=== PATIENT | female | born 1965 | race African-American/Black ===

== ENCOUNTER 2016-12-25 16:50 | Emergency (ER) | payer MEDICARE, MEDICAID ==
[~2016-12-25] VITALS: Ht 165.1 cm; Wt 117.9 kg
[~2016-12-25 16:50] MED LIST: CLON0.5T PO; INSU100V13 SQ; LIPITOR80 MG PO; LISI-334 PO; RISP50DI IM
[2016-12-25] MEDS ORDERED: cloNIDine HCL 0.1 MG TABLET PO ONE (17:15)
--- NOTE | 2016-12-25 17:17 | PHYS DOC ---
Past Medical History Past Medical History: Anxiety, Bipolar, CHF, Diabetes-Type II, Hypertension Additional Past Medical Histor: major depres. disorder w psychosis,flu,vit d deffic.,constipation,dm neuop. Past Surgical History: No Surgical History Alcohol Use: None Drug Use: None Adult General Chief Complaint Chief Complaint: SHORTNESS OF BREATH HPI HPI Patient is a 51 year old female who presents with increased shortness of breath. Patient lives in long term and gets dialysis Saturday however she stated that she did not fill I, dialysis on Saturday so she skipped. Patient also refuses to take blood pressure medication the long term because she doesn't trust the nurses. Patient states she had increasing soreness of breath today at the long term sent her to the emergency room for elevated blood pressures and possible fluid overload. Pertinent exam findings: Regular rate and rhythm without murmurs Lungs clear to auscultation bilaterally without crackles wheeze or rales No peripheral edema ED course: Patient seen and evaluated emergency room CBC, BMP, EKG, chest x-ray was ordered 1658: EKG normal sinus rhythm rate of 85 no STEMI 1824: Discussed CC/HP/PMH with Dr. Lofton and recommends discharge and can dialyze tomorrow and does not need to be emergently dialyzed at this time. He would like to treat the potassium and give the patient strict return precautions and recommend she has to go dialysis tomorrow. 1830: Explained plan with the patient and strongly encourage patient to attend dialysis tomorrow. On reexamination patient's blood pressure is 180/90 and the patient is asymptomatic. Pertinent findings: Potassium of 5.7 MDM: After reviewing the chart, CC/HPI/PMH, physical exam, [lab results], [ radiological results], I do not believe the patient is acutely volume overload requiring emergent dialysis at this time. Discussed case with nephrology who recommended treating the potassium and recommended patient attend dialysis tomorrow for her normal scheduled routine dialysis appointment. Patient is comfortable being discharged. Patient's blood pressure has come down and she is asymptomatic. Patient is stable for discharge. Additional verbal discharge instructions were provided to the patient and that if symptoms get worse or any new symptoms arise that are worrisome to the patient [he/she] is to return to the emergency room immediately Review of Systems Review of Systems GEN: Denies fevers, chills, sweats HEENT: Denies blurred vision, sore throat CV: Denies chest pain RESP: Shortness of air GI: Denies n/v/d NEURO: Denies confusion, dizziness MSK: Denies weakness, joint pain/swelling Current Medications Current Medications Current Medications Medications (Trade) Dose Ordered Sig/Sanchez Start Time Stop Time Status Last Admin Dose Admin Calcium Gluconate (Calcium Gluconate) 1,000 mg 1X ONCE 12/25/16 18:30 12/25/16 18:31 DC 12/25/16 20:00 1,000 MG Clonidine HCl (Catapres) 0.1 mg 1X ONCE 12/25/16 17:15 12/25/16 17:16 DC 12/25/16 17:23 0.1 MG Dextrose (Dextrose 50%-Water Syringe) 25 gm 1X ONCE 12/25/16 18:30 12/25/16 18:31 DC 12/25/16 19:58 25 GM Insulin Human Regular (NovoLIN R VIAL) 10 unit 1X ONCE 12/25/16 18:30 12/25/16 18:31 DC 12/25/16 20:00 10 UNIT Sodium Polystyrene Sulfonate (Kayexalate) 15 gm 1X ONCE 12/25/16 18:30 12/25/16 18:31 DC 12/25/16 19:57 15 GM Sodium Bicarbonate 50 meq 1X ONCE 12/25/16 18:30 12/25/16 18:31 DC 12/25/16 19:53 50 MEQ Allergies Allergies Allergies Coded Allergies Type Severity Reaction Last Updated Verified Milk Containing Products Allergy Intermediate 11/02/15 Yes Penicillins Allergy Intermediate 11/02/15 Yes Physical Exam Physical Exam GEN.: No apparent distress. Alert and oriented. HEENT: Head is normocephalic, atraumatic NECK: Supple. LUNGS: CTAB. HEART: RRR, S1, S2 present. Peripheral pulses intact ABDOMEN: Soft, nontender. Positive bowel sounds. EXTREMITIES: Without any cyanosis. NEUROLOGIC: Normal speech, normal tone PSYCHIATRIC: Normal affect, normal mood. SKIN: No ulcerations Current Patient Data Vital Signs Vital Signs Date Time Temp Pulse Resp B/P (MAP) Pulse Ox O2 Delivery O2 Flow Rate FiO2 12/25/16 20:00 83 20 181/96 (124) 99 Room Air 12/25/16 16:50 97.7 97.7 Lab Values Laboratory Tests Test 12/25/16 17:10 White Blood Count 8.9 x10^3/uL (4.0-11.0) Red Blood Count 4.21 x10^6/uL (3.50-5.40) Hemoglobin 9.8 g/dL (12.0-15.5) L Hematocrit 32.0 % (36.0-47.0) L Mean Corpuscular Volume 76 fL (79-100) L Mean Corpuscular Hemoglobin 23 pg (25-35) L Mean Corpuscular Hemoglobin Concent 31 g/dL (31-37) Red Cell Distribution Width 17.8 % (11.5-14.5) H Platelet Count 275 x10^3/uL (140-400) Neutrophils (%) (Auto) 63 % (31-73) Lymphocytes (%) (Auto) 25 % (24-48) Monocytes (%) (Auto) 8 % (0-9) Eosinophils (%) (Auto) 2 % (0-3) Basophils (%) (Auto) 1 % (0-3) Neutrophils # (Auto) 5.6 x10^3uL (1.8-7.7) Lymphocytes # (Auto) 2.3 x10^3/uL (1.0-4.8) Monocytes # (Auto) 0.7 x10^3/uL (0.0-1.1) Eosinophils # (Auto) 0.2 x10^3/uL (0.0-0.7) Basophils # (Auto) 0.1 x10^3/uL (0.0-0.2) Sodium Level 142 mmol/L (136-145) Potassium Level 5.7 mmol/L (3.5-5.1) H Chloride Level 102 mmol/L (98-107) Carbon Dioxide Level 25 mmol/L (21-32) Anion Gap 15 (6-14) H Blood Urea Nitrogen 80 mg/dL (7-20) H Creatinine 16.5 mg/dL (0.6-1.0) H Estimated GFR (Cockcroft-Gault) 2.8 Glucose Level 85 mg/dL (70-99) Calcium Level 9.1 mg/dL (8.5-10.1) Laboratory Tests 12/25/16 17:10 Laboratory Tests 12/25/16 17:10 EKG EKG [] Radiology/Procedures Radiology/Procedures [] Course & Med Decision Making Course & Med Decision Making Pertinent Labs and Imaging studies reviewed. (See chart for details) [] Dragon Disclaimer Dragon Disclaimer This electronic medical record was generated, in whole or in part, using a voice recognition dictation system. Departure Departure Impression: Primary Impression: ESRD on dialysis Additional Impressions: Hyperkalemia Hypertension Disposition: HOME, SELF-CARE Condition: IMPROVED Referrals: DIANA DURHAM (PCP) Patient Instructions: Dialysis Additional Instructions: Leads follow-up with her family doctor in one to 2 days. Please attend her dialysis appointment tomorrow. Please take your blood pressure medications as prescribed. Problem Qualifiers Additional Impressions: Hypertension Hypertension type: essential hypertension Qualified Codes: I10 - Essential ( primary) hypertension ROSEANNE YAP DO December 25, 2016 17:17
[2016-12-25 17:31] LABS: BASO # 0.1 x10^3/uL (0.0-0.2); BASO % 1 % (0-3); EOS % 2 % (0-3); HEMOGLOBIN 9.8 g/dL (12.0-15.5); LYMPH # 2.3 x10^3/uL (1.0-4.8); LYMPH % 25 % (24-48); MEAN CORPUSCULAR HEMOGLOBIN 23 pg (25-35); MEAN CORPUSCULAR HGB CONC 31 g/dL (31-37); MEAN CORPUSCULAR VOLUME 76 fL (79-100); MONO % 8 % (0-9); NEUT % 63 % (31-73); PLATELET COUNT 275 x10^3/uL (140-400); RED BLOOD COUNT 4.21 x10^6/uL (3.50-5.40); RED CELL DISTRIBUTION WIDTH 17.8 % (11.5-14.5); WHITE BLOOD COUNT 8.9 x10^3/uL (4.0-11.0)
[2016-12-25 17:35] LABS: CALCIUM 9.1 mg/dL (8.5-10.1); CREATININE 16.5 mg/dL (0.6-1.0); GFR 2.8; POTASSIUM 5.7 mmol/L (3.5-5.1)
[2016-12-25] MEDS ORDERED: INSULIN REGULAR 100 UNIT/ML 10ML VIAL. IV ONE (18:30)
[2016-12-25] MEDS ORDERED: SODIUM BICARB ADULT 8.4% 50 MEQ/50 ML DISP.SYRIN. IV ONE (18:30)
[2016-12-25] MEDS ORDERED: DEXTROSE 50% 25 GM / 50ML DISP.SYRIN. IV ONE (18:30)
[2016-12-25] MEDS ORDERED: CALCIUM GLUCONATE 1,000 MG/10 ML VIAL. IVP ONE (18:30)
[2016-12-25] MEDS ORDERED: SODIUM POLYSTYRENE SULFONATE 15 GM/60 ML ORAL.SUSP. PO ONE (18:30)
[2016-12-25 20:00] VITALS: BP 181/96
--- NOTE | 2016-12-26 06:28 | EKG ---
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
--- NOTE | 2016-12-26 09:22 | RAD ---
Indication shortness of air. History of hypertension. Diabetes. Congestive heart failure. PA and lateral views of the chest were obtained. No prior imaging is available. Heart size is normal. There may be some very mild pulmonary vascular congestion. There is volume loss at the lung bases likely reflecting atelectasis or scar. A consolidated pneumonia is not seen. There is no significant pleural fluid. There is no pneumothorax IMPRESSION: Suspect very mild pulmonary vascular congestion. No focal consolidated pneumonia seen. Mild atelectasis at the lung bases
== END 2016-12-25 20:08 | disposition home or self-care (01) ==
LOC: ER 16:50
DX: E11.22 Type 2 diabetes mellitus with diabetic chronic kidney disease (principal); I13.2 Hypertensive heart and chronic kidney disease with heart failure and with stage 5 chronic kidney disease, or end stage renal disease; I50.9 Heart failure, unspecified; N18.6 End stage renal disease; E87.5 Hyperkalemia; E11.40 Type 2 diabetes mellitus with diabetic neuropathy, unspecified; F41.9 Anxiety disorder, unspecified; F31.9 Bipolar disorder, unspecified; Z88.0 Allergy status to penicillin; Z91.011 Allergy to milk products; Z99.2 Dependence on renal dialysis
CPT/HCPCS: 36415; 71020; 80048; 85027; 93005; 96374; 96375; 99285; J0610; J1815; J7042

== ENCOUNTER 2019-04-28 21:44 | Inpatient (IN) | payer MEDICARE, OTHER ==
[~2019-04-28] VITALS: Ht 165.1 cm; Wt 84.1 kg
[2019-04-28] MEDS ORDERED: DEXTROSE 50% 25 GM / 50ML DISP.SYRIN. IV ONE ×2 (22:31→23:00)
--- NOTE | 2019-04-28 22:32 | PHYS DOC ---
Past Medical History Past Medical History: Anxiety, Bipolar, CHF, Diabetes-Type II, Hypertension Additional Past Medical Histor: major depres. disorder w psychosis,flu,vit d deffic.,constipation,dm neuop. Past Surgical History: No Surgical History Alcohol Use: None Drug Use: None Adult General Chief Complaint Chief Complaint: ALTERED MENTAL STATUS HPI HPI 53-year-old female presents to the emergency department with altered mental status, hypoglycemia. Information obtained from EMS as patient is unaware of why she is here. Patient has underlying history of hypertension, diabetes, chronic kidney disease stage III, bipolar, major depressive disorder. She is unable provided information regarding reviews of systems. Patient's blood sugar is currently 58. Review of Systems Review of Systems Unable to obtain patient's reviews of systems given her mental status secondary to hypoglycemia. All other systems were reviewed and found to be within normal limits, except as documented in this note. Current Medications Current Medications Current Medications Medications (Trade) Dose Ordered Sig/Sanchez Start Time Stop Time Status Last Admin Dose Admin Dextrose (Dextrose 50%-Water Syringe) 25 gm 1X ONCE 04/28/19 23:00 04/28/19 23:01 DC Allergies Allergies Allergies Coded Allergies Type Severity Reaction Last Updated Verified Milk Containing Products Allergy Intermediate 11/02/15 Yes Penicillins Allergy Intermediate 11/02/15 Yes haloperidol Allergy Intermediate 04/28/19 Yes Physical Exam Physical Exam Constitutional: Well developed, well nourished, no acute distress, non-toxic appearance. [] HENT: Normocephalic, atraumatic, bilateral external ears normal, oropharynx moist, no oral exudates, nose normal. [] Eyes: PERRLA, EOMI, conjunctiva normal, no discharge. [] Neck: Normal range of motion, no tenderness, supple, no stridor. [] Cardiovascular:Heart rate regular rhythm, no murmur [] Lungs & Thorax: Bilateral breath sounds clear to auscultation [] Abdomen: Bowel sounds normal, soft, no tenderness, no masses, no pulsatile masses. [] Skin: Warm, dry, no erythema, no rash. [] Back: No tenderness, no CVA tenderness. [] Extremities: No tenderness, no cyanosis, no clubbing, ROM intact, no edema. [] Neurologic: Alert and oriented X 3, normal motor function, normal sensory function, no focal deficits noted. [] Psychologic: Affect normal, judgement normal, mood normal. [] Current Patient Data Vital Signs Vital Signs Date Time Temp Pulse Resp B/P (MAP) Pulse Ox O2 Delivery O2 Flow Rate FiO2 04/28/19 23:12 56 20 04/28/19 21:50 133/70 (91) 80 Room Air Lab Values Laboratory Tests Test 04/28/19 21:57 04/28/19 22:00 04/28/19 22:29 04/28/19 22:55 Glucose (Fingerstick) 63 mg/dL (70-99) L 59 mg/dL (70-99) L 193 mg/dL (70-99) H White Blood Count 7.0 x10^3/uL (4.0-11.0) Red Blood Count 3.29 x10^6/uL (3.50-5.40) L Hemoglobin 8.6 g/dL (12.0-15.5) L Hematocrit 27.1 % (36.0-47.0) L Mean Corpuscular Volume 82 fL (79-100) Mean Corpuscular Hemoglobin 26 pg (25-35) Mean Corpuscular Hemoglobin Concent 32 g/dL (31-37) Red Cell Distribution Width 20.9 % (11.5-14.5) H Platelet Count 251 x10^3/uL (140-400) Neutrophils (%) (Auto) 78 % (31-73) H Lymphocytes (%) (Auto) 10 % (24-48) L Monocytes (%) (Auto) 12 % (0-9) H Eosinophils (%) (Auto) 0 % (0-3) Basophils (%) (Auto) 1 % (0-3) Neutrophils # (Auto) 5.5 x10^3/uL (1.8-7.7) Lymphocytes # (Auto) 0.7 x10^3/uL (1.0-4.8) L Monocytes # (Auto) 0.8 x10^3/uL (0.0-1.1) Eosinophils # (Auto) 0.0 x10^3/uL (0.0-0.7) Basophils # (Auto) 0.0 x10^3/uL (0.0-0.2) Platelet Estimate Adequate (ADEQUATE) Polychromasia Occasional Anisocytosis Mod Target Cells Occ Schistocytes Occ Laboratory Tests 04/28/19 22:00 EKG EKG EKG reviewed heart rate 77, no evidence of acute ST elevation pressure, nonurgent EKG[] Interpretation Time: Interpretation time 2234 Radiology/Procedures Radiology/Procedures [] Course & Med Decision Making Course & Med Decision Making Pertinent Labs and Imaging studies reviewed. (See chart for details) []53-year-old female presents to the emergency department with altered mental status, hypoglycemia. Information obtained from EMS as patient is unaware of why she is here. Patient has underlying history of hypertension, diabetes, chronic kidney disease stage III, bipolar, major depressive disorder. She is unable provided information regarding reviews of systems. Patient's blood sugar is currently 58. Patient's blood sugar upon arrival in the 60s, she was given orange juice, repeat reveals a glucose 58, 1 amp of D50 provided. Dragon Disclaimer Dragon Disclaimer This electronic medical record was generated, in whole or in part, using a voice recognition dictation system. Departure Departure Referrals: DIANA DURHAM (PCP) JUVENCIO MORAN MD Apr 28, 2019 22:32
[2019-04-28 22:41] LABS: BASO % 1 % (0-3); EOS % 0 % (0-3); HEMATOCRIT 27.1 % (36.0-47.0); HEMOGLOBIN 8.6 g/dL (12.0-15.5); LYMPH # 0.7 x10^3/uL (1.0-4.8); LYMPH % 10 % (24-48); MEAN CORPUSCULAR HEMOGLOBIN 26 pg (25-35); MEAN CORPUSCULAR HGB CONC 32 g/dL (31-37); MEAN CORPUSCULAR VOLUME 82 fL (79-100); MONO # 0.8 x10^3/uL (0.0-1.1); MONO % 12 % (0-9); NEUT # 5.5 x10^3/uL (1.8-7.7); NEUT % 78 % (31-73); PLATELET COUNT 251 x10^3/uL (140-400); RED BLOOD COUNT 3.29 x10^6/uL (3.50-5.40); RED CELL DISTRIBUTION WIDTH 20.9 % (11.5-14.5)
--- NOTE | 2019-04-28 23:17 | RAD ---
EXAM: CT HEAD WITHOUT CONTRAST. HISTORY: Altered mental status. TECHNIQUE: Computed tomography of the head was performed without intravenous contrast. COMPARISON: None. FINDINGS: There is no intracranial hemorrhage. Hypoattenuation within the periventricular white matter indicates mild chronic microangiopathic change. Prominence of the lateral ventricles and hemispheric sulci indicates mild atrophy. The visualized paranasal sinuses appear clear. The orbits are unremarkable. The temporal bones are unremarkable. The calvarium reveals no suspicious lesions. There are atherosclerotic calcifications of the internal carotid arteries. IMPRESSION: 1. No acute intracranial findings. 2. Mild atrophy and chronic microangiopathic white matter change. *One or more of the following individualized dose reduction techniques were utilized for this examination: 1. Automated exposure control. 2. Adjustment of the mA and/or kV according to patient size. 3. Use of iterative reconstruction technique. Electronically signed by: Merlyn Orlando MD (04/28/2019 11:14 PM) [facility]
[2019-04-28 23:19] LABS: ANISOCYTOSIS MOD; PLT ESTIMATE ADEQUATE (ADEQUATE); POLYCHROMASIA OCCASIONAL; SCHISTOCYTES OCC; TARGET CELLS OCC
--- NOTE | 2019-04-28 23:47 | PHYS DOC ---
Past Medical History Past Medical History: Diabetes-Type II, Renal Failure Additional Past Medical Histor: major depres. disorder w psychosis,flu,vit d deffic.,constipation,dm neuop. Past Surgical History: No Surgical History Alcohol Use: None Drug Use: None Adult General Chief Complaint Chief Complaint: ALTERED MENTAL STATUS HPI HPI 53-year-old female presents to the emergency department with altered mental status, hypoglycemia. Information obtained from EMS as patient is unaware of why she is here. Patient has underlying history of hypertension, diabetes, chronic kidney disease stage III, bipolar, major depressive disorder. She is unable provided information regarding reviews of systems. Patient's blood sugar is currently 58. Review of Systems Review of Systems Unable to obtain patient's reviews of systems given her mental status secondary to hypoglycemia. All other systems were reviewed and found to be within normal limits, except as documented in this note. Current Medications Current Medications Current Medications Medications (Trade) Dose Ordered Sig/Sanchez Start Time Stop Time Status Last Admin Dose Admin Dextrose (Dextrose 50%-Water Syringe) 25 gm 1X ONCE 04/28/19 23:00 04/28/19 23:01 DC 04/28/19 23:25 25 GM Allergies Allergies Allergies Coded Allergies Type Severity Reaction Last Updated Verified Milk Containing Products Allergy Intermediate 11/02/15 Yes Penicillins Allergy Intermediate 11/02/15 Yes haloperidol Allergy Intermediate 04/28/19 Yes Physical Exam Physical Exam Constitutional: Well developed, well nourished, no acute distress, non-toxic appearance. [] HENT: Normocephalic, atraumatic, bilateral external ears normal, oropharynx moist, no oral exudates, nose normal. [] Eyes: PERRLA, EOMI, conjunctiva normal, no discharge. [] Neck: Normal range of motion, no tenderness, supple, no stridor. [] Cardiovascular:Heart rate regular rhythm, no murmur [] Lungs & Thorax: Bilateral breath sounds clear to auscultation [] Abdomen: Bowel sounds normal, soft, no tenderness, no masses, no pulsatile masses. [] Skin: Warm, dry, no erythema, no rash. [] Back: No tenderness, no CVA tenderness. [] Extremities: No tenderness, no cyanosis, no clubbing, ROM intact, no edema. [] Neurologic: Alert and oriented X 3, normal motor function, normal sensory function, no focal deficits noted. [] Psychologic: Affect normal, judgement normal, mood normal. [] Current Patient Data Vital Signs Vital Signs Date Time Temp Pulse Resp B/P (MAP) Pulse Ox O2 Delivery O2 Flow Rate FiO2 04/28/19 23:12 56 20 04/28/19 21:50 133/70 (91) 80 Room Air Lab Values Laboratory Tests Test 04/28/19 21:57 04/28/19 22:00 04/28/19 22:29 04/28/19 22:55 Glucose (Fingerstick) 63 mg/dL (70-99) L 59 mg/dL (70-99) L 193 mg/dL (70-99) H White Blood Count 7.0 x10^3/uL (4.0-11.0) Red Blood Count 3.29 x10^6/uL (3.50-5.40) L Hemoglobin 8.6 g/dL (12.0-15.5) L Hematocrit 27.1 % (36.0-47.0) L Mean Corpuscular Volume 82 fL (79-100) Mean Corpuscular Hemoglobin 26 pg (25-35) Mean Corpuscular Hemoglobin Concent 32 g/dL (31-37) Red Cell Distribution Width 20.9 % (11.5-14.5) H Platelet Count 251 x10^3/uL (140-400) Neutrophils (%) (Auto) 78 % (31-73) H Lymphocytes (%) (Auto) 10 % (24-48) L Monocytes (%) (Auto) 12 % (0-9) H Eosinophils (%) (Auto) 0 % (0-3) Basophils (%) (Auto) 1 % (0-3) Neutrophils # (Auto) 5.5 x10^3/uL (1.8-7.7) Lymphocytes # (Auto) 0.7 x10^3/uL (1.0-4.8) L Monocytes # (Auto) 0.8 x10^3/uL (0.0-1.1) Eosinophils # (Auto) 0.0 x10^3/uL (0.0-0.7) Basophils # (Auto) 0.0 x10^3/uL (0.0-0.2) Platelet Estimate Adequate (ADEQUATE) Polychromasia Occasional Anisocytosis Mod Target Cells Occ Schistocytes Occ Laboratory Tests 04/28/19 22:00 EKG EKG EKG reviewed, sinus tachycardia no evidence of acute ST or T wave change, wide complex, compared to old EKG - changed from 2017 - this may be associated with hyperkalemia] Interpretation Time: 2315 Radiology/Procedures Radiology/Procedures [facility] [address] [place] [address] IMAGING REPORT Signed PATIENT: JAMES BALDERAS ACCOUNT: [id number] : 1965 LOCATION: ER AGE: 53 SEX: F EXAM STATUS: REG ER ORD. PHYSICIAN: JUVENCIO MORAN MD REASON: AMS PROCEDURE: CT HEAD WO CONTRAST EXAM: CT HEAD WITHOUT CONTRAST. HISTORY: Altered mental status. TECHNIQUE: Computed tomography of the head was performed without intravenous contrast. COMPARISON: None. FINDINGS: There is no intracranial hemorrhage. Hypoattenuation within the periventricular white matter indicates mild chronic microangiopathic change. Prominence of the lateral ventricles and hemispheric sulci indicates mild atrophy. The visualized paranasal sinuses appear clear. The orbits are unremarkable. The temporal bones are unremarkable. The calvarium reveals no suspicious lesions. There are atherosclerotic calcifications of the internal carotid arteries. IMPRESSION: 1. No acute intracranial findings. 2. Mild atrophy and chronic microangiopathic white matter change. *One or more of the following individualized dose reduction techniques were utilized for this examination: 1. Automated exposure control. 2. Adjustment of the mA and/or kV according to patient size. 3. Use of iterative reconstruction technique. Electronically signed by: Merlyn Orlando MD (04/28/2019 11:14 PM) [facility] DICTATED and SIGNED BY: TOBY ORLANDO MD DATE: 04/28/194 [] [address] [address] IMAGING REPORT Signed PATIENT: JAMES BALDERAS ACCOUNT: [id number] : 1965 LOCATION: ER AGE: 53 SEX: F EXAM STATUS: REG ER ORD. PHYSICIAN: JUVENCIO MORAN MD REASON: AMS PROCEDURE: CHEST AP ONLY EXAM: CHEST ONE VIEW. HISTORY: Altered mental status. COMPARISON: 12/25/2016. FINDINGS: A frontal view of the chest is obtained. A right-sided pacemaker has its leads in the right atrium and right ventricle. The inspiration is small. Opacities in the lung bases and perihilar regions are consistent with atelectasis or mild pulmonary edema. There is no pneumothorax or pleural effusion. The heart is not enlarged. IMPRESSION: 1. Basilar atelectasis. Correlate for mild pulmonary edema. Electronically signed by: Merlyn Orlando MD (04/28/2019 11:50 PM) [facility] DICTATED and SIGNED BY: TOBY ORLANDO MD DATE: 04/28/19 495 Course & Med Decision Making Course & Med Decision Making Pertinent Labs and Imaging studies reviewed. (See chart for details) []53-year-old female presents to the emergency department with altered mental status, hypoglycemia. Information obtained from EMS as patient is unaware of why she is here. Patient has underlying history of hypertension, diabetes, chronic kidney disease stage III, bipolar, major depressive disorder. She is unable provided information regarding reviews of systems. Patient's blood sugar is currently 58. Patient's blood sugar upon arrival in the 60s, she was given orange juice, repeat reveals a glucose 58, 1 amp of D50 provided. Labs reviewed, potassium 6.9 - changes appreciated and EKG we'll plan medical management with high-dose albuterol, Kayexalate, dextrose/insulin. Consultation with nephrology given hemodialysis - unknown her last was was, patient unsure. Discussed with DR. POWER - will repeat EKG and lab 0200 - if remains elevated, will need HD tonight. EKG has improved - wide complex narrowed and bradycardia resolved. Dragon Disclaimer Dragon Disclaimer This electronic medical record was generated, in whole or in part, using a voice recognition dictation system. Departure Departure Impression: Primary Impression: Altered mental status Additional Impressions: Hypoglycemia Hyperkalemia Disposition: ADMITTED INPATIENT Admitting Physician: OSMIN Condition: IMPROVED Referrals: DIANA DURHAM (PCP) Problem Qualifiers Primary Impression: Altered mental status Altered mental status type: unspecified Qualified Codes: R41.82 - Altered mental status, unspecified JUVENCIO MORAN MD Apr 28, 2019 23:47
--- NOTE | 2019-04-28 23:53 | RAD ---
EXAM: CHEST ONE VIEW. HISTORY: Altered mental status. COMPARISON: 12/25/2016. FINDINGS: A frontal view of the chest is obtained. A right-sided pacemaker has its leads in the right atrium and right ventricle. The inspiration is small. Opacities in the lung bases and perihilar regions are consistent with atelectasis or mild pulmonary edema. There is no pneumothorax or pleural effusion. The heart is not enlarged. IMPRESSION: 1. Basilar atelectasis. Correlate for mild pulmonary edema. Electronically signed by: Merlyn Orlando MD (04/28/2019 11:50 PM) [facility]
[2019-04-29] VITALS (14 sets, daily range): BP systolic 98–140; BP diastolic 34–77
[2019-04-29 00:12] LABS: ALBUMIN 2.9 g/dL (3.4-5.0); ALBUMIN/GLOBULIN RATIO 0.5 (1.0-1.7); CREATININE 14.6 mg/dL (0.6-1.0); GFR 3.2; TOTAL BILIRUBIN 1.2 mg/dL (0.2-1.0); TOTAL PROTEIN 8.3 g/dL (6.4-8.2)
[2019-04-29 00:14] LABS: POTASSIUM 6.9 mmol/L (3.5-5.1)
[2019-04-29] MEDS ORDERED: IV NORMAL SALINE 1000ML BAG 1,000 ML IV SCH (01:00)
[2019-04-29] MEDS ORDERED: INSULIN REGULAR 100 UNIT/ML 3ML VIAL. IV ONE (01:00)
[2019-04-29] MEDS ORDERED: SODIUM POLYSTYRENE SULFON/SORB 15 GM/60 ML ORAL.SUSP PO ONE (01:00)
[2019-04-29] MEDS ORDERED: SODIUM BICARB ADULT 8.4% 50 MEQ/50 ML DISP.SYRIN. IV ONE (01:00)
[2019-04-29] MEDS ORDERED: ONDANSETRON PF 4 MG/2 ML VIAL. IV PRN (01:00)
[2019-04-29] MEDS ORDERED: ALBUTEROL SULFATE 2.5 MG/3 ML NEBU. CONT NEB ONE (01:00)
[2019-04-29] MEDS ORDERED: DEXTROSE 50% 25 GM / 50ML DISP.SYRIN. IV ONE (01:00)
--- NOTE | 2019-04-29 02:30 | NUR ---
Patient admitted to room 112 from ED via cart, accompanied by ED RN. Patient A/O x4, cooperative, denies pain. Patient oriented to ICU routine, room, nursing call light, TV/Bed control, Numeric pain scale, Activity (BR), diet (Renal), Repeat K+ of 6.1, and POC. Patient has left upper arm dialysis fistula with strong bruit and thrill. Patient states she missed her Saturday dialysis run because she "just didn't feel well at all"; last dialysis was on Apr 24. Notified patient she would be receiving dialysis today but time was not known at this time' patient verbalized understanding. Patient's medications reviewed from [facility] paper work. See Admission information and Admission Assessments.
[2019-04-29] MEDS ORDERED: DEXT1DRO7 OP (05:07)
[2019-04-29] MEDS ORDERED: CLOB15CR TP (05:07)
[2019-04-29] MEDS ORDERED: FAMO-63 PO (05:07)
[2019-04-29] MEDS ORDERED: APIX5TAB PO (05:07)
[2019-04-29] MEDS ORDERED: BISA-42 PO (05:07)
[2019-04-29] MEDS ORDERED: AMIO200T4 PO ×2 (05:07)
[2019-04-29] MEDS ORDERED: AMMO225L5 TP (05:07)
[2019-04-29] MEDS ORDERED: FERR325T14 PO (05:07)
[2019-04-29] MEDS ORDERED: HYDR-2761 PO (05:07)
[2019-04-29] MEDS ORDERED: BISA10SU4 RC (05:07)
[2019-04-29] MEDS ORDERED: FOLI1TAB16 PO (05:07)
[2019-04-29] MEDS ORDERED: AMLO5TAB10 PO (05:07)
[2019-04-29] MEDS ORDERED: ASPI81TA50 PO (05:07)
[2019-04-29] MEDS ORDERED: ACET325T9 PO (05:26)
[2019-04-29] MEDS ORDERED: RANO500T2 PO (05:26)
[2019-04-29] MEDS ORDERED: CALC667S PO (05:26)
[2019-04-29] MEDS ORDERED: NITR0.4T22 SL (05:26)
[2019-04-29] MEDS ORDERED: METO25TA4 PO (05:26)
[2019-04-29] MEDS ORDERED: CLON0.5T PO (05:26)
[2019-04-29] MEDS ORDERED: CHOL100013 PO (05:26)
[2019-04-29] MEDS ORDERED: LIDO700A21 TP (05:26)
[2019-04-29] MEDS ORDERED: CALC200T3 PO (05:26)
[2019-04-29] MEDS ORDERED: LOPE-101 PO (05:26)
[2019-04-29] MEDS ORDERED: POLY17PO29 PO (05:26)
[2019-04-29] MEDS ORDERED: ESCITALOPRAM OXA5 MG PO (05:26)
[2019-04-29] MEDS ORDERED: INSU100V13 SQ (05:26)
--- NOTE | 2019-04-29 07:04 | EKG ---
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
[2019-04-29] MEDS ORDERED: IV NORMAL SALINE 1000ML BAG 1,000 ML IV PRN ×2 (07:38)
[2019-04-29] MEDS ORDERED: diphenhydrAMINE 50 MG/ML VIAL IV PRN ×2 (07:45)
[2019-04-29] MEDS ORDERED: ACETAMINOPHEN 500 MG TABLET PO PRN (07:45)
[2019-04-29] MEDS ORDERED: ALBUMIN HUMAN 25% 200 ML IV PRN (07:45)
[2019-04-29] MEDS ORDERED: DIALYSIS PATIENT. MC PRN ×2 (07:45)
[2019-04-29] MEDS ORDERED: LABETALOL 20 MG/4 ML DISP.SYRIN. IVP PRN (07:45)
--- NOTE | 2019-04-29 10:26 | PDOC2 ---
CONSULT Date of Consult Date of Consult DATE: 04/29/19 TIME: 10:08 Reason for Consult Reason for Consult: ESRD, Hyperkalemia , Missed HD Source Source: Chart review, Patient History of Present Illness Reason for Visit: 53-year-old AA female presents to the emergency department with altered mental status, hypoglycemia. Information in ER obtained from EMS as patient was unaware of why she is here. Patient has underlying history of hypertension, diabetes, chronic kidney disease stage III, bipolar, major depressive disorder. Her blood sugar in ED was 58. Labs in ED potassium 6.9 - Paged by ER provider, informed no EKG changes, medical management with high-dose albuterol, Kayexalate, dextrose/insulin in ER and plan to repeat EKG and K Repeat K had improved to 6.1 . No complaints at present . Tolerating Dialysis Past Medical History Cardiovascular: CHF, HTN Heme/Onc: Anemia NOS Renal/: Chronic renal failure Endocrine: Diabetes Past Surgical History Past Surgical History: No pertinent history Family History Family History Poor Historian Family History: Other Social History Social History Poor Historian Current Problem List Problem List Problems Medical Problems: (1) Altered mental status Status: Acute (2) Hypoglycemia Status: Acute Current Medications Current Medications Current Medications Dextrose (Dextrose 50%-Water Syringe) 25 gm STK-MED ONCE IV ; Start 04/28/19 at 22:31; Stop 04/28/19 at 22:31; Status DC Dextrose (Dextrose 50%-Water Syringe) 25 gm 1X ONCE IV Last administered on 04/28/19at 23:25; Start 04/28/19 at 23:00; Stop 04/28/19 at 23:01; Status DC Sodium Bicarbonate (Sodium Bicarb Adult 8.4% Syr) 50 meq 1X ONCE IV Last administered on 04/29/19at 00:33; Start 04/29/19 at 01:00; Stop 04/29/19 at 01:01; Status DC Dextrose (Dextrose 50%-Water Syringe) 25 gm 1X ONCE IV Last administered on 04/29/19at 00:33; Start 04/29/19 at 01:00; Stop 04/29/19 at 01:01; Status DC Insulin Human Regular (HumuLIN R VIAL) 5 unit 1X ONCE IV Last administered on 04/29/19at 00:35; Start 04/29/19 at 01:00; Stop 04/29/19 at 01:01; Status DC Sodium Polystyrene Sulfonate (Kayexalate) 30 gm 1X ONCE PO Last administered on 04/29/19at 00:32; Start 04/29/19 at 01:00; Stop 04/29/19 at 01:01; Status DC Sodium Chloride 1,000 ml @ 1,000 mls/hr Q1H IV Last administered on 04/29/19at 00:30; Start 04/29/19 at 01:00; Stop 04/29/19 at 01:59; Status DC Albuterol Sulfate (Ventolin Neb Soln) 10 mg 1X ONCE CONT NEB Last administered on 04/29/19at 00:35; Start 04/29/19 at 01:00; Stop 04/29/19 at 01:01; Status DC Ondansetron HCl (Zofran) 4 mg PRN Q8HRS PRN IV NAUSEA/VOMITING 1ST CHOICE; Start 04/29/19 at 01:00; Stop 04/30/19 at 00:59 Sodium Chloride 1,000 ml @ 1,000 mls/hr Q1H PRN IV hypotension; Start 04/29/19 at 07:38; Stop 04/29/19 at 13:37 Albumin Human 200 ml @ 200 mls/hr 1X PRN PRN IV Hypotension; Start 04/29/19 at 07:45; Stop 04/29/19 at 13:44 Acetaminophen (Tylenol) 500 mg 1X PRN PRN PO MILD PAIN / TEMP; Start 04/29/19 at 07:45; Stop 04/30/19 at 07:44 Diphenhydramine HCl (Benadryl) 25 mg 1X PRN PRN IV ITCHING; Start 04/29/19 at 07:45; Stop 04/30/19 at 07:44 Diphenhydramine HCl (Benadryl) 25 mg 1X PRN PRN IV ITCHING; Start 04/29/19 at 07:45; Stop 04/30/19 at 07:44 Labetalol HCl (Normodyne Iv Push) 10 mg PRN Q1HR PRN IVP SBP > 180; Start 04/29/19 at 07:45; Stop 04/30/19 at 07:44 Sodium Chloride 1,000 ml @ 400 mls/hr Q2H30M PRN IV PATENCY; Start 04/29/19 at 07:38; Stop 04/29/19 at 19:37 Info (PHARMACY MONITORING -- do not chart) 1 each PRN DAILY PRN MC SEE COMMENTS; Start 04/29/19 at 07:45; Stop 04/29/19 at 07:46; Status DC Info (PHARMACY MONITORING -- do not chart) 1 each PRN DAILY PRN MC SEE COMMENTS; Start 04/29/19 at 07:45 Active Scripts Active Reported Vitamin D (Cholecalciferol (Vitamin D3)) 1,000 Unit Capsule 1 Cap PO DAILY Tylenol (Acetaminophen) 325 Mg Tablet 2 Tab PO PRN Q4HRS Tums (Calcium Carbonate) 200 Mg Tab.chew 4 Tab PO DAILY Ranexa (Ranolazine) 500 Mg Tab.er.12h 1 Tab PO Q12HR Phoslyra (Calcium Acetate) 667 Mg/5 Ml Solution 15 Ml PO TIDAC NITROGLYCERIN SubLingual (Nitroglycerin) 0.4 Mg Tab.subl 0.4 Mg SL PRN Q5MIN PRN Miralax (Polyethylene Glycol 3350) 17 Gm Powd.pack 1 Packet PO BID Metoprolol Tartrate 25 Mg Tablet 1 Tab PO BID Lidocaine PATCH (Lidocaine) 1 Each Adh..patch 1 Each TP DAILY REMOVE AFTER 12 HOURS Lexapro (Escitalopram Oxalate) 5 Mg Tablet 15 Mg PO DAILY Levemir (Insulin Detemir) 100 Unit/1 Ml Vial 15 Unit SQ QHS Klonopin (Clonazepam) 0.5 Mg Tablet 1 Tab PO TID Imodium A-D (Loperamide HCl) 2 Mg Capsule 2 Mg PO PRN Q4HRS PRN Hydrocodone-Apap 5-325 (Hydrocodone Bit/Acetaminophen) 1 Tab Tablet 1 Tab PO PRN Q4HRS PRN Folic Acid 1 Mg Tablet 1 Tab PO DAILY Ferrous Sulfate 325 Mg Tablet 1 Tab PO BID Pepcid (Famotidine) 20 Mg Tablet 20 Mg PO HS Clobetasol Propionate 15 Gm Cream..g. 1 Jomar TP DAILY08 Dulcolax (Bisacodyl) 5 Mg Tablet. 4 Tab PO PRN BID PRN Bisacodyl 10 Mg Supp.rect 10 Mg RC PRN DAILY PRN Aspir-Low (Aspirin) 81 Mg Tablet. 1 Tab PO DAILY Artificial Tears (Dextran 70/Hypromellose) 1 Each Droperette 1 Each OP PRN Q8HRS PRN Eliquis (Apixaban) 5 Mg Tablet 5 Mg PO BID Ammonium Lactate 226 Gm Lotion 1 Gm TP DAILY16 Amlodipine Besylate 5 Mg Tablet 5 Mg PO DAILY Amiodarone Hcl 200 Mg Tablet 2 Tab PO BID Amiodarone Hcl 200 Mg Tablet 1 Tab PO NOON Lipitor (Atorvastatin Calcium) 80 Mg Tablet 1 Tab PO DAILY Allergies Allergies: Coded Allergies: Milk Containing Products (Verified Allergy, Intermediate, 11/02/15) Penicillins (Verified Allergy, Intermediate, 11/02/15) haloperidol (Verified Allergy, Intermediate, 04/28/19) ROS Review of System Per HPI Physical Exam Physical Exam GEN: NAD HEEN: OM moist NECK: Supple CVS: S1S2, RESP: No Acc. Muscle Use GI: BS + ve, Non Tender, : No CVA tenderness, No Suprapubic Tenderness NEURO- Ax O SKIN - No rash Vital Signs Vital Signs Date Time Temp Pulse Resp B/P (MAP) Pulse Ox O2 Delivery O2 Flow Rate FiO2 04/29/19 10:00 60 21 120/63 (82) 96 Room Air 04/29/19 09:00 98.3 98.3 Assessment & Plan ESRD - On HD MWF, at ([facility] ) Seen on HD , tolerating well , continue as ordered , Howie Esquivel HyperKalemia- At presentation 6.9, down to 6.1 with medical management HD today as ordered DM- per primary Anemia- stable Labs Labs Laboratory Tests Test 04/28/19 21:57 04/28/19 22:00 04/28/19 22:29 04/28/19 22:55 Glucose (Fingerstick) 63 mg/dL (70-99) 59 mg/dL (70-99) 193 mg/dL (70-99) White Blood Count 7.0 x10^3/uL (4.0-11.0) Red Blood Count 3.29 x10^6/uL (3.50-5.40) Hemoglobin 8.6 g/dL (12.0-15.5) Hematocrit 27.1 % (36.0-47.0) Mean Corpuscular Volume 82 fL (79-100) Mean Corpuscular Hemoglobin 26 pg (25-35) Mean Corpuscular Hemoglobin Concent 32 g/dL (31-37) Red Cell Distribution Width 20.9 % (11.5-14.5) Platelet Count 251 x10^3/uL (140-400) Neutrophils (%) (Auto) 78 % (31-73) Lymphocytes (%) (Auto) 10 % (24-48) Monocytes (%) (Auto) 12 % (0-9) Eosinophils (%) (Auto) 0 % (0-3) Basophils (%) (Auto) 1 % (0-3) Neutrophils # (Auto) 5.5 x10^3/uL (1.8-7.7) Lymphocytes # (Auto) 0.7 x10^3/uL (1.0-4.8) Monocytes # (Auto) 0.8 x10^3/uL (0.0-1.1) Eosinophils # (Auto) 0.0 x10^3/uL (0.0-0.7) Basophils # (Auto) 0.0 x10^3/uL (0.0-0.2) Platelet Estimate Adequate (ADEQUATE) Polychromasia Occasional Anisocytosis Mod Target Cells Occ Schistocytes Occ Test 04/28/19 23:45 04/29/19 00:02 04/29/19 01:45 04/29/19 04:18 Sodium Level 134 mmol/L (136-145) Potassium Level 6.9 mmol/L (3.5-5.1) 6.1 mmol/L (3.5-5.1) Chloride Level 91 mmol/L (98-107) Carbon Dioxide Level 25 mmol/L (21-32) Anion Gap 18 (6-14) Blood Urea Nitrogen 85 mg/dL (7-20) Creatinine 14.6 mg/dL (0.6-1.0) Estimated GFR (Cockcroft-Gault) 3.2 BUN/Creatinine Ratio 6 (6-20) Glucose Level 192 mg/dL (70-99) Calcium Level 13.0 mg/dL (8.5-10.1) Total Bilirubin 1.2 mg/dL (0.2-1.0) Aspartate Amino Transf (AST/SGOT) 164 U/L (15-37) Alanine Aminotransferase (ALT/SGPT) 164 U/L (14-59) Alkaline Phosphatase 105 U/L (46-116) Total Protein 8.3 g/dL (6.4-8.2) Albumin 2.9 g/dL (3.4-5.0) Albumin/Globulin Ratio 0.5 (1.0-1.7) Glucose (Fingerstick) 185 mg/dL (70-99) 109 mg/dL (70-99) Laboratory Tests Test 04/28/19 21:57 04/28/19 22:00 04/28/19 22:29 04/28/19 22:55 Glucose (Fingerstick) 63 mg/dL (70-99) 59 mg/dL (70-99) 193 mg/dL (70-99) White Blood Count 7.0 x10^3/uL (4.0-11.0) Red Blood Count 3.29 x10^6/uL (3.50-5.40) Hemoglobin 8.6 g/dL (12.0-15.5) Hematocrit 27.1 % (36.0-47.0) Mean Corpuscular Volume 82 fL (79-100) Mean Corpuscular Hemoglobin 26 pg (25-35) Mean Corpuscular Hemoglobin Concent 32 g/dL (31-37) Red Cell Distribution Width 20.9 % (11.5-14.5) Platelet Count 251 x10^3/uL (140-400) Neutrophils (%) (Auto) 78 % (31-73) Lymphocytes (%) (Auto) 10 % (24-48) Monocytes (%) (Auto) 12 % (0-9) Eosinophils (%) (Auto) 0 % (0-3) Basophils (%) (Auto) 1 % (0-3) Neutrophils # (Auto) 5.5 x10^3/uL (1.8-7.7) Lymphocytes # (Auto) 0.7 x10^3/uL (1.0-4.8) Monocytes # (Auto) 0.8 x10^3/uL (0.0-1.1) Eosinophils # (Auto) 0.0 x10^3/uL (0.0-0.7) Basophils # (Auto) 0.0 x10^3/uL (0.0-0.2) Platelet Estimate Adequate (ADEQUATE) Polychromasia Occasional Anisocytosis Mod Target Cells Occ Schistocytes Occ Test 04/28/19 23:45 04/29/19 00:02 04/29/19 01:45 04/29/19 04:18 Sodium Level 134 mmol/L (136-145) Potassium Level 6.9 mmol/L (3.5-5.1) 6.1 mmol/L (3.5-5.1) Chloride Level 91 mmol/L (98-107) Carbon Dioxide Level 25 mmol/L (21-32) Anion Gap 18 (6-14) Blood Urea Nitrogen 85 mg/dL (7-20) Creatinine 14.6 mg/dL (0.6-1.0) Estimated GFR (Cockcroft-Gault) 3.2 BUN/Creatinine Ratio 6 (6-20) Glucose Level 192 mg/dL (70-99) Calcium Level 13.0 mg/dL (8.5-10.1) Total Bilirubin 1.2 mg/dL (0.2-1.0) Aspartate Amino Transf (AST/SGOT) 164 U/L (15-37) Alanine Aminotransferase (ALT/SGPT) 164 U/L (14-59) Alkaline Phosphatase 105 U/L (46-116) Total Protein 8.3 g/dL (6.4-8.2) Albumin 2.9 g/dL (3.4-5.0) Albumin/Globulin Ratio 0.5 (1.0-1.7) Glucose (Fingerstick) 185 mg/dL (70-99) 109 mg/dL (70-99) Review All relevant outside records, renal labs, imaging studies, telemetry/EKG's were reviewed. Images Images 1. Basilar atelectasis. Correlate for mild pulmonary edema. JASON POWER MD Apr 29, 2019 10:26
--- NOTE | 2019-04-29 12:12 | HP ---
ADMIT DATE: 04/29/2019 CHIEF COMPLAINT: "I missed my dialysis," weakness, shortness of breath. HISTORY OF PRESENT ILLNESS: The patient is a pleasant middle-aged female who missed dialysis. She has been on dialysis for 8 years. When we evaluated her in the Emergency Room, she had hyperkalemia, anemia with a hemoglobin of 8.6, potassium was 6.9. She is also very azotemic with a BUN of 85. She also had hypothermia and hypoglycemia. I discussed the case with ER physician. We have admitted her to the ICU where we are dialyzing her. PAST MEDICAL HISTORY: Noncompliance, end-stage renal disease, diabetes, hypertension, major depression, psychosis, constipation. ALLERGIES: MILK, PENICILLIN AND HALDOL. FAMILY HISTORY: Coronary artery disease. SOCIAL HISTORY: She does not drink, smoke or take drugs. MEDICATIONS: Reviewed, please refer to the MRAD. REVIEW OF SYSTEMS: GENERAL: No history of weight change, weakness or fevers. SKIN: No bruising, hair changes or rashes. EYES: No blurred, double or loss of vision. NOSE AND THROAT: No history of nosebleeds, hoarseness or sore throat. HEART: No history of palpitations, chest pain or shortness of breath on exertion. LUNGS: Denies cough, hemoptysis, wheezing or shortness of breath. GASTROINTESTINAL: Denies changes in appetite, nausea, vomiting, diarrhea or constipation. GENITOURINARY: No history of frequency, urgency, hesitancy or nocturia. NEUROLOGIC: Denies history of numbness, tingling, tremor or weakness. PSYCHIATRIC: No history of panic, anxiety or depression. ENDOCRINE: No history of heat or cold intolerance, polyuria or polydipsia. EXTREMITIES: Denies muscle weakness, joint pain, pain on walking or stiffness. PHYSICAL EXAMINATION: VITALS: Within normal limits and are stable. GENERAL: No apparent distress. Alert and oriented. HEENT: Head is normocephalic, atraumatic, pupils were equally round and reactive to light and accommodation. NECK: Supple, no JVD, no thyromegaly was noted. LUNGS: Clear to auscultation in all lung sen without rhonchi or wheezing. HEART: RRR, S1, S2 present. Peripheral pulses intact, no obvious murmurs were noted. ABDOMEN: Soft, nontender. Positive bowel sounds no organomegaly, normal bowel sounds. EXTREMITIES: Without any cyanosis, clubbing, or edema. Pedal pulses intact, Homans sign is negative. NEUROLOGIC: Normal speech, normal tone. A & O x3, moves all extremities, no obvious focal deficits. PSYCHIATRIC: Normal affect, normal mood. Stable. SKIN: No ulcerations or rashes, good skin turgor, no jaundice. VASCULAR: Good capillary refill, neurovascular bundle appears to be intact. LABORATORY DATA: Potassium 6.9. ASSESSMENT AND PLAN: Severe hyperkalemia, hypothermic, hyperglycemia, and anemia. The patient will be admitted. We will consult Nephrology and we have her on dialysis currently. Frequent labs. Electrolyte protocol. DVT prophylaxis. Home meds. PROGNOSIS: Guarded. SERGEI PALACIOS DO DR: NARCISO/melissa JOB#: [id number] / [id number]
--- NOTE | 2019-04-29 13:33 | NUR ---
[id number] Dialysis nurse in, 3h run w/o complications. Post dialysis loss 2.5 liters. Fidgety on dialysis and after. IV Benadryl x1 per dialysis for c/o "itching" w procedure. Ticks/mannerisms persist and are "common' to her( itching nose,swatting at air, itching ear,moving right leg w c/o intermittent sharp pain there. SCD off at this time for comfort reasons. Questioned spasms/cramps but patient denies. Warm blanket helpful
--- NOTE | 2019-04-29 14:40 | NUR ---
[address] Poon ie home meds. Orders noted. Phonre report to [facility] 5th floor. Informed patient of transfer to [id number]
--- NOTE | 2019-04-29 15:28 | NUR ---
1440 Call to transport w/o return call. Transported patient to [id number] per RN per bed
[2019-04-29] MEDS: CITALOPRAM 10 MG TABLET. PO SCH (16:06)
[2019-04-29] MEDS: clonazePAM 0.5 MG TABLET PO SCH ×2 (16:06→21:14)
[2019-04-29] MEDS: METOPROLOL TART IMMED RELEASE 25 MG TABLET. PO SCH ×2 (16:07→21:15)
[2019-04-29] MEDS: amLODIPine BESYLATE 5 MG TABLET PO SCH (16:07)
[2019-04-29] MEDS: RANOLAZINE 500 MG TAB.ER.12H PO SCH (21:14)
[2019-04-29] MEDS: AMIODARONE HCL 200 MG TABLET. PO SCH (21:15)
[2019-04-29] MEDS: ATORVASTATIN CALCIUM 40 MG TABLET. PO SCH (21:15)
[2019-04-29] MEDS: FAMOTIDINE 20 MG TABLET. PO SCH (21:15)
[2019-04-29] MEDS: APIXABAN 5 MG TABLET. PO SCH (21:15)
[2019-04-29] MEDS: INSULIN GLARGINE SYRINGE. SQ SCH (21:30)
[2019-04-30 03:00] VITALS: BP 101/34
[2019-04-30 07:00] VITALS: BP 109/51
[2019-04-30 07:26] LABS: BASO % 1 % (0-3); EOS # 0.1 x10^3/uL (0.0-0.7); EOS % 1 % (0-3); HEMATOCRIT 25.7 % (36.0-47.0); HEMOGLOBIN 8.2 g/dL (12.0-15.5); LYMPH # 0.7 x10^3/uL (1.0-4.8); LYMPH % 14 % (24-48); MEAN CORPUSCULAR HEMOGLOBIN 26 pg (25-35); MEAN CORPUSCULAR HGB CONC 32 g/dL (31-37); MEAN CORPUSCULAR VOLUME 81 fL (79-100); MONO # 0.6 x10^3/uL (0.0-1.1); MONO % 12 % (0-9); NEUT # 3.5 x10^3/uL (1.8-7.7); NEUT % 72 % (31-73); PLATELET COUNT 264 x10^3/uL (140-400); RED BLOOD COUNT 3.18 x10^6/uL (3.50-5.40); RED CELL DISTRIBUTION WIDTH 20.7 % (11.5-14.5); WHITE BLOOD COUNT 4.8 x10^3/uL (4.0-11.0)
[2019-04-30 08:16] LABS: ALBUMIN 2.4 g/dL (3.4-5.0); ALBUMIN/GLOBULIN RATIO 0.5 (1.0-1.7); CREATININE 8.7 mg/dL (0.6-1.0); GFR 5.8; TOTAL BILIRUBIN 1.2 mg/dL (0.2-1.0); TOTAL PROTEIN 7.4 g/dL (6.4-8.2)
[2019-04-30] MEDS: amLODIPine BESYLATE 5 MG TABLET PO SCH (09:00)
[2019-04-30] MEDS: METOPROLOL TART IMMED RELEASE 25 MG TABLET. PO SCH ×2 (09:00→21:41)
[2019-04-30] MEDS: AMIODARONE HCL 200 MG TABLET. PO SCH ×2 (09:00→21:44)
[2019-04-30] MEDS: RANOLAZINE 500 MG TAB.ER.12H PO SCH ×2 (09:00→21:41)
--- NOTE | 2019-04-30 09:59 | NUR ---
IP: Staff obtained a mrsa screen on adm which is negative. No need for contact precautions and Nozin/Chg can be discontinued.
[2019-04-30] MEDS: CITALOPRAM 10 MG TABLET. PO SCH (10:03)
[2019-04-30] MEDS: ASPIRIN ENTERIC COATED 81 MG TABLET.DR. PO SCH (10:04)
[2019-04-30] MEDS: APIXABAN 5 MG TABLET. PO SCH ×2 (10:04→21:41)
[2019-04-30] MEDS: clonazePAM 0.5 MG TABLET PO SCH ×3 (10:05→21:41)
--- NOTE | 2019-04-30 10:14 | PDOC ---
PROGRESS NOTES History of Present Illness History of Present Illness ASSESSMENT altered mental status on ct head 04/29 Mild atrophy and chronic microangiopathic white matter change. Severe hyperkalemia, hypothermia, hyperglycemia, anemia. Basilar atelectasis. Correlate for mild pulmonary edema. ESRD on dialysis admitted. consult Nephrology dialysis currently. Frequent labs. Electrolyte protocol. DVT prophylaxis. Home meds. consult neurology NEUROCHECKS Q 4 HRS 39 MIN PT EXAM, CHART REVIEW, > 50% OF TIME SPENT WITH EXAM, CHART REVIEW, PT CARE COORDINATION Vitals Vitals Vital Signs Date Time Temp Pulse Resp B/P (MAP) Pulse Ox O2 Delivery O2 Flow Rate FiO2 04/30/19 07:00 99.2 59 18 109/51 (70) 94 Room Air 99.2 Physical Exam Physical Exam VITALS: Within normal limits GENERAL: No apparent distress. Alert HEENT: Head is normocephalic, atraumatic, pupils were equally round and reactive to light and accommodation. NECK: Supple, no JVD, no thyromegaly was noted. LUNGS: Clear to auscultation in all lung sen without rhonchi or wheezing. HEART: RRR, S1, S2 present. Peripheral pulses intact, no obvious murmurs were noted. ABDOMEN: Soft, nontender. Positive bowel sounds no organomegaly, normal bowel sounds. EXTREMITIES: Without any cyanosis, clubbing, or edema. Pedal pulses intact, Homans sign is negative. NEUROLOGIC: Normal speech, normal tone. A & O x3, moves all extremities, no obvious focal deficits. PSYCHIATRIC: Normal affect, normal mood. Stable. SKIN: No ulcerations or rashes, good skin turgor, no jaundice. VASCULAR: Good capillary refill, neurovascular bundle appears to be intact. General: Cooperative Abdomen: No tenderness Extremities: No cyanosis Labs LABS EXAM: CT HEAD WITHOUT CONTRAST. HISTORY: Altered mental status. TECHNIQUE: Computed tomography of the head was performed without intravenous contrast. COMPARISON: None. FINDINGS: There is no intracranial hemorrhage. Hypoattenuation within the periventricular white matter indicates mild chronic microangiopathic change. Prominence of the lateral ventricles and hemispheric sulci indicates mild atrophy. The visualized paranasal sinuses appear clear. The orbits are unremarkable. The temporal bones are unremarkable. The calvarium reveals no suspicious lesions. There are atherosclerotic calcifications of the internal carotid arteries. IMPRESSION: 1. No acute intracranial findings. 2. Mild atrophy and chronic microangiopathic white matter change. EXAM: CHEST ONE VIEW. HISTORY: Altered mental status. COMPARISON: 12/25/2016. FINDINGS: A frontal view of the chest is obtained. A right-sided pacemaker has its leads in the right atrium and right ventricle. The inspiration is small. Opacities in the lung bases and perihilar regions are consistent with atelectasis or mild pulmonary edema. There is no pneumothorax or pleural effusion. The heart is not enlarged. IMPRESSION: 1. Basilar atelectasis. Correlate for mild pulmonary edema. Electronically signed by: Merlyn Orlando MD (04/28/2019 11:50 PM) [facility] [id number] DICTATED and SIGNED BY: TOBY ORLANDO MD DATE: 04/28/192349 Laboratory Tests Test 04/29/19 12:38 04/29/19 16:45 04/29/19 20:39 04/30/19 06:10 Glucose (Fingerstick) 64 mg/dL (70-99) 128 mg/dL (70-99) 155 mg/dL (70-99) White Blood Count 4.8 x10^3/uL (4.0-11.0) Red Blood Count 3.18 x10^6/uL (3.50-5.40) Hemoglobin 8.2 g/dL (12.0-15.5) Hematocrit 25.7 % (36.0-47.0) Mean Corpuscular Volume 81 fL (79-100) Mean Corpuscular Hemoglobin 26 pg (25-35) Mean Corpuscular Hemoglobin Concent 32 g/dL (31-37) Red Cell Distribution Width 20.7 % (11.5-14.5) Platelet Count 264 x10^3/uL (140-400) Neutrophils (%) (Auto) 72 % (31-73) Lymphocytes (%) (Auto) 14 % (24-48) Monocytes (%) (Auto) 12 % (0-9) Eosinophils (%) (Auto) 1 % (0-3) Basophils (%) (Auto) 1 % (0-3) Neutrophils # (Auto) 3.5 x10^3/uL (1.8-7.7) Lymphocytes # (Auto) 0.7 x10^3/uL (1.0-4.8) Monocytes # (Auto) 0.6 x10^3/uL (0.0-1.1) Eosinophils # (Auto) 0.1 x10^3/uL (0.0-0.7) Basophils # (Auto) 0.0 x10^3/uL (0.0-0.2) Sodium Level 139 mmol/L (136-145) Potassium Level 4.0 mmol/L (3.5-5.1) Chloride Level 96 mmol/L (98-107) Carbon Dioxide Level 31 mmol/L (21-32) Anion Gap 12 (6-14) Blood Urea Nitrogen 38 mg/dL (7-20) Creatinine 8.7 mg/dL (0.6-1.0) Estimated GFR (Cockcroft-Gault) 5.8 BUN/Creatinine Ratio 4 (6-20) Glucose Level 68 mg/dL (70-99) Calcium Level 11.0 mg/dL (8.5-10.1) Total Bilirubin 1.2 mg/dL (0.2-1.0) Aspartate Amino Transf (AST/SGOT) 392 U/L (15-37) Alanine Aminotransferase (ALT/SGPT) 296 U/L (14-59) Alkaline Phosphatase 100 U/L (46-116) Total Protein 7.4 g/dL (6.4-8.2) Albumin 2.4 g/dL (3.4-5.0) Albumin/Globulin Ratio 0.5 (1.0-1.7) Test 04/30/19 07:45 Glucose (Fingerstick) 70 mg/dL (70-99) Assessment and Plan Assessmemt and Plan Problems Medical Problems: (1) Altered mental status Status: Acute (2) Hypoglycemia Status: Acute Past Medical History Past Medical History Past Medical History: Diabetes-Type II, Renal Failure Additional Past Medical Histor: major depres. disorder w psychosis,flu,vit d deffic.,constipation,dm neuop. Past Surgical History: No Surgical History Alcohol Use: None Drug Use: None Past Medical History Past Medical History: Anxiety, Bipolar, CHF, Diabetes-Type II, Hypertension Additional Past Medical Histor: major depres. disorder w psychosis,flu,vit d deffic.,constipation,dm neuop. Past Surgical History: No Surgical History Alcohol Use: None Drug Use: None Comment Review of Relevant I have reviewed the following items sarahi (where applicable) has been applied. Labs Laboratory Tests Test 04/28/19 21:57 04/28/19 22:00 04/28/19 22:29 04/28/19 22:55 Glucose (Fingerstick) 63 mg/dL (70-99) 59 mg/dL (70-99) 193 mg/dL (70-99) White Blood Count 7.0 x10^3/uL (4.0-11.0) Red Blood Count 3.29 x10^6/uL (3.50-5.40) Hemoglobin 8.6 g/dL (12.0-15.5) Hematocrit 27.1 % (36.0-47.0) Mean Corpuscular Volume 82 fL (79-100) Mean Corpuscular Hemoglobin 26 pg (25-35) Mean Corpuscular Hemoglobin Concent 32 g/dL (31-37) Red Cell Distribution Width 20.9 % (11.5-14.5) Platelet Count 251 x10^3/uL (140-400) Neutrophils (%) (Auto) 78 % (31-73) Lymphocytes (%) (Auto) 10 % (24-48) Monocytes (%) (Auto) 12 % (0-9) Eosinophils (%) (Auto) 0 % (0-3) Basophils (%) (Auto) 1 % (0-3) Neutrophils # (Auto) 5.5 x10^3/uL (1.8-7.7) Lymphocytes # (Auto) 0.7 x10^3/uL (1.0-4.8) Monocytes # (Auto) 0.8 x10^3/uL (0.0-1.1) Eosinophils # (Auto) 0.0 x10^3/uL (0.0-0.7) Basophils # (Auto) 0.0 x10^3/uL (0.0-0.2) Platelet Estimate Adequate (ADEQUATE) Polychromasia Occasional Anisocytosis Mod Target Cells Occ Schistocytes Occ Test 04/28/19 23:45 04/29/19 00:02 04/29/19 01:45 04/29/19 02:20 Sodium Level 134 mmol/L (136-145) Potassium Level 6.9 mmol/L (3.5-5.1) 6.1 mmol/L (3.5-5.1) Chloride Level 91 mmol/L (98-107) Carbon Dioxide Level 25 mmol/L (21-32) Anion Gap 18 (6-14) Blood Urea Nitrogen 85 mg/dL (7-20) Creatinine 14.6 mg/dL (0.6-1.0) Estimated GFR (Cockcroft-Gault) 3.2 BUN/Creatinine Ratio 6 (6-20) Glucose Level 192 mg/dL (70-99) Calcium Level 13.0 mg/dL (8.5-10.1) Total Bilirubin 1.2 mg/dL (0.2-1.0) Aspartate Amino Transf (AST/SGOT) 164 U/L (15-37) Alanine Aminotransferase (ALT/SGPT) 164 U/L (14-59) Alkaline Phosphatase 105 U/L (46-116) Total Protein 8.3 g/dL (6.4-8.2) Albumin 2.9 g/dL (3.4-5.0) Albumin/Globulin Ratio 0.5 (1.0-1.7) Glucose (Fingerstick) 185 mg/dL (70-99) Hepatitis B Surface Antigen Nonreactive (Nonreactive) Hepatitis B Surface Antibody Reactive Nasal Screen MRSA (PCR) Negative (Negative) Test 04/29/19 04:18 04/29/19 12:38 04/29/19 16:45 04/29/19 20:39 Glucose (Fingerstick) 109 mg/dL (70-99) 64 mg/dL (70-99) 128 mg/dL (70-99) 155 mg/dL (70-99) Test 04/30/19 06:10 04/30/19 07:45 White Blood Count 4.8 x10^3/uL (4.0-11.0) Red Blood Count 3.18 x10^6/uL (3.50-5.40) Hemoglobin 8.2 g/dL (12.0-15.5) Hematocrit 25.7 % (36.0-47.0) Mean Corpuscular Volume 81 fL (79-100) Mean Corpuscular Hemoglobin 26 pg (25-35) Mean Corpuscular Hemoglobin Concent 32 g/dL (31-37) Red Cell Distribution Width 20.7 % (11.5-14.5) Platelet Count 264 x10^3/uL (140-400) Neutrophils (%) (Auto) 72 % (31-73) Lymphocytes (%) (Auto) 14 % (24-48) Monocytes (%) (Auto) 12 % (0-9) Eosinophils (%) (Auto) 1 % (0-3) Basophils (%) (Auto) 1 % (0-3) Neutrophils # (Auto) 3.5 x10^3/uL (1.8-7.7) Lymphocytes # (Auto) 0.7 x10^3/uL (1.0-4.8) Monocytes # (Auto) 0.6 x10^3/uL (0.0-1.1) Eosinophils # (Auto) 0.1 x10^3/uL (0.0-0.7) Basophils # (Auto) 0.0 x10^3/uL (0.0-0.2) Sodium Level 139 mmol/L (136-145) Potassium Level 4.0 mmol/L (3.5-5.1) Chloride Level 96 mmol/L (98-107) Carbon Dioxide Level 31 mmol/L (21-32) Anion Gap 12 (6-14) Blood Urea Nitrogen 38 mg/dL (7-20) Creatinine 8.7 mg/dL (0.6-1.0) Estimated GFR (Cockcroft-Gault) 5.8 BUN/Creatinine Ratio 4 (6-20) Glucose Level 68 mg/dL (70-99) Calcium Level 11.0 mg/dL (8.5-10.1) Total Bilirubin 1.2 mg/dL (0.2-1.0) Aspartate Amino Transf (AST/SGOT) 392 U/L (15-37) Alanine Aminotransferase (ALT/SGPT) 296 U/L (14-59) Alkaline Phosphatase 100 U/L (46-116) Total Protein 7.4 g/dL (6.4-8.2) Albumin 2.4 g/dL (3.4-5.0) Albumin/Globulin Ratio 0.5 (1.0-1.7) Glucose (Fingerstick) 70 mg/dL (70-99) Laboratory Tests Test 04/29/19 12:38 04/29/19 16:45 04/29/19 20:39 04/30/19 06:10 Glucose (Fingerstick) 64 mg/dL (70-99) 128 mg/dL (70-99) 155 mg/dL (70-99) White Blood Count 4.8 x10^3/uL (4.0-11.0) Red Blood Count 3.18 x10^6/uL (3.50-5.40) Hemoglobin 8.2 g/dL (12.0-15.5) Hematocrit 25.7 % (36.0-47.0) Mean Corpuscular Volume 81 fL (79-100) Mean Corpuscular Hemoglobin 26 pg (25-35) Mean Corpuscular Hemoglobin Concent 32 g/dL (31-37) Red Cell Distribution Width 20.7 % (11.5-14.5) Platelet Count 264 x10^3/uL (140-400) Neutrophils (%) (Auto) 72 % (31-73) Lymphocytes (%) (Auto) 14 % (24-48) Monocytes (%) (Auto) 12 % (0-9) Eosinophils (%) (Auto) 1 % (0-3) Basophils (%) (Auto) 1 % (0-3) Neutrophils # (Auto) 3.5 x10^3/uL (1.8-7.7) Lymphocytes # (Auto) 0.7 x10^3/uL (1.0-4.8) Monocytes # (Auto) 0.6 x10^3/uL (0.0-1.1) Eosinophils # (Auto) 0.1 x10^3/uL (0.0-0.7) Basophils # (Auto) 0.0 x10^3/uL (0.0-0.2) Sodium Level 139 mmol/L (136-145) Potassium Level 4.0 mmol/L (3.5-5.1) Chloride Level 96 mmol/L (98-107) Carbon Dioxide Level 31 mmol/L (21-32) Anion Gap 12 (6-14) Blood Urea Nitrogen 38 mg/dL (7-20) Creatinine 8.7 mg/dL (0.6-1.0) Estimated GFR (Cockcroft-Gault) 5.8 BUN/Creatinine Ratio 4 (6-20) Glucose Level 68 mg/dL (70-99) Calcium Level 11.0 mg/dL (8.5-10.1) Total Bilirubin 1.2 mg/dL (0.2-1.0) Aspartate Amino Transf (AST/SGOT) 392 U/L (15-37) Alanine Aminotransferase (ALT/SGPT) 296 U/L (14-59) Alkaline Phosphatase 100 U/L (46-116) Total Protein 7.4 g/dL (6.4-8.2) Albumin 2.4 g/dL (3.4-5.0) Albumin/Globulin Ratio 0.5 (1.0-1.7) Test 04/30/19 07:45 Glucose (Fingerstick) 70 mg/dL (70-99) Microbiology 04/28/19 Blood Culture - Preliminary, Resulted NO GROWTH AFTER 1 DAY Medications Current Medications Dextrose (Dextrose 50%-Water Syringe) 25 gm STK-MED ONCE IV ; Start 04/28/19 at 22:31; Stop 04/28/19 at 22:31; Status DC Dextrose (Dextrose 50%-Water Syringe) 25 gm 1X ONCE IV Last administered on 04/28/19at 23:25; Start 04/28/19 at 23:00; Stop 04/28/19 at 23:01; Status DC Sodium Bicarbonate (Sodium Bicarb Adult 8.4% Syr) 50 meq 1X ONCE IV Last adm inistered on 04/29/19at 00:33; Start 04/29/19 at 01:00; Stop 04/29/19 at 01:01; Status DC Dextrose (Dextrose 50%-Water Syringe) 25 gm 1X ONCE IV Last administered on 04/29/19at 00:33; Start 04/29/19 at 01:00; Stop 04/29/19 at 01:01; Status DC Insulin Human Regular (HumuLIN R VIAL) 5 unit 1X ONCE IV Last administered on 04/29/19at 00:35; Start 04/29/19 at 01:00; Stop 04/29/19 at 01:01; Status DC Sodium Polystyrene Sulfonate (Kayexalate) 30 gm 1X ONCE PO Last administered on 04/29/19at 00:32; Start 04/29/19 at 01:00; Stop 04/29/19 at 01:01; Status DC Sodium Chloride 1,000 ml @ 1,000 mls/hr Q1H IV Last administered on 04/29/19at 00:30; Start 04/29/19 at 01:00; Stop 04/29/19 at 01:59; Status DC Albuterol Sulfate (Ventolin Neb Soln) 10 mg 1X ONCE CONT NEB Last administered on 04/29/19at 00:35; Start 04/29/19 at 01:00; Stop 04/29/19 at 01:01; Status DC Ondansetron HCl (Zofran) 4 mg PRN Q8HRS PRN IV NAUSEA/VOMITING 1ST CHOICE; Start 04/29/19 at 01:00; Stop 04/30/19 at 00:59; Status DC Sodium Chloride 1,000 ml @ 1,000 mls/hr Q1H PRN IV hypotension; Start 04/29/19 at 07:38; Stop 04/29/19 at 13:37; Status DC Albumin Human 200 ml @ 200 mls/hr 1X PRN PRN IV Hypotension; Start 04/29/19 at 07:45; Stop 04/29/19 at 13:44; Status DC Acetaminophen (Tylenol) 500 mg 1X PRN PRN PO MILD PAIN / TEMP; Start 04/29/19 at 07:45; Stop 04/30/19 at 07:44; Status DC Diphenhydramine HCl (Benadryl) 25 mg 1X PRN PRN IV ITCHING; Start 04/29/19 at 07:45; Stop 04/30/19 at 07:44; Status DC Diphenhydramine HCl (Benadryl) 25 mg 1X PRN PRN IV ITCHING; Start 04/29/19 at 07:45; Stop 04/30/19 at 07:44; Status DC Labetalol HCl (Normodyne Iv Push) 10 mg PRN Q1HR PRN IVP SBP > 180; Start 04/29/19 at 07:45; Stop 04/30/19 at 07:44; Status DC Sodium Chloride 1,000 ml @ 400 mls/hr Q2H30M PRN IV PATENCY; Start 04/29/19 at 07:38; Stop 04/29/19 at 19:37; Status DC Info (PHARMACY MONITORING -- do not chart) 1 each PRN DAILY PRN MC SEE COMMENTS; Start 04/29/19 at 07:45; Stop 04/29/19 at 07:46; Status DC Info (PHARMACY MONITORING -- do not chart) 1 each PRN DAILY PRN MC SEE COMMENTS; Start 04/29/19 at 07:45 Amiodarone HCl (Cordarone) 400 mg BID PO Last administered on 04/29/19 21:15; Start 04/29/19 at 21:00 Amlodipine Besylate (Norvasc) 5 mg DAILY PO Last administered on 04/29/19 16:07; Start 04/29/19 at 15:00 Apixaban (Eliquis) 5 mg BID PO Last administered on 04/30/19 10:04; Start 04/29/19 at 21:00 Aspirin (Ecotrin) 81 mg DAILY PO Last administered on 04/30/19 10:04; Start 04/30/19 at 09:00 Clonazepam (KlonoPIN) 0.5 mg TID PO Last administered on 04/30/19 10:05; Start 04/29/19 at 15:00 Famotidine (Pepcid) 20 mg HS PO Last administered on 04/29/19 21:15; Start 04/29/19 at 21:00 Metoprolol Tartrate (Lopressor) 25 mg BID PO Last administered on 04/29/19 21:15; Start 04/29/19 at 15:00 Ranolazine (Ranexa) 500 mg Q12HR PO Last administered on 04/29/19 21:14; Start 04/29/19 at 21:00 Atorvastatin Calcium (Lipitor) 80 mg QHS PO Last administered on 04/29/19 21:15; Start 04/29/19 at 21:00 Citalopram Hydrobromide (CeleXA) 30 mg DAILY PO Last administered on 04/30/19 10:03; Start 04/29/19 at 15:00 Insulin Glargine (Lantus Syringe) 15 unit QHS SQ Last administered on 04/29/19 21:30; Start 04/29/19 at 21:00 Info (Anti-Coagulation Monitoring By Pharmacy) 1 each PRN DAILY PRN MC SEE CO MMENTS; Start 04/29/19 at 15:00 Active Scripts Active Reported Vitamin D (Cholecalciferol (Vitamin D3)) 1,000 Unit Capsule 1 Cap PO DAILY Tylenol (Acetaminophen) 325 Mg Tablet 2 Tab PO PRN Q4HRS Tums (Calcium Carbonate) 200 Mg Tab.chew 4 Tab PO DAILY Ranexa (Ranolazine) 500 Mg Tab.er.12h 1 Tab PO Q12HR Phoslyra (Calcium Acetate) 667 Mg/5 Ml Solution 15 Ml PO TIDAC NITROGLYCERIN SubLingual (Nitroglycerin) 0.4 Mg Tab.subl 0.4 Mg SL PRN Q5MIN PRN Miralax (Polyethylene Glycol 3350) 17 Gm Powd.pack 1 Packet PO BID Metoprolol Tartrate 25 Mg Tablet 1 Tab PO BID Lidocaine PATCH (Lidocaine) 1 Each Adh..patch 1 Each TP DAILY REMOVE AFTER 12 HOURS Lexapro (Escitalopram Oxalate) 5 Mg Tablet 15 Mg PO DAILY Levemir (Insulin Detemir) 100 Unit/1 Ml Vial 15 Unit SQ QHS Klonopin (Clonazepam) 0.5 Mg Tablet 1 Tab PO TID Imodium A-D (Loperamide HCl) 2 Mg Capsule 2 Mg PO PRN Q4HRS PRN Hydrocodone-Apap 5-325 (Hydrocodone Bit/Acetaminophen) 1 Tab Tablet 1 Tab PO PRN Q4HRS PRN Folic Acid 1 Mg Tablet 1 Tab PO DAILY Ferrous Sulfate 325 Mg Tablet 1 Tab PO BID Pepcid (Famotidine) 20 Mg Tablet 20 Mg PO HS Clobetasol Propionate 15 Gm Cream..g. 1 Jomar TP DAILY08 Dulcolax (Bisacodyl) 5 Mg Tablet.dr 4 Tab PO PRN BID PRN Bisacodyl 10 Mg Supp.rect 10 Mg RC PRN DAILY PRN Aspir-Low (Aspirin) 81 Mg Tablet.dr 1 Tab PO DAILY Artificial Tears (Dextran 70/Hypromellose) 1 Each Droperette 1 Each OP PRN Q8HRS PRN Eliquis (Apixaban) 5 Mg Tablet 5 Mg PO BID Ammonium Lactate 226 Gm Lotion 1 Gm TP DAILY16 Amlodipine Besylate 5 Mg Tablet 5 Mg PO DAILY Amiodarone Hcl 200 Mg Tablet 2 Tab PO BID Amiodarone Hcl 200 Mg Tablet 1 Tab PO NOON Lipitor (Atorvastatin Calcium) 80 Mg Tablet 1 Tab PO DAILY Vitals/I & O Vital Sign - Last 24 Hours 04/29/19 04/29/19 04/29/19 04/29/19 12:00 15:40 16:07 16:07 Temp 97.8 97.8 Pulse 63 63 63 Resp 18 B/P (MAP) 113/59 (77) 113/59 113/59 Pulse Ox 92 O2 Delivery Room Air Room Air 04/29/19 04/29/19 04/29/19 04/29/19 20:00 21:14 21:15 21:15 Pulse 63 63 63 B/P (MAP) 113/59 113/59 113/59 O2 Delivery Room Air 04/29/19 04/30/19 04/30/19 23:00 03:00 07:00 Temp 98.1 98.3 99.2 98.1 98.3 99.2 Pulse 60 60 59 Resp 18 20 18 B/P (MAP) 98/34 (55) 101/34 (56) 109/51 (70) Pulse Ox 96 95 94 O2 Delivery Room Air Room Air Room Air Intake and Output 04/29/19 04/29/19 04/30/19 15:00 23:00 07:00 Intake Total 240 ml Balance 240 ml REBECCA WEAVER MD Apr 30, 2019 10:14
[2019-04-30 11:00] VITALS: BP 121/62
[2019-04-30] MEDS: ANTI-COAG MONITOR BY PHARMACY. MC PRN ×2 (13:32→15:38)
--- NOTE | 2019-04-30 14:20 | PDOC2 ---
NEUROLOGY CONSULT Date of Admission Date of Admission DATE: 04/30/19 TIME: 14:08 Reason for Consult Reason for Consult: IMPRESSION: Metabolic encephalopathy. Hyperkalemia, K+ 6.9. Hyperglycemia. Hypoglycemia, mild episode likely. Hypercalcemia. DM. HTN. Renal failure. Elevated hepatic enzymes. Bipolar disorder. Obesity. RECOMMENDATIONS/PLAN: Treat medical diseases. Control electrolytes balances. Lab: see orders. EEG. Consulted Nephrology. HCT: Negative. History of Present Illness This is a 53-year-old AA female patient with history of hypertension, diabetes, chronic kidney disease stage III, bipolar, major depressive disorder who presented to the emergency department of [facility] on 04/28/19 with altered mental status, slightly hypoglycemia. Her blood sugar in ED was 58. Neurology was requested for consultation on 04/30/19 for MS changes. Past Medical History Cardiovascular: CHF, HTN Heme/Onc: Anemia NOS Renal/: Chronic renal failure Endocrine: Diabetes Past Surgical History No pertinent history Allergies Coded Allergies: Milk Containing Products (Verified Allergy, Intermediate, 11/02/15) Penicillins (Verified Allergy, Intermediate, 11/02/15) haloperidol (Verified Allergy, Intermediate, 04/28/19) MEDICATIONS: Refer to [facility] FAMILY HISTORY: Non contributory. SOCIAL HISTORY: Lives at home.lone. Denies current smoking, drinking, and illicit drug use. REVIEW OF SYSTEMS: Constitutional: No cachexia. Head: No traumatic brain or head injury. Skin: No edema, or rash. Ear: No infection. Eyes: No vision loss or color blindness. Nose: No bleeding or purulent discharges. Hearing: No hearing decrease. Neck: No injury. Breast: No history of cancer, masses,or discharges. Cardiac: HTN. Pulmonary: No COPD.. GI: No GI ulcer, GI bleeding. Urinary/genital: CKD. Endocrinologic: Diabetes Mellitus, obesity. Skeletomuscular: No muscular atrophy, deformity. Neurological: see HP. Psychiatric: Denies drug use/abuse. Otherwise, not [id number] review of systems. PHYSICAL EXAMINATION: General appearance is in subacute distress. HEENT: Normocephalic and nontraumatic. Eyes, nose, ears, and throat are unrem arkable. Neck is supple. No lymphadenopathy. No crepitus. Cardiovascular: S1, S2, regular rate and rhythm. Pulmonary: Clear to auscultation bilaterally. Abdomen: Bowel sounds are positive. Abdomen is soft, nontender, and nondistended. Extremities: No rash, lesions, or edema. No restriction of range of motion NEUROLOGICAL EXAMINATION: Alert Oriented to time, place and person. PERRL. EOMI. CN: no focal findings. Muscle tone: within normal. Muscle strength: 5- DTR: 2- Plantar reflex: Flexor response bilaterally Gait: not examined in bed. Sensory exam: no abnormal findings. No cerebellar signs elicited. F-T-N test fine. Current Medications Current Medications Current Medications Dextrose (Dextrose 50%-Water Syringe) 25 gm STK-MED ONCE IV ; Start 04/28/19 at 22:31; Stop 04/28/19 at 22:31; Status DC Dextrose (Dextrose 50%-Water Syringe) 25 gm 1X ONCE IV Last administered on 04/28/19at 23:25; Start 04/28/19 at 23:00; Stop 04/28/19 at 23:01; Status DC Sodium Bicarbonate (Sodium Bicarb Adult 8.4% Syr) 50 meq 1X ONCE IV Last administered on 04/29/19at 00:33; Start 04/29/19 at 01:00; Stop 04/29/19 at 01:01; Status DC Dextrose (Dextrose 50%-Water Syringe) 25 gm 1X ONCE IV Last administered on 04/29/19at 00:33; Start 04/29/19 at 01:00; Stop 04/29/19 at 01:01; Status DC Insulin Human Regular (HumuLIN R VIAL) 5 unit 1X ONCE IV Last administered on 04/29/19at 00:35; Start 04/29/19 at 01:00; Stop 04/29/19 at 01:01; Status DC Sodium Polystyrene Sulfonate (Kayexalate) 30 gm 1X ONCE PO Last administered on 04/29/19at 00:32; Start 04/29/19 at 01:00; Stop 04/29/19 at 01:01; Status DC Sodium Chloride 1,000 ml @ 1,000 mls/hr Q1H IV Last administered on 04/29/19at 00:30; Start 04/29/19 at 01:00; Stop 04/29/19 at 01:59; Status DC Albuterol Sulfate (Ventolin Neb Soln) 10 mg 1X ONCE CONT NEB Last administered on 04/29/19at 00:35; Start 04/29/19 at 01:00; Stop 04/29/19 at 01:01; Status DC Ondansetron HCl (Zofran) 4 mg PRN Q8HRS PRN IV NAUSEA/VOMITING 1ST CHOICE; Start 04/29/19 at 01:00; Stop 04/30/19 at 00:59; Status DC Sodium Chloride 1,000 ml @ 1,000 mls/hr Q1H PRN IV hypotension; Start 04/29/19 at 07:38; Stop 04/29/19 at 13:37; Status DC Albumin Human 200 ml @ 200 mls/hr 1X PRN PRN IV Hypotension; Start 04/29/19 at 07:45; Stop 04/29/19 at 13:44; Status DC Acetaminophen (Tylenol) 500 mg 1X PRN PRN PO MILD PAIN / TEMP; Start 04/29/19 at 07:45; Stop 04/30/19 at 07:44; Status DC Diphenhydramine HCl (Benadryl) 25 mg 1X PRN PRN IV ITCHING; Start 04/29/19 at 07:45; Stop 04/30/19 at 07:44; Status DC Diphenhydramine HCl (Benadryl) 25 mg 1X PRN PRN IV ITCHING; Start 04/29/19 at 07:45; Stop 04/30/19 at 07:44; Status DC Labetalol HCl (Normodyne Iv Push) 10 mg PRN Q1HR PRN IVP SBP > 180; Start 04/29/19 at 07:45; Stop 04/30/19 at 07:44; Status DC Sodium Chloride 1,000 ml @ 400 mls/hr Q2H30M PRN IV PATENCY; Start 04/29/19 at 07:38; Stop 04/29/19 at 19:37; Status DC Info (PHARMACY MONITORING -- do not chart) 1 each PRN DAILY PRN MC SEE COMMENTS; Start 04/29/19 at 07:45; Stop 04/29/19 at 07:46; Status DC Info (PHARMACY MONITORING -- do not chart) 1 each PRN DAILY PRN MC SEE COMMENTS; Start 04/29/19 at 07:45 Amiodarone HCl (Cordarone) 400 mg BID PO Last administered on 04/29/19at 21:15; Start 04/29/19 at 21:00 Amlodipine Besylate (Norvasc) 5 mg DAILY PO Last administered on 04/29/19 16:07; Start 04/29/19 at 15:00 Apixaban (Eliquis) 5 mg BID PO Last administered on 04/30/19 10:04; Start 04/29/19 at 21:00 Aspirin (Ecotrin) 81 mg DAILY PO Last administered on 04/30/19 10:04; Start 04/30/19 at 09:00 Clonazepam (KlonoPIN) 0.5 mg TID PO Last administered on 04/30/19 10:05; Start 04/29/19 at 15:00 Famotidine (Pepcid) 20 mg HS PO Last administered on 04/29/19 21:15; Start 04/29/19 at 21:00 Metoprolol Tartrate (Lopressor) 25 mg BID PO Last administered on 04/29/19 21:15; Start 04/29/19 at 15:00 Ranolazine (Ranexa) 500 mg Q12HR PO Last administered on 04/29/19 21:14; Start 04/29/19 at 21:00 Atorvastatin Calcium (Lipitor) 80 mg QHS PO Last administered on 04/29/19 21:15; Start 04/29/19 at 21:00 Citalopram Hydrobromide (CeleXA) 30 mg DAILY PO Last administered on 04/30/19 10:03; Start 04/29/19 at 15:00 Insulin Glargine (Lantus Syringe) 15 unit QHS SQ Last administered on 04/29/19 21:30; Start 04/29/19 at 21:00 Info (Anti-Coagulation Monitoring By Pharmacy) 1 each PRN DAILY PRN MC SEE COMMENTS Last administered on 04/30/19 13:32; Start 04/29/19 at 15:00 Active Scripts Active Reported Vitamin D (Cholecalciferol (Vitamin D3)) 1,000 Unit Capsule 1 Cap PO DAILY Tylenol (Acetaminophen) 325 Mg Tablet 2 Tab PO PRN Q4HRS Tums (Calcium Carbonate) 200 Mg Tab.chew 4 Tab PO DAILY Ranexa (Ranolazine) 500 Mg Tab.er.12h 1 Tab PO Q12HR Phoslyra (Calcium Acetate) 667 Mg/5 Ml Solution 15 Ml PO TIDAC NITROGLYCERIN SubLingual (Nitroglycerin) 0.4 Mg Tab.subl 0.4 Mg SL PRN Q5MIN PRN Miralax (Polyethylene Glycol 3350) 17 Gm Powd.pack 1 Packet PO BID Metoprolol Tartrate 25 Mg Tablet 1 Tab PO BID Lidocaine PATCH (Lidocaine) 1 Each Adh..patch 1 Each TP DAILY REMOVE AFTER 12 HOURS Lexapro (Escitalopram Oxalate) 5 Mg Tablet 15 Mg PO DAILY Levemir (Insulin Detemir) 100 Unit/1 Ml Vial 15 Unit SQ QHS Klonopin (Clonazepam) 0.5 Mg Tablet 1 Tab PO TID Imodium A-D (Loperamide HCl) 2 Mg Capsule 2 Mg PO PRN Q4HRS PRN Hydrocodone-Apap 5-325 (Hydrocodone Bit/Acetaminophen) 1 Tab Tablet 1 Tab PO PRN Q4HRS PRN Folic Acid 1 Mg Tablet 1 Tab PO DAILY Ferrous Sulfate 325 Mg Tablet 1 Tab PO BID Pepcid (Famotidine) 20 Mg Tablet 20 Mg PO HS Clobetasol Propionate 15 Gm Cream..g. 1 Jomar TP DAILY08 Dulcolax (Bisacodyl) 5 Mg Tablet.dr 4 Tab PO PRN BID PRN Bisacodyl 10 Mg Supp.rect 10 Mg RC PRN DAILY PRN Aspir-Low (Aspirin) 81 Mg Tablet.dr 1 Tab PO DAILY Artificial Tears (Dextran 70/Hypromellose) 1 Each Droperette 1 Each OP PRN Q8HRS PRN Eliquis (Apixaban) 5 Mg Tablet 5 Mg PO BID Ammonium Lactate 226 Gm Lotion 1 Gm TP DAILY16 Amlodipine Besylate 5 Mg Tablet 5 Mg PO DAILY Amiodarone Hcl 200 Mg Tablet 2 Tab PO BID Amiodarone Hcl 200 Mg Tablet 1 Tab PO NOON Lipitor (Atorvastatin Calcium) 80 Mg Tablet 1 Tab PO DAILY Allergies Allergies: Allergies Coded Allergies Type Severity Reaction Last Updated Verified Milk Containing Products Allergy Intermediate 11/02/15 Yes Penicillins Allergy Intermediate 11/02/15 Yes haloperidol Allergy Intermediate 04/28/19 Yes ROS Review of System The patient denies any associated fevers, chills, headache, ear pain, r hinorrhea, sore throat, stiff neck, productive cough, chest pain, shortness of breath, back or flank pain, abdominal pain, nausea, vomiting, diarrhea, constipation, dysuria, rash, numbness, weakness, tingling, incontinence, difficulty ambulating, or diaphoresis. Physical Exam Physical Exam General: Well developed, well nourished, no acute distress, well appearing HEENT: Pupils equally round and reactive to light, EOMI, no discharge, normal conjunctiva Neck: Supple, no nuchal rigidity, no JVD, trachea midline, no tenderness Cardiac: RRR, no murmurs, no gallops, no rubs Chest/Lungs: CTAB, no wheeze, no rhonchi, no crackles Abdomen: soft, non-distended, no guarding, no peritoneal signs, non-tender Back: No tenderness Extremities: no edema, pulses intact, non-tender,capillary refill <3 sec bilateral upper and lower extremities, Neuro: Alert and oriented x 4, no focal deficits, normal speech Vitals Vitals: Vital Signs Date Time Temp Pulse Resp B/P (MAP) Pulse Ox O2 Delivery O2 Flow Rate FiO2 04/30/19 11:00 98.1 59 18 121/62 (81) 95 Room Air 98.1 Labs Labs Laboratory Tests Test 04/28/19 21:57 04/28/19 22:00 04/28/19 22:29 04/28/19 22:55 Glucose (Fingerstick) 63 mg/dL (70-99) 59 mg/dL (70-99) 193 mg/dL (70-99) White Blood Count 7.0 x10^3/uL (4.0-11.0) Red Blood Count 3.29 x10^6/uL (3.50-5.40) Hemoglobin 8.6 g/dL (12.0-15.5) Hematocrit 27.1 % (36.0-47.0) Mean Corpuscular Volume 82 fL (79-100) Mean Corpuscular Hemoglobin 26 pg (25-35) Mean Corpuscular Hemoglobin Concent 32 g/dL (31-37) Red Cell Distribution Width 20.9 % (11.5-14.5) Platelet Count 251 x10^3/uL (140-400) Neutrophils (%) (Auto) 78 % (31-73) Lymphocytes (%) (Auto) 10 % (24-48) Monocytes (%) (Auto) 12 % (0-9) Eosinophils (%) (Auto) 0 % (0-3) Basophils (%) (Auto) 1 % (0-3) Neutrophils # (Auto) 5.5 x10^3/uL (1.8-7.7) Lymphocytes # (Auto) 0.7 x10^3/uL (1.0-4.8) Monocytes # (Auto) 0.8 x10^3/uL (0.0-1.1) Eosinophils # (Auto) 0.0 x10^3/uL (0.0-0.7) Basophils # (Auto) 0.0 x10^3/uL (0.0-0.2) Platelet Estimate Adequate (ADEQUATE) Polychromasia Occasional Anisocytosis Mod Target Cells Occ Schistocytes Occ Test 04/28/19 23:45 04/29/19 00:02 04/29/19 01:45 04/29/19 02:20 Sodium Level 134 mmol/L (136-145) Potassium Level 6.9 mmol/L (3.5-5.1) 6.1 mmol/L (3.5-5.1) Chloride Level 91 mmol/L (98-107) Carbon Dioxide Level 25 mmol/L (21-32) Anion Gap 18 (6-14) Blood Urea Nitrogen 85 mg/dL (7-20) Creatinine 14.6 mg/dL (0.6-1.0) Estimated GFR (Cockcroft-Gault) 3.2 BUN/Creatinine Ratio 6 (6-20) Glucose Level 192 mg/dL (70-99) Calcium Level 13.0 mg/dL (8.5-10.1) Total Bilirubin 1.2 mg/dL (0.2-1.0) Aspartate Amino Transf (AST/SGOT) 164 U/L (15-37) Alanine Aminotransferase (ALT/SGPT) 164 U/L (14-59) Alkaline Phosphatase 105 U/L (46-116) Total Protein 8.3 g/dL (6.4-8.2) Albumin 2.9 g/dL (3.4-5.0) Albumin/Globulin Ratio 0.5 (1.0-1.7) Glucose (Fingerstick) 185 mg/dL (70-99) Hepatitis B Surface Antigen Nonreactive (Nonreactive) Hepatitis B Surface Antibody Reactive Nasal Screen MRSA (PCR) Negative (Negative) Test 04/29/19 04:18 04/29/19 12:38 04/29/19 16:45 04/29/19 20:39 Glucose (Fingerstick) 109 mg/dL (70-99) 64 mg/dL (70-99) 128 mg/dL (70-99) 155 mg/dL (70-99) Test 04/30/19 06:10 04/30/19 07:45 04/30/19 11:20 04/30/19 11:55 White Blood Count 4.8 x10^3/uL (4.0-11.0) Red Blood Count 3.18 x10^6/uL (3.50-5.40) Hemoglobin 8.2 g/dL (12.0-15.5) Hematocrit 25.7 % (36.0-47.0) Mean Corpuscular Volume 81 fL (79-100) Mean Corpuscular Hemoglobin 26 pg (25-35) Mean Corpuscular Hemoglobin Concent 32 g/dL (31-37) Red Cell Distribution Width 20.7 % (11.5-14.5) Platelet Count 264 x10^3/uL (140-400) Neutrophils (%) (Auto) 72 % (31-73) Lymphocytes (%) (Auto) 14 % (24-48) Monocytes (%) (Auto) 12 % (0-9) Eosinophils (%) (Auto) 1 % (0-3) Basophils (%) (Auto) 1 % (0-3) Neutrophils # (Auto) 3.5 x10^3/uL (1.8-7.7) Lymphocytes # (Auto) 0.7 x10^3/uL (1.0-4.8) Monocytes # (Auto) 0.6 x10^3/uL (0.0-1.1) Eosinophils # (Auto) 0.1 x10^3/uL (0.0-0.7) Basophils # (Auto) 0.0 x10^3/uL (0.0-0.2) Sodium Level 139 mmol/L (136-145) Potassium Level 4.0 mmol/L (3.5-5.1) Chloride Level 96 mmol/L (98-107) Carbon Dioxide Level 31 mmol/L (21-32) Anion Gap 12 (6-14) Blood Urea Nitrogen 38 mg/dL (7-20) Creatinine 8.7 mg/dL (0.6-1.0) Estimated GFR (Cockcroft-Gault) 5.8 BUN/Creatinine Ratio 4 (6-20) Glucose Level 68 mg/dL (70-99) Calcium Level 11.0 mg/dL (8.5-10.1) Total Bilirubin 1.2 mg/dL (0.2-1.0) Aspartate Amino Transf (AST/SGOT) 392 U/L (15-37) Alanine Aminotransferase (ALT/SGPT) 296 U/L (14-59) Alkaline Phosphatase 100 U/L (46-116) Total Protein 7.4 g/dL (6.4-8.2) Albumin 2.4 g/dL (3.4-5.0) Albumin/Globulin Ratio 0.5 (1.0-1.7) Vitamin B12 Level 1432 pg/mL (247-911) Thyroid Stimulating Hormone (TSH) 2.454 uIU/mL (0.358-3.74) Hepatitis C IgG Antibody Nonreactive (Nonreactive) Glucose (Fingerstick) 70 mg/dL (70-99) 80 mg/dL (70-99) Ammonia 21 mcmol/L (11-34) Laboratory Tests Test 04/29/19 16:45 04/29/19 20:39 04/30/19 06:10 04/30/19 07:45 Glucose (Fingerstick) 128 mg/dL (70-99) 155 mg/dL (70-99) 70 mg/dL (70-99) White Blood Count 4.8 x10^3/uL (4.0-11.0) Red Blood Count 3.18 x10^6/uL (3.50-5.40) Hemoglobin 8.2 g/dL (12.0-15.5) Hematocrit 25.7 % (36.0-47.0) Mean Corpuscular Volume 81 fL (79-100) Mean Corpuscular Hemoglobin 26 pg (25-35) Mean Corpuscular Hemoglobin Concent 32 g/dL (31-37) Red Cell Distribution Width 20.7 % (11.5-14.5) Platelet Count 264 x10^3/uL (140-400) Neutrophils (%) (Auto) 72 % (31-73) Lymphocytes (%) (Auto) 14 % (24-48) Monocytes (%) (Auto) 12 % (0-9) Eosinophils (%) (Auto) 1 % (0-3) Basophils (%) (Auto) 1 % (0-3) Neutrophils # (Auto) 3.5 x10^3/uL (1.8-7.7) Lymphocytes # (Auto) 0.7 x10^3/uL (1.0-4.8) Monocytes # (Auto) 0.6 x10^3/uL (0.0-1.1) Eosinophils # (Auto) 0.1 x10^3/uL (0.0-0.7) Basophils # (Auto) 0.0 x10^3/uL (0.0-0.2) Sodium Level 139 mmol/L (136-145) Potassium Level 4.0 mmol/L (3.5-5.1) Chloride Level 96 mmol/L (98-107) Carbon Dioxide Level 31 mmol/L (21-32) Anion Gap 12 (6-14) Blood Urea Nitrogen 38 mg/dL (7-20) Creatinine 8.7 mg/dL (0.6-1.0) Estimated GFR (Cockcroft-Gault) 5.8 BUN/Creatinine Ratio 4 (6-20) Glucose Level 68 mg/dL (70-99) Calcium Level 11.0 mg/dL (8.5-10.1) Total Bilirubin 1.2 mg/dL (0.2-1.0) Aspartate Amino Transf (AST/SGOT) 392 U/L (15-37) Alanine Aminotransferase (ALT/SGPT) 296 U/L (14-59) Alkaline Phosphatase 100 U/L (46-116) Total Protein 7.4 g/dL (6.4-8.2) Albumin 2.4 g/dL (3.4-5.0) Albumin/Globulin Ratio 0.5 (1.0-1.7) Vitamin B12 Level 1432 pg/mL (247-911) Thyroid Stimulating Hormone (TSH) 2.454 uIU/mL (0.358-3.74) Hepatitis C IgG Antibody Nonreactive (Nonreactive) Test 04/30/19 11:20 04/30/19 11:55 Ammonia 21 mcmol/L (11-34) Glucose (Fingerstick) 80 mg/dL (70-99) REJI NICK MD Apr 30, 2019 14:20
--- NOTE | 2019-04-30 14:50 | PDOC ---
SUBJECTIVE ROS Stable OBJECTIVE Vital Signs Vital Signs Date Time Temp Pulse Resp B/P (MAP) Pulse Ox O2 Delivery O2 Flow Rate FiO2 04/30/19 11:00 98.1 59 18 121/62 (81) 95 Room Air 98.1 I & 0 Intake and Output 04/30/19 07:00 Intake Total 240 ml Balance 240 ml Intake Oral 240 ml # Voids 1 PHYSICAL EXAM Physical Exam GEN: NAD HEEN: OM moist NECK: Supple CVS: S1S2, RESP: No Acc. 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 - not sure if worked up Elevated LFT's COMMENT/RELEVANT DATA Meds Current Medications Medications (Trade) Dose Ordered Sig/Sanchez Start Time Stop Time Status Last Admin Dose Admin Acetaminophen (Tylenol) 500 mg 1X PRN PRN 04/29/19 07:45 04/30/19 07:44 DC Albumin Human 200 ml @ 200 mls/hr 1X PRN PRN 04/29/19 07:45 04/29/19 13:44 DC Albuterol Sulfate (Ventolin Neb Soln) 10 mg 1X ONCE 04/29/19 01:00 04/29/19 01:01 DC 04/29/19 00:35 10 MG Amiodarone HCl (Cordarone) 400 mg BID 04/29/19 21:00 04/29/19 21:15 400 MG Amlodipine Besylate (Norvasc) 5 mg DAILY 04/29/19 15:00 04/29/19 16:07 5 MG Apixaban (Eliquis) 5 mg BID 04/29/19 21:00 04/30/19 10:04 5 MG Aspirin (Ecotrin) 81 mg DAILY 04/30/19 09:00 04/30/19 10:04 81 MG Atorvastatin Calcium (Lipitor) 80 mg QHS 04/29/19 21:00 04/29/19 21:15 80 MG Citalopram Hydrobromide (CeleXA) 30 mg DAILY 04/29/19 15:00 04/30/19 10:03 30 MG Clonazepam (KlonoPIN) 0.5 mg TID 04/29/19 15:00 04/30/19 10:05 0.5 MG Dextrose (Dextrose 50%-Water Syringe) 25 gm 1X ONCE 04/29/19 01:00 04/29/19 01:01 DC 04/29/19 00:33 25 GM Diphenhydramine HCl (Benadryl) 25 mg 1X PRN PRN 04/29/19 07:45 04/30/19 07:44 DC Famotidine (Pepcid) 20 mg HS 04/29/19 21:00 04/29/19 21:15 20 MG Info (Anti-Coagulation Monitoring By Pharmacy) 1 each PRN DAILY PRN 04/29/19 15:00 04/30/19 13:32 1 EACH Info (PHARMACY MONITORING -- do not chart) 1 each PRN DAILY PRN 04/29/19 07:45 Insulin Glargine (Lantus Syringe) 15 unit QHS 04/29/19 21:00 04/29/19 21:30 15 UNIT Insulin Human Regular (HumuLIN R VIAL) 5 unit 1X ONCE 04/29/19 01:00 04/29/19 01:01 DC 04/29/19 00:35 5 UNIT Labetalol HCl (Normodyne Iv Push) 10 mg PRN Q1HR PRN 04/29/19 07:45 04/30/19 07:44 DC Metoprolol Tartrate (Lopressor) 25 mg BID 04/29/19 15:00 04/29/19 21:15 25 MG Ondansetron HCl (Zofran) 4 mg PRN Q8HRS PRN 04/29/19 01:00 04/30/19 00:59 DC Ranolazine (Ranexa) 500 mg Q12HR 04/29/19 21:00 04/29/19 21:14 500 MG Sodium Polystyrene Sulfonate (Kayexalate) 30 gm 1X ONCE 04/29/19 01:00 04/29/19 01:01 DC 04/29/19 00:32 30 GM Sodium Bicarbonate (Sodium Bicarb Adult 8.4% Syr) 50 meq 1X ONCE 04/29/19 01:00 04/29/19 01:01 DC 04/29/19 00:33 50 MEQ Sodium Chloride 1,000 ml @ 400 mls/hr Q2H30M PRN 04/29/19 07:38 04/29/19 19:37 DC Lab Laboratory Tests Test 04/29/19 16:45 04/29/19 20:39 04/30/19 06:10 04/30/19 07:45 Glucose (Fingerstick) 128 mg/dL (70-99) 155 mg/dL (70-99) 70 mg/dL (70-99) White Blood Count 4.8 x10^3/uL (4.0-11.0) Red Blood Count 3.18 x10^6/uL (3.50-5.40) Hemoglobin 8.2 g/dL (12.0-15.5) Hematocrit 25.7 % (36.0-47.0) Mean Corpuscular Volume 81 fL (79-100) Mean Corpuscular Hemoglobin 26 pg (25-35) Mean Corpuscular Hemoglobin Concent 32 g/dL (31-37) Red Cell Distribution Width 20.7 % (11.5-14.5) Platelet Count 264 x10^3/uL (140-400) Neutrophils (%) (Auto) 72 % (31-73) Lymphocytes (%) (Auto) 14 % (24-48) Monocytes (%) (Auto) 12 % (0-9) Eosinophils (%) (Auto) 1 % (0-3) Basophils (%) (Auto) 1 % (0-3) Neutrophils # (Auto) 3.5 x10^3/uL (1.8-7.7) Lymphocytes # (Auto) 0.7 x10^3/uL (1.0-4.8) Monocytes # (Auto) 0.6 x10^3/uL (0.0-1.1) Eosinophils # (Auto) 0.1 x10^3/uL (0.0-0.7) Basophils # (Auto) 0.0 x10^3/uL (0.0-0.2) Sodium Level 139 mmol/L (136-145) Potassium Level 4.0 mmol/L (3.5-5.1) Chloride Level 96 mmol/L (98-107) Carbon Dioxide Level 31 mmol/L (21-32) Anion Gap 12 (6-14) Blood Urea Nitrogen 38 mg/dL (7-20) Creatinine 8.7 mg/dL (0.6-1.0) Estimated GFR (Cockcroft-Gault) 5.8 BUN/Creatinine Ratio 4 (6-20) Glucose Level 68 mg/dL (70-99) Calcium Level 11.0 mg/dL (8.5-10.1) Total Bilirubin 1.2 mg/dL (0.2-1.0) Aspartate Amino Transf (AST/SGOT) 392 U/L (15-37) Alanine Aminotransferase (ALT/SGPT) 296 U/L (14-59) Alkaline Phosphatase 100 U/L (46-116) Total Protein 7.4 g/dL (6.4-8.2) Albumin 2.4 g/dL (3.4-5.0) Albumin/Globulin Ratio 0.5 (1.0-1.7) Vitamin B12 Level 1432 pg/mL (247-911) Thyroid Stimulating Hormone (TSH) 2.454 uIU/mL (0.358-3.74) Hepatitis C IgG Antibody Nonreactive (Nonreactive) Test 04/30/19 11:20 04/30/19 11:55 Ammonia 21 mcmol/L (11-34) Glucose (Fingerstick) 80 mg/dL (70-99) Results All relevant outside records, renal labs, imaging studies, telemetry/EKG's were reviewed. JASON POWER MD Apr 30, 2019 14:50
[2019-04-30 15:00] VITALS: BP_SYST 124; BP_SYST 131; BP_DIAS 63; BP_DIAS 67
[2019-04-30 19:00] VITALS: BP 119/67
--- NOTE | 2019-04-30 20:08 | EEG ---
DATE OF SERVICE: 04/30/2019 EEG NUMBER: [id number]. OBJECTIVE: This is a 53-year-old -Citizen Of [place] patient with history of mental status changes. EEG was requested to evaluate cerebral activity. METHODS: Twenty electrodes were applied according to the international 10-20 electrode placement system. EKG monitoring, hyperventilation, intermittent photic stimulation, monopolar and bipolar montages are routinely utilized. The record was obtained on a digital system with video monitoring. FINDINGS: 1. Background: The patient was recorded mainly in the drowsy and sleep states. K-complex noted frequently. No fully awake state was recorded. The overall ackground amplitude is variable. A posterior dominant rhythm of 8 Hz occasionally observed. 2. Abnormalities: No specific epileptiform discharge or electrographic seizure is seen. No pathological diffuse slowing. 3. Activation: Hyperventilation was performed with poor efforts. Intermittent photic stimulation was performed with photic driving. IMPRESSION: This EEG is a borderline study for mainly drowsy and sleep states. No fully awake state was recorded. No focal, lateralizing, specific epileptiform discharge or electrographic seizure is seen. REJI NICK MD DR: AXEL/melissa JOB#: [id number] / [id number] FABIANA
[2019-04-30] MEDS: FAMOTIDINE 20 MG TABLET. PO SCH (21:41)
[2019-04-30] MEDS: ATORVASTATIN CALCIUM 40 MG TABLET. PO SCH (21:42)
[2019-04-30] MEDS: INSULIN GLARGINE SYRINGE. SQ SCH (21:51)
[2019-04-30 23:00] VITALS: BP 114/53
[2019-05-01 03:00] VITALS: BP 112/57
[2019-05-01 04:54] LABS: ALBUMIN 2.4 g/dL (3.4-5.0); ALBUMIN/GLOBULIN RATIO 0.5 (1.0-1.7); CALCIUM 11.3 mg/dL (8.5-10.1); CREATININE 10.6 mg/dL (0.6-1.0); GFR 4.6; POTASSIUM 4.3 mmol/L (3.5-5.1); TOTAL BILIRUBIN 1.2 mg/dL (0.2-1.0); TOTAL PROTEIN 7.2 g/dL (6.4-8.2)
[2019-05-01 05:01] LABS: BASO % 1 % (0-3); EOS # 0.1 x10^3/uL (0.0-0.7); EOS % 2 % (0-3); HEMATOCRIT 25.9 % (36.0-47.0); HEMOGLOBIN 8.2 g/dL (12.0-15.5); LYMPH # 0.7 x10^3/uL (1.0-4.8); LYMPH % 13 % (24-48); MEAN CORPUSCULAR HEMOGLOBIN 26 pg (25-35); MEAN CORPUSCULAR HGB CONC 32 g/dL (31-37); MEAN CORPUSCULAR VOLUME 81 fL (79-100); MONO # 0.9 x10^3/uL (0.0-1.1); MONO % 17 % (0-9); NEUT # 3.6 x10^3/uL (1.8-7.7); NEUT % 68 % (31-73); PLATELET COUNT 265 x10^3/uL (140-400); RED BLOOD COUNT 3.22 x10^6/uL (3.50-5.40); RED CELL DISTRIBUTION WIDTH 20.8 % (11.5-14.5); WHITE BLOOD COUNT 5.3 x10^3/uL (4.0-11.0)
[2019-05-01 06:25] LABS: % LYMPHS 11 % (24-48); % MONOS 14 % (0-10); % SEGS 75 % (35-66); NUCLEATED RBC 3
[2019-05-01 06:26] LABS: ANISOCYTOSIS MOD; PLT ESTIMATE ADEQUATE (ADEQUATE)
[2019-05-01 07:00] VITALS: BP 122/62
[2019-05-01] MEDS ORDERED: VANCOMYCIN 1 GM in IV NORMAL SALINE 250ML 250 ML IV ONE (08:00)
[2019-05-01] MEDS ORDERED: VANCOMYCIN 1.5 GM in IV NORMAL SALINE 500ML BAG 500 ML IV ONE (08:15)
--- NOTE | 2019-05-01 08:32 | NUR ---
SW following pt for dc planning. Chart reviewed and discussed ICU SS. Pt is LTC resident at [facility], phone: [phone], fax: [phone]. Will continue to follow.
--- NOTE | 2019-05-01 08:34 | PDOC ---
PROGRESS NOTES History of Present Illness History of Present Illness ASSESSMENT altered mental status on ct head 04/29 Mild atrophy and chronic microangiopathic white matter change. Severe hyperkalemia, hypothermia, hyperglycemia, anemia. Basilar atelectasis. Correlate for mild pulmonary edema. ESRD on dialysis TRANSAMINITIS fever admitted. consult Nephrology dialysis currently. Frequent labs. Electrolyte protocol. DVT prophylaxis. Home meds. consult neurology NEUROCHECKS Q 4 HRS GI CONSULT ID CONSULT cute dx HEPATITIS PANEL HOLD HEPATOTOXIC DRUGS blood cult, iv vanc x 1 05-01 CT CHEST, ABD 39 MIN PT EXAM, CHART REVIEW, > 50% OF TIME SPENT WITH EXAM, CHART REVIEW, PT CARE COORDINATION Vitals Vitals Vital Signs Date Time Temp Pulse Resp B/P (MAP) Pulse Ox O2 Delivery O2 Flow Rate FiO2 05/01/19 07:00 98.1 63 16 122/62 (82) 95 Room Air 98.1 Physical Exam Physical Exam VITALS: Within normal limits GENERAL: No apparent distress. Alert HEENT: Head is normocephalic, atraumatic, pupils were equally round and reactive to light and accommodation. NECK: Supple, no JVD, no thyromegaly was noted. LUNGS: Clear to auscultation in all lung sen without rhonchi or wheezing. HEART: RRR, S1, S2 present. Peripheral pulses intact, no obvious murmurs were noted. ABDOMEN: Soft, nontender. Positive bowel sounds normal bowel sounds. EXTREMITIES: Without any cyanosis, clubbing, or edema. Pedal pulses intact, Homans sign is negative. NEUROLOGIC: Normal speech, normal tone. A & O x3, moves all extremities, no obvious focal deficits. PSYCHIATRIC: Normal affect, normal mood. Stable. SKIN: No ulcerations or rashes, good skin turgor, no jaundice. VASCULAR: Good capillary refill, neurovascular bundle appears to be intact. General: Cooperative Heart: Regular rate Lungs: Clear Abdomen: Normal bowel sounds, Soft, No tenderness Extremities: No cyanosis Labs LABS Laboratory Tests Test 04/30/19 11:20 04/30/19 11:55 04/30/19 16:35 04/30/19 21:42 Ammonia 21 mcmol/L (11-34) Glucose (Fingerstick) 80 mg/dL (70-99) 74 mg/dL (70-99) 102 mg/dL (70-99) Test 05/01/19 03:45 05/01/19 07:35 05/01/19 08:31 White Blood Count 5.3 x10^3/uL (4.0-11.0) Red Blood Count 3.22 x10^6/uL (3.50-5.40) Hemoglobin 8.2 g/dL (12.0-15.5) Hematocrit 25.9 % (36.0-47.0) Mean Corpuscular Volume 81 fL (79-100) Mean Corpuscular Hemoglobin 26 pg (25-35) Mean Corpuscular Hemoglobin Concent 32 g/dL (31-37) Red Cell Distribution Width 20.8 % (11.5-14.5) Platelet Count 265 x10^3/uL (140-400) Neutrophils (%) (Auto) 68 % (31-73) Lymphocytes (%) (Auto) 13 % (24-48) Monocytes (%) (Auto) 17 % (0-9) Eosinophils (%) (Auto) 2 % (0-3) Basophils (%) (Auto) 1 % (0-3) Neutrophils # (Auto) 3.6 x10^3/uL (1.8-7.7) Lymphocytes # (Auto) 0.7 x10^3/uL (1.0-4.8) Monocytes # (Auto) 0.9 x10^3/uL (0.0-1.1) Eosinophils # (Auto) 0.1 x10^3/uL (0.0-0.7) Basophils # (Auto) 0.0 x10^3/uL (0.0-0.2) Segmented Neutrophils % 75 % (35-66) Lymphocytes % 11 % (24-48) Monocytes % 14 % (0-10) Nucleated Red Blood Cells 3 Platelet Estimate Adequate (ADEQUATE) Anisocytosis Mod Sodium Level 139 mmol/L (136-145) Potassium Level 4.3 mmol/L (3.5-5.1) Chloride Level 98 mmol/L (98-107) Carbon Dioxide Level 31 mmol/L (21-32) Anion Gap 10 (6-14) Blood Urea Nitrogen 49 mg/dL (7-20) Creatinine 10.6 mg/dL (0.6-1.0) Estimated GFR (Cockcroft-Gault) 4.6 BUN/Creatinine Ratio 5 (6-20) Glucose Level 65 mg/dL (70-99) Calcium Level 11.3 mg/dL (8.5-10.1) Total Bilirubin 1.2 mg/dL (0.2-1.0) Aspartate Amino Transf (AST/SGOT) 577 U/L (15-37) Alanine Aminotransferase (ALT/SGPT) 416 U/L (14-59) Alkaline Phosphatase 117 U/L (46-116) Total Protein 7.2 g/dL (6.4-8.2) Albumin 2.4 g/dL (3.4-5.0) Albumin/Globulin Ratio 0.5 (1.0-1.7) Glucose (Fingerstick) 47 mg/dL (70-99) 74 mg/dL (70-99) Assessment and Plan Assessmemt and Plan Problems Medical Problems: (1) Altered mental status Status: Acute (2) Hypoglycemia Status: Acute Amiodarone can cause liver damage ranging from mild and reversible liver blood enzyme abnormalities, to acute liver failure and irreversible cirrhosis. ... Serious liver damage occurs in less than 1% of patients. Comment Review of Relevant I have reviewed the following items sarahi (where applicable) has been applied. Labs Laboratory Tests Test 04/29/19 12:38 04/29/19 16:45 04/29/19 20:39 04/30/19 06:10 Glucose (Fingerstick) 64 mg/dL (70-99) 128 mg/dL (70-99) 155 mg/dL (70-99) White Blood Count 4.8 x10^3/uL (4.0-11.0) Red Blood Count 3.18 x10^6/uL (3.50-5.40) Hemoglobin 8.2 g/dL (12.0-15.5) Hematocrit 25.7 % (36.0-47.0) Mean Corpuscular Volume 81 fL (79-100) Mean Corpuscular Hemoglobin 26 pg (25-35) Mean Corpuscular Hemoglobin Concent 32 g/dL (31-37) Red Cell Distribution Width 20.7 % (11.5-14.5) Platelet Count 264 x10^3/uL (140-400) Neutrophils (%) (Auto) 72 % (31-73) Lymphocytes (%) (Auto) 14 % (24-48) Monocytes (%) (Auto) 12 % (0-9) Eosinophils (%) (Auto) 1 % (0-3) Basophils (%) (Auto) 1 % (0-3) Neutrophils # (Auto) 3.5 x10^3/uL (1.8-7.7) Lymphocytes # (Auto) 0.7 x10^3/uL (1.0-4.8) Monocytes # (Auto) 0.6 x10^3/uL (0.0-1.1) Eosinophils # (Auto) 0.1 x10^3/uL (0.0-0.7) Basophils # (Auto) 0.0 x10^3/uL (0.0-0.2) Sodium Level 139 mmol/L (136-145) Potassium Level 4.0 mmol/L (3.5-5.1) Chloride Level 96 mmol/L (98-107) Carbon Dioxide Level 31 mmol/L (21-32) Anion Gap 12 (6-14) Blood Urea Nitrogen 38 mg/dL (7-20) Creatinine 8.7 mg/dL (0.6-1.0) Estimated GFR (Cockcroft-Gault) 5.8 BUN/Creatinine Ratio 4 (6-20) Glucose Level 68 mg/dL (70-99) Calcium Level 11.0 mg/dL (8.5-10.1) Total Bilirubin 1.2 mg/dL (0.2-1.0) Aspartate Amino Transf (AST/SGOT) 392 U/L (15-37) Alanine Aminotransferase (ALT/SGPT) 296 U/L (14-59) Alkaline Phosphatase 100 U/L (46-116) Total Protein 7.4 g/dL (6.4-8.2) Albumin 2.4 g/dL (3.4-5.0) Albumin/Globulin Ratio 0.5 (1.0-1.7) Vitamin B12 Level 1432 pg/mL (247-911) Thyroid Stimulating Hormone (TSH) 2.454 uIU/mL (0.358-3.74) Hepatitis C IgG Antibody Nonreactive (Nonreactive) Test 04/30/19 07:45 04/30/19 11:20 04/30/19 11:55 04/30/19 16:35 Glucose (Fingerstick) 70 mg/dL (70-99) 80 mg/dL (70-99) 74 mg/dL (70-99) Ammonia 21 mcmol/L (11-34) Test 04/30/19 21:42 05/01/19 03:45 05/01/19 07:35 05/01/19 08:31 Glucose (Fingerstick) 102 mg/dL (70-99) 47 mg/dL (70-99) 74 mg/dL (70-99) White Blood Count 5.3 x10^3/uL (4.0-11.0) Red Blood Count 3.22 x10^6/uL (3.50-5.40) Hemoglobin 8.2 g/dL (12.0-15.5) Hematocrit 25.9 % (36.0-47.0) Mean Corpuscular Volume 81 fL (79-100) Mean Corpuscular Hemoglobin 26 pg (25-35) Mean Corpuscular Hemoglobin Concent 32 g/dL (31-37) Red Cell Distribution Width 20.8 % (11.5-14.5) Platelet Count 265 x10^3/uL (140-400) Neutrophils (%) (Auto) 68 % (31-73) Lymphocytes (%) (Auto) 13 % (24-48) Monocytes (%) (Auto) 17 % (0-9) Eosinophils (%) (Auto) 2 % (0-3) Basophils (%) (Auto) 1 % (0-3) Neutrophils # (Auto) 3.6 x10^3/uL (1.8-7.7) Lymphocytes # (Auto) 0.7 x10^3/uL (1.0-4.8) Monocytes # (Auto) 0.9 x10^3/uL (0.0-1.1) Eosinophils # (Auto) 0.1 x10^3/uL (0.0-0.7) Basophils # (Auto) 0.0 x10^3/uL (0.0-0.2) Segmented Neutrophils % 75 % (35-66) Lymphocytes % 11 % (24-48) Monocytes % 14 % (0-10) Nucleated Red Blood Cells 3 Platelet Estimate Adequate (ADEQUATE) Anisocytosis Mod Sodium Level 139 mmol/L (136-145) Potassium Level 4.3 mmol/L (3.5-5.1) Chloride Level 98 mmol/L (98-107) Carbon Dioxide Level 31 mmol/L (21-32) Anion Gap 10 (6-14) Blood Urea Nitrogen 49 mg/dL (7-20) Creatinine 10.6 mg/dL (0.6-1.0) Estimated GFR (Cockcroft-Gault) 4.6 BUN/Creatinine Ratio 5 (6-20) Glucose Level 65 mg/dL (70-99) Calcium Level 11.3 mg/dL (8.5-10.1) Total Bilirubin 1.2 mg/dL (0.2-1.0) Aspartate Amino Transf (AST/SGOT) 577 U/L (15-37) Alanine Aminotransferase (ALT/SGPT) 416 U/L (14-59) Alkaline Phosphatase 117 U/L (46-116) Total Protein 7.2 g/dL (6.4-8.2) Albumin 2.4 g/dL (3.4-5.0) Albumin/Globulin Ratio 0.5 (1.0-1.7) Laboratory Tests Test 04/30/19 11:20 04/30/19 11:55 04/30/19 16:35 04/30/19 21:42 Ammonia 21 mcmol/L (11-34) Glucose (Fingerstick) 80 mg/dL (70-99) 74 mg/dL (70-99) 102 mg/dL (70-99) Test 05/01/19 03:45 05/01/19 07:35 05/01/19 08:31 White Blood Count 5.3 x10^3/uL (4.0-11.0) Red Blood Count 3.22 x10^6/uL (3.50-5.40) Hemoglobin 8.2 g/dL (12.0-15.5) Hematocrit 25.9 % (36.0-47.0) Mean Corpuscular Volume 81 fL (79-100) Mean Corpuscular Hemoglobin 26 pg (25-35) Mean Corpuscular Hemoglobin Concent 32 g/dL (31-37) Red Cell Distribution Width 20.8 % (11.5-14.5) Platelet Count 265 x10^3/uL (140-400) Neutrophils (%) (Auto) 68 % (31-73) Lymphocytes (%) (Auto) 13 % (24-48) Monocytes (%) (Auto) 17 % (0-9) Eosinophils (%) (Auto) 2 % (0-3) Basophils (%) (Auto) 1 % (0-3) Neutrophils # (Auto) 3.6 x10^3/uL (1.8-7.7) Lymphocytes # (Auto) 0.7 x10^3/uL (1.0-4.8) Monocytes # (Auto) 0.9 x10^3/uL (0.0-1.1) Eosinophils # (Auto) 0.1 x10^3/uL (0.0-0.7) Basophils # (Auto) 0.0 x10^3/uL (0.0-0.2) Segmented Neutrophils % 75 % (35-66) Lymphocytes % 11 % (24-48) Monocytes % 14 % (0-10) Nucleated Red Blood Cells 3 Platelet Estimate Adequate (ADEQUATE) Anisocytosis Mod Sodium Level 139 mmol/L (136-145) Potassium Level 4.3 mmol/L (3.5-5.1) Chloride Level 98 mmol/L (98-107) Carbon Dioxide Level 31 mmol/L (21-32) Anion Gap 10 (6-14) Blood Urea Nitrogen 49 mg/dL (7-20) Creatinine 10.6 mg/dL (0.6-1.0) Estimated GFR (Cockcroft-Gault) 4.6 BUN/Creatinine Ratio 5 (6-20) Glucose Level 65 mg/dL (70-99) Calcium Level 11.3 mg/dL (8.5-10.1) Total Bilirubin 1.2 mg/dL (0.2-1.0) Aspartate Amino Transf (AST/SGOT) 577 U/L (15-37) Alanine Aminotransferase (ALT/SGPT) 416 U/L (14-59) Alkaline Phosphatase 117 U/L (46-116) Total Protein 7.2 g/dL (6.4-8.2) Albumin 2.4 g/dL (3.4-5.0) Albumin/Globulin Ratio 0.5 (1.0-1.7) Glucose (Fingerstick) 47 mg/dL (70-99) 74 mg/dL (70-99) Microbiology 04/28/19 Blood Culture - Preliminary, Resulted NO GROWTH AFTER 2 DAYS Medications Current Medications Dextrose (Dextrose 50%-Water Syringe) 25 gm STK-MED ONCE IV ; Start 04/28/19 at 22:31; Stop 04/28/19 at 22:31; Status DC Dextrose (Dextrose 50%-Water Syringe) 25 gm 1X ONCE IV Last administered on 04/28/19at 23:25; Start 04/28/19 at 23:00; Stop 04/28/19 at 23:01; Status DC Sodium Bicarbonate (Sodium Bicarb Adult 8.4% Syr) 50 meq 1X ONCE IV Last administered on 04/29/19at 00:33; Start 04/29/19 at 01:00; Stop 04/29/19 at 01:01; Status DC Dextrose (Dextrose 50%-Water Syringe) 25 gm 1X ONCE IV Last administered on 04/29/19at 00:33; Start 04/29/19 at 01:00; Stop 04/29/19 at 01:01; Status DC Insulin Human Regular (HumuLIN R VIAL) 5 unit 1X ONCE IV Last administered on 04/29/19at 00:35; Start 04/29/19 at 01:00; Stop 04/29/19 at 01:01; Status DC Sodium Polystyrene Sulfonate (Kayexalate) 30 gm 1X ONCE PO Last administered on 04/29/19at 00:32; Start 04/29/19 at 01:00; Stop 04/29/19 at 01:01; Status DC Sodium Chloride 1,000 ml @ 1,000 mls/hr Q1H IV Last administered on 04/29/19at 00:30; Start 04/29/19 at 01:00; Stop 04/29/19 at 01:59; Status DC Albuterol Sulfate (Ventolin Neb Soln) 10 mg 1X ONCE CONT NEB Last administered on 04/29/19at 00:35; Start 04/29/19 at 01:00; Stop 04/29/19 at 01:01; Status DC Ondansetron HCl (Zofran) 4 mg PRN Q8HRS PRN IV NAUSEA/VOMITING 1ST CHOICE; Start 04/29/19 at 01:00; Stop 04/30/19 at 00:59; Status DC Sodium Chloride 1,000 ml @ 1,000 mls/hr Q1H PRN IV hypotension; Start 04/29/19 at 07:38; Stop 04/29/19 at 13:37; Status DC Albumin Human 200 ml @ 200 mls/hr 1X PRN PRN IV Hypotension; Start 04/29/19 at 07:45; Stop 04/29/19 at 13:44; Status DC Acetaminophen (Tylenol) 500 mg 1X PRN PRN PO MILD PAIN / TEMP; Start 04/29/19 at 07:45; Stop 04/30/19 at 07:44; Status DC Diphenhydramine HCl (Benadryl) 25 mg 1X PRN PRN IV ITCHING; Start 04/29/19 at 07:45; Stop 04/30/19 at 07:44; Status DC Diphenhydramine HCl (Benadryl) 25 mg 1X PRN PRN IV ITCHING; Start 04/29/19 at 07:45; Stop 04/30/19 at 07:44; Status DC Labetalol HCl (Normodyne Iv Push) 10 mg PRN Q1HR PRN IVP SBP > 180; Start 04/29/19 at 07:45; Stop 04/30/19 at 07:44; Status DC Sodium Chloride 1,000 ml @ 400 mls/hr Q2H30M PRN IV PATENCY; Start 04/29/19 at 07:38; Stop 04/29/19 at 19:37; Status DC Info (PHARMACY MONITORING -- do not chart) 1 each PRN DAILY PRN MC SEE COMMENTS; Start 04/29/19 at 07:45; Stop 04/29/19 at 07:46; Status DC Info (PHARMACY MONITORING -- do not chart) 1 each PRN DAILY PRN MC SEE COMMENTS; Start 04/29/19 at 07:45 Amiodarone HCl (Cordarone) 400 mg BID PO Last administered on 04/30/19at 21:44; Start 04/29/19 at 21:00 Amlodipine Besylate (Norvasc) 5 mg DAILY PO Last administered on 04/29/19at 16 :07; Start 04/29/19 at 15:00 Apixaban (Eliquis) 5 mg BID PO Last administered on 04/30/19at 21:41; Start 04/29/19 at 21:00 Aspirin (Ecotrin) 81 mg DAILY PO Last administered on 04/30/19at 10:04; Start 04/30/19 at 09:00 Clonazepam (KlonoPIN) 0.5 mg TID PO Last administered on 04/30/19 21:41; Start 04/29/19 at 15:00 Famotidine (Pepcid) 20 mg HS PO Last administered on 04/30/19 21:41; Start 04/29/19 at 21:00 Metoprolol Tartrate (Lopressor) 25 mg BID PO Last administered on 04/30/19 21:41; Start 04/29/19 at 15:00 Ranolazine (Ranexa) 500 mg Q12HR PO Last administered on 04/30/19 21:41; Start 04/29/19 at 21:00 Atorvastatin Calcium (Lipitor) 80 mg QHS PO Last administered on 04/30/19 21:42; Start 04/29/19 at 21:00 Citalopram Hydrobromide (CeleXA) 30 mg DAILY PO Last administered on 04/30/19 10:03; Start 04/29/19 at 15:00 Insulin Glargine (Lantus Syringe) 15 unit QHS SQ Last administered on 04/30/19 21:51; Start 04/29/19 at 21:00 Info (Anti-Coagulation Monitoring By Pharmacy) 1 each PRN DAILY PRN MC SEE COMMENTS Last administered on 04/30/19 15:38; Start 04/29/19 at 15:00 Vancomycin HCl 1 gm/Sodium Chloride 250 ml @ 250 mls/hr 1X ONCE IV ; Start 05/01/19 at 08:00; Stop 05/01/19 at 08:59; Status UNV Vancomycin HCl 1.5 gm/Sodium Chloride 500 ml @ 250 mls/hr 1X ONCE IV ; Start 05/01/19 at 08:15; Stop 05/01/19 at 10:14 Vancomycin HCl (Vanco Per Pharmacy) 1 each PRN DAILY PRN MC SEE COMMENTS; Start 05/01/19 at 08:15 Active Scripts Active Reported Vitamin D (Cholecalciferol (Vitamin D3)) 1,000 Unit Capsule 1 Cap PO DAILY Tylenol (Acetaminophen) 325 Mg Tablet 2 Tab PO PRN Q4HRS Tums (Calcium Carbonate) 200 Mg Tab.chew 4 Tab PO DAILY Ranexa (Ranolazine) 500 Mg Tab.er.12h 1 Tab PO Q12HR Phoslyra (Calcium Acetate) 667 Mg/5 Ml Solution 15 Ml PO TIDAC NITROGLYCERIN SubLingual (Nitroglycerin) 0.4 Mg Tab.subl 0.4 Mg SL PRN Q5MIN PRN Miralax (Polyethylene Glycol 3350) 17 Gm Powd.pack 1 Packet PO BID Metoprolol Tartrate 25 Mg Tablet 1 Tab PO BID Lidocaine PATCH (Lidocaine) 1 Each Adh..patch 1 Each TP DAILY REMOVE AFTER 12 HOURS Lexapro (Escitalopram Oxalate) 5 Mg Tablet 15 Mg PO DAILY Levemir (Insulin Detemir) 100 Unit/1 Ml Vial 15 Unit SQ QHS Klonopin (Clonazepam) 0.5 Mg Tablet 1 Tab PO TID Imodium A-D (Loperamide HCl) 2 Mg Capsule 2 Mg PO PRN Q4HRS PRN Hydrocodone-Apap 5-325 (Hydrocodone Bit/Acetaminophen) 1 Tab Tablet 1 Tab PO PRN Q4HRS PRN Folic Acid 1 Mg Tablet 1 Tab PO DAILY Ferrous Sulfate 325 Mg Tablet 1 Tab PO BID Pepcid (Famotidine) 20 Mg Tablet 20 Mg PO HS Clobetasol Propionate 15 Gm Cream..g. 1 Jomar TP DAILY08 Dulcolax (Bisacodyl) 5 Mg Tablet.dr 4 Tab PO PRN BID PRN Bisacodyl 10 Mg Supp.rect 10 Mg RC PRN DAILY PRN Aspir-Low (Aspirin) 81 Mg Tablet.dr 1 Tab PO DAILY Artificial Tears (Dextran 70/Hypromellose) 1 Each Droperette 1 Each OP PRN Q8HRS PRN Eliquis (Apixaban) 5 Mg Tablet 5 Mg PO BID Ammonium Lactate 226 Gm Lotion 1 Gm TP DAILY16 Amlodipine Besylate 5 Mg Tablet 5 Mg PO DAILY Amiodarone Hcl 200 Mg Tablet 2 Tab PO BID Amiodarone Hcl 200 Mg Tablet 1 Tab PO NOON Lipitor (Atorvastatin Calcium) 80 Mg Tablet 1 Tab PO DAILY Vitals/I & O Vital Sign - Last 24 Hours 04/30/19 04/30/19 04/30/19 04/30/19 09:00 09:00 09:00 09:00 Pulse 55 55 55 55 B/P (MAP) 111/37 111/37 111/37 111/37 04/30/19 04/30/19 04/30/19 04/30/19 11:00 15:00 19:00 20:00 Temp 98.1 98.2 98.9 98.1 98.2 98.9 Pulse 59 60 61 Resp 18 17 16 B/P (MAP) 121/62 (81) 124/63 (83) 119/67 (84) Pulse Ox 95 95 94 O2 Delivery Room Air Room Air Room Air 04/30/19 04/30/19 04/30/19 04/30/19 21:41 21:41 21:44 23:00 Temp 98.8 98.8 Pulse 61 61 61 60 Resp 16 B/P (MAP) 119/67 119/67 119/67 114/53 (73) Pulse Ox 93 05/01/19 05/01/19 03:00 07:00 Temp 99.2 98.1 99.2 98.1 Pulse 60 63 Resp 18 16 B/P (MAP) 112/57 (75) 122/62 (82) Pulse Ox 92 95 O2 Delivery Room Air Intake and Output 04/30/19 04/30/19 05/01/19 14:59 22:59 06:59 Intake Total 120 ml Output Total 0 ml Balance 120 ml REBECCA WEAVER MD May 01, 2019 08:34
[2019-05-01] MEDS: clonazePAM 0.5 MG TABLET PO SCH ×3 (09:34→21:05)
[2019-05-01] MEDS: METOPROLOL TART IMMED RELEASE 25 MG TABLET. PO SCH ×2 (09:35→21:05)
[2019-05-01] MEDS: ASPIRIN ENTERIC COATED 81 MG TABLET.DR. PO SCH (09:35)
[2019-05-01] MEDS: CITALOPRAM 10 MG TABLET. PO SCH (09:35)
[2019-05-01] MEDS: RANOLAZINE 500 MG TAB.ER.12H PO SCH ×2 (09:35→21:06)
[2019-05-01] MEDS: amLODIPine BESYLATE 5 MG TABLET PO SCH (09:35)
[2019-05-01] MEDS: APIXABAN 5 MG TABLET. PO SCH (09:36)
[2019-05-01] MEDS: AMIODARONE HCL 200 MG TABLET. PO SCH (09:36)
--- NOTE | 2019-05-01 10:48 | PDOC ---
Infectious Disease Note Vital Sign Vital Signs Vital Signs Date Time Temp Pulse Resp B/P (MAP) Pulse Ox O2 Delivery O2 Flow Rate FiO2 05/01/19 09:36 63 122/62 05/01/19 07:00 98.1 16 95 Room Air 98.1 Labs Lab Laboratory Tests Test 04/30/19 11:20 04/30/19 11:55 04/30/19 16:35 04/30/19 21:42 Ammonia 21 mcmol/L (11-34) Glucose (Fingerstick) 80 mg/dL (70-99) 74 mg/dL (70-99) 102 mg/dL (70-99) Test 05/01/19 03:45 05/01/19 07:35 05/01/19 08:31 White Blood Count 5.3 x10^3/uL (4.0-11.0) Red Blood Count 3.22 x10^6/uL (3.50-5.40) Hemoglobin 8.2 g/dL (12.0-15.5) Hematocrit 25.9 % (36.0-47.0) Mean Corpuscular Volume 81 fL (79-100) Mean Corpuscular Hemoglobin 26 pg (25-35) Mean Corpuscular Hemoglobin Concent 32 g/dL (31-37) Red Cell Distribution Width 20.8 % (11.5-14.5) Platelet Count 265 x10^3/uL (140-400) Neutrophils (%) (Auto) 68 % (31-73) Lymphocytes (%) (Auto) 13 % (24-48) Monocytes (%) (Auto) 17 % (0-9) Eosinophils (%) (Auto) 2 % (0-3) Basophils (%) (Auto) 1 % (0-3) Neutrophils # (Auto) 3.6 x10^3/uL (1.8-7.7) Lymphocytes # (Auto) 0.7 x10^3/uL (1.0-4.8) Monocytes # (Auto) 0.9 x10^3/uL (0.0-1.1) Eosinophils # (Auto) 0.1 x10^3/uL (0.0-0.7) Basophils # (Auto) 0.0 x10^3/uL (0.0-0.2) Segmented Neutrophils % 75 % (35-66) Lymphocytes % 11 % (24-48) Monocytes % 14 % (0-10) Nucleated Red Blood Cells 3 Platelet Estimate Adequate (ADEQUATE) Anisocytosis Mod Sodium Level 139 mmol/L (136-145) Potassium Level 4.3 mmol/L (3.5-5.1) Chloride Level 98 mmol/L (98-107) Carbon Dioxide Level 31 mmol/L (21-32) Anion Gap 10 (6-14) Blood Urea Nitrogen 49 mg/dL (7-20) Creatinine 10.6 mg/dL (0.6-1.0) Estimated GFR (Cockcroft-Gault) 4.6 BUN/Creatinine Ratio 5 (6-20) Glucose Level 65 mg/dL (70-99) Calcium Level 11.3 mg/dL (8.5-10.1) Total Bilirubin 1.2 mg/dL (0.2-1.0) Aspartate Amino Transf (AST/SGOT) 577 U/L (15-37) Alanine Aminotransferase (ALT/SGPT) 416 U/L (14-59) Alkaline Phosphatase 117 U/L (46-116) Total Protein 7.2 g/dL (6.4-8.2) Albumin 2.4 g/dL (3.4-5.0) Albumin/Globulin Ratio 0.5 (1.0-1.7) Glucose (Fingerstick) 47 mg/dL (70-99) 74 mg/dL (70-99) Micro Microbiology 04/28/19 Blood Culture - Preliminary, Resulted NO GROWTH AFTER 2 DAYS Objective Assessment GPC bacteremia (1 of 4 bottles), POA ? contaminate Acute encephalopathy after missing dialysis, Transaminitis - worsening ? amiodarone toxicity PCN allergy - itching Hypothermia - better CKD/HD Pacemaker Amiodorone therapy Diabetes with hypoglycemia Plan Plan of Care Continue vanc Await ID of GPC Consider GI eval may need abd US D/w Dr. Bach Thank you [id number] F/u CT scan Attending Co-Sign Attending Co-Sign The patient was seen and interviewed as well as examined at the bedside. The chart was reviewed. The case was discussed. Agree with the plan of care. ARIANE GLASS APRN May 01, 2019 10:48 SIGIFREDO CHAVES MD May 01, 2019 16:30
[2019-05-01 11:00] VITALS: BP 134/68
--- NOTE | 2019-05-01 11:37 | CONS ---
DATE OF CONSULTATION: 05/01/2019 REFERRING PHYSICIAN: Dr. Bach. REASON FOR CONSULTATION: Positive blood cultures. HISTORY OF PRESENT ILLNESS: This patient is a 53-year-old -[place] female with chronic kidney disease, on hemodialysis who was sent to the ER from the correction for evaluation of altered mental status, weakness, and shortness of air. Apparently, she had missed dialysis. She had hyperkalemia and hypoglycemia that has since been corrected. She had a temperature of 95.0, normal white blood cell count and elevated liver enzymes. Blood cultures have returned positive for gram-positive cocci, 1 of 4 bottles. She was dosed with vancomycin. ID has been asked to consult for further evaluation. PAST MEDICAL HISTORY: Chronic kidney disease on hemodialysis, diabetes, peripheral neuropathy, congestive heart failure, hypertension, bipolar disorder, depression, anxiety, noncompliance and major depression. PAST SURGICAL HISTORY: AV fistula, pacemaker placement. FAMILY HISTORY: Diabetes mellitus, renal failure, coronary artery disease. SOCIAL HISTORY: The patient is a resident at [facility]. Nonsmoker. ALLERGIES: PENICILLIN CAUSING ITCHING. She does not recall taking amoxicillin or Keflex. MILK AND HALDOL ALSO LISTED. CURRENT MEDICATIONS: Vancomycin, amiodarone, Eliquis, aspirin, Lipitor, citalopram, Klonopin, Pepcid, metoprolol and ranolazine. REVIEW OF SYSTEMS: The patient says she is feeling well and does not feel sick. Although she says she did feel a little bit nauseous this morning. She says she was in her usual state of health when she woke up in the hospital. Denies fevers, chills, sweats or body aches. Denies vomiting, cramps or diarrhea. Denies shortness of air, cough or chest discomfort. Denies headache or confusion. PHYSICAL EXAMINATION: VITAL SIGNS: Temperature 98.1, blood pressure 122/62, heart rate 63, respiratory rate 16, pulse oximetry 95% on room air. GENERAL: The patient is sitting up in a chair, resting quietly, arouses to name. HEENT: Pupils equally round, reactive. Normal conjunctivae. Oropharynx pink and moist. No lesions. NECK: Supple. LUNGS: Clear to auscultation. HEART: S1, S2. ABDOMEN: Soft and nontender with bowel sounds present. EXTREMITIES: No gross edema or cyanosis. She had several firm lesions on her legs, nontender. LUE-AV fistula unremarkable. NEUROLOGIC: Answers questions appropriately. LABORATORY DATA: Today's WBC 5.3, hemoglobin 8.2, platelets 265,000, segs 75%, lymphocytes 11%, monocytes 14%. Sodium 139, potassium 4.3, creatinine 10.6, BUN 49, glucose 65, total bilirubin 1.2, AST 577 from 164, ALT 416 from 164. Ammonia 21. TSH 2.454, albumin 2.4, calcium 11.3. MRSA screen negative, hepatitis C, IgG AB nonreactive. Hepatitis B surface antibody reactive. Hepatitis B surface antigen nonreactive. Chest x-ray showed bibasilar atelectasis. Head CT showed no acute intracranial abnormalities. IMPRESSION: 1. Gram-positive cocci bacteremia (1 of 4 bottles), present on admission, possibly a contaminant. 2. Acute encephalopathy after missing dialysis. 3. Transaminitis, worsening. 4. PENICILLIN ALLERGY, CAUSING ITCHING. 5. Hypothermia, better. 6. Chronic kidney disease, on hemodialysis. 7. Pacemaker. 8. Amiodarone therapy. 9. Diabetes with hypoglycemia. PLAN: Continue vancomycin per pharmacy protocol. Await identification of GPC. Consider GI evaluation for elevated transaminitis. May need abdominal ultrasound. Thank you, Dr. Bach for asking us to participate in this patient's care. Should you have further questions or concerns, please call. SIGIFREDO CHAVES MD DR: MORGAN/melissa JOB#: [id number] / [id number]
[2019-05-01] MEDS: ANTI-COAG MONITOR BY PHARMACY. MC PRN (11:46)
--- NOTE | 2019-05-01 12:17 | PDOC2 ---
CATHERINE LANDRY PRESIDENT 05/01/19 1217: CARDIAC CONSULT DATE OF CONSULT Date of Consult DATE: 05/01/19 TIME: 11:51 REASON FOR CONSULT Reason for Consult: cordarone, hepatitis REFERRING PHYSICIAN Referring Physician: Fullbright SOURCE Source: Chart review, Patient HISTORY OF PRESENT ILLNESS HISTORY OF PRESENT ILLNESS This is a 53 yo female admitted for altered mental status. She has hx of bipolar disorder and resides at [facility]. She is a poor historian, arousable but very limited attention span and drowsy. Upon admission she was noted with hypoglycemia, hypercalcemia, and hyperkalemia with hx of ESRD. She is known at and also has a PPM. She is known for PAFIB with last month afib burden of 2.2%. 2 months ago she was in AFIB RVR and was placed on 400 mg po bid of amiodarone and from chart review this was not changed at all and continued at this dose till this hospitalization. No known hx of GI bleed and no prior hx of CAD. She was also noted with pericardial effusion noted 2 months ago and follow up TTE was planned about a month ago but did not materialize. It is unclear when she missed her dialysis. Currently no chest pain or SOA. PAST MEDICAL HISTORY Cardiovascular: AFIB, CAD (nonobstructive), CHF, HTN, Hyperlipidemia, Other (pericardial effusion) CENTRAL NERVOUS SYSTEM: Other (No pertinent history) GI: Constipation Heme/Onc: Anemia NOS Hepatobiliary: No pertinent hx Psych: Anxiety, Depression, Schizophrenia Musculoskeletal: Other (no pertinent history) Rheumatologic: No pertinent hx Infectious disease: No pertinent hx ENT: Other (blind left eye) Renal/: Chronic renal failure, UTI Endocrine: Diabetes Dermatology: No pertinent hx PAST SURGICAL HISTORY Past Surgical History: Pacemaker (due to high grade block), , Other (AV fistula placement; [facility] 2011 with 50% mid to distal D1 and 60% mid LAD not significant FFR) FAMILY HISTORY Family History: Coronary Artery Disease, Diabetes SOCIAL HISTORY Smoke: No ALCOHOL: none Lives: Senior Living CURRENT MEDICATIONS CURRENT MEDICATIONS Current Medications Medications (Trade) Dose Ordered Sig/Sanchez Route PRN Reason Start Time Stop Time Status Last Admin Dose Admin Vancomycin HCl 1.5 gm/Sodium Chloride 500 ml @ 250 mls/hr 1X ONCE IV 05/01/19 08:15 05/01/19 10:14 DC 05/01/19 11:02 ALLERGIES ALLERGIES: Coded Allergies: Milk Containing Products (Verified Allergy, Intermediate, 11/02/15) Penicillins (Verified Allergy, Intermediate, 11/02/15) haloperidol (Verified Allergy, Intermediate, 04/28/19) ROS Review of System unreliable, drowsy poor attention span. PHYSICAL EXAM General: Cooperative, No acute distress HEENT: Atraumatic, Mucous membr. moist/pink Lungs: Other (diminished) Heart: Regular rate (not on tele), Other (3/6 apical murmur systolic) Abdomen: Soft, No tenderness Extremities: No cyanosis, No edema Skin: No breakdown, No significant lesion Neuro: Normal speech, Sensation intact Psych/Mental Status: Other (drowsy, poor attention span) MUSCULOSKELETAL: Osteoarthritic changes both hands VITALS/I&O VITALS/I&O: Vital Signs Date Time Temp Pulse Resp B/P (MAP) Pulse Ox O2 Delivery O2 Flow Rate FiO2 05/01/19 09:36 63 122/62 05/01/19 07:00 98.1 16 95 Room Air 98.1 I & O 04/30/19 04/30/19 05/01/19 15:00 23:00 07:00 Intake Total 120 ml Output Total 0 ml Balance 120 ml LABS Lab: Laboratory Tests Test 04/30/19 11:55 04/30/19 16:35 04/30/19 21:42 05/01/19 03:45 Glucose (Fingerstick) 80 mg/dL (70-99) 74 mg/dL (70-99) 102 mg/dL (70-99) H White Blood Count 5.3 x10^3/uL (4.0-11.0) Red Blood Count 3.22 x10^6/uL (3.50-5.40) L Hemoglobin 8.2 g/dL (12.0-15.5) L Hematocrit 25.9 % (36.0-47.0) L Mean Corpuscular Volume 81 fL (79-100) Mean Corpuscular Hemoglobin 26 pg (25-35) Mean Corpuscular Hemoglobin Concent 32 g/dL (31-37) Red Cell Distribution Width 20.8 % (11.5-14.5) H Platelet Count 265 x10^3/uL (140-400) Neutrophils (%) (Auto) 68 % (31-73) Lymphocytes (%) (Auto) 13 % (24-48) L Monocytes (%) (Auto) 17 % (0-9) H Eosinophils (%) (Auto) 2 % (0-3) Basophils (%) (Auto) 1 % (0-3) Neutrophils # (Auto) 3.6 x10^3/uL (1.8-7.7) Lymphocytes # (Auto) 0.7 x10^3/uL (1.0-4.8) L Monocytes # (Auto) 0.9 x10^3/uL (0.0-1.1) Eosinophils # (Auto) 0.1 x10^3/uL (0.0-0.7) Basophils # (Auto) 0.0 x10^3/uL (0.0-0.2) Segmented Neutrophils % 75 % (35-66) H Lymphocytes % 11 % (24-48) L Monocytes % 14 % (0-10) H Nucleated Red Blood Cells 3 Platelet Estimate Adequate (ADEQUATE) Anisocytosis Mod Sodium Level 139 mmol/L (136-145) Potassium Level 4.3 mmol/L (3.5-5.1) Chloride Level 98 mmol/L (98-107) Carbon Dioxide Level 31 mmol/L (21-32) Anion Gap 10 (6-14) Blood Urea Nitrogen 49 mg/dL (7-20) H Creatinine 10.6 mg/dL (0.6-1.0) H Estimated GFR (Cockcroft-Gault) 4.6 BUN/Creatinine Ratio 5 (6-20) L Glucose Level 65 mg/dL (70-99) L Calcium Level 11.3 mg/dL (8.5-10.1) H Total Bilirubin 1.2 mg/dL (0.2-1.0) H Aspartate Amino Transferase (AST) 577 U/L (15-37) H Alanine Aminotransferase (ALT) 416 U/L (14-59) H Alkaline Phosphatase 117 U/L (46-116) H Total Protein 7.2 g/dL (6.4-8.2) Albumin 2.4 g/dL (3.4-5.0) L Albumin/Globulin Ratio 0.5 (1.0-1.7) L Test 05/01/19 07:35 05/01/19 08:31 Glucose (Fingerstick) 47 mg/dL (70-99) *L 74 mg/dL (70-99) Laboratory Tests 05/01/19 03:45 Laboratory Tests 05/01/19 03:45 ECHOCARDIOGRAM ECHOCARDIOGRAM prior EF 50%, normal WM via KENYA 03/13/2019 Mitral annulus calcification, mild TR/MR, normal ascending aorta LA dilation with left pleural effusion and pericardial effusion STRESS TEST STRESS TEST nonischemic MPI 2015 ASSESSMENT/PLAN ASSESSMENT/PLAN 1. Metabolic encephalopathy with uremia/hypoglycemia and hypercalcemia. Neuro and ID following as well 2. Worsening transaminitis: amiodarone contributing 3. ESRD: 4. 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 [facility] DDDR (placed on 01/27/2019). 04/16/19 check with 40% RV pacing 2.2% afib burden, battery life 9 yrs 5. Hx of recent stable small hemopericardium via CT/echo: 02/2019 not requiring pericardiocentesis treated with steroids. Lead revision 03/04/2019 was done from suspect microperforation from leads 6. Hx of Schizophrenia 7. PAFIB 8. HLP 9. CAD: clinically stable. Recommendations 1. Amiodarone has been on 400 mg bid dosing at least in the last 2 months and it appears per cardiology this was to be changed to 200 mg daily from 04/16/2019 for 3 months. Will stop this for now. Will check INR and will hold off eliquis with anemia and liver issues until GI evaluation 2. Will interrogate device. Transfer to for tele monitoring. 3. Check lipids. Repeat EKG. 4. Hold statin., continue BB and ASA. Monitor rhythm. 5. Fluid off loading per HD LOUISE DUNN MD 05/01/19 1517: CARDIAC CONSULT ASSESSMENT/PLAN ASSESSMENT/PLAN Patient seen and examined. Agree with above nurse practitioner note. Can hold all nonessential medications such as statins and amiodarone for now. Await neurologic recovery. Supportive care. CATHERINE LANDRY APRN May 01, 2019 12:17 LOUISE DUNN MD May 01, 2019 15:17
[2019-05-01 12:25] LABS: PROTHROMBIN TIME PATIENT 23.9 SEC (11.7-14.0)
--- NOTE | 2019-05-01 13:00 | PDOC2 ---
GI CONSULT Reason For Consult: Transaminitis HPI: HPI: 53 y/o female brought to ER from psych facility on 04/28/19 w/ lethargy, hypoglycemia, and after refusing HD and medications. Found with multiple lab abnormalities - K 6.9, BUN 85, Cr 14.6, Ca 13. Per nurse, has been dialyzing here and had plans to discharge yesterday; however, blood culture now shows GPC in 1/4 bottles. We are asked to see re: abnormal LFTs - bili has been normal w/ rising AST (577), ALT (416), and Alk Phos (117). INR is 2.2 and viral Hepatitis panel is unremarkable. I am unable to obtain any meaningful history from her today. Nurse reports she eats and drinks w/o issue and stooled yesterday. Was on amiodarone and Eliquis - now held per cardiology. Getting famotidine and ASA. Summary list also includes iron. PMH: PMH: per chart - A Fib, CHF, HTN, bipolar/schizophrenia, ESRD on HD, UTI, DM pacemaker, , AV fistula FH: Family History: Other (unable to obtain) ROS: Unable to obtain. Vitals: Vitals: Vital Signs Date Time Temp Pulse Resp B/P (MAP) Pulse Ox O2 Delivery O2 Flow Rate FiO2 05/01/19 09:36 63 122/62 05/01/19 08:00 Room Air 05/01/19 07:00 98.1 16 95 98.1 Labs: Labs: Laboratory Tests Test 04/30/19 16:35 04/30/19 21:42 05/01/19 03:45 05/01/19 07:35 Glucose (Fingerstick) 74 mg/dL (70-99) 102 mg/dL (70-99) 47 mg/dL (70-99) White Blood Count 5.3 x10^3/uL (4.0-11.0) Red Blood Count 3.22 x10^6/uL (3.50-5.40) Hemoglobin 8.2 g/dL (12.0-15.5) Hematocrit 25.9 % (36.0-47.0) Mean Corpuscular Volume 81 fL (79-100) Mean Corpuscular Hemoglobin 26 pg (25-35) Mean Corpuscular Hemoglobin Concent 32 g/dL (31-37) Red Cell Distribution Width 20.8 % (11.5-14.5) Platelet Count 265 x10^3/uL (140-400) Neutrophils (%) (Auto) 68 % (31-73) Lymphocytes (%) (Auto) 13 % (24-48) Monocytes (%) (Auto) 17 % (0-9) Eosinophils (%) (Auto) 2 % (0-3) Basophils (%) (Auto) 1 % (0-3) Neutrophils # (Auto) 3.6 x10^3/uL (1.8-7.7) Lymphocytes # (Auto) 0.7 x10^3/uL (1.0-4.8) Monocytes # (Auto) 0.9 x10^3/uL (0.0-1.1) Eosinophils # (Auto) 0.1 x10^3/uL (0.0-0.7) Basophils # (Auto) 0.0 x10^3/uL (0.0-0.2) Segmented Neutrophils % 75 % (35-66) Lymphocytes % 11 % (24-48) Monocytes % 14 % (0-10) Nucleated Red Blood Cells 3 Platelet Estimate Adequate (ADEQUATE) Anisocytosis Mod Prothrombin Time 23.9 SEC (11.7-14.0) Prothromb Time International Ratio 2.2 (0.8-1.1) Sodium Level 139 mmol/L (136-145) Potassium Level 4.3 mmol/L (3.5-5.1) Chloride Level 98 mmol/L (98-107) Carbon Dioxide Level 31 mmol/L (21-32) Anion Gap 10 (6-14) Blood Urea Nitrogen 49 mg/dL (7-20) Creatinine 10.6 mg/dL (0.6-1.0) Estimated GFR (Cockcroft-Gault) 4.6 BUN/Creatinine Ratio 5 (6-20) Glucose Level 65 mg/dL (70-99) Calcium Level 11.3 mg/dL (8.5-10.1) Total Bilirubin 1.2 mg/dL (0.2-1.0) Aspartate Amino Transf (AST/SGOT) 577 U/L (15-37) Alanine Aminotransferase (ALT/SGPT) 416 U/L (14-59) Alkaline Phosphatase 117 U/L (46-116) Total Protein 7.2 g/dL (6.4-8.2) Albumin 2.4 g/dL (3.4-5.0) Albumin/Globulin Ratio 0.5 (1.0-1.7) Hepatitis A IgM Antibody Nonreactive (Nonreactive) Hepatitis B Surface Antigen Nonreactive (Nonreactive) Hepatitis B Core IgM Antibody Nonreactive (Nonreactive) Hepatitis C IgG Antibody Nonreactive (Nonreactive) Test 05/01/19 08:31 Glucose (Fingerstick) 74 mg/dL (70-99) Allergies: Coded Allergies: Milk Containing Products (Verified Allergy, Intermediate, 11/02/15) Penicillins (Verified Allergy, Intermediate, 11/02/15) haloperidol (Verified Allergy, Intermediate, 04/28/19) Medications: Current Medications Medications (Trade) Dose Ordered Sig/Sanchez Route PRN Reason Start Time Stop Time Status Last Admin Dose Admin Vancomycin HCl 1.5 gm/Sodium Chloride 500 ml @ 250 mls/hr 1X ONCE IV 05/01/19 08:15 05/01/19 10:14 DC 05/01/19 11:02 Imaging: Imaging: CXR 04/28 IMPRESSION: 1. Basilar atelectasis. Correlate for mild pulmonary edema. Head CT 04/28 IMPRESSION: 1. No acute intracranial findings. 2. Mild atrophy and chronic microangiopathic white matter change. CT C/A/P 05/01 pending Abd US 05/01 ordered PE: GEN: NAD - up in [facility] HEENT: Atraumatic, keeps eyes closed LUNGS: CTAB anteriorly HEART: RRR ABD: NABS, S/ND/NT EXTREMITY: No edema SKIN: No rashes, no jaundice NEURO/PSYCH: stirs slightly when I say her name and during exam - would not verbalize A/P: A/P: GPC bacteremia Psych issues/lethargy Abnormal LFTs, coagulopathy Anemia DM, ESRD on HD, hypercalcemia (improved) H/o A Fib and CHF - amiodarone and Eliquis held -- Await imaging, follow LFTs. PEYMAN GARCIA May 01, 2019 13:00
[2019-05-01] MEDS: VANCOMYCIN PER PHARMACY MC PRN ×2 (13:10→13:42)
--- NOTE | 2019-05-01 13:35 | EKG ---
[facility] [address] [place] [address] Test Date: 2019-05-01 Test Time: 13:13:23 Pat Name: JAMES BALDERAS Department: Room: 582 1 Gender: F [employer]: : 1965 Requested By: CATHERINE LANDRY Order Number: [id number] Reading MD: Armen Marks MD Measurements Intervals Covert Rate: 60 P: 180 VA: 220 QRS: 26 QRSD: 212 T: -160 QT: 538 QTc: 543 Interpretive Statements a-v paced Electronically Signed On 05-12-2019 9:41:23 CDT by Armen Marks MD
--- NOTE | 2019-05-01 13:43 | NUR ---
Pharmacy Vancomycin Dosing Note S:Consulted to monitor and dose vancomycin started 05/01/19. O:JAMES BALDERAS is a 53 year old F with Sepsis . Height: 5 feet, 5 inches Weight: 89.232474 kg Lenorah Body Weight: 57.00 Adjusted Body Weight: 69.96 Dosing Weight: Actual Other Antibiotics: LABS: Last BUN: 49 Last Creatinine: 10.6 Creatinine Clearance: Dialysis mL/min Last WBC: 5.3 Last Procalcitonin: Tmax (past 24 hours): 99.2 Microbiology: GPC in one of four bottles I/O: 120/ Drug Levels: Last level: on at Last dose given 05/01/19 at 1102 Vancomycin Dosing: Loading Dose: 1500 mg x1 Dosing Weight: Actual Target Trough: 15-20 A: Based on weight and dialysis status: P: 1. Give 1500mg Vancomycin bolus, then give Vancomycin 500 mg IV after dialysis today. 2. Follow up Random level on 05/04/19 at 0600 3. Pharmacy will continue to monitor, follow and adjust therapy as needed. Aroldo Pappas [facility], 05/01/19 0244
[2019-05-01] MEDS ORDERED: IV NORMAL SALINE 1000ML BAG 1,000 ML IV PRN ×2 (13:46)
[2019-05-01] MEDS ORDERED: ACETAMINOPHEN 500 MG TABLET PO PRN (14:00)
[2019-05-01] MEDS ORDERED: DIALYSIS PATIENT. MC PRN (14:00)
[2019-05-01] MEDS ORDERED: diphenhydrAMINE 50 MG/ML VIAL IV PRN ×2 (14:00)
--- NOTE | 2019-05-01 14:05 | CARD ---
MR#: [id number] Date of Study: 05/01/2019 Ordering Physician: WAYNE BERNAL, Referring Physician: WAYNE BERNAL, Tech: Debbie Grey [facility] APPROVED REPORT EXAM: LIMITED Two-dimensional and M-mode echocardiogram. Other Information Quality : AverageHR: 60bpm Rhythm : NSR INDICATION Follow up PEF 2D DIMENSIONS RVDd3.0 (2.9-3.5cm)Left Atrium(2D)4.4 (1.6-4.0cm) IVSd1.1 (0.7-1.1cm)Aortic Root(2D)2.4 (2.0-3.7cm) LVDd4.6 (3.9-5.9cm)PWd1.2 (0.7-1.1cm) LVDs2.8 (2.5-4.0cm)FS (%) 39.4 % SV68.3 mlLVEF(%)70.0 (>50%) Tricuspid Valve TR P. [id number] [id number] TR Peak [id number] LEFT VENTRICLE The left ventricle is normal size. There is mild concentric left ventricular hypertrophy. The left ve ntricular systolic function is normal and the ejection fraction is within normal range. The Ejection Fraction is 60-65%. There is normal LV segmental wall motion. RIGHT VENTRICLE The right ventricle is normal size. There is normal right ventricular wall thickness. The right ventr icular systolic function is normal. ATRIA The left atrium is mildly dilated. The right atrium size is normal. The interatrial septum is intact with no evidence for an atrial septal defect or patent foramen ovale as noted on 2-D or Doppler imagi ng. AORTIC VALVE The aortic valve is mildly calcified. The aortic valve is trileaflet. MITRAL VALVE Mitral annular calcification is moderate to severe. TRICUSPID VALVE The tricuspid valve is normal in structure and function. The PA pressure was estimated at 38 mmHg. GREAT VESSELS The aortic root is normal in size. The ascending aorta is normal in size. PERICARDIAL EFFUSION There is no evidence of significant pericardial effusion. Critical Notification Critical Value: No <Conclusion> The left ventricular systolic function is normal and the ejection fraction is within normal range. Th e Ejection Fraction is 60-65%. There is normal LV segmental wall motion. Signed by : Armen Marks, Electronically Approved : 05/01/2019 14:04:48
--- NOTE | 2019-05-01 14:40 | RAD ---
EXAM: Abdomen sonogram. HISTORY: Abnormal liver enzymes laboratory values. TECHNIQUE: None. COMPARISON: None. FINDINGS: The liver is normal in size. No focal hepatic lesion is seen. The gallbladder is unremarkable. The pancreas, spleen, aorta and inferior vena cava are partially obscured due to bowel gas. The kidneys are normal in size. There are small right renal cysts. There is no hydronephrosis. The common bile duct is normal in caliber. IMPRESSION: 1. Partially obscured midline structures and spleen due to bowel gas. 2. Small right renal cyst. Electronically signed by: Whitney Gerber MD (05/01/2019 2:37 PM) [facility]
--- NOTE | 2019-05-01 15:37 | PDOC ---
SUBJECTIVE ROS Stable on HD, OBJECTIVE Vital Signs Vital Signs Date Time Temp Pulse Resp B/P (MAP) Pulse Ox O2 Delivery O2 Flow Rate FiO2 05/01/19 11:00 98.0 59 16 134/68 (90) 93 Room Air 98.0 I & 0 Intake and Output 05/01/19 07:00 Intake Total 120 ml Output Total 0 ml Balance 120 ml Intake Oral 120 ml Output Urine Total 0 ml PHYSICAL EXAM Physical Exam GEN: NAD HEEN: OM moist NECK: Supple CVS: S1S2, RESP: No Acc. Muscle Use GI: BS + ve, Non Tender, : No CVA tenderness, No Suprapubic Tenderness NEURO- Ax O SKIN - No rash DIAGNOSIS/ASSESSMENT Assessment & Plan ESRD - On HD MWF, at ([facility]) seen on Hd, tolerating well, continue as ordered , Howie Corona HyperKalemia- At presentation 6.9, DM- per primary Anemia- stable Hypercalcemia - Ca 13 at presentation down to 11 No labs this am Follows with Finance Director at - not sure if worked up Elevated LFT's- per primary GPC bacteremia COMMENT/RELEVANT DATA Meds Current Medications Medications (Trade) Dose Ordered Sig/Sanchez Start Time Stop Time Status Last Admin Dose Admin Acetaminophen (Tylenol) 500 mg 1X PRN PRN 05/01/19 14:00 05/02/19 13:59 Albumin Human 200 ml @ 200 mls/hr 1X PRN PRN 04/29/19 07:45 04/29/19 13:44 DC Albuterol Sulfate (Ventolin Neb Soln) 10 mg 1X ONCE 04/29/19 01:00 04/29/19 01:01 DC 04/29/19 00:35 10 MG Amiodarone HCl (Cordarone) 400 mg BID 04/29/19 21:00 05/01/19 12:30 DC 05/01/19 09:36 400 MG Amlodipine Besylate (Norvasc) 5 mg DAILY 04/29/19 15:00 05/01/19 09:35 5 MG Apixaban (Eliquis) 5 mg BID 04/29/19 21:00 05/01/19 12:30 DC 05/01/19 09:36 5 MG Aspirin (Ecotrin) 81 mg DAILY 04/30/19 09:00 05/01/19 09:35 81 MG Atorvastatin Calcium (Lipitor) 80 mg QHS 04/29/19 21:00 05/01/19 10:38 DC 04/30/19 21:42 80 MG Citalopram Hydrobromide (CeleXA) 30 mg DAILY 04/29/19 15:00 05/01/19 09:35 30 MG Clonazepam (KlonoPIN) 0.5 mg TID 04/29/19 15:00 05/01/19 09:34 0.5 MG Dextrose (Dextrose 50%-Water Syringe) 25 gm 1X ONCE 04/29/19 01:00 04/29/19 01:01 DC 04/29/19 00:33 25 GM Diphenhydramine HCl (Benadryl) 25 mg 1X PRN PRN 05/01/19 14:00 05/02/19 13:59 Famotidine (Pepcid) 20 mg HS 04/29/19 21:00 04/30/19 21:41 20 MG Info (Anti-Coagulation Monitoring By Pharmacy) 1 each PRN DAILY PRN 04/29/19 15:00 05/01/19 11:46 1 EACH Info (PHARMACY MONITORING -- do not chart) 1 each PRN DAILY PRN 05/01/19 14:00 Insulin Glargine (Lantus Syringe) 15 unit QHS 04/29/19 21:00 04/30/19 21:51 15 UNIT Insulin Human Regular (HumuLIN R VIAL) 5 unit 1X ONCE 04/29/19 01:00 04/29/19 01:01 DC 04/29/19 00:35 5 UNIT Labetalol HCl (Normodyne Iv Push) 10 mg PRN Q1HR PRN 04/29/19 07:45 04/30/19 07:44 DC Metoprolol Tartrate (Lopressor) 25 mg BID 04/29/19 15:00 05/01/19 09:35 25 MG Ondansetron HCl (Zofran) 4 mg PRN Q8HRS PRN 04/29/19 01:00 04/30/19 00:59 DC Ranolazine (Ranexa) 500 mg Q12HR 04/29/19 21:00 05/01/19 09:35 500 MG Sodium Polystyrene Sulfonate (Kayexalate) 30 gm 1X ONCE 04/29/19 01:00 04/29/19 01:01 DC 04/29/19 00:32 30 GM Sodium Bicarbonate (Sodium Bicarb Adult 8.4% Syr) 50 meq 1X ONCE 04/29/19 01:00 04/29/19 01:01 DC 04/29/19 00:33 50 MEQ Sodium Chloride 1,000 ml @ 400 mls/hr Q2H30M PRN 05/01/19 13:46 05/02/19 01:45 Vancomycin HCl (Vanco Per Pharmacy) 1 each PRN DAILY PRN 05/01/19 08:15 05/01/19 13:42 1 EACH Vancomycin HCl (Vancomycin Random Level) 1 each 1X ONCE 05/04/19 06:00 05/04/19 06:01 Vancomycin HCl 1.5 gm/Sodium Chloride 500 ml @ 250 mls/hr 1X ONCE 05/01/19 08:15 05/01/19 10:14 DC 05/01/19 11:02 250 MLS/HR Vancomycin HCl 500 mg/Sodium Chloride 100 ml @ 100 mls/hr 1X ONCE 05/01/19 16:00 05/01/19 16:59 Vancomycin HCl 1 gm/Sodium Chloride 250 ml @ 250 mls/hr 1X ONCE 05/01/19 08:00 05/01/19 08:59 UNV Lab Laboratory Tests Test 04/30/19 16:35 04/30/19 21:42 05/01/19 03:45 05/01/19 07:35 Glucose (Fingerstick) 74 mg/dL (70-99) 102 mg/dL (70-99) 47 mg/dL (70-99) White Blood Count 5.3 x10^3/uL (4.0-11.0) Red Blood Count 3.22 x10^6/uL (3.50-5.40) Hemoglobin 8.2 g/dL (12.0-15.5) Hematocrit 25.9 % (36.0-47.0) Mean Corpuscular Volume 81 fL (79-100) Mean Corpuscular Hemoglobin 26 pg (25-35) Mean Corpuscular Hemoglobin Concent 32 g/dL (31-37) Red Cell Distribution Width 20.8 % (11.5-14.5) Platelet Count 265 x10^3/uL (140-400) Neutrophils (%) (Auto) 68 % (31-73) Lymphocytes (%) (Auto) 13 % (24-48) Monocytes (%) (Auto) 17 % (0-9) Eosinophils (%) (Auto) 2 % (0-3) Basophils (%) (Auto) 1 % (0-3) Neutrophils # (Auto) 3.6 x10^3/uL (1.8-7.7) Lymphocytes # (Auto) 0.7 x10^3/uL (1.0-4.8) Monocytes # (Auto) 0.9 x10^3/uL (0.0-1.1) Eosinophils # (Auto) 0.1 x10^3/uL (0.0-0.7) Basophils # (Auto) 0.0 x10^3/uL (0.0-0.2) Segmented Neutrophils % 75 % (35-66) Lymphocytes % 11 % (24-48) Monocytes % 14 % (0-10) Nucleated Red Blood Cells 3 Platelet Estimate Adequate (ADEQUATE) Anisocytosis Mod Prothrombin Time 23.9 SEC (11.7-14.0) Prothromb Time International Ratio 2.2 (0.8-1.1) Sodium Level 139 mmol/L (136-145) Potassium Level 4.3 mmol/L (3.5-5.1) Chloride Level 98 mmol/L (98-107) Carbon Dioxide Level 31 mmol/L (21-32) Anion Gap 10 (6-14) Blood Urea Nitrogen 49 mg/dL (7-20) Creatinine 10.6 mg/dL (0.6-1.0) Estimated GFR (Cockcroft-Gault) 4.6 BUN/Creatinine Ratio 5 (6-20) Glucose Level 65 mg/dL (70-99) Calcium Level 11.3 mg/dL (8.5-10.1) Iron Level 41 ug/dL (50-170) Total Iron Binding Capacity 171 ug/dL (250-450) Iron Saturation 24 % (15-34) Total Bilirubin 1.2 mg/dL (0.2-1.0) Aspartate Amino Transf (AST/SGOT) 577 U/L (15-37) Alanine Aminotransferase (ALT/SGPT) 416 U/L (14-59) Alkaline Phosphatase 117 U/L (46-116) Total Protein 7.2 g/dL (6.4-8.2) Albumin 2.4 g/dL (3.4-5.0) Albumin/Globulin Ratio 0.5 (1.0-1.7) Triglycerides Level 55 mg/dL (0-150) Cholesterol Level 79 mg/dL (0-200) LDL Cholesterol, Calculated 42 mg/dL (0-100) VLDL Cholesterol, Calculated 11 mg/dL (0-40) Non-HDL Cholesterol Calculated 53 mg/dL (0-129) HDL Cholesterol 26 mg/dL (40-60) Cholesterol/HDL Ratio 3.0 Procalcitonin 1.11 ng/mL (0.00-0.10) Hepatitis A IgM Antibody Nonreactive (Nonreactive) Hepatitis B Surface Antigen Nonreactive (Nonreactive) Hepatitis B Core IgM Antibody Nonreactive (Nonreactive) Hepatitis C IgG Antibody Nonreactive (Nonreactive) Test 05/01/19 08:31 Glucose (Fingerstick) 74 mg/dL (70-99) Results All relevant outside records, renal labs, imaging studies, telemetry/EKG's were reviewed. JASON POWER MD May 01, 2019 15:37
[2019-05-01] MEDS ORDERED: VANCOMYCIN 500 MG in IV NORMAL SALINE 100ML 100 ML IV ONE (16:00)
--- NOTE | 2019-05-01 16:13 | PDOC ---
PROGRESS NOTES Assessment Assessment Metabolic encephalopathy. Hyperkalemia, K+ 6.9. Hyperglycemia. Hypoglycemia, mild episode likely. Hypercalcemia. DM. HTN. Renal failure on dialysis. Elevated hepatic enzymes. Bipolar disorder. Obesity. RECOMMENDATIONS/PLAN: Treat medical diseases. Control electrolytes balances. Lab: see orders. EEG. Consulted Nephrology. HCT: Negative. History of Present Illness This is a 53-year-old AA female patient with history of hypertension, diabetes, chronic kidney disease stage III, bipolar, major depressive disorder who presented to the emergency department of [facility] on 04/28/19 with altered mental status, slightly hypoglycemia. Her blood sugar in ED was 58. Neurology was requested for consultation on 04/30/19 for MS changes. Past Medical History Cardiovascular: CHF, HTN Heme/Onc: Anemia NOS Renal/: Chronic renal failure Endocrine: Diabetes Past Surgical History No pertinent history Allergies Coded Allergies: Milk Containing Products (Verified Allergy, Intermediate, 11/02/15) Penicillins (Verified Allergy, Intermediate, 11/02/15) haloperidol (Verified Allergy, Intermediate, 04/28/19) MEDICATIONS: Refer to [facility] FAMILY HISTORY: Non contributory. SOCIAL HISTORY: Lives at home.lone. Denies current smoking, drinking, and illicit drug use. REVIEW OF SYSTEMS: Constitutional: No cachexia. Head: No traumatic brain or head injury. Skin: No edema, or rash. Ear: No infection. Eyes: No vision loss or color blindness. Nose: No bleeding or purulent discharges. Hearing: No hearing decrease. Neck: No injury. Breast: No history of cancer, masses,or discharges. Cardiac: HTN. Pulmonary: No COPD.. GI: No GI ulcer, GI bleeding. Urinary/genital: CKD. Endocrinologic: Diabetes Mellitus, obesity. Skeletomuscular: No muscular atrophy, deformity. Neurological: see HP. Psychiatric: Denies drug use/abuse. Otherwise, not [id number] review of systems. PHYSICAL EXAMINATION: General appearance is in subacute distress. HEENT: Normocephalic and nontraumatic. Eyes, nose, ears, and throat are unremarkable. Neck is supple. No lymphadenopathy. No crepitus. Cardiovascular: S1, S2, regular rate and rhythm. Pulmonary: Clear to auscultation bilaterally. Abdomen: Bowel sounds are positive. Abdomen is soft, nontender, and nondistended. Extremities: No rash, lesions, or edema. No restriction of range of motion NEUROLOGICAL EXAMINATION: Drowsiness. Oriented to time, place and person. PERRL. EOMI. CN: no focal findings. Muscle tone: within normal. Muscle strength: 4+ DTR: 2- Plantar reflex: Flexor response bilaterally Gait: not examined in bed. Sensory exam: no abnormal findings. No cerebellar signs elicited. F-T-N test fine. Objective Objective Vital Signs Date Time Temp Pulse Resp B/P (MAP) Pulse Ox O2 Delivery O2 Flow Rate FiO2 05/01/19 11:00 98.0 59 16 134/68 (90) 93 Room Air 98.0 Intake and Output 05/01/19 07:00 Intake Total 120 ml Output Total 0 ml Balance 120 ml Intake Oral 120 ml Output Urine Total 0 ml Vitals Signs Vitals VS - Last 72 Hours, by Label Date Time Temp Pulse Resp B/P (MAP) Pulse Ox O2 Delivery O2 Flow Rate FiO2 05/01/19 11:00 98.0 59 16 134/68 (90) 93 Room Air 98.0 05/01/19 09:36 63 122/62 05/01/19 09:35 63 122/62 05/01/19 09:35 63 122/62 05/01/19 09:35 63 122/62 05/01/19 08:00 Room Air 05/01/19 07:00 98.1 63 16 122/62 (82) 95 Room Air 98.1 05/01/19 03:00 99.2 60 18 112/57 (75) 92 99.2 04/30/19 23:00 98.8 60 16 114/53 (73) 93 98.8 04/30/19 21:44 61 119/67 04/30/19 21:41 61 119/67 04/30/19 21:41 61 119/67 04/30/19 20:00 Room Air 04/30/19 19:00 98.9 61 16 119/67 (84) 94 98.9 04/30/19 15:00 98.2 60 17 124/63 (83) 95 Room Air 98.2 04/30/19 11:00 98.1 59 18 121/62 (81) 95 Room Air 98.1 04/30/19 09:00 55 111/37 04/30/19 09:00 55 111/37 04/30/19 09:00 55 111/37 10/3/19 09:00 55 111/37 04/30/19 07:00 99.2 59 18 109/51 (70) 94 Room Air 99.2 Laboratory Laboratory Laboratory Tests Test 04/30/19 16:35 04/30/19 21:42 05/01/19 03:45 05/01/19 07:35 Glucose (Fingerstick) 74 mg/dL (70-99) 102 mg/dL (70-99) 47 mg/dL (70-99) White Blood Count 5.3 x10^3/uL (4.0-11.0) Red Blood Count 3.22 x10^6/uL (3.50-5.40) Hemoglobin 8.2 g/dL (12.0-15.5) Hematocrit 25.9 % (36.0-47.0) Mean Corpuscular Volume 81 fL (79-100) Mean Corpuscular Hemoglobin 26 pg (25-35) Mean Corpuscular Hemoglobin Concent 32 g/dL (31-37) Red Cell Distribution Width 20.8 % (11.5-14.5) Platelet Count 265 x10^3/uL (140-400) Neutrophils (%) (Auto) 68 % (31-73) Lymphocytes (%) (Auto) 13 % (24-48) Monocytes (%) (Auto) 17 % (0-9) Eosinophils (%) (Auto) 2 % (0-3) Basophils (%) (Auto) 1 % (0-3) Neutrophils # (Auto) 3.6 x10^3/uL (1.8-7.7) Lymphocytes # (Auto) 0.7 x10^3/uL (1.0-4.8) Monocytes # (Auto) 0.9 x10^3/uL (0.0-1.1) Eosinophils # (Auto) 0.1 x10^3/uL (0.0-0.7) Basophils # (Auto) 0.0 x10^3/uL (0.0-0.2) Segmented Neutrophils % 75 % (35-66) Lymphocytes % 11 % (24-48) Monocytes % 14 % (0-10) Nucleated Red Blood Cells 3 Platelet Estimate Adequate (ADEQUATE) Anisocytosis Mod Prothrombin Time 23.9 SEC (11.7-14.0) Prothromb Time International Ratio 2.2 (0.8-1.1) Sodium Level 139 mmol/L (136-145) Potassium Level 4.3 mmol/L (3.5-5.1) Chloride Level 98 mmol/L (98-107) Carbon Dioxide Level 31 mmol/L (21-32) Anion Gap 10 (6-14) Blood Urea Nitrogen 49 mg/dL (7-20) Creatinine 10.6 mg/dL (0.6-1.0) Estimated GFR (Cockcroft-Gault) 4.6 BUN/Creatinine Ratio 5 (6-20) Glucose Level 65 mg/dL (70-99) Calcium Level 11.3 mg/dL (8.5-10.1) Iron Level 41 ug/dL (50-170) Total Iron Binding Capacity 171 ug/dL (250-450) Iron Saturation 24 % (15-34) Total Bilirubin 1.2 mg/dL (0.2-1.0) Aspartate Amino Transf (AST/SGOT) 577 U/L (15-37) Alanine Aminotransferase (ALT/SGPT) 416 U/L (14-59) Alkaline Phosphatase 117 U/L (46-116) Total Protein 7.2 g/dL (6.4-8.2) Albumin 2.4 g/dL (3.4-5.0) Albumin/Globulin Ratio 0.5 (1.0-1.7) Triglycerides Level 55 mg/dL (0-150) Cholesterol Level 79 mg/dL (0-200) LDL Cholesterol, Calculated 42 mg/dL (0-100) VLDL Cholesterol, Calculated 11 mg/dL (0-40) Non-HDL Cholesterol Calculated 53 mg/dL (0-129) HDL Cholesterol 26 mg/dL (40-60) Cholesterol/HDL Ratio 3.0 Procalcitonin 1.11 ng/mL (0.00-0.10) Hepatitis A IgM Antibody Nonreactive (Nonreactive) Hepatitis B Surface Antigen Nonreactive (Nonreactive) Hepatitis B Core IgM Antibody Nonreactive (Nonreactive) Hepatitis C IgG Antibody Nonreactive (Nonreactive) Test 05/01/19 08:31 Glucose (Fingerstick) 74 mg/dL (70-99) Microbiology 04/28/19 Blood Culture - Preliminary, Resulted NO GROWTH AFTER 2 DAYS Medication Medications Current Medications Acetaminophen (Tylenol) 500 mg 1X PRN PRN PO MILD PAIN / TEMP; Start 05/01/19 at 14:00; Stop 05/02/19 at 13:59 Diphenhydramine HCl (Benadryl) 25 mg 1X PRN PRN IV ITCHING; Start 05/01/19 at 14:00; Stop 05/02/19 at 13:59 Diphenhydramine HCl (Benadryl) 25 mg 1X PRN PRN IV ITCHING; Start 05/01/19 at 14:00; Stop 05/02/19 at 13:59 Info (PHARMACY MONITORING -- do not chart) 1 each PRN DAILY PRN MC SEE COMMENTS; Start 05/01/19 at 14:00 Sodium Chloride 1,000 ml @ 400 mls/hr Q2H30M PRN IV PATENCY; Start 05/01/19 at 13:46; Stop 05/02/19 at 01:45 Sodium Chloride 1,000 ml @ 1,000 mls/hr Q1H PRN IV hypotension; Start 05/01/19 at 13:46; Stop 05/01/19 at 19:45 Vancomycin HCl (Vanco Per Pharmacy) 1 each PRN DAILY PRN MC SEE COMMENTS Last administered on 05/01/19at 13:42; Start 05/01/19 at 08:15 Vancomycin HCl (Vancomycin Random Level) 1 each 1X ONCE MC ; Start 05/04/19 at 06:00; Stop 05/04/19 at 06:01 Vancomycin HCl 1.5 gm/Sodium Chloride 500 ml @ 250 mls/hr 1X ONCE IV Last administered on 05/01/19at 11:02; Start 05/01/19 at 08:15; Stop 05/01/19 at 10:14; Status DC Vancomycin HCl 500 mg/Sodium Chloride 100 ml @ 100 mls/hr 1X ONCE IV ; Start 05/01/19 at 16:00; Stop 05/01/19 at 16:59 Vancomycin HCl 1 gm/Sodium Chloride 250 ml @ 250 mls/hr 1X ONCE IV ; Start 05/01/19 at 08:00; Stop 05/01/19 at 08:59; Status UNV Comment Review of Relevant I have reviewed the following items sarahi (where applicable) has been applied. REJI NICK MD May 01, 2019 16:13
--- NOTE | 2019-05-01 16:41 | RAD ---
Examination: CT chest abdomen and pelvis without contrast HISTORY: History of transaminitis, fever COMPARISON: None available TECHNIQUE: Axial CT images of the chest abdomen pelvis were performed without contrast. Coronal and sagittal reformats are performed. Exposure: One or more of the following individualized dose reduction techniques were utilized for this examination: 1. Automated exposure control 2. Adjustment of the mA and/or kV according to patient size 3. Use of iterative reconstruction technique FINDINGS: The thyroid gland grossly appears unremarkable. Central airways are patent. Mild cardiomegaly coronary artery calcifications identified. Right-sided Port-A-Cath is identified. Focal groundglass consolidation identified in the left lingula of the lung. There are foci of airspace opacities identified in the right upper lobe and bibasilar lungs likely atelectasis or infiltrates. No evidence of free air identified in the abdomen. The evaluation of the solid organs is limited due to lack of IV contrast. The evaluation of bowel is limited due to lack of oral contrast. The visualized noncontrasted liver, spleen, adrenals grossly appears unremarkable. The gallbladder is mildly distended. Questionable fat stranding identified about the gallbladder. Examination limited by motion artifact. The pancreas, grossly appears unremarkable. Stomach is mildly distended. The small bowel is nondilated. Feces and gas noted in the colon. Few sigmoid colon diverticulosis. Urinary bladder is mildly distended. Intrauterine contraceptive device is identified. There is a cystic structure identified in the right kidney measuring 1.1 cm likely a cyst or cystic lesion. Probable metallic coils are dense calcifications identified in the inferior aspect of the left kidney. Mild fat stranding identified about the bilateral kidneys. Mild aortic atherosclerosis. Mild degenerative changes of the lumbar spine. IMPRESSION: 1. Focal groundglass consolidation left lingula of the lung likely pneumonia. Follow-up to resolution. 2. There is minimal questionable fat stranding identified about the bilateral kidneys, nonspecific could be due to medical renal disease or pyelonephritis. 3. Questionable fat stranding identified about the gallbladder likely artifactual due to motion and less likely inflammation. Consider ultrasound right upper quadrant. 4. 1.1 cm probable cyst or cystic lesion right kidney. Consider ultrasound kidneys for further evaluation. Electronically signed by: Tip Summers MD (05/01/2019 4:38 PM) [id number]
[2019-05-01 19:15] VITALS: BP 119/61
[2019-05-01] MEDS: FAMOTIDINE 20 MG TABLET. PO SCH (21:05)
[2019-05-01] MEDS: INSULIN GLARGINE SYRINGE. SQ SCH (22:13)
[2019-05-01 23:45] VITALS: BP 94/37
[2019-05-02] VITALS (7 sets, daily range): BP systolic 111–125; BP diastolic 52–69
[2019-05-02 04:38] LABS: BASO % 1 % (0-3); EOS # 0.1 x10^3/uL (0.0-0.7); EOS % 2 % (0-3); HEMATOCRIT 24.8 % (36.0-47.0); HEMOGLOBIN 7.8 g/dL (12.0-15.5); LYMPH # 0.7 x10^3/uL (1.0-4.8); LYMPH % 13 % (24-48); MEAN CORPUSCULAR HEMOGLOBIN 26 pg (25-35); MEAN CORPUSCULAR HGB CONC 32 g/dL (31-37); MEAN CORPUSCULAR VOLUME 81 fL (79-100); MONO # 0.8 x10^3/uL (0.0-1.1); MONO % 15 % (0-9); NEUT # 3.5 x10^3/uL (1.8-7.7); NEUT % 69 % (31-73); PLATELET COUNT 275 x10^3/uL (140-400); RED BLOOD COUNT 3.07 x10^6/uL (3.50-5.40); RED CELL DISTRIBUTION WIDTH 20.2 % (11.5-14.5); WHITE BLOOD COUNT 5.1 x10^3/uL (4.0-11.0)
[2019-05-02 05:05] LABS: ALBUMIN 2.4 g/dL (3.4-5.0); ALBUMIN/GLOBULIN RATIO 0.5 (1.0-1.7); CALCIUM 11.1 mg/dL (8.5-10.1); CREATININE 6.3 mg/dL (0.6-1.0); GFR 8.5; POTASSIUM 4.2 mmol/L (3.5-5.1); TOTAL BILIRUBIN 1.4 mg/dL (0.2-1.0); TOTAL PROTEIN 7.5 g/dL (6.4-8.2)
--- NOTE | 2019-05-02 06:06 | PDOC ---
Infectious Disease Note Subjective Subjective Better. Less cough No F/C/S/N/V/D/SOA ROS ROS o/w neg Vital Sign Vital Signs Vital Signs Date Time Temp Pulse Resp B/P (MAP) Pulse Ox O2 Delivery O2 Flow Rate FiO2 05/02/19 03:30 98.7 60 18 121/52 (75) 96 Room Air 98.7 Physical Exam PHYSICAL EXAM GENERAL: The patient is in bed. Alert and coop HEENT: Pupils equally round, reactive. Normal conjunctivae. Oropharynx pink and moist. No lesions. NECK: Supple. LUNGS: Clear to auscultation. HEART: S1, S2. ABDOMEN: Soft and nontender with bowel sounds present. EXTREMITIES: No gross edema or cyanosis. She had several firm lesions on her legs, nontender. LUE-AV fistula unremarkable. NEUROLOGIC: Answers questions appropriately/ moves all ext. Labs Lab Laboratory Tests Test 05/01/19 07:35 05/01/19 08:31 05/01/19 19:21 05/01/19 19:24 Glucose (Fingerstick) 47 mg/dL (70-99) 74 mg/dL (70-99) 39 mg/dL (70-99) 45 mg/dL (70-99) Test 05/01/19 19:56 05/01/19 20:37 05/02/19 03:35 Glucose (Fingerstick) 49 mg/dL (70-99) 119 mg/dL (70-99) White Blood Count 5.1 x10^3/uL (4.0-11.0) Red Blood Count 3.07 x10^6/uL (3.50-5.40) Hemoglobin 7.8 g/dL (12.0-15.5) Hematocrit 24.8 % (36.0-47.0) Mean Corpuscular Volume 81 fL (79-100) Mean Corpuscular Hemoglobin 26 pg (25-35) Mean Corpuscular Hemoglobin Concent 32 g/dL (31-37) Red Cell Distribution Width 20.2 % (11.5-14.5) Platelet Count 275 x10^3/uL (140-400) Neutrophils (%) (Auto) 69 % (31-73) Lymphocytes (%) (Auto) 13 % (24-48) Monocytes (%) (Auto) 15 % (0-9) Eosinophils (%) (Auto) 2 % (0-3) Basophils (%) (Auto) 1 % (0-3) Neutrophils # (Auto) 3.5 x10^3/uL (1.8-7.7) Lymphocytes # (Auto) 0.7 x10^3/uL (1.0-4.8) Monocytes # (Auto) 0.8 x10^3/uL (0.0-1.1) Eosinophils # (Auto) 0.1 x10^3/uL (0.0-0.7) Basophils # (Auto) 0.0 x10^3/uL (0.0-0.2) Prothrombin Time 23.0 SEC (11.7-14.0) Prothromb Time International Ratio 2.1 (0.8-1.1) Sodium Level 140 mmol/L (136-145) Potassium Level 4.2 mmol/L (3.5-5.1) Chloride Level 98 mmol/L (98-107) Carbon Dioxide Level 31 mmol/L (21-32) Anion Gap 11 (6-14) Blood Urea Nitrogen 23 mg/dL (7-20) Creatinine 6.3 mg/dL (0.6-1.0) Estimated GFR (Cockcroft-Gault) 8.5 BUN/Creatinine Ratio 4 (6-20) Glucose Level 70 mg/dL (70-99) Calcium Level 11.1 mg/dL (8.5-10.1) Total Bilirubin 1.4 mg/dL (0.2-1.0) Aspartate Amino Transf (AST/SGOT) 698 U/L (15-37) Alanine Aminotransferase (ALT/SGPT) 492 U/L (14-59) Alkaline Phosphatase 151 U/L (46-116) Total Protein 7.5 g/dL (6.4-8.2) Albumin 2.4 g/dL (3.4-5.0) Albumin/Globulin Ratio 0.5 (1.0-1.7) Micro CT IMPRESSION: 1. Focal groundglass consolidation left lingula of the lung likely pneumonia. Follow-up to resolution. 2. There is minimal questionable fat stranding identified about the bilateral kidneys, nonspecific could be due to medical renal disease or pyelonephritis. 3. Questionable fat stranding identified about the gallbladder likely artifactual due to motion and less likely inflammation. Consider ultrasound right upper quadrant. 4. 1.1 cm probable cyst or cystic lesion right kidney. Consider ultrasound kidneys for further evaluation. Microbiology 04/28/19 Blood Culture - Preliminary, Resulted NO GROWTH AFTER 3 DAYS Objective Assessment GPC bacteremia (1 of 4 bottles), POA ? contaminate Acute encephalopathy after missing dialysis,- better Transaminitis - worsening ? amiodarone toxicity PCN allergy - itching Hypothermia - better CKD/HD Pacemaker Amiodorone therapy Diabetes with hypoglycemia Plan Plan of Care Continue vanc Await ID of GPC F/u labs and cults SIGIFREDO CHAVES MD May 02, 2019 06:06
[2019-05-02] MEDS: CITALOPRAM 10 MG TABLET. PO SCH (08:12)
[2019-05-02] MEDS: METOPROLOL TART IMMED RELEASE 25 MG TABLET. PO SCH ×2 (08:12→22:37)
[2019-05-02] MEDS: clonazePAM 0.5 MG TABLET PO SCH ×3 (08:12→21:00)
[2019-05-02] MEDS: ASPIRIN ENTERIC COATED 81 MG TABLET.DR. PO SCH (08:12)
[2019-05-02] MEDS: RANOLAZINE 500 MG TAB.ER.12H PO SCH ×2 (08:12→22:37)
[2019-05-02] MEDS: amLODIPine BESYLATE 5 MG TABLET PO SCH (08:13)
--- NOTE | 2019-05-02 10:59 | PDOC ---
PROGRESS NOTES History of Present Illness History of Present Illness ASSESSMENT altered mental status on ct head 04/29 Mild atrophy and chronic microangiopathic white matter change. Severe hyperkalemia, hypothermia, hyperglycemia, anemia. Basilar atelectasis. Correlate for mild pulmonary edema. ESRD on dialysis TRANSAMINITIS fever Focal groundglass consolidation left lingula of the lung likely pneumonia. Follow-up to resolution. minimal questionable fat stranding identified about the bilateral kidneys, nonspecific could be due to medical renal disease or pyelonephritis. fat stranding identified about the gallbladder likely artifactual due to motion and less likely inflammation. Consider ultrasound ri ght upper quadrant. Amiodarone has been on 400 mg bid dosing at least in the last 2 months and it appears per [facility]ology this was to be changed to 200 mg daily , will d/c for now bacteremia vs contabinate admitted. consult Nephrology dialysis currently. Frequent labs. Electrolyte protocol. DVT prophylaxis. Home meds. consult neurology NEUROCHECKS Q 4 HRS GI CONSULT ID CONSULT cute dx HEPATITIS PANEL HOLD HEPATOTOXIC DRUGS blood cult, iv vanc x 1 05-01 CT CHEST, ABD 40 MIN PT EXAM, CHART REVIEW, > 50% OF TIME SPENT WITH EXAM, CHART REVIEW, PT CARE COORDINATION Vitals Vitals Vital Signs Date Time Temp Pulse Resp B/P (MAP) Pulse Ox O2 Delivery O2 Flow Rate FiO2 05/02/19 08:13 60 125/67 05/02/19 08:00 Room Air 05/02/19 07:59 98.6 16 100 98.6 Physical Exam Physical Exam GENERAL: The patient is in bed. Alert and coop HEENT: Pupils equally round, reactive. Normal conjunctivae. Oropharynx pink and moist. No lesions. NECK: Supple. LUNGS: Clear to auscultation. HEART: S1, S2. ABDOMEN: Soft and nontender with bowel sounds present. EXTREMITIES: No gross edema or cyanosis. She had several firm lesions on her legs, nontender. LUE-AV fistula unremarkable. NEUROLOGIC: Answers questions appropriately/ moves all ext. General: Alert, Oriented X3, Cooperative, No acute distress Heart: Regular rate (not on tele), Normal S1, Other (3/6 apical murmur systolic) Lungs: Clear Abdomen: Normal bowel sounds, Soft, No tenderness Extremities: No clubbing, No cyanosis, No edema Skin: No breakdown, No significant lesion Labs LABS COMPARISON: None available TECHNIQUE: Axial CT images of the chest abdomen pelvis were performed without contrast. Coronal and sagittal reformats are performed. Exposure: One or more of the following individualized dose reduction techniques were utilized for this examination: 1. Automated exposure control 2. Adjustment of the mA and/or kV according to patient size 3. Use of iterative reconstruction technique FINDINGS: The thyroid gland grossly appears unremarkable. Central airways are patent. Mild cardiomegaly coronary artery calcifications identified. Right-sided Port-A-Cath is identified. Focal groundglass consolidation identified in the left lingula of the lung. There are foci of airspace opacities identified in the right upper lobe and bibasilar lungs likely atelectasis or infiltrates. No evidence of free air identified in the abdomen. The evaluation of the solid organs is limited due to lack of IV contrast. The evaluation of bowel is limited due to lack of oral contrast. The visualized noncontrasted liver, spleen, adrenals grossly appears unremarkable. The gallbladder is mildly distended. Questionable fat stranding identified about the gallbladder. Examination limited by motion artifact. The pancreas, grossly appears unremarkable. Stomach is mildly distended. The small bowel is nondilated. Feces and gas noted in the colon. Few sigmoid colon diverticulosis. Urinary bladder is mildly distended. Intrauterine contraceptive device is identified. There is a cystic structure identified in the right kidney measuring 1.1 cm likely a cyst or cystic lesion. Probable metallic coils are dense calcifications identified in the inferior aspect of the left kidney. Mild fat stranding identified about the bilateral kidneys. Mild aortic atherosclerosis. Mild degenerative changes of the lumbar spine. IMPRESSION: 1. Focal groundglass consolidation left lingula of the lung likely pneumonia. Follow-up to resolution. 2. There is minimal questionable fat stranding identified about the bilateral kidneys, nonspecific could be due to medical renal disease or pyelonephritis. 3. Questionable fat stranding identified about the gallbladder likely artifactual due to motion and less likely inflammation. Consider ultrasound right upper quadrant. 4. 1.1 cm probable cyst or cystic lesion right kidney. Consider ultrasound kidneys for further evaluation. Electronically signed by: Tip Summers MD (05/01/2019 4:38 PM) [id number] DICTATED and SIGNED BY: TIP SUMMERS MD DATE: 05/01/19 1638 Laboratory Tests Test 05/01/19 19:21 05/01/19 19:24 05/01/19 19:56 05/01/19 20:37 Glucose (Fingerstick) 39 mg/dL (70-99) 45 mg/dL (70-99) 49 mg/dL (70-99) 119 mg/dL (70-99) Test 05/02/19 03:35 05/02/19 08:03 05/02/19 08:38 White Blood Count 5.1 x10^3/uL (4.0-11.0) Red Blood Count 3.07 x10^6/uL (3.50-5.40) Hemoglobin 7.8 g/dL (12.0-15.5) Hematocrit 24.8 % (36.0-47.0) Mean Corpuscular Volume 81 fL (79-100) Mean Corpuscular Hemoglobin 26 pg (25-35) Mean Corpuscular Hemoglobin Concent 32 g/dL (31-37) Red Cell Distribution Width 20.2 % (11.5-14.5) Platelet Count 275 x10^3/uL (140-400) Neutrophils (%) (Auto) 69 % (31-73) Lymphocytes (%) (Auto) 13 % (24-48) Monocytes (%) (Auto) 15 % (0-9) Eosinophils (%) (Auto) 2 % (0-3) Basophils (%) (Auto) 1 % (0-3) Neutrophils # (Auto) 3.5 x10^3/uL (1.8-7.7) Lymphocytes # (Auto) 0.7 x10^3/uL (1.0-4.8) Monocytes # (Auto) 0.8 x10^3/uL (0.0-1.1) Eosinophils # (Auto) 0.1 x10^3/uL (0.0-0.7) Basophils # (Auto) 0.0 x10^3/uL (0.0-0.2) Prothrombin Time 23.0 SEC (11.7-14.0) Prothromb Time International Ratio 2.1 (0.8-1.1) Sodium Level 140 mmol/L (136-145) Potassium Level 4.2 mmol/L (3.5-5.1) Chloride Level 98 mmol/L (98-107) Carbon Dioxide Level 31 mmol/L (21-32) Anion Gap 11 (6-14) Blood Urea Nitrogen 23 mg/dL (7-20) Creatinine 6.3 mg/dL (0.6-1.0) Estimated GFR (Cockcroft-Gault) 8.5 BUN/Creatinine Ratio 4 (6-20) Glucose Level 70 mg/dL (70-99) Calcium Level 11.1 mg/dL (8.5-10.1) Total Bilirubin 1.4 mg/dL (0.2-1.0) Aspartate Amino Transf (AST/SGOT) 698 U/L (15-37) Alanine Aminotransferase (ALT/SGPT) 492 U/L (14-59) Alkaline Phosphatase 151 U/L (46-116) Total Protein 7.5 g/dL (6.4-8.2) Albumin 2.4 g/dL (3.4-5.0) Albumin/Globulin Ratio 0.5 (1.0-1.7) Glucose (Fingerstick) 45 mg/dL (70-99) 90 mg/dL (70-99) Assessment and Plan Assessmemt and Plan Problems Medical Problems: (1) Altered mental status Status: Acute (2) Hypoglycemia Status: Acute Comment Review of Relevant I have reviewed the following items sarahi (where applicable) has been applied. Labs Laboratory Tests Test 04/30/19 11:20 04/30/19 11:55 04/30/19 16:35 04/30/19 21:42 Ammonia 21 mcmol/L (11-34) Glucose (Fingerstick) 80 mg/dL (70-99) 74 mg/dL (70-99) 102 mg/dL (70-99) Test 05/01/19 03:45 05/01/19 07:35 05/01/19 08:31 05/01/19 19:21 White Blood Count 5.3 x10^3/uL (4.0-11.0) Red Blood Count 3.22 x10^6/uL (3.50-5.40) Hemoglobin 8.2 g/dL (12.0-15.5) Hematocrit 25.9 % (36.0-47.0) Mean Corpuscular Volume 81 fL (79-100) Mean Corpuscular Hemoglobin 26 pg (25-35) Mean Corpuscular Hemoglobin Concent 32 g/dL (31-37) Red Cell Distribution Width 20.8 % (11.5-14.5) Platelet Count 265 x10^3/uL (140-400) Neutrophils (%) (Auto) 68 % (31-73) Lymphocytes (%) (Auto) 13 % (24-48) Monocytes (%) (Auto) 17 % (0-9) Eosinophils (%) (Auto) 2 % (0-3) Basophils (%) (Auto) 1 % (0-3) Neutrophils # (Auto) 3.6 x10^3/uL (1.8-7.7) Lymphocytes # (Auto) 0.7 x10^3/uL (1.0-4.8) Monocytes # (Auto) 0.9 x10^3/uL (0.0-1.1) Eosinophils # (Auto) 0.1 x10^3/uL (0.0-0.7) Basophils # (Auto) 0.0 x10^3/uL (0.0-0.2) Segmented Neutrophils % 75 % (35-66) Lymphocytes % 11 % (24-48) Monocytes % 14 % (0-10) Nucleated Red Blood Cells 3 Platelet Estimate Adequate (ADEQUATE) Anisocytosis Mod Prothrombin Time 23.9 SEC (11.7-14.0) Prothromb Time International Ratio 2.2 (0.8-1.1) Sodium Level 139 mmol/L (136-145) Potassium Level 4.3 mmol/L (3.5-5.1) Chloride Level 98 mmol/L (98-107) Carbon Dioxide Level 31 mmol/L (21-32) Anion Gap 10 (6-14) Blood Urea Nitrogen 49 mg/dL (7-20) Creatinine 10.6 mg/dL (0.6-1.0) Estimated GFR (Cockcroft-Gault) 4.6 BUN/Creatinine Ratio 5 (6-20) Glucose Level 65 mg/dL (70-99) Calcium Level 11.3 mg/dL (8.5-10.1) Iron Level 41 ug/dL (50-170) Total Iron Binding Capacity 171 ug/dL (250-450) Iron Saturation 24 % (15-34) Total Bilirubin 1.2 mg/dL (0.2-1.0) Aspartate Amino Transf (AST/SGOT) 577 U/L (15-37) Alanine Aminotransferase (ALT/SGPT) 416 U/L (14-59) Alkaline Phosphatase 117 U/L (46-116) Total Protein 7.2 g/dL (6.4-8.2) Albumin 2.4 g/dL (3.4-5.0) Albumin/Globulin Ratio 0.5 (1.0-1.7) Triglycerides Level 55 mg/dL (0-150) Cholesterol Level 79 mg/dL (0-200) LDL Cholesterol, Calculated 42 mg/dL (0-100) VLDL Cholesterol, Calculated 11 mg/dL (0-40) Non-HDL Cholesterol Calculated 53 mg/dL (0-129) HDL Cholesterol 26 mg/dL (40-60) Cholesterol/HDL Ratio 3.0 Procalcitonin 1.11 ng/mL (0.00-0.10) Hepatitis A IgM Antibody Nonreactive (Nonreactive) Hepatitis B Surface Antigen Nonreactive (Nonreactive) Hepatitis B Core IgM Antibody Nonreactive (Nonreactive) Hepatitis C IgG Antibody Nonreactive (Nonreactive) Glucose (Fingerstick) 47 mg/dL (70-99) 74 mg/dL (70-99) 39 mg/dL (70-99) Test 05/01/19 19:24 05/01/19 19:56 05/01/19 20:37 05/02/19 03:35 Glucose (Fingerstick) 45 mg/dL (70-99) 49 mg/dL (70-99) 119 mg/dL (70-99) White Blood Count 5.1 x10^3/uL (4.0-11.0) Red Blood Count 3.07 x10^6/uL (3.50-5.40) Hemoglobin 7.8 g/dL (12.0-15.5) Hematocrit 24.8 % (36.0-47.0) Mean Corpuscular Volume 81 fL (79-100) Mean Corpuscular Hemoglobin 26 pg (25-35) Mean Corpuscular Hemoglobin Concent 32 g/dL (31-37) Red Cell Distribution Width 20.2 % (11.5-14.5) Platelet Count 275 x10^3/uL (140-400) Neutrophils (%) (Auto) 69 % (31-73) Lymphocytes (%) (Auto) 13 % (24-48) Monocytes (%) (Auto) 15 % (0-9) Eosinophils (%) (Auto) 2 % (0-3) Basophils (%) (Auto) 1 % (0-3) Neutrophils # (Auto) 3.5 x10^3/uL (1.8-7.7) Lymphocytes # (Auto) 0.7 x10^3/uL (1.0-4.8) Monocytes # (Auto) 0.8 x10^3/uL (0.0-1.1) Eosinophils # (Auto) 0.1 x10^3/uL (0.0-0.7) Basophils # (Auto) 0.0 x10^3/uL (0.0-0.2) Prothrombin Time 23.0 SEC (11.7-14.0) Prothromb Time International Ratio 2.1 (0.8-1.1) Sodium Level 140 mmol/L (136-145) Potassium Level 4.2 mmol/L (3.5-5.1) Chloride Level 98 mmol/L (98-107) Carbon Dioxide Level 31 mmol/L (21-32) Anion Gap 11 (6-14) Blood Urea Nitrogen 23 mg/dL (7-20) Creatinine 6.3 mg/dL (0.6-1.0) Estimated GFR (Cockcroft-Gault) 8.5 BUN/Creatinine Ratio 4 (6-20) Glucose Level 70 mg/dL (70-99) Calcium Level 11.1 mg/dL (8.5-10.1) Total Bilirubin 1.4 mg/dL (0.2-1.0) Aspartate Amino Transf (AST/SGOT) 698 U/L (15-37) Alanine Aminotransferase (ALT/SGPT) 492 U/L (14-59) Alkaline Phosphatase 151 U/L (46-116) Total Protein 7.5 g/dL (6.4-8.2) Albumin 2.4 g/dL (3.4-5.0) Albumin/Globulin Ratio 0.5 (1.0-1.7) Test 05/02/19 08:03 05/02/19 08:38 Glucose (Fingerstick) 45 mg/dL (70-99) 90 mg/dL (70-99) Laboratory Tests Test 05/01/19 19:21 05/01/19 19:24 05/01/19 19:56 05/01/19 20:37 Glucose (Fingerstick) 39 mg/dL (70-99) 45 mg/dL (70-99) 49 mg/dL (70-99) 119 mg/dL (70-99) Test 05/02/19 03:35 05/02/19 08:03 05/02/19 08:38 White Blood Count 5.1 x10^3/uL (4.0-11.0) Red Blood Count 3.07 x10^6/uL (3.50-5.40) Hemoglobin 7.8 g/dL (12.0-15.5) Hematocrit 24.8 % (36.0-47.0) Mean Corpuscular Volume 81 fL (79-100) Mean Corpuscular Hemoglobin 26 pg (25-35) Mean Corpuscular Hemoglobin Concent 32 g/dL (31-37) Red Cell Distribution Width 20.2 % (11.5-14.5) Platelet Count 275 x10^3/uL (140-400) Neutrophils (%) (Auto) 69 % (31-73) Lymphocytes (%) (Auto) 13 % (24-48) Monocytes (%) (Auto) 15 % (0-9) Eosinophils (%) (Auto) 2 % (0-3) Basophils (%) (Auto) 1 % (0-3) Neutrophils # (Auto) 3.5 x10^3/uL (1.8-7.7) Lymphocytes # (Auto) 0.7 x10^3/uL (1.0-4.8) Monocytes # (Auto) 0.8 x10^3/uL (0.0-1.1) Eosinophils # (Auto) 0.1 x10^3/uL (0.0-0.7) Basophils # (Auto) 0.0 x10^3/uL (0.0-0.2) Prothrombin Time 23.0 SEC (11.7-14.0) Prothromb Time International Ratio 2.1 (0.8-1.1) Sodium Level 140 mmol/L (136-145) Potassium Level 4.2 mmol/L (3.5-5.1) Chloride Level 98 mmol/L (98-107) Carbon Dioxide Level 31 mmol/L (21-32) Anion Gap 11 (6-14) Blood Urea Nitrogen 23 mg/dL (7-20) Creatinine 6.3 mg/dL (0.6-1.0) Estimated GFR (Cockcroft-Gault) 8.5 BUN/Creatinine Ratio 4 (6-20) Glucose Level 70 mg/dL (70-99) Calcium Level 11.1 mg/dL (8.5-10.1) Total Bilirubin 1.4 mg/dL (0.2-1.0) Aspartate Amino Transf (AST/SGOT) 698 U/L (15-37) Alanine Aminotransferase (ALT/SGPT) 492 U/L (14-59) Alkaline Phosphatase 151 U/L (46-116) Total Protein 7.5 g/dL (6.4-8.2) Albumin 2.4 g/dL (3.4-5.0) Albumin/Globulin Ratio 0.5 (1.0-1.7) Glucose (Fingerstick) 45 mg/dL (70-99) 90 mg/dL (70-99) Microbiology 05/01/19 Blood Culture - Preliminary, Resulted NO GROWTH AFTER 1 DAY Medications Current Medications Dextrose (Dextrose 50%-Water Syringe) 25 gm STK-MED ONCE IV ; Start 04/28/19 at 22:31; Stop 04/28/19 at 22:31; Status DC Dextrose (Dextrose 50%-Water Syringe) 25 gm 1X ONCE IV Last administered on 04/28/19at 23:25; Start 04/28/19 at 23:00; Stop 04/28/19 at 23:01; Status DC Sodium Bicarbonate (Sodium Bicarb Adult 8.4% Syr) 50 meq 1X ONCE IV Last administered on 04/29/19at 00:33; Start 04/29/19 at 01:00; Stop 04/29/19 at 01:01; Status DC Dextrose (Dextrose 50%-Water Syringe) 25 gm 1X ONCE IV Last administered on 04/29/19at 00:33; Start 04/29/19 at 01:00; Stop 04/29/19 at 01:01; Status DC Insulin Human Regular (HumuLIN R VIAL) 5 unit 1X ONCE IV Last administered on 04/29/19at 00:35; Start 04/29/19 at 01:00; Stop 04/29/19 at 01:01; Status DC Sodium Polystyrene Sulfonate (Kayexalate) 30 gm 1X ONCE PO Last administered on 04/29/19at 00:32; Start 04/29/19 at 01:00; Stop 04/29/19 at 01:01; Status DC Sodium Chloride 1,000 ml @ 1,000 mls/hr Q1H IV Last administered on 04/29/19at 00:30; Start 04/29/19 at 01:00; Stop 04/29/19 at 01:59; Status DC Albuterol Sulfate (Ventolin Neb Soln) 10 mg 1X ONCE CONT NEB Last administered on 04/29/19at 00:35; Start 04/29/19 at 01:00; Stop 04/29/19 at 01:01; Status DC Ondansetron HCl (Zofran) 4 mg PRN Q8HRS PRN IV NAUSEA/VOMITING 1ST CHOICE; Start 04/29/19 at 01:00; Stop 04/30/19 at 00:59; Status DC Sodium Chloride 1,000 ml @ 1,000 mls/hr Q1H PRN IV hypotension; Start 04/29/19 at 07:38; Stop 04/29/19 at 13:37; Status DC Albumin Human 200 ml @ 200 mls/hr 1X PRN PRN IV Hypotension; Start 04/29/19 at 07:45; Stop 04/29/19 at 13:44; Status DC Acetaminophen (Tylenol) 500 mg 1X PRN PRN PO MILD PAIN / TEMP; Start 04/29/19 at 07:45; Stop 04/30/19 at 07:44; Status DC Diphenhydramine HCl (Benadryl) 25 mg 1X PRN PRN IV ITCHING; Start 04/29/19 at 07:45; Stop 04/30/19 at 07:44; Status DC Diphenhydramine HCl (Benadryl) 25 mg 1X PRN PRN IV ITCHING; Start 04/29/19 at 07:45; Stop 04/30/19 at 07:44; Status DC Labetalol HCl (Normodyne Iv Push) 10 mg PRN Q1HR PRN IVP SBP > 180; Start 04/29/19 at 07:45; Stop 04/30/19 at 07:44; Status DC Sodium Chloride 1,000 ml @ 400 mls/hr Q2H30M PRN IV PATENCY; Start 04/29/19 at 07:38; Stop 04/29/19 at 19:37; Status DC Info (PHARMACY MONITORING -- do not chart) 1 each PRN DAILY PRN MC SEE COMMENTS; Start 04/29/19 at 07:45; Stop 04/29/19 at 07:46; Status DC Info (PHARMACY MONITORING -- do not chart) 1 each PRN DAILY PRN MC SEE COMMENTS; Start 04/29/19 at 07:45; Status Cancel Amiodarone HCl (Cordarone) 400 mg BID PO Last administered on 05/01/19 09:36; Start 04/29/19 at 21:00; Stop 05/01/19 at 12:30; Status DC Amlodipine Besylate (Norvasc) 5 mg DAILY PO Last administered on 05/02/19 08:13; Start 04/29/19 at 15:00 Apixaban (Eliquis) 5 mg BID PO Last administered on 05/01/19 09:36; Start 04/29/19 at 21:00; Stop 05/01/19 at 12:30; Status DC Aspirin (Ecotrin) 81 mg DAILY PO Last administered on 05/02/19 08:12; Start 04/30/19 at 09:00 Clonazepam (KlonoPIN) 0.5 mg TID PO Last administered on 05/02/19 08:12; Start 04/29/19 at 15:00 Famotidine (Pepcid) 20 mg HS PO Last administered on 05/01/19 21:05; Start 04/29/19 at 21:00 Metoprolol Tartrate (Lopressor) 25 mg BID PO Last administered on 05/02/19 08:12; Start 04/29/19 at 15:00 Ranolazine (Ranexa) 500 mg Q12HR PO Last administered on 05/02/19 08:12; Start 04/29/19 at 21:00 Atorvastatin Calcium (Lipitor) 80 mg QHS PO Last administered on 04/30/19 21:42; Start 04/29/19 at 21:00; Stop 05/01/19 at 10:38; Status DC Citalopram Hydrobromide (CeleXA) 30 mg DAILY PO Last administered on 05/02/19 08:12; Start 04/29/19 at 15:00 Insulin Glargine (Lantus Syringe) 15 unit QHS SQ Last administered on 05/01/19at 22:13; Start 04/29/19 at 21:00 Info (Anti-Coagulation Monitoring By Pharmacy) 1 each PRN DAILY PRN MC SEE COMMENTS Last administered on 05/01/19at 11:46; Start 04/29/19 at 15:00 Vancomycin HCl 1 gm/Sodium Chloride 250 ml @ 250 mls/hr 1X ONCE IV ; Start 05/01/19 at 08:00; Stop 05/01/19 at 08:59; Status UNV Vancomycin HCl 1.5 gm/Sodium Chloride 500 ml @ 250 mls/hr 1X ONCE IV Last administered on 05/01/19at 11:02; Start 05/01/19 at 08:15; Stop 05/01/19 at 10:14; Status DC Vancomycin HCl (Vanco Per Pharmacy) 1 each PRN DAILY PRN MC SEE COMMENTS Last administered on 05/01/19at 13:42; Start 05/01/19 at 08:15 Vancomycin HCl 500 mg/Sodium Chloride 100 ml @ 100 mls/hr 1X ONCE IV Last administered on 05/01/19at 22:07; Start 05/01/19 at 16:00; Stop 05/01/19 at 16:59; Status DC Vancomycin HCl (Vancomycin Random Level) 1 each 1X ONCE MC ; Start 05/04/19 at 06:00; Stop 05/04/19 at 06:01 Sodium Chloride 1,000 ml @ 1,000 mls/hr Q1H PRN IV hypotension; Start 05/01/19 at 13:46; Stop 05/01/19 at 19:45; Status DC Acetaminophen (Tylenol) 500 mg 1X PRN PRN PO MILD PAIN / TEMP; Start 05/01/19 at 14:00; Stop 05/02/19 at 13:59 Diphenhydramine HCl (Benadryl) 25 mg 1X PRN PRN IV ITCHING; Start 05/01/19 at 14:00; Stop 05/02/19 at 13:59 Diphenhydramine HCl (Benadryl) 25 mg 1X PRN PRN IV ITCHING; Start 05/01/19 at 14:00; Stop 05/02/19 at 13:59 Sodium Chloride 1,000 ml @ 400 mls/hr Q2H30M PRN IV PATENCY; Start 05/01/19 at 13:46; Stop 05/02/19 at 01:45; Status DC Info (PHARMACY MONITORING -- do not chart) 1 each PRN DAILY PRN MC SEE COMMENTS; Start 05/01/19 at 14:00 Dextrose (Dextrose 50%-Water Syringe) 12.5 gm PRN Q15MIN PRN IV SEE COMMENTS; Start 05/02/19 at 08:15 Active Scripts Active Reported Vitamin D (Cholecalciferol (Vitamin D3)) 1,000 Unit Capsule 1 Cap PO DAILY Tylenol (Acetaminophen) 325 Mg Tablet 2 Tab PO PRN Q4HRS Tums (Calcium Carbonate) 200 Mg Tab.chew 4 Tab PO DAILY Ranexa (Ranolazine) 500 Mg Tab.er.12h 1 Tab PO Q12HR Phoslyra (Calcium Acetate) 667 Mg/5 Ml Solution 15 Ml PO TIDAC NITROGLYCERIN SubLingual (Nitroglycerin) 0.4 Mg Tab.subl 0.4 Mg SL PRN Q5MIN PRN Miralax (Polyethylene Glycol 3350) 17 Gm Powd.pack 1 Packet PO BID Metoprolol Tartrate 25 Mg Tablet 1 Tab PO BID Lidocaine PATCH (Lidocaine) 1 Each Adh..patch 1 Each TP DAILY REMOVE AFTER 12 HOURS Lexapro (Escitalopram Oxalate) 5 Mg Tablet 15 Mg PO DAILY Levemir (Insulin Detemir) 100 Unit/1 Ml Vial 15 Unit SQ QHS Klonopin (Clonazepam) 0.5 Mg Tablet 1 Tab PO TID Imodium A-D (Loperamide HCl) 2 Mg Capsule 2 Mg PO PRN Q4HRS PRN Hydrocodone-Apap 5-325 (Hydrocodone Bit/Acetaminophen) 1 Tab Tablet 1 Tab PO PRN Q4HRS PRN Folic Acid 1 Mg Tablet 1 Tab PO DAILY Ferrous Sulfate 325 Mg Tablet 1 Tab PO BID Pepcid (Famotidine) 20 Mg Tablet 20 Mg PO HS Clobetasol Propionate 15 Gm Cream..g. 1 Jomar TP DAILY08 Dulcolax (Bisacodyl) 5 Mg Tablet. 4 Tab PO PRN BID PRN Bisacodyl 10 Mg Supp.rect 10 Mg RC PRN DAILY PRN Aspir-Low (Aspirin) 81 Mg Tablet. 1 Tab PO DAILY Artificial Tears (Dextran 70/Hypromellose) 1 Each Droperette 1 Each OP PRN Q8HRS PRN Eliquis (Apixaban) 5 Mg Tablet 5 Mg PO BID Ammonium Lactate 226 Gm Lotion 1 Gm TP DAILY16 Amlodipine Besylate 5 Mg Tablet 5 Mg PO DAILY Amiodarone Hcl 200 Mg Tablet 2 Tab PO BID Amiodarone Hcl 200 Mg Tablet 1 Tab PO NOON Lipitor (Atorvastatin Calcium) 80 Mg Tablet 1 Tab PO DAILY Vitals/I & O Vital Sign - Last 24 Hours 05/01/19 05/01/19 05/01/19 05/01/19 11:00 19:15 21:05 21:06 Temp 98.0 98.3 98.0 98.3 Pulse 59 64 64 64 Resp 16 18 B/P (MAP) 134/68 (90) 119/61 (80) 119/61 119/61 Pulse Ox 93 94 O2 Delivery Room Air Room Air 05/01/19 05/02/19 05/02/19 05/02/19 23:45 03:30 07:59 08:00 Temp 99.6 98.7 98.6 99.6 98.7 98.6 Pulse 60 60 60 Resp 18 18 16 B/P (MAP) 94/37 (56) 121/52 (75) 125/67 (86) Pulse Ox 98 96 100 O2 Delivery Room Air Room Air Room Air Room Air 05/02/19 05/02/19 05/02/19 08:12 08:12 08:13 Pulse 60 60 60 B/P (MAP) 125/67 125/67 125/67 Intake and Output 05/01/19 05/01/19 05/02/19 15:00 23:00 07:00 Intake Total 120 ml 0 ml 300 ml Output Total 0 ml 0 ml Balance 120 ml 0 ml 300 ml REBECCA WEAVER MD May 02, 2019 10:59
--- NOTE | 2019-05-02 11:04 | PDOC ---
Renal-Progress Notes Subjective Notes Notes NO NEW CHANGES History of Present Illness Hx of present illness STABLE Vitals Vitals Vital Signs Date Time Temp Pulse Resp B/P (MAP) Pulse Ox O2 Delivery O2 Flow Rate FiO2 05/02/19 08:13 60 125/67 05/02/19 08:00 Room Air 05/02/19 07:59 98.6 16 100 98.6 Weight Weight [ ] I.O. Intake and Output Intake and Output 05/02/19 07:00 Intake Total 420 ml Output Total 0 ml Balance 420 ml Intake Oral 420 ml Output Urine Total 0 ml Labs Labs Laboratory Tests Test 05/01/19 19:21 05/01/19 19:24 05/01/19 19:56 05/01/19 20:37 Glucose (Fingerstick) 39 mg/dL (70-99) 45 mg/dL (70-99) 49 mg/dL (70-99) 119 mg/dL (70-99) Test 05/02/19 03:35 05/02/19 08:03 05/02/19 08:38 White Blood Count 5.1 x10^3/uL (4.0-11.0) Red Blood Count 3.07 x10^6/uL (3.50-5.40) Hemoglobin 7.8 g/dL (12.0-15.5) Hematocrit 24.8 % (36.0-47.0) Mean Corpuscular Volume 81 fL (79-100) Mean Corpuscular Hemoglobin 26 pg (25-35) Mean Corpuscular Hemoglobin Concent 32 g/dL (31-37) Red Cell Distribution Width 20.2 % (11.5-14.5) Platelet Count 275 x10^3/uL (140-400) Neutrophils (%) (Auto) 69 % (31-73) Lymphocytes (%) (Auto) 13 % (24-48) Monocytes (%) (Auto) 15 % (0-9) Eosinophils (%) (Auto) 2 % (0-3) Basophils (%) (Auto) 1 % (0-3) Neutrophils # (Auto) 3.5 x10^3/uL (1.8-7.7) Lymphocytes # (Auto) 0.7 x10^3/uL (1.0-4.8) Monocytes # (Auto) 0.8 x10^3/uL (0.0-1.1) Eosinophils # (Auto) 0.1 x10^3/uL (0.0-0.7) Basophils # (Auto) 0.0 x10^3/uL (0.0-0.2) Prothrombin Time 23.0 SEC (11.7-14.0) Prothromb Time International Ratio 2.1 (0.8-1.1) Sodium Level 140 mmol/L (136-145) Potassium Level 4.2 mmol/L (3.5-5.1) Chloride Level 98 mmol/L (98-107) Carbon Dioxide Level 31 mmol/L (21-32) Anion Gap 11 (6-14) Blood Urea Nitrogen 23 mg/dL (7-20) Creatinine 6.3 mg/dL (0.6-1.0) Estimated GFR (Cockcroft-Gault) 8.5 BUN/Creatinine Ratio 4 (6-20) Glucose Level 70 mg/dL (70-99) Calcium Level 11.1 mg/dL (8.5-10.1) Total Bilirubin 1.4 mg/dL (0.2-1.0) Aspartate Amino Transf (AST/SGOT) 698 U/L (15-37) Alanine Aminotransferase (ALT/SGPT) 492 U/L (14-59) Alkaline Phosphatase 151 U/L (46-116) Total Protein 7.5 g/dL (6.4-8.2) Albumin 2.4 g/dL (3.4-5.0) Albumin/Globulin Ratio 0.5 (1.0-1.7) Glucose (Fingerstick) 45 mg/dL (70-99) 90 mg/dL (70-99) Micro Micro Microbiology 05/01/19 Blood Culture - Preliminary, Resulted NO GROWTH AFTER 1 DAY Review of Systems Constitutional: yes: other (CONFUSED) Physical Exam General Appearance: no apparent distress Skin: warm Respiratory: decreased breath sounds Heart: S1S2 Abdomen: soft, bowel sounds present Genitourinary: bladder flat Extremities: pulses present Neurology: alert Musculoskeletal: Other (no pertinent history) Assessment Assessment IMP ESRD BACTEREMIA ENCEPHALOPATHY DM II HTN ANEMIA PLAN HD [facility] LAVON FIERRO MD May 02, 2019 11:04
--- NOTE | 2019-05-02 14:14 | PDOC ---
G I PROGRESS NOTE Subjective Sleeping; lunch tray untouched. Did not awaken. Objective Others' notes reviewed. Physical Exam No PE. Review of Relevant I have reviewed the following items sarahi (where applicable) has been applied. Labs Laboratory Tests Test 04/30/19 16:35 04/30/19 21:42 05/01/19 03:45 05/01/19 07:35 Glucose (Fingerstick) 74 mg/dL (70-99) 102 mg/dL (70-99) 47 mg/dL (70-99) White Blood Count 5.3 x10^3/uL (4.0-11.0) Red Blood Count 3.22 x10^6/uL (3.50-5.40) Hemoglobin 8.2 g/dL (12.0-15.5) Hematocrit 25.9 % (36.0-47.0) Mean Corpuscular Volume 81 fL (79-100) Mean Corpuscular Hemoglobin 26 pg (25-35) Mean Corpuscular Hemoglobin Concent 32 g/dL (31-37) Red Cell Distribution Width 20.8 % (11.5-14.5) Platelet Count 265 x10^3/uL (140-400) Neutrophils (%) (Auto) 68 % (31-73) Lymphocytes (%) (Auto) 13 % (24-48) Monocytes (%) (Auto) 17 % (0-9) Eosinophils (%) (Auto) 2 % (0-3) Basophils (%) (Auto) 1 % (0-3) Neutrophils # (Auto) 3.6 x10^3/uL (1.8-7.7) Lymphocytes # (Auto) 0.7 x10^3/uL (1.0-4.8) Monocytes # (Auto) 0.9 x10^3/uL (0.0-1.1) Eosinophils # (Auto) 0.1 x10^3/uL (0.0-0.7) Basophils # (Auto) 0.0 x10^3/uL (0.0-0.2) Segmented Neutrophils % 75 % (35-66) Lymphocytes % 11 % (24-48) Monocytes % 14 % (0-10) Nucleated Red Blood Cells 3 Platelet Estimate Adequate (ADEQUATE) Anisocytosis Mod Prothrombin Time 23.9 SEC (11.7-14.0) Prothromb Time International Ratio 2.2 (0.8-1.1) Sodium Level 139 mmol/L (136-145) Potassium Level 4.3 mmol/L (3.5-5.1) Chloride Level 98 mmol/L (98-107) Carbon Dioxide Level 31 mmol/L (21-32) Anion Gap 10 (6-14) Blood Urea Nitrogen 49 mg/dL (7-20) Creatinine 10.6 mg/dL (0.6-1.0) Estimated GFR (Cockcroft-Gault) 4.6 BUN/Creatinine Ratio 5 (6-20) Glucose Level 65 mg/dL (70-99) Calcium Level 11.3 mg/dL (8.5-10.1) Iron Level 41 ug/dL (50-170) Total Iron Binding Capacity 171 ug/dL (250-450) Iron Saturation 24 % (15-34) Total Bilirubin 1.2 mg/dL (0.2-1.0) Aspartate Amino Transf (AST/SGOT) 577 U/L (15-37) Alanine Aminotransferase (ALT/SGPT) 416 U/L (14-59) Alkaline Phosphatase 117 U/L (46-116) Total Protein 7.2 g/dL (6.4-8.2) Albumin 2.4 g/dL (3.4-5.0) Albumin/Globulin Ratio 0.5 (1.0-1.7) Triglycerides Level 55 mg/dL (0-150) Cholesterol Level 79 mg/dL (0-200) LDL Cholesterol, Calculated 42 mg/dL (0-100) VLDL Cholesterol, Calculated 11 mg/dL (0-40) Non-HDL Cholesterol Calculated 53 mg/dL (0-129) HDL Cholesterol 26 mg/dL (40-60) Cholesterol/HDL Ratio 3.0 Procalcitonin 1.11 ng/mL (0.00-0.10) Hepatitis A IgM Antibody Nonreactive (Nonreactive) Hepatitis B Surface Antigen Nonreactive (Nonreactive) Hepatitis B Core IgM Antibody Nonreactive (Nonreactive) Hepatitis C IgG Antibody Nonreactive (Nonreactive) Test 05/01/19 08:31 05/01/19 19:21 05/01/19 19:24 05/01/19 19:56 Glucose (Fingerstick) 74 mg/dL (70-99) 39 mg/dL (70-99) 45 mg/dL (70-99) 49 mg/dL (70-99) Test 05/01/19 20:37 05/02/19 03:35 05/02/19 08:03 05/02/19 08:38 Glucose (Fingerstick) 119 mg/dL (70-99) 45 mg/dL (70-99) 90 mg/dL (70-99) White Blood Count 5.1 x10^3/uL (4.0-11.0) Red Blood Count 3.07 x10^6/uL (3.50-5.40) Hemoglobin 7.8 g/dL (12.0-15.5) Hematocrit 24.8 % (36.0-47.0) Mean Corpuscular Volume 81 fL (79-100) Mean Corpuscular Hemoglobin 26 pg (25-35) Mean Corpuscular Hemoglobin Concent 32 g/dL (31-37) Red Cell Distribution Width 20.2 % (11.5-14.5) Platelet Count 275 x10^3/uL (140-400) Neutrophils (%) (Auto) 69 % (31-73) Lymphocytes (%) (Auto) 13 % (24-48) Monocytes (%) (Auto) 15 % (0-9) Eosinophils (%) (Auto) 2 % (0-3) Basophils (%) (Auto) 1 % (0-3) Neutrophils # (Auto) 3.5 x10^3/uL (1.8-7.7) Lymphocytes # (Auto) 0.7 x10^3/uL (1.0-4.8) Monocytes # (Auto) 0.8 x10^3/uL (0.0-1.1) Eosinophils # (Auto) 0.1 x10^3/uL (0.0-0.7) Basophils # (Auto) 0.0 x10^3/uL (0.0-0.2) Prothrombin Time 23.0 SEC (11.7-14.0) Prothromb Time International Ratio 2.1 (0.8-1.1) Sodium Level 140 mmol/L (136-145) Potassium Level 4.2 mmol/L (3.5-5.1) Chloride Level 98 mmol/L (98-107) Carbon Dioxide Level 31 mmol/L (21-32) Anion Gap 11 (6-14) Blood Urea Nitrogen 23 mg/dL (7-20) Creatinine 6.3 mg/dL (0.6-1.0) Estimated GFR (Cockcroft-Gault) 8.5 BUN/Creatinine Ratio 4 (6-20) Glucose Level 70 mg/dL (70-99) Calcium Level 11.1 mg/dL (8.5-10.1) Total Bilirubin 1.4 mg/dL (0.2-1.0) Aspartate Amino Transf (AST/SGOT) 698 U/L (15-37) Alanine Aminotransferase (ALT/SGPT) 492 U/L (14-59) Alkaline Phosphatase 151 U/L (46-116) Total Protein 7.5 g/dL (6.4-8.2) Albumin 2.4 g/dL (3.4-5.0) Albumin/Globulin Ratio 0.5 (1.0-1.7) Test 05/02/19 11:51 Glucose (Fingerstick) 122 mg/dL (70-99) Laboratory Tests Test 05/01/19 19:21 05/01/19 19:24 05/01/19 19:56 05/01/19 20:37 Glucose (Fingerstick) 39 mg/dL (70-99) 45 mg/dL (70-99) 49 mg/dL (70-99) 119 mg/dL (70-99) Test 05/02/19 03:35 05/02/19 08:03 05/02/19 08:38 05/02/19 11:51 White Blood Count 5.1 x10^3/uL (4.0-11.0) Red Blood Count 3.07 x10^6/uL (3.50-5.40) Hemoglobin 7.8 g/dL (12.0-15.5) Hematocrit 24.8 % (36.0-47.0) Mean Corpuscular Volume 81 fL (79-100) Mean Corpuscular Hemoglobin 26 pg (25-35) Mean Corpuscular Hemoglobin Concent 32 g/dL (31-37) Red Cell Distribution Width 20.2 % (11.5-14.5) Platelet Count 275 x10^3/uL (140-400) Neutrophils (%) (Auto) 69 % (31-73) Lymphocytes (%) (Auto) 13 % (24-48) Monocytes (%) (Auto) 15 % (0-9) Eosinophils (%) (Auto) 2 % (0-3) Basophils (%) (Auto) 1 % (0-3) Neutrophils # (Auto) 3.5 x10^3/uL (1.8-7.7) Lymphocytes # (Auto) 0.7 x10^3/uL (1.0-4.8) Monocytes # (Auto) 0.8 x10^3/uL (0.0-1.1) Eosinophils # (Auto) 0.1 x10^3/uL (0.0-0.7) Basophils # (Auto) 0.0 x10^3/uL (0.0-0.2) Prothrombin Time 23.0 SEC (11.7-14.0) Prothromb Time International Ratio 2.1 (0.8-1.1) Sodium Level 140 mmol/L (136-145) Potassium Level 4.2 mmol/L (3.5-5.1) Chloride Level 98 mmol/L (98-107) Carbon Dioxide Level 31 mmol/L (21-32) Anion Gap 11 (6-14) Blood Urea Nitrogen 23 mg/dL (7-20) Creatinine 6.3 mg/dL (0.6-1.0) Estimated GFR (Cockcroft-Gault) 8.5 BUN/Creatinine Ratio 4 (6-20) Glucose Level 70 mg/dL (70-99) Calcium Level 11.1 mg/dL (8.5-10.1) Total Bilirubin 1.4 mg/dL (0.2-1.0) Aspartate Amino Transf (AST/SGOT) 698 U/L (15-37) Alanine Aminotransferase (ALT/SGPT) 492 U/L (14-59) Alkaline Phosphatase 151 U/L (46-116) Total Protein 7.5 g/dL (6.4-8.2) Albumin 2.4 g/dL (3.4-5.0) Albumin/Globulin Ratio 0.5 (1.0-1.7) Glucose (Fingerstick) 45 mg/dL (70-99) 90 mg/dL (70-99) 122 mg/dL (70-99) Microbiology 05/01/19 Blood Culture - Preliminary, Resulted NO GROWTH AFTER 1 DAY Medications Current Medications Dextrose (Dextrose 50%-Water Syringe) 25 gm STK-MED ONCE IV ; Start 04/28/19 at 22:31; Stop 04/28/19 at 22:31; Status DC Dextrose (Dextrose 50%-Water Syringe) 25 gm 1X ONCE IV Last administered on 04/28/19at 23:25; Start 04/28/19 at 23:00; Stop 04/28/19 at 23:01; Status DC Sodium Bicarbonate (Sodium Bicarb Adult 8.4% Syr) 50 meq 1X ONCE IV Last administered on 04/29/19at 00:33; Start 04/29/19 at 01:00; Stop 04/29/19 at 01:01; Status DC Dextrose (Dextrose 50%-Water Syringe) 25 gm 1X ONCE IV Last administered on 04/29/19at 00:33; Start 04/29/19 at 01:00; Stop 04/29/19 at 01:01; Status DC Insulin Human Regular (HumuLIN R VIAL) 5 unit 1X ONCE IV Last administered on 04/29/19at 00:35; Start 04/29/19 at 01:00; Stop 04/29/19 at 01:01; Status DC Sodium Polystyrene Sulfonate (Kayexalate) 30 gm 1X ONCE PO Last administered on 04/29/19at 00:32; Start 04/29/19 at 01:00; Stop 04/29/19 at 01:01; Status DC Sodium Chloride 1,000 ml @ 1,000 mls/hr Q1H IV Last administered on 04/29/19at 00:30; Start 04/29/19 at 01:00; Stop 04/29/19 at 01:59; Status DC Albuterol Sulfate (Ventolin Neb Soln) 10 mg 1X ONCE CONT NEB Last administered on 04/29/19at 00:35; Start 04/29/19 at 01:00; Stop 04/29/19 at 01:01; Status DC Ondansetron HCl (Zofran) 4 mg PRN Q8HRS PRN IV NAUSEA/VOMITING 1ST CHOICE; Start 04/29/19 at 01:00; Stop 04/30/19 at 00:59; Status DC Sodium Chloride 1,000 ml @ 1,000 mls/hr Q1H PRN IV hypotension; Start 04/29/19 at 07:38; Stop 04/29/19 at 13:37; Status DC Albumin Human 200 ml @ 200 mls/hr 1X PRN PRN IV Hypotension; Start 04/29/19 at 07:45; Stop 04/29/19 at 13:44; Status DC Acetaminophen (Tylenol) 500 mg 1X PRN PRN PO MILD PAIN / TEMP; Start 04/29/19 at 07:45; Stop 04/30/19 at 07:44; Status DC Diphenhydramine HCl (Benadryl) 25 mg 1X PRN PRN IV ITCHING; Start 04/29/19 at 07:45; Stop 04/30/19 at 07:44; Status DC Diphenhydramine HCl (Benadryl) 25 mg 1X PRN PRN IV ITCHING; Start 04/29/19 at 07:45; Stop 04/30/19 at 07:44; Status DC Labetalol HCl (Normodyne Iv Push) 10 mg PRN Q1HR PRN IVP SBP > 180; Start 04/29/19 at 07:45; Stop 04/30/19 at 07:44; Status DC Sodium Chloride 1,000 ml @ 400 mls/hr Q2H30M PRN IV PATENCY; Start 04/29/19 at 07:38; Stop 04/29/19 at 19:37; Status DC Info (PHARMACY MONITORING -- do not chart) 1 each PRN DAILY PRN MC SEE COMMENTS; Start 04/29/19 at 07:45; Stop 04/29/19 at 07:46; Status DC Info (PHARMACY MONITORING -- do not chart) 1 each PRN DAILY PRN MC SEE COMMENTS; Start 04/29/19 at 07:45; Status Cancel Amiodarone HCl (Cordarone) 400 mg BID PO Last administered on 05/01/19at 09:36; Start 04/29/19 at 21:00; Stop 05/01/19 at 12:30; Status DC Amlodipine Besylate (Norvasc) 5 mg DAILY PO Last administered on 05/02/19at 08:13; Start 04/29/19 at 15:00 Apixaban (Eliquis) 5 mg BID PO Last administered on 05/01/19at 09:36; Start 04/29/19 at 21:00; Stop 05/01/19 at 12:30; Status DC Aspirin (Ecotrin) 81 mg DAILY PO Last administered on 05/02/19 08:12; Start 04/30/19 at 09:00 Clonazepam (KlonoPIN) 0.5 mg TID PO Last administered on 05/02/19 14:08; Start 04/29/19 at 15:00 Famotidine (Pepcid) 20 mg HS PO Last administered on 05/01/19 21:05; Start 04/29/19 at 21:00 Metoprolol Tartrate (Lopressor) 25 mg BID PO Last administered on 05/02/19 08:12; Start 04/29/19 at 15:00 Ranolazine (Ranexa) 500 mg Q12HR PO Last administered on 05/02/19 08:12; Start 04/29/19 at 21:00 Atorvastatin Calcium (Lipitor) 80 mg QHS PO Last administered on 04/30/19 21:42; Start 04/29/19 at 21:00; Stop 05/01/19 at 10:38; Status DC Citalopram Hydrobromide (CeleXA) 30 mg DAILY PO Last administered on 05/02/19 08:12; Start 04/29/19 at 15:00 Insulin Glargine (Lantus Syringe) 15 unit QHS SQ Last administered on 05/01/19 22:13; Start 04/29/19 at 21:00 Info (Anti-Coagulation Monitoring By Pharmacy) 1 each PRN DAILY PRN MC SEE COMMENTS Last administered on 05/01/19 11:46; Start 04/29/19 at 15:00 Vancomycin HCl 1 gm/Sodium Chloride 250 ml @ 250 mls/hr 1X ONCE IV ; Start 05/01/19 at 08:00; Stop 05/01/19 at 08:59; Status UNV Vancomycin HCl 1.5 gm/Sodium Chloride 500 ml @ 250 mls/hr 1X ONCE IV Last administered on 05/01/19 11:02; Start 05/01/19 at 08:15; Stop 05/01/19 at 10:14; Status DC Vancomycin HCl (Vanco Per Pharmacy) 1 each PRN DAILY PRN MC SEE COMMENTS Last administered on 05/01/19 13:42; Start 05/01/19 at 08:15 Vancomycin HCl 500 mg/Sodium Chloride 100 ml @ 100 mls/hr 1X ONCE IV Last administered on 05/01/19at 22:07; Start 05/01/19 at 16:00; Stop 05/01/19 at 16:59; Status DC Vancomycin HCl (Vancomycin Random Level) 1 each 1X ONCE MC ; Start 05/04/19 at 06:00; Stop 05/04/19 at 06:01 Sodium Chloride 1,000 ml @ 1,000 mls/hr Q1H PRN IV hypotension; Start 05/01/19 at 13:46; Stop 05/01/19 at 19:45; Status DC Acetaminophen (Tylenol) 500 mg 1X PRN PRN PO MILD PAIN / TEMP; Start 05/01/19 at 14:00; Stop 05/02/19 at 13:59; Status DC Diphenhydramine HCl (Benadryl) 25 mg 1X PRN PRN IV ITCHING; Start 05/01/19 at 14:00; Stop 05/02/19 at 13:59; Status DC Diphenhydramine HCl (Benadryl) 25 mg 1X PRN PRN IV ITCHING; Start 05/01/19 at 14:00; Stop 05/02/19 at 13:59; Status DC Sodium Chloride 1,000 ml @ 400 mls/hr Q2H30M PRN IV PATENCY; Start 05/01/19 at 13:46; Stop 05/02/19 at 01:45; Status DC Info (PHARMACY MONITORING -- do not chart) 1 each PRN DAILY PRN MC SEE COMMENTS; Start 05/01/19 at 14:00 Dextrose (Dextrose 50%-Water Syringe) 12.5 gm PRN Q15MIN PRN IV SEE COMMENTS; Start 05/02/19 at 08:15 Active Scripts Active Reported Vitamin D (Cholecalciferol (Vitamin D3)) 1,000 Unit Capsule 1 Cap PO DAILY Tylenol (Acetaminophen) 325 Mg Tablet 2 Tab PO PRN Q4HRS Tums (Calcium Carbonate) 200 Mg Tab.chew 4 Tab PO DAILY Ranexa (Ranolazine) 500 Mg Tab.er.12h 1 Tab PO Q12HR Phoslyra (Calcium Acetate) 667 Mg/5 Ml Solution 15 Ml PO TIDAC NITROGLYCERIN SubLingual (Nitroglycerin) 0.4 Mg Tab.subl 0.4 Mg SL PRN Q5MIN PRN Miralax (Polyethylene Glycol 3350) 17 Gm Powd.pack 1 Packet PO BID Metoprolol Tartrate 25 Mg Tablet 1 Tab PO BID Lidocaine PATCH (Lidocaine) 1 Each Adh..patch 1 Each TP DAILY REMOVE AFTER 12 HOURS Lexapro (Escitalopram Oxalate) 5 Mg Tablet 15 Mg PO DAILY Levemir (Insulin Detemir) 100 Unit/1 Ml Vial 15 Unit SQ QHS Klonopin (Clonazepam) 0.5 Mg Tablet 1 Tab PO TID Imodium A-D (Loperamide HCl) 2 Mg Capsule 2 Mg PO PRN Q4HRS PRN Hydrocodone-Apap 5-325 (Hydrocodone Bit/Acetaminophen) 1 Tab Tablet 1 Tab PO PRN Q4HRS PRN Folic Acid 1 Mg Tablet 1 Tab PO DAILY Ferrous Sulfate 325 Mg Tablet 1 Tab PO BID Pepcid (Famotidine) 20 Mg Tablet 20 Mg PO HS Clobetasol Propionate 15 Gm Cream..g. 1 Jomar TP DAILY08 Dulcolax (Bisacodyl) 5 Mg Tablet.dr 4 Tab PO PRN BID PRN Bisacodyl 10 Mg Supp.rect 10 Mg RC PRN DAILY PRN Aspir-Low (Aspirin) 81 Mg Tablet.dr 1 Tab PO DAILY Artificial Tears (Dextran 70/Hypromellose) 1 Each Droperette 1 Each OP PRN Q8HRS PRN Eliquis (Apixaban) 5 Mg Tablet 5 Mg PO BID Ammonium Lactate 226 Gm Lotion 1 Gm TP DAILY16 Amlodipine Besylate 5 Mg Tablet 5 Mg PO DAILY Amiodarone Hcl 200 Mg Tablet 2 Tab PO BID Amiodarone Hcl 200 Mg Tablet 1 Tab PO NOON Lipitor (Atorvastatin Calcium) 80 Mg Tablet 1 Tab PO DAILY Vitals/I & O Vital Sign - Last 24 Hours 05/01/19 05/01/19 05/01/19 05/01/19 19:15 21:05 21:06 23:45 Temp 98.3 99.6 98.3 99.6 Pulse 64 64 64 60 Resp 18 18 B/P (MAP) 119/61 (80) 119/61 119/61 94/37 (56) Pulse Ox 94 98 O2 Delivery Room Air Room Air 05/02/19 05/02/19 05/02/19 05/02/19 03:30 07:59 08:00 08:12 Temp 98.7 98.6 98.7 98.6 Pulse 60 60 60 Resp 18 16 B/P (MAP) 121/52 (75) 125/67 (86) 125/67 Pulse Ox 96 100 O2 Delivery Room Air Room Air Room Air 05/02/19 05/02/19 05/02/19 08:12 08:13 11:59 Temp 98.1 98.1 Pulse 60 60 60 Resp 18 B/P (MAP) 125/67 125/67 113/65 (81) Pulse Ox 97 O2 Delivery Room Air Intake and Output 05/01/19 05/01/19 05/02/19 15:00 23:00 07:00 Intake Total 120 ml 0 ml 300 ml Output Total 0 ml 0 ml Balance 120 ml 0 ml 300 ml Images Though not mentioned in impression, has IUD mentioned in body of report of CT. Problem List Problems Medical Problems: (1) Altered mental status Status: Acute (2) Hypoglycemia Status: Acute Assessment GPC in blood culture. If real, IUD? Endometritis? Plan of Care: Continue current Tx, Mgmt Plan of Care Note Await pending data. AVERY MARTÍNEZ MD May 02, 2019 14:14
[2019-05-02] MEDS: VANCOMYCIN PER PHARMACY MC PRN (15:14)
[2019-05-02] MEDS: LACTOBACILLUS RHAMNOSUS GG 1 CAPSULE. PO SCH (22:37)
[2019-05-02] MEDS: FAMOTIDINE 20 MG TABLET. PO SCH (22:37)
[2019-05-02] MEDS: INSULIN GLARGINE SYRINGE. SQ SCH (22:50)
[2019-05-03 03:05] VITALS: BP 121/73
[2019-05-03 07:00] VITALS: BP 108/75
[2019-05-03] MEDS: ASPIRIN ENTERIC COATED 81 MG TABLET.DR. PO SCH (08:42)
[2019-05-03] MEDS: RANOLAZINE 500 MG TAB.ER.12H PO SCH ×2 (08:42→22:14)
[2019-05-03] MEDS: clonazePAM 0.5 MG TABLET PO SCH ×3 (08:42→21:00)
[2019-05-03] MEDS: amLODIPine BESYLATE 5 MG TABLET PO SCH (08:43)
[2019-05-03] MEDS: LACTOBACILLUS RHAMNOSUS GG 1 CAPSULE. PO SCH ×2 (08:43→22:14)
[2019-05-03] MEDS: CITALOPRAM 10 MG TABLET. PO SCH (08:43)
[2019-05-03] MEDS: METOPROLOL TART IMMED RELEASE 25 MG TABLET. PO SCH ×2 (08:43→22:14)
--- NOTE | 2019-05-03 08:47 | PDOC ---
PROGRESS NOTES History of Present Illness History of Present Illness ASSESSMENT altered mental status, IMPROVING on ct head 04/29 Mild atrophy and chronic microangiopathic white matter change. Severe hyperkalemia, TREATED hypothermia, hyperglycemia, anemia. Basilar atelectasis. Correlate for mild pulmonary edema. ESRD on dialysis TRANSAMINITIS fever Focal groundglass consolidation left lingula of the lung likely pneumonia. Follow-up to resolution. minimal questionable fat stranding identified about the bilateral kidneys, nonspecific could be due to medical renal disease or pyel onephritis. fat stranding identified about the gallbladder likely artifactual due to motion and less likely inflammation. Consider ultrasound right upper quadrant. Amiodarone has been on 400 mg bid dosing at least in the last 2 months and it appears per [facility] cardiology this was to be changed to 200 mg daily , will d/c for now bacteremia vs contabinate GRAM POSITIVE COCCI IN CLUSTERS IN 1 OF 4 BOTTLES (2 SETS COLLECTED). CALLED TO [facility] ON 5S 05/01/19 AT 0743 BY Kev SIMMS. CULTURE HAS BEEN SENT TO [facility] FOR FURTHER IDENTIFICATION admitted. consult Nephrology dialysis currently. Frequent labs. Electrolyte protocol. DVT prophylaxis. Home meds. consult neurology NEUROCHECKS Q 4 HRS GI CONSULT ID CONSULT cute dx HEPATITIS PANEL HOLD HEPATOTOXIC DRUGS blood cult, iv vanc x 1 10-04 CT CHEST, ABD 28 MIN PT EXAM, CHART REVIEW, > 50% OF TIME SPENT WITH EXAM, CHART REVIEW, PT CARE COORDINATION Vitals Vitals Vital Signs Date Time Temp Pulse Resp B/P (MAP) Pulse Ox O2 Delivery O2 Flow Rate FiO2 05/03/19 08:43 64 121/73 05/03/19 03:05 98.2 18 Room Air 98.2 05/02/19 19:47 100 Physical Exam Physical Exam GENERAL: The patient is in bed. Alert and coop HEENT: Pupils equally round, reactive. Normal conjunctivae. Oropharynx pink and moist. No lesions. NECK: Supple. LUNGS: Clear to auscultation. HEART: S1, S2. ABDOMEN: Soft and nontender with bowel sounds present. EXTREMITIES: No gross edema or cyanosis. She had several firm lesions on her legs, nontender. LUE-AV fistula unremarkable. NEUROLOGIC: Answers questions appropriately/ moves all ext. General: Alert, Oriented X3, Cooperative, No acute distress Heart: Regular rate (not on tele), Normal S1, Other (3/6 apical murmur systolic) Lungs: Clear Abdomen: Normal bowel sounds, Soft, No tenderness Extremities: No clubbing, No cyanosis, No edema Skin: No breakdown, No significant lesion Labs LABS PATIENT: JAMES BALDERAS ACCT: [id number] LOC: [address] [place] [address] U: [id number] AGE/SX: 53/F ROOM: [facility] RE04/28/[address]: WAYNE GARNER : 1965 BED: 1 DIS: STATUS: ADM IN TLOC: SPEC #: [id number] FRANCIS: 04/28/19 STATUS: COMP REQ #: [id number] RECD: 04/30/[address] [facility] [address]: WAYNE GARNER MD SOURCE: BLOOD ENTR: 04/30/[address] [facility] [address]: DANIEL BARRERA MD SPDC: JASON POWER MD, JOHN H ORDERED: BCULT Procedure Result BLOOD CULTURE Final GRAM POSITIVE COCCI IN CLUSTERS IN 1 OF 4 BOTTLES (2 SETS COLLECTED). CALLED TO [facility] ON 5S 05/01/19 AT 0743 BY Kev SIMMS. CULTURE HAS BEEN SENT TO [facility] FOR FURTHER IDENTIFICATION. Laboratory Tests Test 05/02/19 11:51 05/02/19 15:38 05/02/19 17:26 05/02/19 22:40 Glucose (Fingerstick) 122 mg/dL (70-99) 111 mg/dL (70-99) 126 mg/dL (70-99) 149 mg/dL (70-99) Test 05/03/19 07:12 Glucose (Fingerstick) 70 mg/dL (70-99) Assessment and Plan Assessmemt and Plan Problems Medical Problems: (1) Altered mental status Status: Acute (2) Hypoglycemia Status: Acute Comment Review of Relevant I have reviewed the following items sarahi (where applicable) has been applied. Labs Laboratory Tests Test 05/01/19 19:21 05/01/19 19:24 05/01/19 19:56 05/01/19 20:37 Glucose (Fingerstick) 39 mg/dL (70-99) 45 mg/dL (70-99) 49 mg/dL (70-99) 119 mg/dL (70-99) Test 05/02/19 03:35 05/02/19 08:03 05/02/19 08:38 05/02/19 11:51 White Blood Count 5.1 x10^3/uL (4.0-11.0) Red Blood Count 3.07 x10^6/uL (3.50-5.40) Hemoglobin 7.8 g/dL (12.0-15.5) Hematocrit 24.8 % (36.0-47.0) Mean Corpuscular Volume 81 fL (79-100) Mean Corpuscular Hemoglobin 26 pg (25-35) Mean Corpuscular Hemoglobin Concent 32 g/dL (31-37) Red Cell Distribution Width 20.2 % (11.5-14.5) Platelet Count 275 x10^3/uL (140-400) Neutrophils (%) (Auto) 69 % (31-73) Lymphocytes (%) (Auto) 13 % (24-48) Monocytes (%) (Auto) 15 % (0-9) Eosinophils (%) (Auto) 2 % (0-3) Basophils (%) (Auto) 1 % (0-3) Neutrophils # (Auto) 3.5 x10^3/uL (1.8-7.7) Lymphocytes # (Auto) 0.7 x10^3/uL (1.0-4.8) Monocytes # (Auto) 0.8 x10^3/uL (0.0-1.1) Eosinophils # (Auto) 0.1 x10^3/uL (0.0-0.7) Basophils # (Auto) 0.0 x10^3/uL (0.0-0.2) Prothrombin Time 23.0 SEC (11.7-14.0) Prothromb Time International Ratio 2.1 (0.8-1.1) Sodium Level 140 mmol/L (136-145) Potassium Level 4.2 mmol/L (3.5-5.1) Chloride Level 98 mmol/L (98-107) Carbon Dioxide Level 31 mmol/L (21-32) Anion Gap 11 (6-14) Blood Urea Nitrogen 23 mg/dL (7-20) Creatinine 6.3 mg/dL (0.6-1.0) Estimated GFR (Cockcroft-Gault) 8.5 BUN/Creatinine Ratio 4 (6-20) Glucose Level 70 mg/dL (70-99) Calcium Level 11.1 mg/dL (8.5-10.1) Total Bilirubin 1.4 mg/dL (0.2-1.0) Aspartate Amino Transf (AST/SGOT) 698 U/L (15-37) Alanine Aminotransferase (ALT/SGPT) 492 U/L (14-59) Alkaline Phosphatase 151 U/L (46-116) Total Protein 7.5 g/dL (6.4-8.2) Albumin 2.4 g/dL (3.4-5.0) Albumin/Globulin Ratio 0.5 (1.0-1.7) Cytomegalovirus IgG Antibody 4.20 U/mL (0.00-0.59) Cytomegalovirus IgM Antibody <30.0 AU/mL (0.0-29.9) Glucose (Fingerstick) 45 mg/dL (70-99) 90 mg/dL (70-99) 122 mg/dL (70-99) Test 05/02/19 15:38 05/02/19 17:26 05/02/19 22:40 05/03/19 07:12 Glucose (Fingerstick) 111 mg/dL (70-99) 126 mg/dL (70-99) 149 mg/dL (70-99) 70 mg/dL (70-99) Laboratory Tests Test 05/02/19 11:51 05/02/19 15:38 05/02/19 17:26 05/02/19 22:40 Glucose (Fingerstick) 122 mg/dL (70-99) 111 mg/dL (70-99) 126 mg/dL (70-99) 149 mg/dL (70-99) Test 05/03/19 07:12 Glucose (Fingerstick) 70 mg/dL (70-99) Microbiology 05/01/19 Blood Culture - Preliminary, Resulted NO GROWTH AFTER 1 DAY Medications Current Medications Dextrose (Dextrose 50%-Water Syringe) 25 gm STK-MED ONCE IV ; Start 04/28/19 at 22:31; Stop 04/28/19 at 22:31; Status DC Dextrose (Dextrose 50%-Water Syringe) 25 gm 1X ONCE IV Last administered on 04/28/19at 23:25; Start 04/28/19 at 23:00; Stop 04/28/19 at 23:01; Status DC Sodium Bicarbonate (Sodium Bicarb Adult 8.4% Syr) 50 meq 1X ONCE IV Last administered on 04/29/19at 00:33; Start 04/29/19 at 01:00; Stop 04/29/19 at 01:01; Status DC Dextrose (Dextrose 50%-Water Syringe) 25 gm 1X ONCE IV Last administered on 04/29/19at 00:33; Start 04/29/19 at 01:00; Stop 04/29/19 at 01:01; Status DC Insulin Human Regular (HumuLIN R VIAL) 5 unit 1X ONCE IV Last administered on 04/29/19at 00:35; Start 04/29/19 at 01:00; Stop 04/29/19 at 01:01; Status DC Sodium Polystyrene Sulfonate (Kayexalate) 30 gm 1X ONCE PO Last administered on 04/29/19at 00:32; Start 04/29/19 at 01:00; Stop 04/29/19 at 01:01; Status DC Sodium Chloride 1,000 ml @ 1,000 mls/hr Q1H IV Last administered on 04/29/19at 00:30; Start 04/29/19 at 01:00; Stop 04/29/19 at 01:59; Status DC Albuterol Sulfate (Ventolin Neb Soln) 10 mg 1X ONCE CONT NEB Last administered on 04/29/19at 00:35; Start 04/29/19 at 01:00; Stop 04/29/19 at 01:01; Status DC Ondansetron HCl (Zofran) 4 mg PRN Q8HRS PRN IV NAUSEA/VOMITING 1ST CHOICE; Start 04/29/19 at 01:00; Stop 04/30/19 at 00:59; Status DC Sodium Chloride 1,000 ml @ 1,000 mls/hr Q1H PRN IV hypotension; Start 04/29/19 at 07:38; Stop 04/29/19 at 13:37; Status DC Albumin Human 200 ml @ 200 mls/hr 1X PRN PRN IV Hypotension; Start 04/29/19 at 07:45; Stop 04/29/19 at 13:44; Status DC Acetaminophen (Tylenol) 500 mg 1X PRN PRN PO MILD PAIN / TEMP; Start 04/29/19 at 07:45; Stop 04/30/19 at 07:44; Status DC Diphenhydramine HCl (Benadryl) 25 mg 1X PRN PRN IV ITCHING; Start 04/29/19 at 07:45; Stop 04/30/19 at 07:44; Status DC Diphenhydramine HCl (Benadryl) 25 mg 1X PRN PRN IV ITCHING; Start 04/29/19 at 07:45; Stop 04/30/19 at 07:44; Status DC Labetalol HCl (Normodyne Iv Push) 10 mg PRN Q1HR PRN IVP SBP > 180; Start 04/29/19 at 07:45; Stop 04/30/19 at 07:44; Status DC Sodium Chloride 1,000 ml @ 400 mls/hr Q2H30M PRN IV PATENCY; Start 04/29/19 at 07:38; Stop 04/29/19 at 19:37; Status DC Info (PHARMACY MONITORING -- do not chart) 1 each PRN DAILY PRN MC SEE COMMENTS; Start 04/29/19 at 07:45; Stop 04/29/19 at 07:46; Status DC Info (PHARMACY MONITORING -- do not chart) 1 each PRN DAILY PRN MC SEE COMMENTS; Start 04/29/19 at 07:45; Status Cancel Amiodarone HCl (Cordarone) 400 mg BID PO Last administered on 05/01/19 09:36; Start 04/29/19 at 21:00; Stop 05/01/19 at 12:30; Status DC Amlodipine Besylate (Norvasc) 5 mg DAILY PO Last administered on 05/03/19 08:43; Start 04/29/19 at 15:00 Apixaban (Eliquis) 5 mg BID PO Last administered on 05/01/19 09:36; Start 04/29/19 at 21:00; Stop 05/01/19 at 12:30; Status DC Aspirin (Ecotrin) 81 mg DAILY PO Last administered on 05/03/19 08:42; Start 04/30/19 at 09:00 Clonazepam (KlonoPIN) 0.5 mg TID PO Last administered on 05/03/19 08:42; Start 04/29/19 at 15:00 Famotidine (Pepcid) 20 mg HS PO Last administered on 05/02/19at 22:37; Start 04/29/19 at 21:00 Metoprolol Tartrate (Lopressor) 25 mg BID PO Last administered on 05/03/19 08:43; Start 04/29/19 at 15:00 Ranolazine (Ranexa) 500 mg Q12HR PO Last administered on 05/03/19 08:42; Start 04/29/19 at 21:00 Atorvastatin Calcium (Lipitor) 80 mg QHS PO Last administered on 04/30/19 21:42; Start 04/29/19 at 21:00; Stop 05/01/19 at 10:38; Status DC Citalopram Hydrobromide (CeleXA) 30 mg DAILY PO Last administered on 05/03/19 08:43; Start 04/29/19 at 15:00 Insulin Glargine (Lantus Syringe) 15 unit QHS SQ Last administered on 05/02/19 22:50; Start 04/29/19 at 21:00 Info (Anti-Coagulation Monitoring By Pharmacy) 1 each PRN DAILY PRN MC SEE COMMENTS Last administered on 05/01/19 11:46; Start 04/29/19 at 15:00 Vancomycin HCl 1 gm/Sodium Chloride 250 ml @ 250 mls/hr 1X ONCE IV ; Start 05/01/19 at 08:00; Stop 05/01/19 at 08:59; Status UNV Vancomycin HCl 1.5 gm/Sodium Chloride 500 ml @ 250 mls/hr 1X ONCE IV Last administered on 05/01/19 11:02; Start 05/01/19 at 08:15; Stop 05/01/19 at 10:14; Status DC Vancomycin HCl (Vanco Per Pharmacy) 1 each PRN DAILY PRN MC SEE COMMENTS Last administered on 05/02/19at 15:14; Start 05/01/19 at 08:15 Vancomycin HCl 500 mg/Sodium Chloride 100 ml @ 100 mls/hr 1X ONCE IV Last administered on 05/01/19 22:07; Start 05/01/19 at 16:00; Stop 05/01/19 at 16:59; Status DC Vancomycin HCl (Vancomycin Random Level) 1 each 1X ONCE MC ; Start 05/04/19 at 06:00; Stop 05/04/19 at 06:01 Sodium Chloride 1,000 ml @ 1,000 mls/hr Q1H PRN IV hypotension; Start 05/01/19 at 13:46; Stop 05/01/19 at 19:45; Status DC Acetaminophen (Tylenol) 500 mg 1X PRN PRN PO MILD PAIN / TEMP; Start 05/01/19 at 14:00; Stop 05/02/19 at 13:59; Status DC Diphenhydramine HCl (Benadryl) 25 mg 1X PRN PRN IV ITCHING; Start 05/01/19 at 14:00; Stop 05/02/19 at 13:59; Status DC Diphenhydramine HCl (Benadryl) 25 mg 1X PRN PRN IV ITCHING; Start 05/01/19 at 14:00; Stop 05/02/19 at 13:59; Status DC Sodium Chloride 1,000 ml @ 400 mls/hr Q2H30M PRN IV PATENCY; Start 05/01/19 at 13:46; Stop 05/02/19 at 01:45; Status DC Info (PHARMACY MONITORING -- do not chart) 1 each PRN DAILY PRN MC SEE COMMENTS; Start 05/01/19 at 14:00 Dextrose (Dextrose 50%-Water Syringe) 12.5 gm PRN Q15MIN PRN IV SEE COMMENTS; Start 05/02/19 at 08:15 Lactobacillus Rhamnosus (Culturelle) 1 cap BID PO Last administered on 05/03/19at 08:43; Start 05/02/19 at 21:00 Active Scripts Active Reported Vitamin D (Cholecalciferol (Vitamin D3)) 1,000 Unit Capsule 1 Cap PO DAILY Tylenol (Acetaminophen) 325 Mg Tablet 2 Tab PO PRN Q4HRS Tums (Calcium Carbonate) 200 Mg Tab.chew 4 Tab PO DAILY Ranexa (Ranolazine) 500 Mg Tab.er.12h 1 Tab PO Q12HR Phoslyra (Calcium Acetate) 667 Mg/5 Ml Solution 15 Ml PO TIDAC NITROGLYCERIN SubLingual (Nitroglycerin) 0.4 Mg Tab.subl 0.4 Mg SL PRN Q5MIN PRN Miralax (Polyethylene Glycol 3350) 17 Gm Powd.pack 1 Packet PO BID Metoprolol Tartrate 25 Mg Tablet 1 Tab PO BID Lidocaine PATCH (Lidocaine) 1 Each Adh..patch 1 Each TP DAILY REMOVE AFTER 12 HOURS Lexapro (Escitalopram Oxalate) 5 Mg Tablet 15 Mg PO DAILY Levemir (Insulin Detemir) 100 Unit/1 Ml Vial 15 Unit SQ QHS Klonopin (Clonazepam) 0.5 Mg Tablet 1 Tab PO TID Imodium A-D (Loperamide HCl) 2 Mg Capsule 2 Mg PO PRN Q4HRS PRN Hydrocodone-Apap 5-325 (Hydrocodone Bit/Acetaminophen) 1 Tab Tablet 1 Tab PO PRN Q4HRS PRN Folic Acid 1 Mg Tablet 1 Tab PO DAILY Ferrous Sulfate 325 Mg Tablet 1 Tab PO BID Pepcid (Famotidine) 20 Mg Tablet 20 Mg PO HS Clobetasol Propionate 15 Gm Cream..g. 1 Jomar TP DAILY08 Dulcolax (Bisacodyl) 5 Mg Tablet.dr 4 Tab PO PRN BID PRN Bisacodyl 10 Mg Supp.rect 10 Mg RC PRN DAILY PRN Aspir-Low (Aspirin) 81 Mg Tablet.dr 1 Tab PO DAILY Artificial Tears (Dextran 70/Hypromellose) 1 Each Droperette 1 Each OP PRN Q8HRS PRN Eliquis (Apixaban) 5 Mg Tablet 5 Mg PO BID Ammonium Lactate 226 Gm Lotion 1 Gm TP DAILY16 Amlodipine Besylate 5 Mg Tablet 5 Mg PO DAILY Amiodarone Hcl 200 Mg Tablet 2 Tab PO BID Amiodarone Hcl 200 Mg Tablet 1 Tab PO NOON Lipitor (Atorvastatin Calcium) 80 Mg Tablet 1 Tab PO DAILY Vitals/I & O Vital Sign - Last 24 Hours 05/02/19 05/02/19 05/02/19 05/02/19 11:59 15:59 19:04 19:47 Temp 98.1 98.4 98.4 98.2 98.1 98.4 98.4 98.2 Pulse 60 60 60 60 Resp 18 16 14 20 B/P (MAP) 113/65 (81) 113/66 (82) 119/69 (86) 111/60 (77) Pulse Ox 97 95 100 O2 Delivery Room Air Room Air Room Air Room Air 05/02/19 05/02/19 05/02/19 05/03/19 22:37 22:37 22:45 03:05 Temp 98.6 98.2 98.6 98.2 Pulse 60 60 60 64 Resp 16 18 B/P (MAP) 111/60 111/60 118/59 (78) 121/73 (89) O2 Delivery Room Air Room Air 05/03/19 05/03/19 05/03/19 08:42 08:43 08:43 Pulse 64 64 64 B/P (MAP) 121/73 121/73 121/73 Intake and Output 05/02/19 05/02/19 05/03/19 15:00 23:00 07:00 Intake Total 340 ml 240 ml 240 ml Output Total 0 ml Balance 340 ml 240 ml 240 ml REBECCA WEAVER MD May 03, 2019 08:47
--- NOTE | 2019-05-03 09:48 | PDOC ---
Renal-Progress Notes Subjective Notes Notes SITTING UP, FEELING BETTER History of Present Illness Hx of present illness STABLE Vitals Vitals Vital Signs Date Time Temp Pulse Resp B/P (MAP) Pulse Ox O2 Delivery O2 Flow Rate FiO2 05/03/19 08:43 64 121/73 05/03/19 07:00 97.8 16 98 Room Air 97.8 Weight Weight [ ] I.O. Intake and Output Intake and Output 05/03/19 07:00 Intake Total 820 ml Output Total 0 ml Balance 820 ml Intake Oral 820 ml Output Urine Total 0 ml Labs Labs Laboratory Tests Test 05/02/19 11:51 05/02/19 15:38 05/02/19 17:26 05/02/19 22:40 Glucose (Fingerstick) 122 mg/dL (70-99) 111 mg/dL (70-99) 126 mg/dL (70-99) 149 mg/dL (70-99) Test 05/03/19 07:12 Glucose (Fingerstick) 70 mg/dL (70-99) Micro Micro Microbiology 05/01/19 Blood Culture - Preliminary, Resulted NO GROWTH AFTER 2 DAYS Review of Systems Constitutional: yes: other (CONFUSED) Physical Exam General Appearance: no apparent distress Skin: warm Respiratory: decreased breath sounds Heart: S1S2 Abdomen: soft, bowel sounds present Genitourinary: bladder flat Extremities: pulses present Neurology: alert Musculoskeletal: Other (no pertinent history) Assessment Assessment IMP ESRD BACTEREMIA ENCEPHALOPATHY-BETTER ?PNEUMONIA DM II HTN ANEMIA PLAN HD TOMORROW JOSHUA ANTIBIOTICS LAVON FIERRO MD May 03, 2019 09:48
[2019-05-03 11:00] VITALS: BP 127/67
--- NOTE | 2019-05-03 11:41 | PDOC ---
G I PROGRESS NOTE Subjective No complaints today. Physical Exam Lungs clear. RRR Abdomen soft, not tender nor distended. Review of Relevant I have reviewed the following items sarahi (where applicable) has been applied. Labs Laboratory Tests Test 05/01/19 19:21 05/01/19 19:24 05/01/19 19:56 05/01/19 20:37 Glucose (Fingerstick) 39 mg/dL (70-99) 45 mg/dL (70-99) 49 mg/dL (70-99) 119 mg/dL (70-99) Test 05/02/19 03:35 05/02/19 08:03 05/02/19 08:38 05/02/19 11:51 White Blood Count 5.1 x10^3/uL (4.0-11.0) Red Blood Count 3.07 x10^6/uL (3.50-5.40) Hemoglobin 7.8 g/dL (12.0-15.5) Hematocrit 24.8 % (36.0-47.0) Mean Corpuscular Volume 81 fL (79-100) Mean Corpuscular Hemoglobin 26 pg (25-35) Mean Corpuscular Hemoglobin Concent 32 g/dL (31-37) Red Cell Distribution Width 20.2 % (11.5-14.5) Platelet Count 275 x10^3/uL (140-400) Neutrophils (%) (Auto) 69 % (31-73) Lymphocytes (%) (Auto) 13 % (24-48) Monocytes (%) (Auto) 15 % (0-9) Eosinophils (%) (Auto) 2 % (0-3) Basophils (%) (Auto) 1 % (0-3) Neutrophils # (Auto) 3.5 x10^3/uL (1.8-7.7) Lymphocytes # (Auto) 0.7 x10^3/uL (1.0-4.8) Monocytes # (Auto) 0.8 x10^3/uL (0.0-1.1) Eosinophils # (Auto) 0.1 x10^3/uL (0.0-0.7) Basophils # (Auto) 0.0 x10^3/uL (0.0-0.2) Prothrombin Time 23.0 SEC (11.7-14.0) Prothromb Time International Ratio 2.1 (0.8-1.1) Sodium Level 140 mmol/L (136-145) Potassium Level 4.2 mmol/L (3.5-5.1) Chloride Level 98 mmol/L (98-107) Carbon Dioxide Level 31 mmol/L (21-32) Anion Gap 11 (6-14) Blood Urea Nitrogen 23 mg/dL (7-20) Creatinine 6.3 mg/dL (0.6-1.0) Estimated GFR (Cockcroft-Gault) 8.5 BUN/Creatinine Ratio 4 (6-20) Glucose Level 70 mg/dL (70-99) Calcium Level 11.1 mg/dL (8.5-10.1) Total Bilirubin 1.4 mg/dL (0.2-1.0) Aspartate Amino Transf (AST/SGOT) 698 U/L (15-37) Alanine Aminotransferase (ALT/SGPT) 492 U/L (14-59) Alkaline Phosphatase 151 U/L (46-116) Total Protein 7.5 g/dL (6.4-8.2) Albumin 2.4 g/dL (3.4-5.0) Albumin/Globulin Ratio 0.5 (1.0-1.7) Cytomegalovirus IgG Antibody 4.20 U/mL (0.00-0.59) Cytomegalovirus IgM Antibody <30.0 AU/mL (0.0-29.9) Glucose (Fingerstick) 45 mg/dL (70-99) 90 mg/dL (70-99) 122 mg/dL (70-99) Test 05/02/19 15:38 05/02/19 17:26 05/02/19 22:40 05/03/19 07:12 Glucose (Fingerstick) 111 mg/dL (70-99) 126 mg/dL (70-99) 149 mg/dL (70-99) 70 mg/dL (70-99) Laboratory Tests Test 05/02/19 11:51 05/02/19 15:38 05/02/19 17:26 05/02/19 22:40 Glucose (Fingerstick) 122 mg/dL (70-99) 111 mg/dL (70-99) 126 mg/dL (70-99) 149 mg/dL (70-99) Test 05/03/19 07:12 Glucose (Fingerstick) 70 mg/dL (70-99) Microbiology 05/01/19 Blood Culture - Preliminary, Resulted NO GROWTH AFTER 2 DAYS CMV serology with old infection. EBV studies pending. Vitals/I & O Vital Sign - Last 24 Hours 05/02/19 05/02/19 05/02/19 05/02/19 11:59 15:59 19:04 19:47 Temp 98.1 98.4 98.4 98.2 98.1 98.4 98.4 98.2 Pulse 60 60 60 60 Resp 18 16 14 20 B/P (MAP) 113/65 (81) 113/66 (82) 119/69 (86) 111/60 (77) Pulse Ox 97 95 100 O2 Delivery Room Air Room Air Room Air Room Air 05/02/19 05/02/19 05/02/19 05/03/19 22:37 22:37 22:45 03:05 Temp 98.6 98.2 98.6 98.2 Pulse 60 60 60 64 Resp 16 18 B/P (MAP) 111/60 111/60 118/59 (78) 121/73 (89) O2 Delivery Room Air Room Air 05/03/19 05/03/19 05/03/19 05/03/19 07:00 08:00 08:42 08:43 Temp 97.8 97.8 Pulse 60 64 64 Resp 16 B/P (MAP) 108/75 (86) 121/73 121/73 Pulse Ox 98 O2 Delivery Room Air Room Air 05/03/19 05/03/19 08:43 11:00 Temp 97.3 97.3 Pulse 64 60 Resp 12 B/P (MAP) 121/73 127/67 (87) Pulse Ox 95 O2 Delivery Room Air Intake and Output 05/02/19 05/02/19 05/03/19 14:59 22:59 06:59 Intake Total 340 ml 240 ml 240 ml Output Total 0 ml Balance 340 ml 240 ml 240 ml Problem List Problems Medical Problems: (1) Altered mental status Status: Acute (2) Hypoglycemia Status: Acute Assessment Abnormal LFT's; amiodarone? other? Imaging OK. Plan of Care: Continue current Tx, Mgmt Plan of Care Note Await pending data, speciation of blood organism. AVERY MARTÍNEZ MD May 03, 2019 11:41
--- NOTE | 2019-05-03 11:45 | PDOC ---
Infectious Disease Note Subjective Subjective Comfortable, no complaints No fevers/chills Vital Sign Vital Signs Vital Signs Date Time Temp Pulse Resp B/P (MAP) Pulse Ox O2 Delivery O2 Flow Rate FiO2 05/03/19 11:00 97.3 60 12 127/67 (87) 95 Room Air 97.3 Physical Exam PHYSICAL EXAM GENERAL: Sitting in the chair, alert, NAD HEENT: Pupils equally round, oropharynx pink and moist. No lesions. NECK: Supple. LUNGS: Clear to auscultation. HEART: S1, S2. ABDOMEN: Soft and nontender with bowel sounds present. EXTREMITIES: No gross edema or cyanosis. She had several firm lesions on her legs, nontender. LUE-AV fistula unremarkable. NEUROLOGIC: Answers questions appropriately/ moves all ext. Labs Lab Laboratory Tests Test 05/02/19 11:51 05/02/19 15:38 05/02/19 17:26 05/02/19 22:40 Glucose (Fingerstick) 122 mg/dL (70-99) 111 mg/dL (70-99) 126 mg/dL (70-99) 149 mg/dL (70-99) Test 05/03/19 07:12 Glucose (Fingerstick) 70 mg/dL (70-99) Micro Microbiology 04/28/19 Blood Culture - Preliminary, Resulted NO GROWTH AFTER 2 DAYS Objective Assessment GPC bacteremia (1 of 4 bottles), POA ? contaminate Acute encephalopathy after missing dialysis,- better Transaminitis - worsening ? amiodarone toxicity PCN allergy - itching Hypothermia - better CKD/HD Pacemaker Amiodorone therapy - now off Diabetes with hypoglycemia Plan Plan of Care Continue vanc try to wean soon Await ID of GPC F/u labs and cults Supportive care LFTs per GI Better. ate breakfast but no lunch Attending Co-Sign Attending Co-Sign The patient was seen and interviewed as well as examined at the bedside. The chart was reviewed. The case was discussed. Agree with the plan of care. ARIANE GLASS APRN May 03, 2019 11:45 SIGIFREDO CHAVES MD May 03, 2019 13:40
[2019-05-03 15:00] VITALS: BP 134/73
[2019-05-03 19:45] VITALS: BP 127/64
[2019-05-03] MEDS ORDERED: DARBEPOETIN ALFA 60 MCG/0.3 ML DISP.SYRIN. SQ SCH (21:00)
[2019-05-03] MEDS: FAMOTIDINE 20 MG TABLET. PO SCH (22:13)
[2019-05-03 23:09] VITALS: BP 139/76
[2019-05-03] MEDS: INSULIN GLARGINE SYRINGE. SQ SCH (23:13)
[2019-05-04 03:23] VITALS: BP 127/66
[2019-05-04 05:44] LABS: HEMATOCRIT 24.8 % (36.0-47.0); HEMOGLOBIN 7.9 g/dL (12.0-15.5); RED BLOOD COUNT 3.11 x10^6/uL (3.50-5.40); RED CELL DISTRIBUTION WIDTH 20.4 % (11.5-14.5); WHITE BLOOD COUNT 5.5 x10^3/uL (4.0-11.0)
[2019-05-04] MEDS ORDERED: VANCOMYCIN RANDOM LEVEL. MC ONE (06:00)
[2019-05-04 06:13] LABS: CREATININE 9.9 mg/dL (0.6-1.0); POTASSIUM 4.6 mmol/L (3.5-5.1)
[2019-05-04] MEDS ORDERED: DEXTROSE ORAL GEL 15 GM TUBE. ONE (07:17)
[2019-05-04] MEDS ORDERED: DEXTROSE ORAL GEL 15 GM TUBE. PO ONE (07:20)
[2019-05-04 07:34] VITALS: BP 133/69
--- NOTE | 2019-05-04 07:45 | NUR ---
Report was given to Justin in dialysis center re: low blood sugar. Oral glucose given. Saline lock not functioning. Tried to flush and give IV dextrose but was unsuccessful. Pt awake and alert. No complaints noted. Drinking and eating without difficulty. Taken to dialysis per bed. I asked dialysis if we needed to go recheck blood sugar and the nurse said they would check it there.
[2019-05-04] MEDS ORDERED: IV NORMAL SALINE 1000ML BAG 1,000 ML IV PRN ×2 (07:48)
[2019-05-04] MEDS: VANCOMYCIN PER PHARMACY MC PRN (07:59)
--- NOTE | 2019-05-04 07:59 | NUR ---
Pharmacy Vancomycin Dosing Note S:Consulted to monitor and dose vancomycin started 05/01/19. O:JAMES BALDERAS is a 53 year old F with Bacteremia . Height: 5 feet, 5 inches Weight: [id number] kg [place] Body Weight: 57.00 Adjusted Body Weight: 70.12 Dosing Weight: Actual Other Antibiotics: LABS: Last BUN: 49 Last Creatinine: DIALYSIS Creatinine Clearance: Dialysis mL/min Last WBC: 5.3 Last Procalcitonin: Tmax (past 24 hours): 99.2 Microbiology: GPC in one of four bottles I/O: 120/ Drug Levels: Last Random level: 21.1 on 05/04/19 at 0342 Last dose given 05/01/19 at 2200 Vancomycin Dosing: Loading Dose: 1500 mg x1 Dosing Weight: Actual Target Trough: 15-20 A: Based on: LEVEL THIS AM, EXTRACTION RATIO OF DRUG, HD SCHEDULE, P: 1. INITIATE Vancomycin 500 mg IV after dialysis MWF 2. Follow up Random level NEEDED. 3. Pharmacy will continue to monitor, follow and adjust therapy as needed. ROSE CLOUD Shai, 05/04/19 [id number]
[2019-05-04] MEDS ORDERED: DIALYSIS PATIENT. MC PRN ×2 (08:00)
[2019-05-04] MEDS: METOPROLOL TART IMMED RELEASE 25 MG TABLET. PO SCH ×2 (09:00→21:02)
[2019-05-04] MEDS: clonazePAM 0.5 MG TABLET PO SCH ×3 (09:00→21:02)
--- NOTE | 2019-05-04 09:50 | PDOC ---
Infectious Disease Note Subjective Subjective Comfortable LEgs ache today some No fevers/chills/cough ROS ROS o/w Vital Sign Vital Signs Vital Signs Date Time Temp Pulse Resp B/P (MAP) Pulse Ox O2 Delivery O2 Flow Rate FiO2 05/04/19 07:34 97.8 60 18 133/69 (90) 97 Room Air 97.8 Physical Exam PHYSICAL EXAM GENERAL: In bed and in HD, alert, NAD HEENT: Pupils equally round, oropharynx pink and moist. No lesions. NECK: Supple. LUNGS: Clear to auscultation. HEART: S1, S2. ABDOMEN: Soft and nontender with bowel sounds present. EXTREMITIES: No gross edema or cyanosis. She had several firm lesions on her legs, nontender. LUE-AV fistula unremarkable. NEUROLOGIC: Answers questions appropriately/ moves all ext. Labs Lab Laboratory Tests Test 05/03/19 11:51 05/03/19 16:21 05/03/19 20:15 05/04/19 02:56 Glucose (Fingerstick) 106 mg/dL (70-99) 102 mg/dL (70-99) 69 mg/dL (70-99) 69 mg/dL (70-99) Test 05/04/19 03:42 05/04/19 07:08 05/04/19 08:09 05/04/19 08:42 White Blood Count 5.5 x10^3/uL (4.0-11.0) Red Blood Count 3.11 x10^6/uL (3.50-5.40) Hemoglobin 7.9 g/dL (12.0-15.5) Hematocrit 24.8 % (36.0-47.0) Mean Corpuscular Volume 80 fL (79-100) Mean Corpuscular Hemoglobin 25 pg (25-35) Mean Corpuscular Hemoglobin Concent 32 g/dL (31-37) Red Cell Distribution Width 20.4 % (11.5-14.5) Platelet Count 250 x10^3/uL (140-400) Sodium Level 136 mmol/L (136-145) Potassium Level 4.6 mmol/L (3.5-5.1) Chloride Level 95 mmol/L (98-107) Carbon Dioxide Level 27 mmol/L (21-32) Anion Gap 14 (6-14) Blood Urea Nitrogen 43 mg/dL (7-20) Creatinine 9.9 mg/dL (0.6-1.0) Estimated GFR (Cockcroft-Gault) 5.0 Glucose Level 63 mg/dL (70-99) Calcium Level 12.0 mg/dL (8.5-10.1) Random Vancomycin Level 21.1 mcg/mL Glucose (Fingerstick) 42 mg/dL (70-99) 70 mg/dL (70-99) 73 mg/dL (70-99) Micro CT IMPRESSION: 1. Focal groundglass consolidation left lingula of the lung likely pneumonia. Follow-up to resolution. 2. There is minimal questionable fat stranding identified about the bilateral kidneys, nonspecific could be due to medical renal disease or pyelonephritis. 3. Questionable fat stranding identified about the gallbladder likely artifactual due to motion and less likely inflammation. Consider ultrasound right upper quadrant. 4. 1.1 cm probable cyst or cystic lesion right kidney. Consider ultrasound kidneys for further evaluation. Microbiology 04/28/19 Blood Culture - Preliminary, Resulted NO GROWTH AFTER 3 DAYS Objective Assessment GPC bacteremia (1 of 4 bottles), POA ? contaminate Acute encephalopathy after missing dialysis,- better Transaminitis - worsening ? amiodarone toxicity PCN allergy - itching Hypothermia - better CKD/HD Pacemaker Amiodorone therapy Diabetes with hypoglycemia Plan Plan of Care Continue vanc try to wean soon Await ID of GPC - d/w [facility] this morning no information yet. If [facility] can d/c Vanc F/u labs and cults Supportive care LFTs per GI Better. ate breakfast but no lunch SIGIFREDO CHAVES MD May 04, 2019 09:50
--- NOTE | 2019-05-04 10:49 | PDOC ---
PROGRESS NOTES History of Present Illness History of Present Illness ASSESSMENT altered mental status, IMPROVING, slow to recover on ct head 04/29 Mild atrophy and chronic microangiopathic white matter change. Severe hyperkalemia, TREATED hypothermia, hyperglycemia, hypercalcemia anemia. Basilar atelectasis. Correlate for mild pulmonary edema. ESRD on dialysis TRANSAMINITIS fever Focal groundglass consolidation left lingula of the lung likely pneumonia. Follow-up to resolution. minimal questionable fat stranding identified about the bilateral kidneys, nonspecific could be due to medical renal disease or pyelonephritis. fat stranding identified about the gallbladder likely artifactual due to motion and less likely inflammation. Consider ultrasound right upper quadrant. Amiodarone has been on 400 mg bid dosing at least in the last 2 months and it appears per [facility]ology this was to be changed to 200 mg daily , will d/c for now bacteremia vs contabinate GRAM POSITIVE COCCI IN CLUSTERS IN 1 OF 4 BOTTLES (2 SETS COLLECTED). CALLED TO [facility] ON 5S 05/01/19 AT 0743 BY Kev SIMMS. CULTURE HAS BEEN SENT TO [facility] FOR FURTHER IDENTIFICATION admitted. consult Nephrology dialysis currently. Frequent labs. Electrolyte protocol. DVT prophylaxis. Home meds. consult neurology NEUROCHECKS Q 4 HRS GI CONSULT ID CONSULT cute dx HEPATITIS PANEL HOLD HEPATOTOXIC DRUGS blood cult, iv vanc x 1 10- CT CHEST, ABD serum protein electrophoresis 39 MIN PT EXAM, CHART REVIEW, > 50% OF TIME SPENT WITH EXAM, CHART REVIEW, PT CARE COORDINATION Vitals Vitals Vital Signs Date Time Temp Pulse Resp B/P (MAP) Pulse Ox O2 Delivery O2 Flow Rate FiO2 05/04/19 07:34 97.8 60 18 133/69 (90) 97 Room Air 97.8 Physical Exam Physical Exam GENERAL: In bed and in HD, alert, NAD HEENT: Pupils equally round, oropharynx pink and moist. No lesions. NECK: Supple. LUNGS: Clear to auscultation. HEART: S1, S2. ABDOMEN: Soft and nontender with bowel sounds present. EXTREMITIES: No gross edema or cyanosis. She had several firm lesions on her legs, nontender. LUE-AV fistula unremarkable. NEUROLOGIC: Answers questions appropriately/ moves all ext. General: Alert, Oriented X3, Cooperative, No acute distress Heart: Regular rate (not on tele), Normal S1, Other (3/6 apical murmur systolic) Lungs: Clear Abdomen: Normal bowel sounds, Soft, No tenderness Extremities: No clubbing, No cyanosis, No edema Skin: No breakdown, No significant lesion Labs LABS Laboratory Tests Test 05/03/19 11:51 05/03/19 16:21 05/03/19 20:15 05/04/19 02:56 Glucose (Fingerstick) 106 mg/dL (70-99) 102 mg/dL (70-99) 69 mg/dL (70-99) 69 mg/dL (70-99) Test 05/04/19 03:42 05/04/19 07:08 05/04/19 08:09 05/04/19 08:42 White Blood Count 5.5 x10^3/uL (4.0-11.0) Red Blood Count 3.11 x10^6/uL (3.50-5.40) Hemoglobin 7.9 g/dL (12.0-15.5) Hematocrit 24.8 % (36.0-47.0) Mean Corpuscular Volume 80 fL (79-100) Mean Corpuscular Hemoglobin 25 pg (25-35) Mean Corpuscular Hemoglobin Concent 32 g/dL (31-37) Red Cell Distribution Width 20.4 % (11.5-14.5) Platelet Count 250 x10^3/uL (140-400) Sodium Level 136 mmol/L (136-145) Potassium Level 4.6 mmol/L (3.5-5.1) Chloride Level 95 mmol/L (98-107) Carbon Dioxide Level 27 mmol/L (21-32) Anion Gap 14 (6-14) Blood Urea Nitrogen 43 mg/dL (7-20) Creatinine 9.9 mg/dL (0.6-1.0) Estimated GFR (Cockcroft-Gault) 5.0 Glucose Level 63 mg/dL (70-99) Calcium Level 12.0 mg/dL (8.5-10.1) Random Vancomycin Level 21.1 mcg/mL Glucose (Fingerstick) 42 mg/dL (70-99) 70 mg/dL (70-99) 73 mg/dL (70-99) Assessment and Plan Assessmemt and Plan Problems Medical Problems: (1) Altered mental status Status: Acute (2) Hypoglycemia Status: Acute Comment Review of Relevant I have reviewed the following items sarahi (where applicable) has been applied. Labs Laboratory Tests Test 05/02/19 11:51 05/02/19 15:38 05/02/19 17:26 05/02/19 22:40 Glucose (Fingerstick) 122 mg/dL (70-99) 111 mg/dL (70-99) 126 mg/dL (70-99) 149 mg/dL (70-99) Test 05/03/19 07:12 05/03/19 11:51 05/03/19 16:21 05/03/19 20:15 Glucose (Fingerstick) 70 mg/dL (70-99) 106 mg/dL (70-99) 102 mg/dL (70-99) 69 mg/dL (70-99) Test 05/04/19 02:56 05/04/19 03:42 05/04/19 07:08 05/04/19 08:09 Glucose (Fingerstick) 69 mg/dL (70-99) 42 mg/dL (70-99) 70 mg/dL (70-99) White Blood Count 5.5 x10^3/uL (4.0-11.0) Red Blood Count 3.11 x10^6/uL (3.50-5.40) Hemoglobin 7.9 g/dL (12.0-15.5) Hematocrit 24.8 % (36.0-47.0) Mean Corpuscular Volume 80 fL (79-100) Mean Corpuscular Hemoglobin 25 pg (25-35) Mean Corpuscular Hemoglobin Concent 32 g/dL (31-37) Red Cell Distribution Width 20.4 % (11.5-14.5) Platelet Count 250 x10^3/uL (140-400) Sodium Level 136 mmol/L (136-145) Potassium Level 4.6 mmol/L (3.5-5.1) Chloride Level 95 mmol/L (98-107) Carbon Dioxide Level 27 mmol/L (21-32) Anion Gap 14 (6-14) Blood Urea Nitrogen 43 mg/dL (7-20) Creatinine 9.9 mg/dL (0.6-1.0) Estimated GFR (Cockcroft-Gault) 5.0 Glucose Level 63 mg/dL (70-99) Calcium Level 12.0 mg/dL (8.5-10.1) Random Vancomycin Level 21.1 mcg/mL Test 05/04/19 08:42 Glucose (Fingerstick) 73 mg/dL (70-99) Laboratory Tests Test 05/03/19 11:51 05/03/19 16:21 05/03/19 20:15 05/04/19 02:56 Glucose (Fingerstick) 106 mg/dL (70-99) 102 mg/dL (70-99) 69 mg/dL (70-99) 69 mg/dL (70-99) Test 05/04/19 03:42 05/04/19 07:08 05/04/19 08:09 05/04/19 08:42 White Blood Count 5.5 x10^3/uL (4.0-11.0) Red Blood Count 3.11 x10^6/uL (3.50-5.40) Hemoglobin 7.9 g/dL (12.0-15.5) Hematocrit 24.8 % (36.0-47.0) Mean Corpuscular Volume 80 fL (79-100) Mean Corpuscular Hemoglobin 25 pg (25-35) Mean Corpuscular Hemoglobin Concent 32 g/dL (31-37) Red Cell Distribution Width 20.4 % (11.5-14.5) Platelet Count 250 x10^3/uL (140-400) Sodium Level 136 mmol/L (136-145) Potassium Level 4.6 mmol/L (3.5-5.1) Chloride Level 95 mmol/L (98-107) Carbon Dioxide Level 27 mmol/L (21-32) Anion Gap 14 (6-14) Blood Urea Nitrogen 43 mg/dL (7-20) Creatinine 9.9 mg/dL (0.6-1.0) Estimated GFR (Cockcroft-Gault) 5.0 Glucose Level 63 mg/dL (70-99) Calcium Level 12.0 mg/dL (8.5-10.1) Random Vancomycin Level 21.1 mcg/mL Glucose (Fingerstick) 42 mg/dL (70-99) 70 mg/dL (70-99) 73 mg/dL (70-99) Microbiology 05/01/19 Blood Culture - Preliminary, Resulted NO GROWTH AFTER 3 DAYS Medications Current Medications Dextrose (Dextrose 50%-Water Syringe) 25 gm STK-MED ONCE IV ; Start 04/28/19 at 22:31; Stop 04/28/19 at 22:31; Status DC Dextrose (Dextrose 50%-Water Syringe) 25 gm 1X ONCE IV Last administered on 04/28/19at 23:25; Start 04/28/19 at 23:00; Stop 04/28/19 at 23:01; Status DC Sodium Bicarbonate (Sodium Bicarb Adult 8.4% Syr) 50 meq 1X ONCE IV Last administered on 04/29/19at 00:33; Start 04/29/19 at 01:00; Stop 04/29/19 at 01:01; Status DC Dextrose (Dextrose 50%-Water Syringe) 25 gm 1X ONCE IV Last administered on 04/29/19at 00:33; Start 04/29/19 at 01:00; Stop 04/29/19 at 01:01; Status DC Insulin Human Regular (HumuLIN R VIAL) 5 unit 1X ONCE IV Last administered on 04/29/19at 00:35; Start 04/29/19 at 01:00; Stop 04/29/19 at 01:01; Status DC Sodium Polystyrene Sulfonate (Kayexalate) 30 gm 1X ONCE PO Last administered on 04/29/19at 00:32; Start 04/29/19 at 01:00; Stop 04/29/19 at 01:01; Status DC Sodium Chloride 1,000 ml @ 1,000 mls/hr Q1H IV Last administered on 04/29/19at 00:30; Start 04/29/19 at 01:00; Stop 04/29/19 at 01:59; Status DC Albuterol Sulfate (Ventolin Neb Soln) 10 mg 1X ONCE CONT NEB Last administered on 04/29/19at 00:35; Start 04/29/19 at 01:00; Stop 04/29/19 at 01:01; Status DC Ondansetron HCl (Zofran) 4 mg PRN Q8HRS PRN IV NAUSEA/VOMITING 1ST CHOICE; Start 04/29/19 at 01:00; Stop 04/30/19 at 00:59; Status DC Sodium Chloride 1,000 ml @ 1,000 mls/hr Q1H PRN IV hypotension; Start 04/29/19 at 07:38; Stop 04/29/19 at 13:37; Status DC Albumin Human 200 ml @ 200 mls/hr 1X PRN PRN IV Hypotension; Start 04/29/19 at 07:45; Stop 04/29/19 at 13:44; Status DC Acetaminophen (Tylenol) 500 mg 1X PRN PRN PO MILD PAIN / TEMP; Start 04/29/19 at 07:45; Stop 04/30/19 at 07:44; Status DC Diphenhydramine HCl (Benadryl) 25 mg 1X PRN PRN IV ITCHING; Start 04/29/19 at 07:45; Stop 04/30/19 at 07:44; Status DC Diphenhydramine HCl (Benadryl) 25 mg 1X PRN PRN IV ITCHING; Start 04/29/19 at 07:45; Stop 04/30/19 at 07:44; Status DC Labetalol HCl (Normodyne Iv Push) 10 mg PRN Q1HR PRN IVP SBP > 180; Start 04/29/19 at 07:45; Stop 04/30/19 at 07:44; Status DC Sodium Chloride 1,000 ml @ 400 mls/hr Q2H30M PRN IV PATENCY; Start 04/29/19 at 07:38; Stop 04/29/19 at 19:37; Status DC Info (PHARMACY MONITORING -- do not chart) 1 each PRN DAILY PRN MC SEE COMMENTS; Start 04/29/19 at 07:45; Stop 04/29/19 at 07:46; Status DC Info (PHARMACY MONITORING -- do not chart) 1 each PRN DAILY PRN MC SEE COMMENTS; Start 04/29/19 at 07:45; Status Cancel Amiodarone HCl (Cordarone) 400 mg BID PO Last administered on 05/01/19at 09:36; Start 04/29/19 at 21:00; Stop 05/01/19 at 12:30; Status DC Amlodipine Besylate (Norvasc) 5 mg DAILY PO Last administered on 05/03/19at 08:43; Start 04/29/19 at 15:00 Apixaban (Eliquis) 5 mg BID PO Last administered on 05/01/19at 09:36; Start 04/29/19 at 21:00; Stop 05/01/19 at 12:30; Status DC Aspirin (Ecotrin) 81 mg DAILY PO Last administered on 05/03/19at 08:42; Start 04/30/19 at 09:00 Clonazepam (KlonoPIN) 0.5 mg TID PO Last administered on 05/03/19 21:00; Start 04/29/19 at 15:00 Famotidine (Pepcid) 20 mg HS PO Last administered on 05/03/19 22:13; Start 04/29/19 at 21:00; Stop 05/04/19 at 07:53; Status DC Metoprolol Tartrate (Lopressor) 25 mg BID PO Last administered on 05/03/19 22:14; Start 04/29/19 at 15:00 Ranolazine (Ranexa) 500 mg Q12HR PO Last administered on 05/03/19 22:14; Start 04/29/19 at 21:00 Atorvastatin Calcium (Lipitor) 80 mg QHS PO Last administered on 04/30/19 21:42; Start 04/29/19 at 21:00; Stop 05/01/19 at 10:38; Status DC Citalopram Hydrobromide (CeleXA) 30 mg DAILY PO Last administered on 05/03/19 08:43; Start 04/29/19 at 15:00 Insulin Glargine (Lantus Syringe) 15 unit QHS SQ Last administered on 05/03/19 23:13; Start 04/29/19 at 21:00 Info (Anti-Coagulation Monitoring By Pharmacy) 1 each PRN DAILY PRN MC SEE COMMENTS Last administered on 05/01/19 11:46; Start 04/29/19 at 15:00 Vancomycin HCl 1 gm/Sodium Chloride 250 ml @ 250 mls/hr 1X ONCE IV ; Start 05/01/19 at 08:00; Stop 05/01/19 at 08:59; Status UNV Vancomycin HCl 1.5 gm/Sodium Chloride 500 ml @ 250 mls/hr 1X ONCE IV Last administered on 05/01/19 11:02; Start 05/01/19 at 08:15; Stop 05/01/19 at 10:14; Status DC Vancomycin HCl (Vanco Per Pharmacy) 1 each PRN DAILY PRN MC SEE COMMENTS Last administered on 05/04/19 07:59; Start 05/01/19 at 08:15 Vancomycin HCl 500 mg/Sodium Chloride 100 ml @ 100 mls/hr 1X ONCE IV Last administered on 05/01/19at 22:07; Start 05/01/19 at 16:00; Stop 05/01/19 at 16:59; Status DC Vancomycin HCl (Vancomycin Random Level) 1 each 1X ONCE MC Last administered on 05/04/19at 06:00; Start 05/04/19 at 06:00; Stop 05/04/19 at 06:01; Status DC Sodium Chloride 1,000 ml @ 1,000 mls/hr Q1H PRN IV hypotension; Start 05/01/19 at 13:46; Stop 05/01/19 at 19:45; Status DC Acetaminophen (Tylenol) 500 mg 1X PRN PRN PO MILD PAIN / TEMP; Start 05/01/19 at 14:00; Stop 05/02/19 at 13:59; Status DC Diphenhydramine HCl (Benadryl) 25 mg 1X PRN PRN IV ITCHING; Start 05/01/19 at 14:00; Stop 05/02/19 at 13:59; Status DC Diphenhydramine HCl (Benadryl) 25 mg 1X PRN PRN IV ITCHING; Start 05/01/19 at 14:00; Stop 05/02/19 at 13:59; Status DC Sodium Chloride 1,000 ml @ 400 mls/hr Q2H30M PRN IV PATENCY; Start 05/01/19 at 13:46; Stop 05/02/19 at 01:45; Status DC Info (PHARMACY MONITORING -- do not chart) 1 each PRN DAILY PRN MC SEE COMMENTS; Start 05/01/19 at 14:00 Dextrose (Dextrose 50%-Water Syringe) 12.5 gm PRN Q15MIN PRN IV SEE COMMENTS; Start 05/02/19 at 08:15 Lactobacillus Rhamnosus (Culturelle) 1 cap BID PO Last administered on 05/03/19at 22:14; Start 05/02/19 at 21:00 Darbepoetin Donnell (ARANESP for DIALYSIS PTS) 60 mcg WEEKLYHS SQ Last administered on 05/03/19at 23:11; Start 05/03/19 at 21:00 Glucose (Insta-Glucose) 15 gm STK-MED ONCE .ROUTE ; Start 05/04/19 at 07:17; Stop 05/04/19 at 07:17; Status DC Sodium Chloride 1,000 ml @ 1,000 mls/hr Q1H PRN IV hypotension; Start 05/04/19 at 07:48; Stop 05/04/19 at 13:47 Sodium Chloride 1,000 ml @ 400 mls/hr Q2H30M PRN IV PATENCY; Start 05/04/19 at 07:48; Stop 05/04/19 at 19:47 Info (PHARMACY MONITORING -- do not chart) 1 each PRN DAILY PRN MC SEE COMMENTS; Start 05/04/19 at 08:00; Status UNV Info (PHARMACY MONITORING -- do not chart) 1 each PRN DAILY PRN MC SEE COMMENTS; Start 05/04/19 at 08:00; Status UNV Famotidine (Pepcid) 20 mg Q48H PO ; Start 05/06/19 at 08:00 Vancomycin HCl 500 mg/Sodium Chloride 100 ml @ 100 mls/hr QMWF IV ; Start 05/04/19 at 16:00 Glucose (Insta-Glucose) 15 gm 1X ONCE PO Last administered on 05/04/19at 07:20; Start 05/04/19 at 07:20; Stop 05/04/19 at 08:01; Status DC Active Scripts Active Reported Vitamin D (Cholecalciferol (Vitamin D3)) 1,000 Unit Capsule 1 Cap PO DAILY Tylenol (Acetaminophen) 325 Mg Tablet 2 Tab PO PRN Q4HRS Tums (Calcium Carbonate) 200 Mg Tab.chew 4 Tab PO DAILY Ranexa (Ranolazine) 500 Mg Tab.er.12h 1 Tab PO Q12HR Phoslyra (Calcium Acetate) 667 Mg/5 Ml Solution 15 Ml PO TIDAC NITROGLYCERIN SubLingual (Nitroglycerin) 0.4 Mg Tab.subl 0.4 Mg SL PRN Q5MIN PRN Miralax (Polyethylene Glycol 3350) 17 Gm Powd.pack 1 Packet PO BID Metoprolol Tartrate 25 Mg Tablet 1 Tab PO BID Lidocaine PATCH (Lidocaine) 1 Each Adh..patch 1 Each TP DAILY REMOVE AFTER 12 HOURS Lexapro (Escitalopram Oxalate) 5 Mg Tablet 15 Mg PO DAILY Levemir (Insulin Detemir) 100 Unit/1 Ml Vial 15 Unit SQ QHS Klonopin (Clonazepam) 0.5 Mg Tablet 1 Tab PO TID Imodium A-D (Loperamide HCl) 2 Mg Capsule 2 Mg PO PRN Q4HRS PRN Hydrocodone-Apap 5-325 (Hydrocodone Bit/Acetaminophen) 1 Tab Tablet 1 Tab PO PRN Q4HRS PRN Folic Acid 1 Mg Tablet 1 Tab PO DAILY Ferrous Sulfate 325 Mg Tablet 1 Tab PO BID Pepcid (Famotidine) 20 Mg Tablet 20 Mg PO HS Clobetasol Propionate 15 Gm Cream..g. 1 Jomar TP DAILY08 Dulcolax (Bisacodyl) 5 Mg Tablet.dr 4 Tab PO PRN BID PRN Bisacodyl 10 Mg Supp.rect 10 Mg RC PRN DAILY PRN Aspir-Low (Aspirin) 81 Mg Tablet.dr 1 Tab PO DAILY Artificial Tears (Dextran 70/Hypromellose) 1 Each Droperette 1 Each OP PRN Q8HRS PRN Eliquis (Apixaban) 5 Mg Tablet 5 Mg PO BID Ammonium Lactate 226 Gm Lotion 1 Gm TP DAILY16 Amlodipine Besylate 5 Mg Tablet 5 Mg PO DAILY Amiodarone Hcl 200 Mg Tablet 2 Tab PO BID Amiodarone Hcl 200 Mg Tablet 1 Tab PO NOON Lipitor (Atorvastatin Calcium) 80 Mg Tablet 1 Tab PO DAILY Vitals/I & O Vital Sign - Last 24 Hours 05/03/19 05/03/19 05/03/19 05/03/19 11:00 15:00 19:45 22:14 Temp 97.3 97.8 98.3 97.3 97.8 98.3 Pulse 60 60 62 62 Resp 12 16 16 B/P (MAP) 127/67 (87) 134/73 (93) 127/64 (85) 127/64 Pulse Ox 95 94 94 O2 Delivery Room Air Room Air Room Air 05/03/19 05/03/19 05/04/19 05/04/19 22:14 23:09 03:23 07:34 Temp 97.7 98.4 97.8 97.7 98.4 97.8 Pulse 62 60 60 60 Resp 20 18 B/P (MAP) 127/64 139/76 (97) 127/66 (86) 133/69 (90) Pulse Ox 97 98 97 O2 Delivery Room Air Room Air Room Air Intake and Output 05/03/19 05/03/19 05/04/19 15:00 23:00 07:00 Intake Total 240 ml 120 ml 480 ml Output Total 0 ml Balance 240 ml 120 ml 480 ml REBECCA WEAVER MD May 04, 2019 10:49
--- NOTE | 2019-05-04 11:08 | PDOC ---
Renal-Progress Notes Subjective Notes Notes CONFUSED History of Present Illness Hx of present illness NO CHANGE Vitals Vitals Vital Signs Date Time Temp Pulse Resp B/P (MAP) Pulse Ox O2 Delivery O2 Flow Rate FiO2 05/04/19 07:34 97.8 60 18 133/69 (90) 97 Room Air 97.8 Weight Weight [ ] I.O. Intake and Output Intake and Output 05/04/19 07:00 Intake Total 840 ml Output Total 0 ml Balance 840 ml Intake Oral 840 ml Output Urine Total 0 ml # Voids 1 Labs Labs Laboratory Tests Test 05/03/19 11:51 05/03/19 16:21 05/03/19 20:15 05/04/19 02:56 Glucose (Fingerstick) 106 mg/dL (70-99) 102 mg/dL (70-99) 69 mg/dL (70-99) 69 mg/dL (70-99) Test 05/04/19 03:42 05/04/19 07:08 05/04/19 08:09 05/04/19 08:42 White Blood Count 5.5 x10^3/uL (4.0-11.0) Red Blood Count 3.11 x10^6/uL (3.50-5.40) Hemoglobin 7.9 g/dL (12.0-15.5) Hematocrit 24.8 % (36.0-47.0) Mean Corpuscular Volume 80 fL (79-100) Mean Corpuscular Hemoglobin 25 pg (25-35) Mean Corpuscular Hemoglobin Concent 32 g/dL (31-37) Red Cell Distribution Width 20.4 % (11.5-14.5) Platelet Count 250 x10^3/uL (140-400) Sodium Level 136 mmol/L (136-145) Potassium Level 4.6 mmol/L (3.5-5.1) Chloride Level 95 mmol/L (98-107) Carbon Dioxide Level 27 mmol/L (21-32) Anion Gap 14 (6-14) Blood Urea Nitrogen 43 mg/dL (7-20) Creatinine 9.9 mg/dL (0.6-1.0) Estimated GFR (Cockcroft-Gault) 5.0 Glucose Level 63 mg/dL (70-99) Calcium Level 12.0 mg/dL (8.5-10.1) Random Vancomycin Level 21.1 mcg/mL Glucose (Fingerstick) 42 mg/dL (70-99) 70 mg/dL (70-99) 73 mg/dL (70-99) Test 05/04/19 10:59 Glucose (Fingerstick) 80 mg/dL (70-99) Micro Micro Microbiology 05/01/19 Blood Culture - Preliminary, Resulted NO GROWTH AFTER 3 DAYS Review of Systems Constitutional: yes: other (CONFUSED) Physical Exam General Appearance: no apparent distress Skin: warm Respiratory: decreased breath sounds Heart: S1S2 Abdomen: soft, bowel sounds present Genitourinary: bladder flat Extremities: pulses present Neurology: alert Musculoskeletal: Other (no pertinent history) Assessment Assessment IMP ESRD BACTEREMIA ENCEPHALOPATHY-BETTER ?PNEUMONIA DM II HTN ANEMIA PLAN HD TODAY UF TO [facility] ANTIBIOTICS LAVON FIERRO MD May 04, 2019 11:08
--- NOTE | 2019-05-04 11:18 | NUR ---
SW following pt. Updates faxed to [place]. ID following. Will continue to follow.
--- NOTE | 2019-05-04 11:26 | PDOC ---
Subjective: Subjective: Feels fine, can't remember if she ate anything today. Objective: Vital Signs: Vital Signs Date Time Temp Pulse Resp B/P (MAP) Pulse Ox O2 Delivery O2 Flow Rate FiO2 05/04/19 08:00 Room Air 05/04/19 07:34 97.8 60 18 133/69 (90) 97 97.8 Labs: Laboratory Tests Test 05/03/19 11:51 05/03/19 16:21 05/03/19 20:15 05/04/19 02:56 Glucose (Fingerstick) 106 mg/dL (70-99) 102 mg/dL (70-99) 69 mg/dL (70-99) 69 mg/dL (70-99) Test 05/04/19 07:08 05/04/19 08:09 05/04/19 08:42 05/04/19 10:59 Glucose (Fingerstick) 42 mg/dL (70-99) 70 mg/dL (70-99) 73 mg/dL (70-99) 80 mg/dL (70-99) PE: GEN: dialyzing LUNGS: CTAB HEART: RRR ABD: S/ND/NT NEURO/PSYCH: awake - confused A/P: Abnormal LFTs - imaging unrevealing, ?amiodarone ACD, ESRD on HD, hypercalcemia -- EBV pending, will recheck LFTs. PEYMAN GARCIA May 04, 2019 11:26
[2019-05-04 11:41] LABS: ALBUMIN 2.7 g/dL (3.4-5.0); DIRECT BILIRUBIN 1.3 mg/dL (0.0-0.2); TOTAL BILIRUBIN 1.8 mg/dL (0.2-1.0)
[2019-05-04 12:04] VITALS: BP 107/80
--- NOTE | 2019-05-04 14:39 | PDOC ---
PROGRESS NOTES Assessment Assessment Metabolic encephalopathy. Hyperkalemia, K+ 6.9. Hyperglycemia. Hypoglycemia, mild episode likely. Hypercalcemia. DM. HTN. Renal failure on dialysis. Elevated hepatic enzymes. Bipolar disorder. Obesity. RECOMMENDATIONS/PLAN: Treat medical diseases. Control electrolytes balances. Consulted Nephrology. OT/PT. FU with PCP. HCT: Negative. History of Present Illness This is a 53-year-old AA female patient with history of hypertension, diabetes, chronic kidney disease stage III, bipolar, major depressive disorder who presented to the emergency department of [facility] on 04/28/19 with altered mental status, slightly hypoglycemia. Her blood sugar in ED was 58. Neurology was requested for consultation on 04/30/19 for MS changes. She is doing fine on 05/04/19. Past Medical History Cardiovascular: CHF, HTN Heme/Onc: Anemia NOS Renal/: Chronic renal failure Endocrine: Diabetes Past Surgical History No pertinent history Allergies Coded Allergies: Milk Containing Products (Verified Allergy, Intermediate, 11/02/15) Penicillins (Verified Allergy, Intermediate, 11/02/15) haloperidol (Verified Allergy, Intermediate, 04/28/19) MEDICATIONS: Refer to [facility] FAMILY HISTORY: Non contributory. SOCIAL HISTORY: Lives at home.lone. Denies current smoking, drinking, and illicit drug use. REVIEW OF SYSTEMS: Constitutional: No cachexia. Head: No traumatic brain or head injury. Skin: No edema, or rash. Ear: No infection. Eyes: No vision loss or color blindness. Nose: No bleeding or purulent discharges. Hearing: No hearing decrease. Neck: No injury. Breast: No history of cancer, masses,or discharges. Cardiac: HTN. Pulmonary: No COPD.. GI: No GI ulcer, GI bleeding. Urinary/genital: CKD. Endocrinologic: Diabetes Mellitus, obesity. Skeletomuscular: No muscular atrophy, deformity. Neurological: see HP. Psychiatric: Denies drug use/abuse. Otherwise, not [id number] review of systems. PHYSICAL EXAMINATION: General appearance is in subacute distress. HEENT: Normocephalic and nontraumatic. Eyes, nose, ears, and throat are unremarkable. Neck is supple. No lymphadenopathy. No crepitus. Cardiovascular: S1, S2, regular rate and rhythm. Pulmonary: Clear to auscultation bilaterally. Abdomen: Bowel sounds are positive. Abdomen is soft, nontender, and nondistended. Extremities: No rash, lesions, or edema. No restriction of range of motion NEUROLOGICAL EXAMINATION: Awake. Oriented to time, place and person. PERRL. EOMI. CN: no focal findings. Muscle tone: within normal. Muscle strength: 4+ DTR: 2- Plantar reflex: Flexor response bilaterally Gait: not examined in bed. Sensory exam: no abnormal findings. No cerebellar signs elicited. F-T-N test fine. Objective Objective Vital Signs Date Time Temp Pulse Resp B/P (MAP) Pulse Ox O2 Delivery O2 Flow Rate FiO2 05/04/19 12:04 98.1 59 18 107/80 (89) 100 Room Air 98.1 Intake and Output 05/04/19 06:59 Intake Total 840 ml Output Total 0 ml Balance 840 ml Intake Oral 840 ml Output Urine Total 0 ml # Voids 1 Vitals Signs Vitals VS - Last 72 Hours, by Label Date Time Temp Pulse Resp B/P (MAP) Pulse Ox O2 Delivery O2 Flow Rate FiO2 05/04/19 12:04 98.1 59 18 107/80 (89) 100 Room Air 98.1 05/04/19 08:00 Room Air 05/04/19 07:34 97.8 60 18 133/69 (90) 97 Room Air 97.8 05/04/19 03:23 98.4 60 20 127/66 (86) 98 Room Air 98.4 05/03/19 23:09 97.7 60 139/76 (97) 97 Room Air 97.7 05/03/19 22:14 62 127/64 05/03/19 22:14 62 127/64 05/03/19 19:45 98.3 62 16 127/64 (85) 94 Room Air 98.3 05/03/19 15:00 97.8 60 16 134/73 (93) 94 Room Air 97.8 05/03/19 11:00 97.3 60 12 127/67 (87) 95 Room Air 97.3 05/03/19 08:43 64 121/73 05/03/19 08:43 64 121/73 05/03/19 08:42 64 121/73 05/03/19 08:00 Room Air 05/03/19 07:00 97.8 60 16 108/75 (86) 98 Room Air 97.8 Laboratory Laboratory Laboratory Tests Test 05/03/19 16:21 10/6/19 20:15 05/04/19 02:56 05/04/19 03:42 Glucose (Fingerstick) 102 mg/dL (70-99) 69 mg/dL (70-99) 69 mg/dL (70-99) White Blood Count 5.5 x10^3/uL (4.0-11.0) Red Blood Count 3.11 x10^6/uL (3.50-5.40) Hemoglobin 7.9 g/dL (12.0-15.5) Hematocrit 24.8 % (36.0-47.0) Mean Corpuscular Volume 80 fL (79-100) Mean Corpuscular Hemoglobin 25 pg (25-35) Mean Corpuscular Hemoglobin Concent 32 g/dL (31-37) Red Cell Distribution Width 20.4 % (11.5-14.5) Platelet Count 250 x10^3/uL (140-400) Sodium Level 136 mmol/L (136-145) Potassium Level 4.6 mmol/L (3.5-5.1) Chloride Level 95 mmol/L (98-107) Carbon Dioxide Level 27 mmol/L (21-32) Anion Gap 14 (6-14) Blood Urea Nitrogen 43 mg/dL (7-20) Creatinine 9.9 mg/dL (0.6-1.0) Estimated GFR (Cockcroft-Gault) 5.0 Glucose Level 63 mg/dL (70-99) Calcium Level 12.0 mg/dL (8.5-10.1) Total Bilirubin 1.8 mg/dL (0.2-1.0) Direct Bilirubin 1.3 mg/dL (0.0-0.2) Aspartate Amino Transf (AST/SGOT) 578 U/L (15-37) Alanine Aminotransferase (ALT/SGPT) 483 U/L (14-59) Alkaline Phosphatase 157 U/L (46-116) Total Protein 7.0 g/dL (6.4-8.2) Albumin 2.7 g/dL (3.4-5.0) Random Vancomycin Level 21.1 mcg/mL Test 05/04/19 07:08 05/04/19 08:09 05/04/19 08:42 05/04/19 10:59 Glucose (Fingerstick) 42 mg/dL (70-99) 70 mg/dL (70-99) 73 mg/dL (70-99) 80 mg/dL (70-99) Test 05/04/19 12:02 05/04/19 13:09 Glucose (Fingerstick) 52 mg/dL (70-99) 80 mg/dL (70-99) Microbiology 05/01/19 Blood Culture - Preliminary, Resulted NO GROWTH AFTER 3 DAYS Medication Medications Current Medications Darbepoetin Donnell (ARANESP for DIALYSIS PTS) 60 mcg WEEKLYHS SQ Last administered on 05/03/19at 23:11; Start 05/03/19 at 21:00 Famotidine (Pepcid) 20 mg Q48H PO ; Start 05/06/19 at 08:00 Glucose (Insta-Glucose) 15 gm 1X ONCE PO Last administered on 05/04/19at 07:20; Start 05/04/19 at 07:20; Stop 05/04/19 at 08:01; Status DC Glucose (Insta-Glucose) 15 gm STK-MED ONCE .ROUTE ; Start 05/04/19 at 07:17; Stop 05/04/19 at 07:17; Status DC Info (PHARMACY MONITORING -- do not chart) 1 each PRN DAILY PRN MC SEE COMMENTS; Start 05/04/19 at 08:00; Status UNV Info (PHARMACY MONITORING -- do not chart) 1 each PRN DAILY PRN MC SEE COMMENTS; Start 05/04/19 at 08:00; Status UNV Sodium Chloride 1,000 ml @ 400 mls/hr Q2H30M PRN IV PATENCY; Start 05/04/19 at 07:48; Stop 05/04/19 at 19:47 Sodium Chloride 1,000 ml @ 1,000 mls/hr Q1H PRN IV hypotension; Start 05/04/19 at 07:48; Stop 05/04/19 at 13:47; Status DC Vancomycin HCl (Vancomycin Random Level) 1 each 1X ONCE MC Last administered on 05/04/19at 06:00; Start 05/04/19 at 06:00; Stop 05/04/19 at 06:01; Status DC Vancomycin HCl 500 mg/Sodium Chloride 100 ml @ 100 mls/hr QMWF IV ; Start 05/04/19 at 16:00 Comment Review of Relevant I have reviewed the following items sarahi (where applicable) has been applied. REJI NICK MD May 04, 2019 14:39
[2019-05-04 15:17] VITALS: BP 115/69
[2019-05-04] MEDS: CITALOPRAM 10 MG TABLET. PO SCH (15:18)
[2019-05-04] MEDS: RANOLAZINE 500 MG TAB.ER.12H PO SCH ×2 (15:18→21:02)
[2019-05-04] MEDS: ASPIRIN ENTERIC COATED 81 MG TABLET.DR. PO SCH (15:18)
[2019-05-04] MEDS: LACTOBACILLUS RHAMNOSUS GG 1 CAPSULE. PO SCH ×2 (15:18→21:02)
[2019-05-04] MEDS: amLODIPine BESYLATE 5 MG TABLET PO SCH (15:19)
[2019-05-04] MEDS ORDERED: VANCOMYCIN 500 MG in IV NORMAL SALINE 100ML 100 ML IV SCH (16:00)
[2019-05-04 19:45] VITALS: BP 119/47
[2019-05-04] MEDS: INSULIN GLARGINE SYRINGE. SQ SCH (21:10)
[2019-05-04 23:47] VITALS: BP 115/32
[2019-05-05 03:22] VITALS: BP 141/46
[2019-05-05 04:01] LABS: BASO # 0.1 x10^3/uL (0.0-0.2); BASO % 1 % (0-3); EOS # 0.1 x10^3/uL (0.0-0.7); EOS % 2 % (0-3); HEMATOCRIT 24.4 % (36.0-47.0); LYMPH % 18 % (24-48); MEAN CORPUSCULAR HEMOGLOBIN 26 pg (25-35); MEAN CORPUSCULAR HGB CONC 33 g/dL (31-37); MEAN CORPUSCULAR VOLUME 80 fL (79-100); MONO # 0.7 x10^3/uL (0.0-1.1); MONO % 13 % (0-9); NEUT # 3.6 x10^3/uL (1.8-7.7); NEUT % 67 % (31-73); PLATELET COUNT 305 x10^3/uL (140-400); RED BLOOD COUNT 3.05 x10^6/uL (3.50-5.40); RED CELL DISTRIBUTION WIDTH 20.5 % (11.5-14.5); WHITE BLOOD COUNT 5.4 x10^3/uL (4.0-11.0)
[2019-05-05 04:28] LABS: ALBUMIN 2.5 g/dL (3.4-5.0); ALBUMIN/GLOBULIN RATIO 0.5 (1.0-1.7); CALCIUM 11.9 mg/dL (8.5-10.1); CREATININE 6.5 mg/dL (0.6-1.0); GFR 8.2; POTASSIUM 4.1 mmol/L (3.5-5.1); TOTAL BILIRUBIN 1.6 mg/dL (0.2-1.0); TOTAL PROTEIN 7.7 g/dL (6.4-8.2)
[2019-05-05] MEDS: DEXTROSE 50% 25 GM / 50ML DISP.SYRIN. IV PRN ×2 (07:23→11:41)
--- NOTE | 2019-05-05 07:44 | PDOC ---
Infectious Disease Note Subjective Subjective Comfortable Hungry No fevers/chills/cough ROS ROS o/w neg Vital Sign Vital Signs Vital Signs Date Time Temp Pulse Resp B/P (MAP) Pulse Ox O2 Delivery O2 Flow Rate FiO2 05/05/19 03:22 98.4 60 18 141/46 (77) 99 Room Air 98.4 Physical Exam PHYSICAL EXAM GENERAL: In bed and coop NAD HEENT: Pupils equally round, oropharynx pink and moist. No lesions. NECK: Supple. LUNGS: Clear to auscultation. HEART: S1, S2. ABDOMEN: Soft and nontender with bowel sounds present. EXTREMITIES: No gross edema or cyanosis. She had several firm lesions on her legs, nontender. LUE-AV fistula unremarkable. NEUROLOGIC: Answers questions appropriately/ moves all ext. Labs Lab Laboratory Tests Test 05/04/19 08:09 05/04/19 08:42 05/04/19 10:59 05/04/19 12:02 Glucose (Fingerstick) 70 mg/dL (70-99) 73 mg/dL (70-99) 80 mg/dL (70-99) 52 mg/dL (70-99) Test 05/04/19 13:09 05/04/19 16:37 05/04/19 20:41 05/05/19 03:25 Glucose (Fingerstick) 80 mg/dL (70-99) 91 mg/dL (70-99) 127 mg/dL (70-99) White Blood Count 5.4 x10^3/uL (4.0-11.0) Red Blood Count 3.05 x10^6/uL (3.50-5.40) Hemoglobin 8.0 g/dL (12.0-15.5) Hematocrit 24.4 % (36.0-47.0) Mean Corpuscular Volume 80 fL (79-100) Mean Corpuscular Hemoglobin 26 pg (25-35) Mean Corpuscular Hemoglobin Concent 33 g/dL (31-37) Red Cell Distribution Width 20.5 % (11.5-14.5) Platelet Count 305 x10^3/uL (140-400) Neutrophils (%) (Auto) 67 % (31-73) Lymphocytes (%) (Auto) 18 % (24-48) Monocytes (%) (Auto) 13 % (0-9) Eosinophils (%) (Auto) 2 % (0-3) Basophils (%) (Auto) 1 % (0-3) Neutrophils # (Auto) 3.6 x10^3/uL (1.8-7.7) Lymphocytes # (Auto) 1.0 x10^3/uL (1.0-4.8) Monocytes # (Auto) 0.7 x10^3/uL (0.0-1.1) Eosinophils # (Auto) 0.1 x10^3/uL (0.0-0.7) Basophils # (Auto) 0.1 x10^3/uL (0.0-0.2) Sodium Level 140 mmol/L (136-145) Potassium Level 4.1 mmol/L (3.5-5.1) Chloride Level 98 mmol/L (98-107) Carbon Dioxide Level 30 mmol/L (21-32) Anion Gap 12 (6-14) Blood Urea Nitrogen 24 mg/dL (7-20) Creatinine 6.5 mg/dL (0.6-1.0) Estimated GFR (Cockcroft-Gault) 8.2 BUN/Creatinine Ratio 4 (6-20) Glucose Level 77 mg/dL (70-99) Calcium Level 11.9 mg/dL (8.5-10.1) Total Bilirubin 1.6 mg/dL (0.2-1.0) Aspartate Amino Transf (AST/SGOT) 345 U/L (15-37) Alanine Aminotransferase (ALT/SGPT) 360 U/L (14-59) Alkaline Phosphatase 156 U/L (46-116) Total Protein 7.7 g/dL (6.4-8.2) Albumin 2.5 g/dL (3.4-5.0) Albumin/Globulin Ratio 0.5 (1.0-1.7) Micro CT IMPRESSION: 1. Focal groundglass consolidation left lingula of the lung likely pneumonia. Follow-up to resolution. 2. There is minimal questionable fat stranding identified about the bilateral kidneys, nonspecific could be due to medical renal disease or pyelonephritis. 3. Questionable fat stranding identified about the gallbladder likely artifactual due to motion and less likely inflammation. Consider ultrasound right upper quadrant. 4. 1.1 cm probable cyst or cystic lesion right kidney. Consider ultrasound kidneys for further evaluation. Microbiology 04/28/19 Blood Culture - Preliminary, Resulted NO GROWTH AFTER 3 DAYS Objective Assessment GPC bacteremia (1 of 4 bottles), POA - STCN contaminate Acute encephalopathy after missing dialysis,- better Transaminitis - better PCN allergy - itching Hypothermia - better CKD/HD Pacemaker Amiodorone therapy Diabetes with hypoglycemia Plan Plan of Care Discontinue vanc ID to sign off SIGIFREDO CHAVES MD May 05, 2019 07:44
--- NOTE | 2019-05-05 07:45 | PDOC ---
PROGRESS NOTES History of Present Illness History of Present Illness ASSESSMENT altered mental status, IMPROVING, slow to recover, now more confused 05/[address] head 04/29 Mild atrophy and chronic microangiopathic white matter change. Severe hyperkalemia, TREATED hypothermia, hyperglycemia, hypercalcemia anemia. Basilar atelectasis. Correlate for mild pulmonary edema. ESRD on dialysis TRANSAMINITIS fever Focal groundglass consolidation left lingula of the lung likely pneumonia. Follow-up to resolution. minimal questionable fat stranding identified about the bilateral kidneys, nonspecific could be due to medical renal disease or pyelonephritis. fat stranding identified about the gallbladder likely artifactual due to motion and less likely inflammation. Consider ultrasound right upper quadrant. Amiodarone has been on 400 mg bid dosing at least in the last 2 months and it appears per [facility]ology this was to be changed to 200 mg daily , will d/c for now bacteremia vs contabinate GRAM POSITIVE COCCI IN CLUSTERS IN 1 OF 4 BOTTLES (2 SETS COLLECTED). CALLED TO [facility] ON 5S 05/01/19 AT 0743 BY Kev SIMMS. CULTURE HAS BEEN SENT TO [facility] FOR FURTHER IDENTIFICATION admitted. consult Nephrology dialysis currently. Frequent labs. Electrolyte protocol. DVT prophylaxis. Home meds. consult neurology NEUROCHECKS Q 4 HRS GI CONSULT ID CONSULT cute dx HEPATITIS PANEL HOLD HEPATOTOXIC DRUGS blood cult, iv vanc x 1 05-01 CT CHEST, ABD serum protein electrophoresis hold d/c 05/05 38 MIN PT EXAM, CHART REVIEW, > 50% OF TIME SPENT WITH EXAM, CHART REVIEW, PT CARE COORDINATION Vitals Vitals Vital Signs Date Time Temp Pulse Resp B/P (MAP) Pulse Ox O2 Delivery O2 Flow Rate FiO2 05/05/19 03:22 98.4 60 18 141/46 (77) 99 Room Air 98.4 Physical Exam Physical Exam GENERAL: In bed and in HD, alert, NAD HEENT: Pupils equally round, oropharynx pink and moist. No lesions. NECK: Supple. LUNGS: Clear to auscultation. HEART: S1, S2. ABDOMEN: Soft and nontender with bowel sounds present. EXTREMITIES: No gross edema or cyanosis. She had several firm lesions on her legs, nontender. LUE-AV fistula unremarkable. NEUROLOGIC: Answers questions appropriately/ moves all ext. General: Cooperative, No acute distress, Other (confused) Heart: Regular rate (not on tele), Normal S1, No murmurs, Other (3/6 apical murmur systolic) Lungs: Clear Abdomen: Normal bowel sounds, Soft, No tenderness Extremities: No clubbing, No cyanosis, No edema Skin: No breakdown, No significant lesion Labs LABS STATUS: ADM IN TLOC: SPEC #: [id number] FRANCIS: 04/28/19 STATUS: JAYLA MANCIA #: [id number] RECD: 04/30/[address] [facility] [address]: WAYNE GARNER MD SOURCE: BLOOD ENTR: 05/01/19 [facility] DR: [facility] JASON POWER MD, JOHN H ORDERED: BLD CULT - LC Procedure Result BLOOD CULTURE LC Final Final report BLD CULT RESULT 1 Final Comment Coagulase negative Staphylococcus species. Most isolates of Staphylococcus sp. produce a beta- lactamase enzyme rendering them resistant to penicillin. Please contact the laboratory if penicillin is being considered for therapy. ANTIMICROBIAL SUSCEPTIBILITY Final Comment S = Susceptible; I = Intermediate; R = Resistant P = Positive; N = Negative MICS are expressed in micrograms per mL Antibiotic RSLT#1 RSLT#2 RSLT#3 RSLT#4 Ciprofloxacin S<=0.5 Gentamicin S<=0.5 Levofloxacin S =0.25 Nitrofurantoin S<=16 Oxacillin S =S Rifampin S<=0.5 Tetracycline S<=1 Trimethoprim/Sulfa S<=10 Vancomycin S =1 Performed at: - [facility] [address], [place], [place] [id number] Manufacturing Support Engineer: STEPHAN De La Cruz MD, Phone: [phone] Laboratory Tests Test 05/04/19 08:09 05/04/19 08:42 05/04/19 10:59 05/04/19 12:02 Glucose (Fingerstick) 70 mg/dL (70-99) 73 mg/dL (70-99) 80 mg/dL (70-99) 52 mg/dL (70-99) Test 05/04/19 13:09 05/04/19 16:37 05/04/19 20:41 05/05/19 03:25 Glucose (Fingerstick) 80 mg/dL (70-99) 91 mg/dL (70-99) 127 mg/dL (70-99) White Blood Count 5.4 x10^3/uL (4.0-11.0) Red Blood Count 3.05 x10^6/uL (3.50-5.40) Hemoglobin 8.0 g/dL (12.0-15.5) Hematocrit 24.4 % (36.0-47.0) Mean Corpuscular Volume 80 fL (79-100) Mean Corpuscular Hemoglobin 26 pg (25-35) Mean Corpuscular Hemoglobin Concent 33 g/dL (31-37) Red Cell Distribution Width 20.5 % (11.5-14.5) Platelet Count 305 x10^3/uL (140-400) Neutrophils (%) (Auto) 67 % (31-73) Lymphocytes (%) (Auto) 18 % (24-48) Monocytes (%) (Auto) 13 % (0-9) Eosinophils (%) (Auto) 2 % (0-3) Basophils (%) (Auto) 1 % (0-3) Neutrophils # (Auto) 3.6 x10^3/uL (1.8-7.7) Lymphocytes # (Auto) 1.0 x10^3/uL (1.0-4.8) Monocytes # (Auto) 0.7 x10^3/uL (0.0-1.1) Eosinophils # (Auto) 0.1 x10^3/uL (0.0-0.7) Basophils # (Auto) 0.1 x10^3/uL (0.0-0.2) Sodium Level 140 mmol/L (136-145) Potassium Level 4.1 mmol/L (3.5-5.1) Chloride Level 98 mmol/L (98-107) Carbon Dioxide Level 30 mmol/L (21-32) Anion Gap 12 (6-14) Blood Urea Nitrogen 24 mg/dL (7-20) Creatinine 6.5 mg/dL (0.6-1.0) Estimated GFR (Cockcroft-Gault) 8.2 BUN/Creatinine Ratio 4 (6-20) Glucose Level 77 mg/dL (70-99) Calcium Level 11.9 mg/dL (8.5-10.1) Total Bilirubin 1.6 mg/dL (0.2-1.0) Aspartate Amino Transf (AST/SGOT) 345 U/L (15-37) Alanine Aminotransferase (ALT/SGPT) 360 U/L (14-59) Alkaline Phosphatase 156 U/L (46-116) Total Protein 7.7 g/dL (6.4-8.2) Albumin 2.5 g/dL (3.4-5.0) Albumin/Globulin Ratio 0.5 (1.0-1.7) Assessment and Plan Assessmemt and Plan Problems Medical Problems: (1) Altered mental status Status: Acute (2) Hypoglycemia Status: Acute Comment Review of Relevant I have reviewed the following items sarahi (where applicable) has been applied. Labs Laboratory Tests Test 05/03/19 11:51 05/03/19 16:21 05/03/19 20:15 05/04/19 02:56 Glucose (Fingerstick) 106 mg/dL (70-99) 102 mg/dL (70-99) 69 mg/dL (70-99) 69 mg/dL (70-99) Test 05/04/19 03:42 05/04/19 07:08 05/04/19 08:09 05/04/19 08:42 White Blood Count 5.5 x10^3/uL (4.0-11.0) Red Blood Count 3.11 x10^6/uL (3.50-5.40) Hemoglobin 7.9 g/dL (12.0-15.5) Hematocrit 24.8 % (36.0-47.0) Mean Corpuscular Volume 80 fL (79-100) Mean Corpuscular Hemoglobin 25 pg (25-35) Mean Corpuscular Hemoglobin Concent 32 g/dL (31-37) Red Cell Distribution Width 20.4 % (11.5-14.5) Platelet Count 250 x10^3/uL (140-400) Sodium Level 136 mmol/L (136-145) Potassium Level 4.6 mmol/L (3.5-5.1) Chloride Level 95 mmol/L (98-107) Carbon Dioxide Level 27 mmol/L (21-32) Anion Gap 14 (6-14) Blood Urea Nitrogen 43 mg/dL (7-20) Creatinine 9.9 mg/dL (0.6-1.0) Estimated GFR (Cockcroft-Gault) 5.0 Glucose Level 63 mg/dL (70-99) Calcium Level 12.0 mg/dL (8.5-10.1) Total Bilirubin 1.8 mg/dL (0.2-1.0) Direct Bilirubin 1.3 mg/dL (0.0-0.2) Aspartate Amino Transf (AST/SGOT) 578 U/L (15-37) Alanine Aminotransferase (ALT/SGPT) 483 U/L (14-59) Alkaline Phosphatase 157 U/L (46-116) Total Protein 7.0 g/dL (6.4-8.2) Albumin 2.7 g/dL (3.4-5.0) Random Vancomycin Level 21.1 mcg/mL Glucose (Fingerstick) 42 mg/dL (70-99) 70 mg/dL (70-99) 73 mg/dL (70-99) Test 05/04/19 10:59 05/04/19 12:02 05/04/19 13:09 05/04/19 16:37 Glucose (Fingerstick) 80 mg/dL (70-99) 52 mg/dL (70-99) 80 mg/dL (70-99) 91 mg/dL (70-99) Test 05/04/19 20:41 05/05/19 03:25 Glucose (Fingerstick) 127 mg/dL (70-99) White Blood Count 5.4 x10^3/uL (4.0-11.0) Red Blood Count 3.05 x10^6/uL (3.50-5.40) Hemoglobin 8.0 g/dL (12.0-15.5) Hematocrit 24.4 % (36.0-47.0) Mean Corpuscular Volume 80 fL (79-100) Mean Corpuscular Hemoglobin 26 pg (25-35) Mean Corpuscular Hemoglobin Concent 33 g/dL (31-37) Red Cell Distribution Width 20.5 % (11.5-14.5) Platelet Count 305 x10^3/uL (140-400) Neutrophils (%) (Auto) 67 % (31-73) Lymphocytes (%) (Auto) 18 % (24-48) Monocytes (%) (Auto) 13 % (0-9) Eosinophils (%) (Auto) 2 % (0-3) Basophils (%) (Auto) 1 % (0-3) Neutrophils # (Auto) 3.6 x10^3/uL (1.8-7.7) Lymphocytes # (Auto) 1.0 x10^3/uL (1.0-4.8) Monocytes # (Auto) 0.7 x10^3/uL (0.0-1.1) Eosinophils # (Auto) 0.1 x10^3/uL (0.0-0.7) Basophils # (Auto) 0.1 x10^3/uL (0.0-0.2) Sodium Level 140 mmol/L (136-145) Potassium Level 4.1 mmol/L (3.5-5.1) Chloride Level 98 mmol/L (98-107) Carbon Dioxide Level 30 mmol/L (21-32) Anion Gap 12 (6-14) Blood Urea Nitrogen 24 mg/dL (7-20) Creatinine 6.5 mg/dL (0.6-1.0) Estimated GFR (Cockcroft-Gault) 8.2 BUN/Creatinine Ratio 4 (6-20) Glucose Level 77 mg/dL (70-99) Calcium Level 11.9 mg/dL (8.5-10.1) Total Bilirubin 1.6 mg/dL (0.2-1.0) Aspartate Amino Transf (AST/SGOT) 345 U/L (15-37) Alanine Aminotransferase (ALT/SGPT) 360 U/L (14-59) Alkaline Phosphatase 156 U/L (46-116) Total Protein 7.7 g/dL (6.4-8.2) Albumin 2.5 g/dL (3.4-5.0) Albumin/Globulin Ratio 0.5 (1.0-1.7) Laboratory Tests Test 05/04/19 08:09 05/04/19 08:42 05/04/19 10:59 05/04/19 12:02 Glucose (Fingerstick) 70 mg/dL (70-99) 73 mg/dL (70-99) 80 mg/dL (70-99) 52 mg/dL (70-99) Test 05/04/19 13:09 05/04/19 16:37 05/04/19 20:41 05/05/19 03:25 Glucose (Fingerstick) 80 mg/dL (70-99) 91 mg/dL (70-99) 127 mg/dL (70-99) White Blood Count 5.4 x10^3/uL (4.0-11.0) Red Blood Count 3.05 x10^6/uL (3.50-5.40) Hemoglobin 8.0 g/dL (12.0-15.5) Hematocrit 24.4 % (36.0-47.0) Mean Corpuscular Volume 80 fL (79-100) Mean Corpuscular Hemoglobin 26 pg (25-35) Mean Corpuscular Hemoglobin Concent 33 g/dL (31-37) Red Cell Distribution Width 20.5 % (11.5-14.5) Platelet Count 305 x10^3/uL (140-400) Neutrophils (%) (Auto) 67 % (31-73) Lymphocytes (%) (Auto) 18 % (24-48) Monocytes (%) (Auto) 13 % (0-9) Eosinophils (%) (Auto) 2 % (0-3) Basophils (%) (Auto) 1 % (0-3) Neutrophils # (Auto) 3.6 x10^3/uL (1.8-7.7) Lymphocytes # (Auto) 1.0 x10^3/uL (1.0-4.8) Monocytes # (Auto) 0.7 x10^3/uL (0.0-1.1) Eosinophils # (Auto) 0.1 x10^3/uL (0.0-0.7) Basophils # (Auto) 0.1 x10^3/uL (0.0-0.2) Sodium Level 140 mmol/L (136-145) Potassium Level 4.1 mmol/L (3.5-5.1) Chloride Level 98 mmol/L (98-107) Carbon Dioxide Level 30 mmol/L (21-32) Anion Gap 12 (6-14) Blood Urea Nitrogen 24 mg/dL (7-20) Creatinine 6.5 mg/dL (0.6-1.0) Estimated GFR (Cockcroft-Gault) 8.2 BUN/Creatinine Ratio 4 (6-20) Glucose Level 77 mg/dL (70-99) Calcium Level 11.9 mg/dL (8.5-10.1) Total Bilirubin 1.6 mg/dL (0.2-1.0) Aspartate Amino Transf (AST/SGOT) 345 U/L (15-37) Alanine Aminotransferase (ALT/SGPT) 360 U/L (14-59) Alkaline Phosphatase 156 U/L (46-116) Total Protein 7.7 g/dL (6.4-8.2) Albumin 2.5 g/dL (3.4-5.0) Albumin/Globulin Ratio 0.5 (1.0-1.7) Microbiology 05/01/19 Blood Culture - Preliminary, Resulted NO GROWTH AFTER 3 DAYS Medications Current Medications Dextrose (Dextrose 50%-Water Syringe) 25 gm STK-MED ONCE IV ; Start 04/28/19 at 22:31; Stop 04/28/19 at 22:31; Status DC Dextrose (Dextrose 50%-Water Syringe) 25 gm 1X ONCE IV Last administered on 04/28/19at 23:25; Start 04/28/19 at 23:00; Stop 04/28/19 at 23:01; Status DC Sodium Bicarbonate (Sodium Bicarb Adult 8.4% Syr) 50 meq 1X ONCE IV Last administered on 04/29/19at 00:33; Start 04/29/19 at 01:00; Stop 04/29/19 at 01:01; Status DC Dextrose (Dextrose 50%-Water Syringe) 25 gm 1X ONCE IV Last administered on 04/29/19at 00:33; Start 04/29/19 at 01:00; Stop 04/29/19 at 01:01; Status DC Insulin Human Regular (HumuLIN R VIAL) 5 unit 1X ONCE IV Last administered on 04/29/19at 00:35; Start 04/29/19 at 01:00; Stop 04/29/19 at 01:01; Status DC Sodium Polystyrene Sulfonate (Kayexalate) 30 gm 1X ONCE PO Last administered on 04/29/19at 00:32; Start 04/29/19 at 01:00; Stop 04/29/19 at 01:01; Status DC Sodium Chloride 1,000 ml @ 1,000 mls/hr Q1H IV Last administered on 04/29/19at 00:30; Start 04/29/19 at 01:00; Stop 04/29/19 at 01:59; Status DC Albuterol Sulfate (Ventolin Neb Soln) 10 mg 1X ONCE CONT NEB Last administered on 04/29/19at 00:35; Start 04/29/19 at 01:00; Stop 04/29/19 at 01:01; Status DC Ondansetron HCl (Zofran) 4 mg PRN Q8HRS PRN IV NAUSEA/VOMITING 1ST CHOICE; Start 04/29/19 at 01:00; Stop 04/30/19 at 00:59; Status DC Sodium Chloride 1,000 ml @ 1,000 mls/hr Q1H PRN IV hypotension; Start 04/29/19 at 07:38; Stop 04/29/19 at 13:37; Status DC Albumin Human 200 ml @ 200 mls/hr 1X PRN PRN IV Hypotension; Start 04/29/19 at 07:45; Stop 04/29/19 at 13:44; Status DC Acetaminophen (Tylenol) 500 mg 1X PRN PRN PO MILD PAIN / TEMP; Start 04/29/19 at 07:45; Stop 04/30/19 at 07:44; Status DC Diphenhydramine HCl (Benadryl) 25 mg 1X PRN PRN IV ITCHING; Start 04/29/19 at 07:45; Stop 04/30/19 at 07:44; Status DC Diphenhydramine HCl (Benadryl) 25 mg 1X PRN PRN IV ITCHING; Start 04/29/19 at 07:45; Stop 04/30/19 at 07:44; Status DC Labetalol HCl (Normodyne Iv Push) 10 mg PRN Q1HR PRN IVP SBP > 180; Start 04/29/19 at 07:45; Stop 04/30/19 at 07:44; Status DC Sodium Chloride 1,000 ml @ 400 mls/hr Q2H30M PRN IV PATENCY; Start 04/29/19 at 07:38; Stop 04/29/19 at 19:37; Status DC Info (PHARMACY MONITORING -- do not chart) 1 each PRN DAILY PRN MC SEE COMMENTS; Start 04/29/19 at 07:45; Stop 04/29/19 at 07:46; Status DC Info (PHARMACY MONITORING -- do not chart) 1 each PRN DAILY PRN MC SEE COMMENTS; Start 04/29/19 at 07:45; Status Cancel Amiodarone HCl (Cordarone) 400 mg BID PO Last administered on 05/01/19at 09:36; Start 04/29/19 at 21:00; Stop 05/01/19 at 12:30; Status DC Amlodipine Besylate (Norvasc) 5 mg DAILY PO Last administered on 05/04/19at 15:19; Start 04/29/19 at 15:00 Apixaban (Eliquis) 5 mg BID PO Last administered on 05/01/19at 09:36; Start 04/29/19 at 21:00; Stop 05/01/19 at 12:30; Status DC Aspirin (Ecotrin) 81 mg DAILY PO Last administered on 05/04/19at 15:18; Start 04/30/19 at 09:00 Clonazepam (KlonoPIN) 0.5 mg TID PO Last administered on 05/04/19 21:02; Start 04/29/19 at 15:00 Famotidine (Pepcid) 20 mg HS PO Last administered on 05/03/19 22:13; Start 04/29/19 at 21:00; Stop 05/04/19 at 07:53; Status DC Metoprolol Tartrate (Lopressor) 25 mg BID PO Last administered on 05/04/19 21:02; Start 04/29/19 at 15:00 Ranolazine (Ranexa) 500 mg Q12HR PO Last administered on 05/04/19 21:02; Start 04/29/19 at 21:00 Atorvastatin Calcium (Lipitor) 80 mg QHS PO Last administered on 04/30/19 21:42; Start 04/29/19 at 21:00; Stop 05/01/19 at 10:38; Status DC Citalopram Hydrobromide (CeleXA) 30 mg DAILY PO Last administered on 05/04/19 15:18; Start 04/29/19 at 15:00 Insulin Glargine (Lantus Syringe) 15 unit QHS SQ Last administered on 05/04/19 21:10; Start 04/29/19 at 21:00 Info (Anti-Coagulation Monitoring By Pharmacy) 1 each PRN DAILY PRN MC SEE COMMENTS Last administered on 05/01/19 11:46; Start 04/29/19 at 15:00 Vancomycin HCl 1 gm/Sodium Chloride 250 ml @ 250 mls/hr 1X ONCE IV ; Start 05/01/19 at 08:00; Stop 05/01/19 at 08:59; Status UNV Vancomycin HCl 1.5 gm/Sodium Chloride 500 ml @ 250 mls/hr 1X ONCE IV Last administered on 05/01/19 11:02; Start 05/01/19 at 08:15; Stop 05/01/19 at 10:14; Status DC Vancomycin HCl (Vanco Per Pharmacy) 1 each PRN DAILY PRN MC SEE COMMENTS Last administered on 05/04/19 07:59; Start 05/01/19 at 08:15 Vancomycin HCl 500 mg/Sodium Chloride 100 ml @ 100 mls/hr 1X ONCE IV Last administered on 10/4/19at 22:07; Start 05/01/19 at 16:00; Stop 05/01/19 at 16:59; Status DC Vancomycin HCl (Vancomycin Random Level) 1 each 1X ONCE MC Last administered on 05/04/19at 06:00; Start 05/04/19 at 06:00; Stop 05/04/19 at 06:01; Status DC Sodium Chloride 1,000 ml @ 1,000 mls/hr Q1H PRN IV hypotension; Start 05/01/19 at 13:46; Stop 05/01/19 at 19:45; Status DC Acetaminophen (Tylenol) 500 mg 1X PRN PRN PO MILD PAIN / TEMP; Start 05/01/19 at 14:00; Stop 05/02/19 at 13:59; Status DC Diphenhydramine HCl (Benadryl) 25 mg 1X PRN PRN IV ITCHING; Start 05/01/19 at 14:00; Stop 05/02/19 at 13:59; Status DC Diphenhydramine HCl (Benadryl) 25 mg 1X PRN PRN IV ITCHING; Start 05/01/19 at 14:00; Stop 05/02/19 at 13:59; Status DC Sodium Chloride 1,000 ml @ 400 mls/hr Q2H30M PRN IV PATENCY; Start 05/01/19 at 13:46; Stop 05/02/19 at 01:45; Status DC Info (PHARMACY MONITORING -- do not chart) 1 each PRN DAILY PRN MC SEE COMMENTS; Start 05/01/19 at 14:00 Dextrose (Dextrose 50%-Water Syringe) 12.5 gm PRN Q15MIN PRN IV SEE COMMENTS Last administered on 05/05/19at 07:23; Start 05/02/19 at 08:15 Lactobacillus Rhamnosus (Culturelle) 1 cap BID PO Last administered on 05/04/19at 21:02; Start 05/02/19 at 21:00 Darbepoetin Donnell (ARANESP for DIALYSIS PTS) 60 mcg WEEKLYHS SQ Last administered on 05/03/19at 23:11; Start 05/03/19 at 21:00 Glucose (Insta-Glucose) 15 gm STK-MED ONCE .ROUTE ; Start 05/04/19 at 07:17; Stop 05/04/19 at 07:17; Status DC Sodium Chloride 1,000 ml @ 1,000 mls/hr Q1H PRN IV hypotension; Start 05/04/19 at 07:48; Stop 05/04/19 at 13:47; Status DC Sodium Chloride 1,000 ml @ 400 mls/hr Q2H30M PRN IV PATENCY; Start 05/04/19 at 07:48; Stop 05/04/19 at 19:47; Status DC Info (PHARMACY MONITORING -- do not chart) 1 each PRN DAILY PRN MC SEE COMMENTS; Start 05/04/19 at 08:00; Status UNV Info (PHARMACY MONITORING -- do not chart) 1 each PRN DAILY PRN MC SEE COMMENTS; Start 05/04/19 at 08:00; Status UNV Famotidine (Pepcid) 20 mg Q48H PO ; Start 05/06/19 at 08:00 Vancomycin HCl 500 mg/Sodium Chloride 100 ml @ 100 mls/hr QMWF IV Last administered on 05/04/19at 17:50; Start 05/04/19 at 16:00 Glucose (Insta-Glucose) 15 gm 1X ONCE PO Last administered on 05/04/19at 07:20; Start 05/04/19 at 07:20; Stop 05/04/19 at 08:01; Status DC Active Scripts Active Reported Vitamin D (Cholecalciferol (Vitamin D3)) 1,000 Unit Capsule 1 Cap PO DAILY Tylenol (Acetaminophen) 325 Mg Tablet 2 Tab PO PRN Q4HRS Tums (Calcium Carbonate) 200 Mg Tab.chew 4 Tab PO DAILY Ranexa (Ranolazine) 500 Mg Tab.er.12h 1 Tab PO Q12HR Phoslyra (Calcium Acetate) 667 Mg/5 Ml Solution 15 Ml PO TIDAC NITROGLYCERIN SubLingual (Nitroglycerin) 0.4 Mg Tab.subl 0.4 Mg SL PRN Q5MIN PRN Miralax (Polyethylene Glycol 3350) 17 Gm Powd.pack 1 Packet PO BID Metoprolol Tartrate 25 Mg Tablet 1 Tab PO BID Lidocaine PATCH (Lidocaine) 1 Each Adh..patch 1 Each TP DAILY REMOVE AFTER 12 HOURS Lexapro (Escitalopram Oxalate) 5 Mg Tablet 15 Mg PO DAILY Levemir (Insulin Detemir) 100 Unit/1 Ml Vial 15 Unit SQ QHS Klonopin (Clonazepam) 0.5 Mg Tablet 1 Tab PO TID Imodium A-D (Loperamide HCl) 2 Mg Capsule 2 Mg PO PRN Q4HRS PRN Hydrocodone-Apap 5-325 (Hydrocodone Bit/Acetaminophen) 1 Tab Tablet 1 Tab PO PRN Q4HRS PRN Folic Acid 1 Mg Tablet 1 Tab PO DAILY Ferrous Sulfate 325 Mg Tablet 1 Tab PO BID Pepcid (Famotidine) 20 Mg Tablet 20 Mg PO HS Clobetasol Propionate 15 Gm Cream..g. 1 Jomar TP DAILY08 Dulcolax (Bisacodyl) 5 Mg Tablet.dr 4 Tab PO PRN BID PRN Bisacodyl 10 Mg Supp.rect 10 Mg RC PRN DAILY PRN Aspir-Low (Aspirin) 81 Mg Tablet.dr 1 Tab PO DAILY Artificial Tears (Dextran 70/Hypromellose) 1 Each Droperette 1 Each OP PRN Q8HRS PRN Eliquis (Apixaban) 5 Mg Tablet 5 Mg PO BID Ammonium Lactate 226 Gm Lotion 1 Gm TP DAILY16 Amlodipine Besylate 5 Mg Tablet 5 Mg PO DAILY Amiodarone Hcl 200 Mg Tablet 2 Tab PO BID Amiodarone Hcl 200 Mg Tablet 1 Tab PO NOON Lipitor (Atorvastatin Calcium) 80 Mg Tablet 1 Tab PO DAILY Vitals/I & O Vital Sign - Last 24 Hours 05/04/19 05/04/19 05/04/19 05/04/19 08:00 09:00 12:04 15:17 Temp 98.1 97.9 98.1 97.9 Pulse 59 59 59 Resp 18 18 B/P (MAP) 115/69 107/80 (89) 115/69 (84) Pulse Ox 100 98 O2 Delivery Room Air Room Air Room Air 05/04/19 05/04/19 05/04/19 05/04/19 15:18 15:19 19:45 20:00 Temp 98.2 98.2 Pulse 59 59 60 Resp 18 B/P (MAP) 115/69 115/69 119/47 (71) Pulse Ox 98 O2 Delivery Room Air Room Air 05/04/19 05/04/19 05/04/19 05/05/19 21:02 21:02 23:47 03:22 Temp 98.7 98.4 98.7 98.4 Pulse 60 60 60 60 Resp 18 18 B/P (MAP) 119/47 119/47 115/32 (59) 141/46 (77) Pulse Ox 97 99 O2 Delivery Room Air Room Air Intake and Output 05/04/19 05/04/19 05/05/19 15:00 23:00 07:00 Intake Total 100 ml 150 ml 0 ml Output Total 0 ml Balance 100 ml 150 ml 0 ml REBECCA WEAVER MD May 05, 2019 07:45
[2019-05-05 07:46] VITALS: BP 130/70
[2019-05-05] MEDS: RANOLAZINE 500 MG TAB.ER.12H PO SCH ×2 (09:02→21:00)
[2019-05-05] MEDS: LACTOBACILLUS RHAMNOSUS GG 1 CAPSULE. PO SCH ×2 (09:02→21:00)
[2019-05-05] MEDS: CITALOPRAM 10 MG TABLET. PO SCH (09:02)
[2019-05-05] MEDS: METOPROLOL TART IMMED RELEASE 25 MG TABLET. PO SCH ×2 (09:03→21:00)
[2019-05-05] MEDS: amLODIPine BESYLATE 5 MG TABLET PO SCH (09:03)
[2019-05-05] MEDS: ASPIRIN ENTERIC COATED 81 MG TABLET.DR. PO SCH (09:03)
[2019-05-05] MEDS: clonazePAM 0.5 MG TABLET PO SCH ×3 (09:03→21:00)
[2019-05-05 09:14] LABS: EBNA IGG >600.0 U/mL (0.0-17.9)
[2019-05-05 11:01] VITALS: BP 135/78
--- NOTE | 2019-05-05 11:04 | PDOC ---
Renal-Progress Notes Subjective Notes Notes NO NEW COMPLAINTS History of Present Illness Hx of present illness STABLE Vitals Vitals Vital Signs Date Time Temp Pulse Resp B/P (MAP) Pulse Ox O2 Delivery O2 Flow Rate FiO2 05/05/19 11:01 97.9 60 18 135/78 (97) 100 Room Air 97.9 Weight Weight [ ] I.O. Intake and Output Intake and Output 05/05/19 06:59 Intake Total 250 ml Output Total 0 ml Balance 250 ml Intake Oral 250 ml Output Urine Total 0 ml Labs Labs Laboratory Tests Test 05/04/19 12:02 05/04/19 13:09 05/04/19 16:37 05/04/19 20:41 Glucose (Fingerstick) 52 mg/dL (70-99) 80 mg/dL (70-99) 91 mg/dL (70-99) 127 mg/dL (70-99) Test 05/05/19 03:25 05/05/19 07:08 05/05/19 07:40 White Blood Count 5.4 x10^3/uL (4.0-11.0) Red Blood Count 3.05 x10^6/uL (3.50-5.40) Hemoglobin 8.0 g/dL (12.0-15.5) Hematocrit 24.4 % (36.0-47.0) Mean Corpuscular Volume 80 fL (79-100) Mean Corpuscular Hemoglobin 26 pg (25-35) Mean Corpuscular Hemoglobin Concent 33 g/dL (31-37) Red Cell Distribution Width 20.5 % (11.5-14.5) Platelet Count 305 x10^3/uL (140-400) Neutrophils (%) (Auto) 67 % (31-73) Lymphocytes (%) (Auto) 18 % (24-48) Monocytes (%) (Auto) 13 % (0-9) Eosinophils (%) (Auto) 2 % (0-3) Basophils (%) (Auto) 1 % (0-3) Neutrophils # (Auto) 3.6 x10^3/uL (1.8-7.7) Lymphocytes # (Auto) 1.0 x10^3/uL (1.0-4.8) Monocytes # (Auto) 0.7 x10^3/uL (0.0-1.1) Eosinophils # (Auto) 0.1 x10^3/uL (0.0-0.7) Basophils # (Auto) 0.1 x10^3/uL (0.0-0.2) Sodium Level 140 mmol/L (136-145) Potassium Level 4.1 mmol/L (3.5-5.1) Chloride Level 98 mmol/L (98-107) Carbon Dioxide Level 30 mmol/L (21-32) Anion Gap 12 (6-14) Blood Urea Nitrogen 24 mg/dL (7-20) Creatinine 6.5 mg/dL (0.6-1.0) Estimated GFR (Cockcroft-Gault) 8.2 BUN/Creatinine Ratio 4 (6-20) Glucose Level 77 mg/dL (70-99) Calcium Level 11.9 mg/dL (8.5-10.1) Total Bilirubin 1.6 mg/dL (0.2-1.0) Aspartate Amino Transf (AST/SGOT) 345 U/L (15-37) Alanine Aminotransferase (ALT/SGPT) 360 U/L (14-59) Alkaline Phosphatase 156 U/L (46-116) Total Protein 7.7 g/dL (6.4-8.2) Albumin 2.5 g/dL (3.4-5.0) Albumin/Globulin Ratio 0.5 (1.0-1.7) Glucose (Fingerstick) 52 mg/dL (70-99) 153 mg/dL (70-99) Micro Micro Microbiology 05/01/19 Blood Culture - Preliminary, Resulted NO GROWTH AFTER 4 DAYS Review of Systems Constitutional: yes: other (CONFUSED) Physical Exam General Appearance: no apparent distress Skin: warm Respiratory: decreased breath sounds Heart: S1S2 Abdomen: soft, bowel sounds present Genitourinary: bladder flat Extremities: pulses present Neurology: alert Musculoskeletal: Other (no pertinent history) Assessment Assessment IMP ESRD-TTS BACTEREMIA ENCEPHALOPATHY-BETTER ?PNEUMONIA DM II HTN ANEMIA PLAN HD TTS UF TO DW JOSHUA OFF ANTIBIOTICS LAVON FIERRO MD May 05, 2019 11:04
--- NOTE | 2019-05-05 11:26 | PDOC ---
Objective: Objective: No GI concerns per nurse - mentions blood sugar fluctuates a lot. Vital Signs: Vital Signs Date Time Temp Pulse Resp B/P (MAP) Pulse Ox O2 Delivery O2 Flow Rate FiO2 05/05/19 11:01 97.9 60 18 135/78 (97) 100 Room Air 97.9 Labs: Laboratory Tests Test 05/04/19 12:02 05/04/19 13:09 05/04/19 16:37 05/04/19 20:41 Glucose (Fingerstick) 52 mg/dL 80 mg/dL 91 mg/dL 127 mg/dL Test 05/05/19 03:25 05/05/19 07:08 05/05/19 07:40 White Blood Count 5.4 x10^3/uL Red Blood Count 3.05 x10^6/uL Hemoglobin 8.0 g/dL Hematocrit 24.4 % Mean Corpuscular Volume 80 fL Mean Corpuscular Hemoglobin 26 pg Mean Corpuscular Hemoglobin Concent 33 g/dL Red Cell Distribution Width 20.5 % Platelet Count 305 x10^3/uL Neutrophils (%) (Auto) 67 % Lymphocytes (%) (Auto) 18 % Monocytes (%) (Auto) 13 % Eosinophils (%) (Auto) 2 % Basophils (%) (Auto) 1 % Neutrophils # (Auto) 3.6 x10^3/uL Lymphocytes # (Auto) 1.0 x10^3/uL Monocytes # (Auto) 0.7 x10^3/uL Eosinophils # (Auto) 0.1 x10^3/uL Basophils # (Auto) 0.1 x10^3/uL Sodium Level 140 mmol/L Potassium Level 4.1 mmol/L Chloride Level 98 mmol/L Carbon Dioxide Level 30 mmol/L Anion Gap 12 Blood Urea Nitrogen 24 mg/dL Creatinine 6.5 mg/dL Estimated GFR (Cockcroft-Gault) 8.2 BUN/Creatinine Ratio 4 Glucose Level 77 mg/dL Calcium Level 11.9 mg/dL Total Bilirubin 1.6 mg/dL Aspartate Amino Transf (AST/SGOT) 345 U/L Alanine Aminotransferase (ALT/SGPT) 360 U/L Alkaline Phosphatase 156 U/L Total Protein 7.7 g/dL Albumin 2.5 g/dL Albumin/Globulin Ratio 0.5 Glucose (Fingerstick) 52 mg/dL 153 mg/dL BLOOD CULTURE LC Final Final report BLD CULT RESULT 1 Final Comment Coagulase negative Staphylococcus species. BLOOD CULTURE Final NO GROWTH AFTER 5 DAYS PE: GEN: NAD - sleeping - 08/01 of pancake consumed LUNGS: CTAB HEART: RRR ABD: S/ND/NT NEURO/PSYCH: did not awaken when I called her name/during exam A/P: Abnormal LFTs - some improvement, imaging unrevealing, ?amiodarone ACD, ESRD on HD, hypercalcemia (better today) -- Will review w/ Dr. Brown. PEYMAN GARCIA May 05, 2019 11:26
[2019-05-05 15:00] VITALS: BP 130/77
--- NOTE | 2019-05-05 17:56 | PDOC ---
PROGRESS NOTES Assessment Assessment Metabolic encephalopathy. Hyperkalemia, K+ 6.9. Hyperglycemia. Hypoglycemia, mild episode likely. Hypercalcemia. DM. HTN. Renal failure on dialysis. Elevated hepatic enzymes. Bipolar disorder. Obesity. RECOMMENDATIONS/PLAN: Treat medical diseases. OT/PT. FU with PCP. HCT: Negative. History of Present Illness This is a 53-year-old AA female patient with history of hypertension, diabetes, chronic kidney disease stage III, bipolar, major depressive disorder who presented to the emergency department of [facility] on 04/28/19 with altered mental status, slightly hypoglycemia. Her blood sugar in ED was 58. Neurology was requested for consultation on 04/30/19 for MS changes. She is doing fine on 05/05/19. Past Medical History Cardiovascular: CHF, HTN Heme/Onc: Anemia NOS Renal/: Chronic renal failure Endocrine: Diabetes Past Surgical History No pertinent history Allergies Coded Allergies: Milk Containing Products (Verified Allergy, Intermediate, 11/02/15) Penicillins (Verified Allergy, Intermediate, 11/02/15) haloperidol (Verified Allergy, Intermediate, 04/28/19) MEDICATIONS: Refer to [facility] FAMILY HISTORY: Non contributory. SOCIAL HISTORY: Lives at home.lone. Denies current smoking, drinking, and illicit drug use. REVIEW OF SYSTEMS: Constitutional: No cachexia. Head: No traumatic brain or head injury. Skin: No edema, or rash. Ear: No infection. Eyes: No vision loss or color blindness. Nose: No bleeding or purulent discharges. Hearing: No hearing decrease. Neck: No injury. Breast: No history of cancer, masses,or discharges. Cardiac: HTN. Pulmonary: No COPD.. GI: No GI ulcer, GI bleeding. Urinary/genital: CKD. Endocrinologic: Diabetes Mellitus, obesity. Skeletomuscular: No muscular atrophy, deformity. Neurological: see HP. Psychiatric: Denies drug use/abuse. Otherwise, not [id number] review of systems. PHYSICAL EXAMINATION: General appearance is in subacute distress. HEENT: Normocephalic and nontraumatic. Eyes, nose, ears, and throat are unremarkable. Neck is supple. No lymphadenopathy. No crepitus. Cardiovascular: S1, S2, regular rate and rhythm. Pulmonary: Clear to auscultation bilaterally. Abdomen: Bowel sounds are positive. Abdomen is soft, nontender, and nondistended. Extremities: No rash, lesions, or edema. No restriction of range of motion NEUROLOGICAL EXAMINATION: Sleeping but arousable. Oriented to time, place and person. PERRL. EOMI. CN: no focal findings. Muscle tone: within normal. Muscle strength: 4+ DTR: 2- Plantar reflex: Flexor response bilaterally Gait: not examined while in bed. Sensory exam: no abnormal findings. No cerebellar signs elicited. Objective Objective Vital Signs Date Time Temp Pulse Resp B/P (MAP) Pulse Ox O2 Delivery O2 Flow Rate FiO2 05/05/19 15:00 98.1 60 18 130/77 (94) 97 Room Air 98.1 l Intake and Output 05/05/19 07:00 Intake Total 250 ml Output Total 0 ml Balance 250 ml Intake Oral 250 ml Output Urine Total 0 ml Vitals Signs Vitals VS - Last 72 Hours, by Label Date Time Temp Pulse Resp B/P (MAP) Pulse Ox O2 Delivery O2 Flow Rate FiO2 05/05/19 15:00 98.1 60 18 130/77 (94) 97 Room Air 98.1 05/05/19 11:01 97.9 60 18 135/78 (97) 100 Room Air 97.9 05/05/19 09:03 60 130/70 05/05/19 09:03 60 130/70 05/05/19 09:02 60 130/70 05/05/19 08:00 Room Air 05/05/19 07:46 98.2 60 18 130/70 (90) 97 Room Air 98.2 05/05/19 03:22 98.4 60 18 141/46 (77) 99 Room Air 98.4 05/04/19 23:47 98.7 60 18 115/32 (59) 97 Room Air 98.7 05/04/19 21:02 60 119/47 05/04/19 21:02 60 119/47 05/04/19 20:00 Room Air 05/04/19 19:45 98.2 60 18 119/47 (71) 98 Room Air 98.2 05/04/19 15:19 59 115/69 05/04/19 15:18 59 115/69 05/04/19 15:17 97.9 59 18 115/69 (84) 98 Room Air 97.9 05/04/19 12:04 98.1 59 18 107/80 (89) 100 Room Air 98.1 05/04/19 09:00 59 115/69 05/04/19 08:00 Room Air 05/04/19 07:34 97.8 60 18 133/69 (90) 97 Room Air 97.8 Laboratory Laboratory Laboratory Tests Test 05/04/19 20:41 05/05/19 03:25 05/05/19 07:08 05/05/19 07:40 Glucose (Fingerstick) 127 mg/dL (70-99) 52 mg/dL (70-99) 153 mg/dL (70-99) White Blood Count 5.4 x10^3/uL (4.0-11.0) Red Blood Count 3.05 x10^6/uL (3.50-5.40) Hemoglobin 8.0 g/dL (12.0-15.5) Hematocrit 24.4 % (36.0-47.0) Mean Corpuscular Volume 80 fL (79-100) Mean Corpuscular Hemoglobin 26 pg (25-35) Mean Corpuscular Hemoglobin Concent 33 g/dL (31-37) Red Cell Distribution Width 20.5 % (11.5-14.5) Platelet Count 305 x10^3/uL (140-400) Neutrophils (%) (Auto) 67 % (31-73) Lymphocytes (%) (Auto) 18 % (24-48) Monocytes (%) (Auto) 13 % (0-9) Eosinophils (%) (Auto) 2 % (0-3) Basophils (%) (Auto) 1 % (0-3) Neutrophils # (Auto) 3.6 x10^3/uL (1.8-7.7) Lymphocytes # (Auto) 1.0 x10^3/uL (1.0-4.8) Monocytes # (Auto) 0.7 x10^3/uL (0.0-1.1) Eosinophils # (Auto) 0.1 x10^3/uL (0.0-0.7) Basophils # (Auto) 0.1 x10^3/uL (0.0-0.2) Sodium Level 140 mmol/L (136-145) Potassium Level 4.1 mmol/L (3.5-5.1) Chloride Level 98 mmol/L (98-107) Carbon Dioxide Level 30 mmol/L (21-32) Anion Gap 12 (6-14) Blood Urea Nitrogen 24 mg/dL (7-20) Creatinine 6.5 mg/dL (0.6-1.0) Estimated GFR (Cockcroft-Gault) 8.2 BUN/Creatinine Ratio 4 (6-20) Glucose Level 77 mg/dL (70-99) Calcium Level 11.9 mg/dL (8.5-10.1) Total Bilirubin 1.6 mg/dL (0.2-1.0) Aspartate Amino Transf (AST/SGOT) 345 U/L (15-37) Alanine Aminotransferase (ALT/SGPT) 360 U/L (14-59) Alkaline Phosphatase 156 U/L (46-116) Total Protein 7.7 g/dL (6.4-8.2) Albumin 2.5 g/dL (3.4-5.0) Albumin/Globulin Ratio 0.5 (1.0-1.7) Test 05/05/19 10:58 05/05/19 11:47 05/05/19 16:54 Glucose (Fingerstick) 66 mg/dL (70-99) 165 mg/dL (70-99) 96 mg/dL (70-99) Microbiology 05/01/19 Blood Culture - Preliminary, Resulted NO GROWTH AFTER 4 DAYS Medication Medications Current Medications Famotidine (Pepcid) 20 mg Q48H PO ; Start 05/06/19 at 08:00 Comment Review of Relevant I have reviewed the following items sarahi (where applicable) has been applied. REJI NICK MD May 05, 2019 17:56
[2019-05-05 19:42] VITALS: BP 134/73
[2019-05-05] MEDS: INSULIN GLARGINE SYRINGE. SQ SCH (21:00)
[2019-05-05 23:51] VITALS: BP 131/74
[2019-05-06 03:14] VITALS: BP 124/70
[2019-05-06 05:38] LABS: BASO % 1 % (0-3); EOS # 0.1 x10^3/uL (0.0-0.7); EOS % 2 % (0-3); HEMATOCRIT 26.7 % (36.0-47.0); HEMOGLOBIN 8.5 g/dL (12.0-15.5); LYMPH # 0.8 x10^3/uL (1.0-4.8); LYMPH % 18 % (24-48); MEAN CORPUSCULAR HEMOGLOBIN 26 pg (25-35); MEAN CORPUSCULAR HGB CONC 32 g/dL (31-37); MEAN CORPUSCULAR VOLUME 81 fL (79-100); MONO # 0.6 x10^3/uL (0.0-1.1); MONO % 13 % (0-9); NEUT % 67 % (31-73); PLATELET COUNT 286 x10^3/uL (140-400); RED BLOOD COUNT 3.31 x10^6/uL (3.50-5.40); RED CELL DISTRIBUTION WIDTH 20.7 % (11.5-14.5); WHITE BLOOD COUNT 4.5 x10^3/uL (4.0-11.0)
[2019-05-06 05:51] LABS: ALBUMIN 2.6 g/dL (3.4-5.0); CALCIUM 11.9 mg/dL (8.5-10.1); CREATININE 8.6 mg/dL (0.6-1.0); GFR 5.9; PHOSPHORUS 7.2 mg/dL (2.6-4.7); POTASSIUM 4.7 mmol/L (3.5-5.1)
[2019-05-06 07:00] VITALS: BP 132/54
[2019-05-06] MEDS ORDERED: FAMOTIDINE 20 MG TABLET. PO SCH (08:00)
[2019-05-06] MEDS ORDERED: IV NORMAL SALINE 1000ML BAG 1,000 ML IV PRN ×2 (08:49)
[2019-05-06] MEDS ORDERED: ACETAMINOPHEN 500 MG TABLET PO PRN (09:00)
[2019-05-06] MEDS: LACTOBACILLUS RHAMNOSUS GG 1 CAPSULE. PO SCH (09:00)
[2019-05-06] MEDS: clonazePAM 0.5 MG TABLET PO SCH ×2 (09:00→13:41)
[2019-05-06] MEDS: RANOLAZINE 500 MG TAB.ER.12H PO SCH (09:00)
[2019-05-06] MEDS: METOPROLOL TART IMMED RELEASE 25 MG TABLET. PO SCH (09:00)
[2019-05-06] MEDS ORDERED: DIALYSIS PATIENT. MC PRN (09:00)
[2019-05-06] MEDS ORDERED: diphenhydrAMINE 50 MG/ML VIAL IV PRN ×2 (09:00)
[2019-05-06] MEDS ORDERED: LABETALOL 20 MG/4 ML DISP.SYRIN. IVP PRN (09:00)
--- NOTE | 2019-05-06 10:13 | PDOC ---
PROGRESS NOTES History of Present Illness History of Present Illness ASSESSMENT altered mental status, IMPROVING, slow to recover, now more confused 05/[address] head 04/29 Mild atrophy and chronic microangiopathic white matter change. Severe hyperkalemia, TREATED hypothermia, hyperglycemia, hypercalcemia anemia. Basilar atelectasis. Correlate for mild pulmonary edema. ESRD on dialysis TRANSAMINITIS fever Focal groundglass consolidation left lingula of the lung likely pneumonia. Follow-up to resolution. minimal questionable fat stranding identified about the bilateral kidneys, nonspecific could be due to medical renal disease or pyelonephritis. fat stranding identified about the gallbladder likely artifactual due to motion and less likely inflammation. Consider ultrasound right upper quadrant. Amiodarone has been on 400 mg bid dosing at least in the last 2 months and it appears per [facility] this was to be changed to 200 mg daily , will d/c for now bacteremia vs contabinate GRAM POSITIVE COCCI IN CLUSTERS IN 1 OF 4 BOTTLES (2 SETS COLLECTED). CALLED TO [facility] ON 5S 05/01/19 AT 0743 BY Kev SIMMS. CULTURE HAS BEEN SENT TO [facility] FOR FURTHER IDENTIFICATION admitted. consult Nephrology dialysis currently. Frequent labs. Electrolyte protocol. DVT prophylaxis. Home meds. consult neurology NEUROCHECKS Q 4 HRS GI CONSULT ID CONSULT cute dx HEPATITIS PANEL HOLD HEPATOTOXIC DRUGS//AMIODARONE blood cult, iv vanc x 1 10- CT CHEST, ABD serum protein electrophoresis hold d/c 05/05 28 MIN PT EXAM, CHART REVIEW, > 50% OF TIME SPENT WITH EXAM, CHART REVIEW, PT CARE COORDINATION Vitals Vitals Vital Signs Date Time Temp Pulse Resp B/P (MAP) Pulse Ox O2 Delivery O2 Flow Rate FiO2 05/06/19 09:00 60 132/54 05/06/19 08:00 Room Air 05/06/19 07:00 97.4 18 99 97.4 Physical Exam Physical Exam GENERAL: In bed and coop NAD HEENT: Pupils equally round, oropharynx pink and moist. No lesions. NECK: Supple. LUNGS: Clear to auscultation. HEART: S1, S2. ABDOMEN: Soft and nontender with bowel sounds present. EXTREMITIES: No gross edema or cyanosis. She had several firm lesions on her legs, nontender. LUE-AV fistula unremarkable. NEUROLOGIC: Answers questions appropriately/ moves all ext. General: Cooperative, No acute distress, Other (confused) Heart: Regular rate (not on tele), Normal S1, No murmurs, Other (3/6 apical murmur systolic) Lungs: Clear Abdomen: Normal bowel sounds, Soft, No tenderness Extremities: No clubbing, No cyanosis, No edema Skin: No breakdown, No significant lesion Labs LABS Laboratory Tests Test 05/05/19 10:58 05/05/19 11:47 05/05/19 16:54 05/05/19 19:56 Glucose (Fingerstick) 66 mg/dL (70-99) 165 mg/dL (70-99) 96 mg/dL (70-99) 72 mg/dL (70-99) Test 05/05/19 22:29 05/06/19 02:43 05/06/19 02:59 05/06/19 07:23 Glucose (Fingerstick) 136 mg/dL (70-99) 145 mg/dL (70-99) 104 mg/dL (70-99) White Blood Count 4.5 x10^3/uL (4.0-11.0) Red Blood Count 3.31 x10^6/uL (3.50-5.40) Hemoglobin 8.5 g/dL (12.0-15.5) Hematocrit 26.7 % (36.0-47.0) Mean Corpuscular Volume 81 fL (79-100) Mean Corpuscular Hemoglobin 26 pg (25-35) Mean Corpuscular Hemoglobin Concent 32 g/dL (31-37) Red Cell Distribution Width 20.7 % (11.5-14.5) Platelet Count 286 x10^3/uL (140-400) Neutrophils (%) (Auto) 67 % (31-73) Lymphocytes (%) (Auto) 18 % (24-48) Monocytes (%) (Auto) 13 % (0-9) Eosinophils (%) (Auto) 2 % (0-3) Basophils (%) (Auto) 1 % (0-3) Neutrophils # (Auto) 3.0 x10^3/uL (1.8-7.7) Lymphocytes # (Auto) 0.8 x10^3/uL (1.0-4.8) Monocytes # (Auto) 0.6 x10^3/uL (0.0-1.1) Eosinophils # (Auto) 0.1 x10^3/uL (0.0-0.7) Basophils # (Auto) 0.0 x10^3/uL (0.0-0.2) Sodium Level 141 mmol/L (136-145) Potassium Level 4.7 mmol/L (3.5-5.1) Chloride Level 98 mmol/L (98-107) Carbon Dioxide Level 31 mmol/L (21-32) Anion Gap 12 (6-14) Blood Urea Nitrogen 33 mg/dL (7-20) Creatinine 8.6 mg/dL (0.6-1.0) Estimated GFR (Cockcroft-Gault) 5.9 Glucose Level 140 mg/dL (70-99) Calcium Level 11.9 mg/dL (8.5-10.1) Phosphorus Level 7.2 mg/dL (2.6-4.7) Albumin 2.6 g/dL (3.4-5.0) Assessment and Plan Assessmemt and Plan Problems Medical Problems: (1) Altered mental status Status: Acute (2) Hypoglycemia Status: Acute Comment Review of Relevant I have reviewed the following items sarahi (where applicable) has been applied. Labs Laboratory Tests Test 05/04/19 10:59 05/04/19 12:02 05/04/19 13:09 05/04/19 16:37 Glucose (Fingerstick) 80 mg/dL (70-99) 52 mg/dL (70-99) 80 mg/dL (70-99) 91 mg/dL (70-99) Test 05/04/19 20:41 05/05/19 03:25 05/05/19 07:08 05/05/19 07:40 Glucose (Fingerstick) 127 mg/dL (70-99) 52 mg/dL (70-99) 153 mg/dL (70-99) White Blood Count 5.4 x10^3/uL (4.0-11.0) Red Blood Count 3.05 x10^6/uL (3.50-5.40) Hemoglobin 8.0 g/dL (12.0-15.5) Hematocrit 24.4 % (36.0-47.0) Mean Corpuscular Volume 80 fL (79-100) Mean Corpuscular Hemoglobin 26 pg (25-35) Mean Corpuscular Hemoglobin Concent 33 g/dL (31-37) Red Cell Distribution Width 20.5 % (11.5-14.5) Platelet Count 305 x10^3/uL (140-400) Neutrophils (%) (Auto) 67 % (31-73) Lymphocytes (%) (Auto) 18 % (24-48) Monocytes (%) (Auto) 13 % (0-9) Eosinophils (%) (Auto) 2 % (0-3) Basophils (%) (Auto) 1 % (0-3) Neutrophils # (Auto) 3.6 x10^3/uL (1.8-7.7) Lymphocytes # (Auto) 1.0 x10^3/uL (1.0-4.8) Monocytes # (Auto) 0.7 x10^3/uL (0.0-1.1) Eosinophils # (Auto) 0.1 x10^3/uL (0.0-0.7) Basophils # (Auto) 0.1 x10^3/uL (0.0-0.2) Sodium Level 140 mmol/L (136-145) Potassium Level 4.1 mmol/L (3.5-5.1) Chloride Level 98 mmol/L (98-107) Carbon Dioxide Level 30 mmol/L (21-32) Anion Gap 12 (6-14) Blood Urea Nitrogen 24 mg/dL (7-20) Creatinine 6.5 mg/dL (0.6-1.0) Estimated GFR (Cockcroft-Gault) 8.2 BUN/Creatinine Ratio 4 (6-20) Glucose Level 77 mg/dL (70-99) Calcium Level 11.9 mg/dL (8.5-10.1) Total Bilirubin 1.6 mg/dL (0.2-1.0) Aspartate Amino Transf (AST/SGOT) 345 U/L (15-37) Alanine Aminotransferase (ALT/SGPT) 360 U/L (14-59) Alkaline Phosphatase 156 U/L (46-116) Total Protein 7.7 g/dL (6.4-8.2) Albumin 2.5 g/dL (3.4-5.0) Albumin/Globulin Ratio 0.5 (1.0-1.7) Test 05/05/19 10:58 05/05/19 11:47 05/05/19 16:54 05/05/19 19:56 Glucose (Fingerstick) 66 mg/dL (70-99) 165 mg/dL (70-99) 96 mg/dL (70-99) 72 mg/dL (70-99) Test 05/05/19 22:29 05/06/19 02:43 05/06/19 02:59 05/06/19 07:23 Glucose (Fingerstick) 136 mg/dL (70-99) 145 mg/dL (70-99) 104 mg/dL (70-99) White Blood Count 4.5 x10^3/uL (4.0-11.0) Red Blood Count 3.31 x10^6/uL (3.50-5.40) Hemoglobin 8.5 g/dL (12.0-15.5) Hematocrit 26.7 % (36.0-47.0) Mean Corpuscular Volume 81 fL (79-100) Mean Corpuscular Hemoglobin 26 pg (25-35) Mean Corpuscular Hemoglobin Concent 32 g/dL (31-37) Red Cell Distribution Width 20.7 % (11.5-14.5) Platelet Count 286 x10^3/uL (140-400) Neutrophils (%) (Auto) 67 % (31-73) Lymphocytes (%) (Auto) 18 % (24-48) Monocytes (%) (Auto) 13 % (0-9) Eosinophils (%) (Auto) 2 % (0-3) Basophils (%) (Auto) 1 % (0-3) Neutrophils # (Auto) 3.0 x10^3/uL (1.8-7.7) Lymphocytes # (Auto) 0.8 x10^3/uL (1.0-4.8) Monocytes # (Auto) 0.6 x10^3/uL (0.0-1.1) Eosinophils # (Auto) 0.1 x10^3/uL (0.0-0.7) Basophils # (Auto) 0.0 x10^3/uL (0.0-0.2) Sodium Level 141 mmol/L (136-145) Potassium Level 4.7 mmol/L (3.5-5.1) Chloride Level 98 mmol/L (98-107) Carbon Dioxide Level 31 mmol/L (21-32) Anion Gap 12 (6-14) Blood Urea Nitrogen 33 mg/dL (7-20) Creatinine 8.6 mg/dL (0.6-1.0) Estimated GFR (Cockcroft-Gault) 5.9 Glucose Level 140 mg/dL (70-99) Calcium Level 11.9 mg/dL (8.5-10.1) Phosphorus Level 7.2 mg/dL (2.6-4.7) Albumin 2.6 g/dL (3.4-5.0) Laboratory Tests Test 05/05/19 10:58 05/05/19 11:47 05/05/19 16:54 05/05/19 19:56 Glucose (Fingerstick) 66 mg/dL (70-99) 165 mg/dL (70-99) 96 mg/dL (70-99) 72 mg/dL (70-99) Test 05/05/19 22:29 05/06/19 02:43 05/06/19 02:59 05/06/19 07:23 Glucose (Fingerstick) 136 mg/dL (70-99) 145 mg/dL (70-99) 104 mg/dL (70-99) White Blood Count 4.5 x10^3/uL (4.0-11.0) Red Blood Count 3.31 x10^6/uL (3.50-5.40) Hemoglobin 8.5 g/dL (12.0-15.5) Hematocrit 26.7 % (36.0-47.0) Mean Corpuscular Volume 81 fL (79-100) Mean Corpuscular Hemoglobin 26 pg (25-35) Mean Corpuscular Hemoglobin Concent 32 g/dL (31-37) Red Cell Distribution Width 20.7 % (11.5-14.5) Platelet Count 286 x10^3/uL (140-400) Neutrophils (%) (Auto) 67 % (31-73) Lymphocytes (%) (Auto) 18 % (24-48) Monocytes (%) (Auto) 13 % (0-9) Eosinophils (%) (Auto) 2 % (0-3) Basophils (%) (Auto) 1 % (0-3) Neutrophils # (Auto) 3.0 x10^3/uL (1.8-7.7) Lymphocytes # (Auto) 0.8 x10^3/uL (1.0-4.8) Monocytes # (Auto) 0.6 x10^3/uL (0.0-1.1) Eosinophils # (Auto) 0.1 x10^3/uL (0.0-0.7) Basophils # (Auto) 0.0 x10^3/uL (0.0-0.2) Sodium Level 141 mmol/L (136-145) Potassium Level 4.7 mmol/L (3.5-5.1) Chloride Level 98 mmol/L (98-107) Carbon Dioxide Level 31 mmol/L (21-32) Anion Gap 12 (6-14) Blood Urea Nitrogen 33 mg/dL (7-20) Creatinine 8.6 mg/dL (0.6-1.0) Estimated GFR (Cockcroft-Gault) 5.9 Glucose Level 140 mg/dL (70-99) Calcium Level 11.9 mg/dL (8.5-10.1) Phosphorus Level 7.2 mg/dL (2.6-4.7) Albumin 2.6 g/dL (3.4-5.0) Microbiology 05/01/19 Blood Culture - Final, Complete NO GROWTH AFTER 5 DAYS Medications Current Medications Dextrose (Dextrose 50%-Water Syringe) 25 gm STK-MED ONCE IV ; Start 04/28/19 at 22:31; Stop 04/28/19 at 22:31; Status DC Dextrose (Dextrose 50%-Water Syringe) 25 gm 1X ONCE IV Last administered on 04/28/19at 23:25; Start 04/28/19 at 23:00; Stop 04/28/19 at 23:01; Status DC Sodium Bicarbonate (Sodium Bicarb Adult 8.4% Syr) 50 meq 1X ONCE IV Last administered on 04/29/19at 00:33; Start 04/29/19 at 01:00; Stop 04/29/19 at 01:01; Status DC Dextrose (Dextrose 50%-Water Syringe) 25 gm 1X ONCE IV Last administered on 04/29/19at 00:33; Start 04/29/19 at 01:00; Stop 04/29/19 at 01:01; Status DC Insulin Human Regular (HumuLIN R VIAL) 5 unit 1X ONCE IV Last administered on 04/29/19at 00:35; Start 04/29/19 at 01:00; Stop 04/29/19 at 01:01; Status DC Sodium Polystyrene Sulfonate (Kayexalate) 30 gm 1X ONCE PO Last administered on 04/29/19at 00:32; Start 04/29/19 at 01:00; Stop 04/29/19 at 01:01; Status DC Sodium Chloride 1,000 ml @ 1,000 mls/hr Q1H IV Last administered on 04/29/19at 00:30; Start 04/29/19 at 01:00; Stop 04/29/19 at 01:59; Status DC Albuterol Sulfate (Ventolin Neb Soln) 10 mg 1X ONCE CONT NEB Last administered on 04/29/19at 00:35; Start 04/29/19 at 01:00; Stop 04/29/19 at 01:01; Status DC Ondansetron HCl (Zofran) 4 mg PRN Q8HRS PRN IV NAUSEA/VOMITING 1ST CHOICE; Start 04/29/19 at 01:00; Stop 04/30/19 at 00:59; Status DC Sodium Chloride 1,000 ml @ 1,000 mls/hr Q1H PRN IV hypotension; Start 04/29/19 at 07:38; Stop 04/29/19 at 13:37; Status DC Albumin Human 200 ml @ 200 mls/hr 1X PRN PRN IV Hypotension; Start 04/29/19 at 07:45; Stop 04/29/19 at 13:44; Status DC Acetaminophen (Tylenol) 500 mg 1X PRN PRN PO MILD PAIN / TEMP; Start 04/29/19 at 07:45; Stop 04/30/19 at 07:44; Status DC Diphenhydramine HCl (Benadryl) 25 mg 1X PRN PRN IV ITCHING; Start 04/29/19 at 07:45; Stop 04/30/19 at 07:44; Status DC Diphenhydramine HCl (Benadryl) 25 mg 1X PRN PRN IV ITCHING; Start 04/29/19 at 07:45; Stop 04/30/19 at 07:44; Status DC Labetalol HCl (Normodyne Iv Push) 10 mg PRN Q1HR PRN IVP SBP > 180; Start 04/29/19 at 07:45; Stop 04/30/19 at 07:44; Status DC Sodium Chloride 1,000 ml @ 400 mls/hr Q2H30M PRN IV PATENCY; Start 04/29/19 at 07:38; Stop 04/29/19 at 19:37; Status DC Info (PHARMACY MONITORING -- do not chart) 1 each PRN DAILY PRN MC SEE COMMENTS; Start 04/29/19 at 07:45; Stop 04/29/19 at 07:46; Status DC Info (PHARMACY MONITORING -- do not chart) 1 each PRN DAILY PRN MC SEE COMMENTS; Start 04/29/19 at 07:45; Status Cancel Amiodarone HCl (Cordarone) 400 mg BID PO Last administered on 05/01/19 09:36; Start 04/29/19 at 21:00; Stop 05/01/19 at 12:30; Status DC Amlodipine Besylate (Norvasc) 5 mg DAILY PO Last administered on 05/05/19 09:03; Start 04/29/19 at 15:00 Apixaban (Eliquis) 5 mg BID PO Last administered on 05/01/19 09:36; Start 04/29/19 at 21:00; Stop 05/01/19 at 12:30; Status DC Aspirin (Ecotrin) 81 mg DAILY PO Last administered on 05/05/19 09:03; Start 1 at 09:00 Clonazepam (KlonoPIN) 0.5 mg TID PO Last administered on 05/05/19 14:29; Start 04/29/19 at 15:00 Famotidine (Pepcid) 20 mg HS PO Last administered on 05/03/19at 22:13; Start 04/29/19 at 21:00; Stop 05/04/19 at 07:53; Status DC Metoprolol Tartrate (Lopressor) 25 mg BID PO Last administered on 05/05/19 09:03; Start 04/29/19 at 15:00 Ranolazine (Ranexa) 500 mg Q12HR PO Last administered on 05/05/19 09:02; Start 04/29/19 at 21:00 Atorvastatin Calcium (Lipitor) 80 mg QHS PO Last administered on 04/30/19at 21:42; Start 04/29/19 at 21:00; Stop 05/01/19 at 10:38; Status DC Citalopram Hydrobromide (CeleXA) 30 mg DAILY PO Last administered on 05/05/19at 09:02; Start 04/29/19 at 15:00 Insulin Glargine (Lantus Syringe) 15 unit QHS SQ Last administered on 05/04/19at 21:10; Start 04/29/19 at 21:00 Info (Anti-Coagulation Monitoring By Pharmacy) 1 each PRN DAILY PRN MC SEE C OMMENTS Last administered on 05/01/19at 11:46; Start 04/29/19 at 15:00 Vancomycin HCl 1 gm/Sodium Chloride 250 ml @ 250 mls/hr 1X ONCE IV ; Start 05/01/19 at 08:00; Stop 05/01/19 at 08:59; Status UNV Vancomycin HCl 1.5 gm/Sodium Chloride 500 ml @ 250 mls/hr 1X ONCE IV Last administered on 05/01/19at 11:02; Start 05/01/19 at 08:15; Stop 05/01/19 at 10:14; Status DC Vancomycin HCl (Vanco Per Pharmacy) 1 each PRN DAILY PRN MC SEE COMMENTS Last administered on 05/04/19at 07:59; Start 05/01/19 at 08:15; Stop 05/05/19 at 07:44; Status DC Vancomycin HCl 500 mg/Sodium Chloride 100 ml @ 100 mls/hr 1X ONCE IV Last administered on 05/01/19at 22:07; Start 05/01/19 at 16:00; Stop 05/01/19 at 16:59; Status DC Vancomycin HCl (Vancomycin Random Level) 1 each 1X ONCE MC Last administered on 05/04/19at 06:00; Start 05/04/19 at 06:00; Stop 05/04/19 at 06:01; Status DC Sodium Chloride 1,000 ml @ 1,000 mls/hr Q1H PRN IV hypotension; Start 05/01/19 at 13:46; Stop 05/01/19 at 19:45; Status DC Acetaminophen (Tylenol) 500 mg 1X PRN PRN PO MILD PAIN / TEMP; Start 05/01/19 at 14:00; Stop 05/02/19 at 13:59; Status DC Diphenhydramine HCl (Benadryl) 25 mg 1X PRN PRN IV ITCHING; Start 05/01/19 at 14:00; Stop 05/02/19 at 13:59; Status DC Diphenhydramine HCl (Benadryl) 25 mg 1X PRN PRN IV ITCHING; Start 05/01/19 at 14:00; Stop 05/02/19 at 13:59; Status DC Sodium Chloride 1,000 ml @ 400 mls/hr Q2H30M PRN IV PATENCY; Start 05/01/19 at 13:46; Stop 05/02/19 at 01:45; Status DC Info (PHARMACY MONITORING -- do not chart) 1 each PRN DAILY PRN MC SEE COMMENTS; Start 05/01/19 at 14:00 Dextrose (Dextrose 50%-Water Syringe) 12.5 gm PRN Q15MIN PRN IV SEE COMMENTS Last administered on 05/05/19at 11:41; Start 05/02/19 at 08:15 Lactobacillus Rhamnosus (Culturelle) 1 cap BID PO Last administered on 05/05/19at 09:02; Start 05/02/19 at 21:00 Darbepoetin Donnell (ARANESP for DIALYSIS PTS) 60 mcg WEEKLYHS SQ Last admini stered on 05/03/19at 23:11; Start 05/03/19 at 21:00 Glucose (Insta-Glucose) 15 gm STK-MED ONCE .ROUTE ; Start 05/04/19 at 07:17; Stop 05/04/19 at 07:17; Status DC Sodium Chloride 1,000 ml @ 1,000 mls/hr Q1H PRN IV hypotension; Start 05/04/19 at 07:48; Stop 05/04/19 at 13:47; Status DC Sodium Chloride 1,000 ml @ 400 mls/hr Q2H30M PRN IV PATENCY; Start 05/04/19 at 07:48; Stop 05/04/19 at 19:47; Status DC Info (PHARMACY MONITORING -- do not chart) 1 each PRN DAILY PRN MC SEE COMMENTS; Start 05/04/19 at 08:00; Status UNV Info (PHARMACY MONITORING -- do not chart) 1 each PRN DAILY PRN MC SEE COMMENTS; Start 05/04/19 at 08:00; Status UNV Famotidine (Pepcid) 20 mg Q48H PO ; Start 05/06/19 at 08:00 Vancomycin HCl 500 mg/Sodium Chloride 100 ml @ 100 mls/hr QMWF IV Last administered on 05/04/19at 17:50; Start 05/04/19 at 16:00; Stop 05/05/19 at 07:44; Status DC Glucose (Insta-Glucose) 15 gm 1X ONCE PO Last administered on 05/04/19at 07:20; Start 05/04/19 at 07:20; Stop 05/04/19 at 08:01; Status DC Sodium Chloride 1,000 ml @ 1,000 mls/hr Q1H PRN IV hypotension; Start 05/06/19 at 08:49; Stop 05/06/19 at 14:48 Acetaminophen (Tylenol) 500 mg 1X PRN PRN PO MILD PAIN / TEMP; Start 05/06/19 at 09:00; Stop 05/07/19 at 08:59 Diphenhydramine HCl (Benadryl) 25 mg 1X PRN PRN IV ITCHING; Start 05/06/19 at 09:00; Stop 05/07/19 at 08:59 Diphenhydramine HCl (Benadryl) 25 mg 1X PRN PRN IV ITCHING; Start 05/06/19 at 09:00; Stop 05/07/19 at 08:59 Labetalol HCl (Normodyne Iv Push) 10 mg PRN Q1HR PRN IVP SBP > 180; Start 05/06/19 at 09:00; Stop 05/07/19 at 08:59 Sodium Chloride 1,000 ml @ 400 mls/hr Q2H30M PRN IV PATENCY; Start 05/06/19 at 08:49; Stop 05/06/19 at 20:48 Info (PHARMACY MONITORING -- do not chart) 1 each PRN DAILY PRN MC SEE COMMENTS; Start 05/06/19 at 09:00 Active Scripts Active Reported Vitamin D (Cholecalciferol (Vitamin D3)) 1,000 Unit Capsule 1 Cap PO DAILY Tylenol (Acetaminophen) 325 Mg Tablet 2 Tab PO PRN Q4HRS Tums (Calcium Carbonate) 200 Mg Tab.chew 4 Tab PO DAILY Ranexa (Ranolazine) 500 Mg Tab.er.12h 1 Tab PO Q12HR Phoslyra (Calcium Acetate) 667 Mg/5 Ml Solution 15 Ml PO TIDAC NITROGLYCERIN SubLingual (Nitroglycerin) 0.4 Mg Tab.subl 0.4 Mg SL PRN Q5MIN PRN Miralax (Polyethylene Glycol 3350) 17 Gm Powd.pack 1 Packet PO BID Metoprolol Tartrate 25 Mg Tablet 1 Tab PO BID Lidocaine PATCH (Lidocaine) 1 Each Adh..patch 1 Each TP DAILY REMOVE AFTER 12 HOURS Lexapro (Escitalopram Oxalate) 5 Mg Tablet 15 Mg PO DAILY Levemir (Insulin Detemir) 100 Unit/1 Ml Vial 15 Unit SQ QHS Klonopin (Clonazepam) 0.5 Mg Tablet 1 Tab PO TID Imodium A-D (Loperamide HCl) 2 Mg Capsule 2 Mg PO PRN Q4HRS PRN Hydrocodone-Apap 5-325 (Hydrocodone Bit/Acetaminophen) 1 Tab Tablet 1 Tab PO PRN Q4HRS PRN Folic Acid 1 Mg Tablet 1 Tab PO DAILY Ferrous Sulfate 325 Mg Tablet 1 Tab PO BID Pepcid (Famotidine) 20 Mg Tablet 20 Mg PO HS Clobetasol Propionate 15 Gm Cream..g. 1 Jomar TP DAILY08 Dulcolax (Bisacodyl) 5 Mg Tablet.dr 4 Tab PO PRN BID PRN Bisacodyl 10 Mg Supp.rect 10 Mg RC PRN DAILY PRN Aspir-Low (Aspirin) 81 Mg Tablet.dr 1 Tab PO DAILY Artificial Tears (Dextran 70/Hypromellose) 1 Each Droperette 1 Each OP PRN Q8HRS PRN Eliquis (Apixaban) 5 Mg Tablet 5 Mg PO BID Ammonium Lactate 226 Gm Lotion 1 Gm TP DAILY16 Amlodipine Besylate 5 Mg Tablet 5 Mg PO DAILY Amiodarone Hcl 200 Mg Tablet 2 Tab PO BID Amiodarone Hcl 200 Mg Tablet 1 Tab PO NOON Lipitor (Atorvastatin Calcium) 80 Mg Tablet 1 Tab PO DAILY Vitals/I & O Vital Sign - Last 24 Hours 05/05/19 05/05/19 05/05/19 05/05/19 11:01 15:00 19:42 20:00 Temp 97.9 98.1 97.6 97.9 98.1 97.6 Pulse 60 60 60 Resp 18 18 16 B/P (MAP) 135/78 (97) 130/77 (94) 134/73 (93) Pulse Ox 100 97 100 O2 Delivery Room Air Room Air Room Air Room Air 05/05/19 05/05/19 05/05/19 05/06/19 21:00 21:00 23:51 03:14 Temp 97.6 97.5 97.6 97.5 Pulse 60 60 60 63 Resp 16 16 B/P (MAP) 134/73 134/73 131/74 (93) 124/70 (88) Pulse Ox 100 100 O2 Delivery Room Air Room Air 05/06/19 05/06/19 05/06/19 05/06/19 07:00 08:00 09:00 09:00 Temp 97.4 97.4 Pulse 60 60 60 Resp 18 B/P (MAP) 132/54 (80) 132/54 132/54 Pulse Ox 99 O2 Delivery Room Air Room Air Intake and Output 05/05/19 05/05/19 05/06/19 14:59 22:59 06:59 Intake Total 150 ml 200 ml 340 ml Balance 150 ml 200 ml 340 ml REBECCA WEAVER MD May 06, 2019 10:13
--- NOTE | 2019-05-06 11:34 | PDOC ---
Subjective: Subjective: Says she's feeling better and tolerating PO w/o abd pain. Hasn't stooled and would like help with this. Objective: Vital Signs: Vital Signs Date Time Temp Pulse Resp B/P (MAP) Pulse Ox O2 Delivery O2 Flow Rate FiO2 05/06/19 09:00 60 132/54 05/06/19 08:00 Room Air 05/06/19 07:00 97.4 18 99 97.4 Labs: Laboratory Tests Test 05/05/19 11:47 05/05/19 16:54 05/05/19 19:56 05/05/19 22:29 Glucose (Fingerstick) 165 mg/dL 96 mg/dL 72 mg/dL 136 mg/dL Test 05/06/19 02:43 05/06/19 02:59 05/06/19 07:23 Glucose (Fingerstick) 145 mg/dL 104 mg/dL White Blood Count 4.5 x10^3/uL Red Blood Count 3.31 x10^6/uL Hemoglobin 8.5 g/dL Hematocrit 26.7 % Mean Corpuscular Volume 81 fL Mean Corpuscular Hemoglobin 26 pg Mean Corpuscular Hemoglobin Concent 32 g/dL Red Cell Distribution Width 20.7 % Platelet Count 286 x10^3/uL Neutrophils (%) (Auto) 67 % Lymphocytes (%) (Auto) 18 % Monocytes (%) (Auto) 13 % Eosinophils (%) (Auto) 2 % Basophils (%) (Auto) 1 % Neutrophils # (Auto) 3.0 x10^3/uL Lymphocytes # (Auto) 0.8 x10^3/uL Monocytes # (Auto) 0.6 x10^3/uL Eosinophils # (Auto) 0.1 x10^3/uL Basophils # (Auto) 0.0 x10^3/uL Sodium Level 141 mmol/L Potassium Level 4.7 mmol/L Chloride Level 98 mmol/L Carbon Dioxide Level 31 mmol/L Anion Gap 12 Blood Urea Nitrogen 33 mg/dL Creatinine 8.6 mg/dL Estimated GFR (Cockcroft-Gault) 5.9 Glucose Level 140 mg/dL Calcium Level 11.9 mg/dL Phosphorus Level 7.2 mg/dL Albumin 2.6 g/dL BLOOD CULTURE Final NO GROWTH AFTER 5 DAYS PE: GEN: dialyzing LUNGS: CTAB HEART: RRR ABD: S/ND/NT NEURO/PSYCH: A & O 3 A/P: Abnormal LFTs - suspect related to amiodarone ACD Constipation -- Try Miralax. PEYMAN GARCIA May 06, 2019 11:34
[2019-05-06] MEDS ORDERED: POLYETHYLENE GLYCOL 3350 17 GM PACKET. PO PRN (11:45)
--- NOTE | 2019-05-06 13:27 | PDOC3 ---
Discharge Summary Date of Admission: Apr 28, 2019 Date of Discharge: May 06, 2019 Follow-Up: 1-2 days Admitting Diagnosis comment: ASSESSMENT altered mental status, IMPROVING, slow to recover, now more confused 05/[address] head 04/29 Mild atrophy and chronic microangiopathic white matter change. Severe hyperkalemia, TREATED hypothermia, hyperglycemia, hypercalcemia anemia. Basilar atelectasis. Correlate for mild pulmonary edema. ESRD on dialysis TRANSAMINITIS fever Focal groundglass consolidation left lingula of the lung likely pneumonia. Follow-up to resolution. minimal questionable fat stranding identified about the bilateral kidneys, nonspecific could be due to medical renal disease or pyelonephritis. fat stranding identified about the gallbladder likely artifactual due to motion and less likely inflammation. Consider ultrasound right upper quadrant. Amiodarone has been on 400 mg bid dosing at least in the last 2 months and it appears per [facility]ology this was to be changed to 200 mg daily , will d/c for now bacteremia vs contaminate GRAM POSITIVE COCCI IN CLUSTERS IN 1 OF 4 BOTTLES (2 SETS COLLECTED). CALLED TO [facility] ON 5S 05/01/19 AT 0743 BY Kev SIMMS. CULTURE HAS BEEN SENT TO [facility] FOR FURTHER IDENTIFICATION admitted. consult Nephrology dialysis currently. Frequent labs. Electrolyte protocol. DVT prophylaxis. Home meds. consult neurology NEUROCHECKS Q 4 HRS GI CONSULT ID CONSULT cute dx HEPATITIS PANEL HOLD HEPATOTOXIC DRUGS//AMIODARONE blood cult, iv vanc x 1 10-04 CT CHEST, ABD serum protein electrophoresis hold d/c 05/05 34 MIN PT EXAM, CHART REVIEW d/c planning time, > 50% OF TIME SPENT WITH EXAM, CHART REVIEW, PT CARE COORDINATION Vitals Vitals Vital Signs Date Time Temp Pulse Resp B/P (MAP) Pulse Ox O2 Delivery O2 Flow Rate FiO2 05/06/19 09:00 60 132/54 05/06/19 08:00 Room Air 05/06/19 07:00 97.4 18 99 97.4 Physical Exam Physical Exam GENERAL: In bed and coop NAD HEENT: Pupils equally round, oropharynx pink and moist. No lesions. NECK: Supple. LUNGS: Clear to auscultation. HEART: S1, S2. ABDOMEN: Soft and nontender with bowel sounds present. EXTREMITIES: No gross edema or cyanosis. She had several firm lesions on her legs, nontender. LUE-AV fistula unremarkable. NEUROLOGIC: Answers questions appropriately/ moves all ext. General: Cooperative, No acute distress, Other (confused) Heart: Regular rate (not on tele), Normal S1, No murmurs, Other (3/6 apical murmur systolic) Lungs: Clear Abdomen: Normal bowel sounds, Soft, No tenderness Extremities: No clubbing, No cyanosis, No edema Skin: No breakdown, No significant lesion FINAL DIAGNOSIS Problems Medical Problems: (1) Altered mental status Status: Acute (2) Hypoglycemia Status: Acute Brief Hospital Course Ms. Ward is a 53 old [sex] who presented with [ AMS, SEPSIS] CONDITION AT DISCHARGE: Improved Discharge Medications Current Medications Dextrose (Dextrose 50%-Water Syringe) 25 gm STK-MED ONCE IV ; Start 04/28/19 at 22:31; Stop 04/28/19 at 22:31; Status DC Dextrose (Dextrose 50%-Water Syringe) 25 gm 1X ONCE IV Last administered on 04/28/19at 23:25; Start 04/28/19 at 23:00; Stop 04/28/19 at 23:01; Status DC Sodium Bicarbonate (Sodium Bicarb Adult 8.4% Syr) 50 meq 1X ONCE IV Last administered on 04/29/19at 00:33; Start 04/29/19 at 01:00; Stop 04/29/19 at 01:01; Status DC Dextrose (Dextrose 50%-Water Syringe) 25 gm 1X ONCE IV Last administered on 04/29/19at 00:33; Start 04/29/19 at 01:00; Stop 04/29/19 at 01:01; Status DC Insulin Human Regular (HumuLIN R VIAL) 5 unit 1X ONCE IV Last administered on 04/29/19at 00:35; Start 04/29/19 at 01:00; Stop 04/29/19 at 01:01; Status DC Sodium Polystyrene Sulfonate (Kayexalate) 30 gm 1X ONCE PO Last administered on 04/29/19at 00:32; Start 04/29/19 at 01:00; Stop 04/29/19 at 01:01; Status DC Sodium Chloride 1,000 ml @ 1,000 mls/hr Q1H IV Last administered on 04/29/19at 00:30; Start 04/29/19 at 01:00; Stop 04/29/19 at 01:59; Status DC Albuterol Sulfate (Ventolin Neb Soln) 10 mg 1X ONCE CONT NEB Last administered on 04/29/19at 00:35; Start 04/29/19 at 01:00; Stop 04/29/19 at 01:01; Status DC Ondansetron HCl (Zofran) 4 mg PRN Q8HRS PRN IV NAUSEA/VOMITING 1ST CHOICE; Start 04/29/19 at 01:00; Stop 04/30/19 at 00:59; Status DC Sodium Chloride 1,000 ml @ 1,000 mls/hr Q1H PRN IV hypotension; Start 04/29/19 at 07:38; Stop 04/29/19 at 13:37; Status DC Albumin Human 200 ml @ 200 mls/hr 1X PRN PRN IV Hypotension; Start 04/29/19 at 07:45; Stop 04/29/19 at 13:44; Status DC Acetaminophen (Tylenol) 500 mg 1X PRN PRN PO MILD PAIN / TEMP; Start 04/29/19 at 07:45; Stop 04/30/19 at 07:44; Status DC Diphenhydramine HCl (Benadryl) 25 mg 1X PRN PRN IV ITCHING; Start 04/29/19 at 07:45; Stop 04/30/19 at 07:44; Status DC Diphenhydramine HCl (Benadryl) 25 mg 1X PRN PRN IV ITCHING; Start 04/29/19 at 07:45; Stop 04/30/19 at 07:44; Status DC Labetalol HCl (Normodyne Iv Push) 10 mg PRN Q1HR PRN IVP SBP > 180; Start 04/29/19 at 07:45; Stop 04/30/19 at 07:44; Status DC Sodium Chloride 1,000 ml @ 400 mls/hr Q2H30M PRN IV PATENCY; Start 04/29/19 at 07:38; Stop 04/29/19 at 19:37; Status DC Info (PHARMACY MONITORING -- do not chart) 1 each PRN DAILY PRN MC SEE COMMENTS; Start 04/29/19 at 07:45; Stop 04/29/19 at 07:46; Status DC Info (PHARMACY MONITORING -- do not chart) 1 each PRN DAILY PRN MC SEE COMMENTS; Start 04/29/19 at 07:45; Status Cancel Amiodarone HCl (Cordarone) 400 mg BID PO Last administered on 05/01/19 09:36; Start 04/29/19 at 21:00; Stop 05/01/19 at 12:30; Status DC Amlodipine Besylate (Norvasc) 5 mg DAILY PO Last administered on 05/05/19 09:0 3; Start 04/29/19 at 15:00 Apixaban (Eliquis) 5 mg BID PO Last administered on 05/01/19 09:36; Start 04/29/19 at 21:00; Stop 05/01/19 at 12:30; Status DC Aspirin (Ecotrin) 81 mg DAILY PO Last administered on 05/05/19 09:03; Start 04/30/19 at 09:00 Clonazepam (KlonoPIN) 0.5 mg TID PO Last administered on 05/05/19 14:29; Start 04/29/19 at 15:00 Famotidine (Pepcid) 20 mg HS PO Last administered on 05/03/19 22:13; Start 04/29/19 at 21:00; Stop 05/04/19 at 07:53; Status DC Metoprolol Tartrate (Lopressor) 25 mg BID PO Last administered on 05/05/19 09:03; Start 04/29/19 at 15:00 Ranolazine (Ranexa) 500 mg Q12HR PO Last administered on 05/05/19 09:02; Start 04/29/19 at 21:00 Atorvastatin Calcium (Lipitor) 80 mg QHS PO Last administered on 04/30/19 21 :42; Start 04/29/19 at 21:00; Stop 05/01/19 at 10:38; Status DC Citalopram Hydrobromide (CeleXA) 30 mg DAILY PO Last administered on 05/05/19 09:02; Start 04/29/19 at 15:00 Insulin Glargine (Lantus Syringe) 15 unit QHS SQ Last administered on 05/04/19 21:10; Start 04/29/19 at 21:00 Info (Anti-Coagulation Monitoring By Pharmacy) 1 each PRN DAILY PRN MC SEE COMMENTS Last administered on 05/01/19 11:46; Start 04/29/19 at 15:00 Vancomycin HCl 1 gm/Sodium Chloride 250 ml @ 250 mls/hr 1X ONCE IV ; Start 05/01/19 at 08:00; Stop 05/01/19 at 08:59; Status UNV Vancomycin HCl 1.5 gm/Sodium Chloride 500 ml @ 250 mls/hr 1X ONCE IV Last administered on 05/01/19at 11:02; Start 05/01/19 at 08:15; Stop 05/01/19 at 10:14; Status DC Vancomycin HCl (Vanco Per Pharmacy) 1 each PRN DAILY PRN MC SEE COMMENTS Last administered on 05/04/19at 07:59; Start 05/01/19 at 08:15; Stop 05/05/19 at 07:44 ; Status DC Vancomycin HCl 500 mg/Sodium Chloride 100 ml @ 100 mls/hr 1X ONCE IV Last administered on 05/01/19at 22:07; Start 05/01/19 at 16:00; Stop 05/01/19 at 16:59; Status DC Vancomycin HCl (Vancomycin Random Level) 1 each 1X ONCE MC Last administered on 05/04/19at 06:00; Start 05/04/19 at 06:00; Stop 05/04/19 at 06:01; Status DC Sodium Chloride 1,000 ml @ 1,000 mls/hr Q1H PRN IV hypotension; Start 05/01/19 at 13:46; Stop 05/01/19 at 19:45; Status DC Acetaminophen (Tylenol) 500 mg 1X PRN PRN PO MILD PAIN / TEMP; Start 05/01/19 at 14:00; Stop 05/02/19 at 13:59; Status DC Diphenhydramine HCl (Benadryl) 25 mg 1X PRN PRN IV ITCHING; Start 05/01/19 at 14:00; Stop 05/02/19 at 13:59; Status DC Diphenhydramine HCl (Benadryl) 25 mg 1X PRN PRN IV ITCHING; Start 05/01/19 at 14:00; Stop 05/02/19 at 13:59; Status DC Sodium Chloride 1,000 ml @ 400 mls/hr Q2H30M PRN IV PATENCY; Start 05/01/19 at 13:46; Stop 05/02/19 at 01:45; Status DC Info (PHARMACY MONITORING -- do not chart) 1 each PRN DAILY PRN MC SEE COMMENTS; Start 05/01/19 at 14:00 Dextrose (Dextrose 50%-Water Syringe) 12.5 gm PRN Q15MIN PRN IV SEE COMMENTS Last administered on 05/05/19at 11:41; Start 05/02/19 at 08:15 Lactobacillus Rhamnosus (Culturelle) 1 cap BID PO Last administered on 05/05/19 at 09:02; Start 05/02/19 at 21:00 Darbepoetin Donnell (ARANESP for DIALYSIS PTS) 60 mcg WEEKLYHS SQ Last administered on 05/03/19at 23:11; Start 05/03/19 at 21:00 Glucose (Insta-Glucose) 15 gm STK-MED ONCE .ROUTE ; Start 05/04/19 at 07:17; Stop 05/04/19 at 07:17; Status DC Sodium Chloride 1,000 ml @ 1,000 mls/hr Q1H PRN IV hypotension; Start 05/04/19 at 07:48; Stop 05/04/19 at 13:47; Status DC Sodium Chloride 1,000 ml @ 400 mls/hr Q2H30M PRN IV PATENCY; Start 05/04/19 at 07:48; Stop 05/04/19 at 19:47; Status DC Info (PHARMACY MONITORING -- do not chart) 1 each PRN DAILY PRN MC SEE COMMENTS; Start 05/04/19 at 08:00; Status UNV Info (PHARMACY MONITORING -- do not chart) 1 each PRN DAILY PRN MC SEE COMMENTS; Start 05/04/19 at 08:00; Status UNV Famotidine (Pepcid) 20 mg Q48H PO ; Start 05/06/19 at 08:00 Vancomycin HCl 500 mg/Sodium Chloride 100 ml @ 100 mls/hr QMWF IV Last admini stered on 05/04/19at 17:50; Start 05/04/19 at 16:00; Stop 05/05/19 at 07:44; Status DC Glucose (Insta-Glucose) 15 gm 1X ONCE PO Last administered on 05/04/19at 07:20; Start 05/04/19 at 07:20; Stop 05/04/19 at 08:01; Status DC Sodium Chloride 1,000 ml @ 1,000 mls/hr Q1H PRN IV hypotension; Start 05/06/19 at 08:49; Stop 05/06/19 at 14:48 Acetaminophen (Tylenol) 500 mg 1X PRN PRN PO MILD PAIN / TEMP; Start 05/06/19 at 09:00; Stop 05/07/19 at 08:59 Diphenhydramine HCl (Benadryl) 25 mg 1X PRN PRN IV ITCHING; Start 05/06/19 at 09:00; Stop 05/07/19 at 08:59 Diphenhydramine HCl (Benadryl) 25 mg 1X PRN PRN IV ITCHING; Start 05/06/19 at 09:00; Stop 05/07/19 at 08:59 Labetalol HCl (Normodyne Iv Push) 10 mg PRN Q1HR PRN IVP SBP > 180; Start 05/06/19 at 09:00; Stop 05/07/19 at 08:59 Sodium Chloride 1,000 ml @ 400 mls/hr Q2H30M PRN IV PATENCY; Start 05/06/19 at 08:49; Stop 05/06/19 at 20:48 Info (PHARMACY MONITORING -- do not chart) 1 each PRN DAILY PRN MC SEE COMMENTS; Start 05/06/19 at 09:00; Stop 05/06/19 at 13:05; Status DC Polyethylene Glycol (miraLAX PACKET) 17 gm DAILY PO ; Start 05/07/19 at 09:00 Polyethylene Glycol (miraLAX PACKET) 17 gm PRN DAILY PRN PO CONSTIPATION; Start 05/06/19 at 11:45 Active Scripts Active Reported Vitamin D (Cholecalciferol (Vitamin D3)) 1,000 Unit Capsule 1 Cap PO DAILY Tylenol (Acetaminophen) 325 Mg Tablet 2 Tab PO PRN Q4HRS Tums (Calcium Carbonate) 200 Mg Tab.chew 4 Tab PO DAILY Ranexa (Ranolazine) 500 Mg Tab.er.12h 1 Tab PO Q12HR Phoslyra (Calcium Acetate) 667 Mg/5 Ml Solution 15 Ml PO TIDAC NITROGLYCERIN SubLingual (Nitroglycerin) 0.4 Mg Tab.subl 0.4 Mg SL PRN Q5MIN PRN Miralax (Polyethylene Glycol 3350) 17 Gm Powd.pack 1 Packet PO BID Metoprolol Tartrate 25 Mg Tablet 1 Tab PO BID Lidocaine PATCH (Lidocaine) 1 Each Adh..patch 1 Each TP DAILY REMOVE AFTER 12 HOURS Lexapro (Escitalopram Oxalate) 5 Mg Tablet 15 Mg PO DAILY Levemir (Insulin Detemir) 100 Unit/1 Ml Vial 15 Unit SQ QHS Klonopin (Clonazepam) 0.5 Mg Tablet 1 Tab PO TID Imodium A-D (Loperamide HCl) 2 Mg Capsule 2 Mg PO PRN Q4HRS PRN Hydrocodone-Apap 5-325 (Hydrocodone Bit/Acetaminophen) 1 Tab Tablet 1 Tab PO PRN Q4HRS PRN Folic Acid 1 Mg Tablet 1 Tab PO DAILY Ferrous Sulfate 325 Mg Tablet 1 Tab PO BID Pepcid (Famotidine) 20 Mg Tablet 20 Mg PO HS Clobetasol Propionate 15 Gm Cream..g. 1 Jomar TP DAILY08 Dulcolax (Bisacodyl) 5 Mg Tablet.dr 4 Tab PO PRN BID PRN Bisacodyl 10 Mg Supp.rect 10 Mg RC PRN DAILY PRN Aspir-Low (Aspirin) 81 Mg Tablet.dr 1 Tab PO DAILY Artificial Tears (Dextran 70/Hypromellose) 1 Each Droperette 1 Each OP PRN Q8HRS PRN Eliquis (Apixaban) 5 Mg Tablet 5 Mg PO BID Ammonium Lactate 226 Gm Lotion 1 Gm TP DAILY16 Amlodipine Besylate 5 Mg Tablet 5 Mg PO DAILY Amiodarone Hcl 200 Mg Tablet 2 Tab PO BID Amiodarone Hcl 200 Mg Tablet 1 Tab PO NOON Lipitor (Atorvastatin Calcium) 80 Mg Tablet 1 Tab PO DAILY Vital Signs Vital Signs Date Time Temp Pulse Resp B/P (MAP) Pulse Ox O2 Delivery O2 Flow Rate FiO2 05/06/19 09:00 60 132/54 05/06/19 08:00 Room Air 05/06/19 07:00 97.4 18 99 97.4 Labs Laboratory Tests Test 05/04/19 16:37 05/04/19 20:41 05/05/19 03:25 05/05/19 07:08 Glucose (Fingerstick) 91 mg/dL (70-99) 127 mg/dL (70-99) 52 mg/dL (70-99) White Blood Count 5.4 x10^3/uL (4.0-11.0) Red Blood Count 3.05 x10^6/uL (3.50-5.40) Hemoglobin 8.0 g/dL (12.0-15.5) Hematocrit 24.4 % (36.0-47.0) Mean Corpuscular Volume 80 fL (79-100) Mean Corpuscular Hemoglobin 26 pg (25-35) Mean Corpuscular Hemoglobin Concent 33 g/dL (31-37) Red Cell Distribution Width 20.5 % (11.5-14.5) Platelet Count 305 x10^3/uL (140-400) Neutrophils (%) (Auto) 67 % (31-73) Lymphocytes (%) (Auto) 18 % (24-48) Monocytes (%) (Auto) 13 % (0-9) Eosinophils (%) (Auto) 2 % (0-3) Basophils (%) (Auto) 1 % (0-3) Neutrophils # (Auto) 3.6 x10^3/uL (1.8-7.7) Lymphocytes # (Auto) 1.0 x10^3/uL (1.0-4.8) Monocytes # (Auto) 0.7 x10^3/uL (0.0-1.1) Eosinophils # (Auto) 0.1 x10^3/uL (0.0-0.7) Basophils # (Auto) 0.1 x10^3/uL (0.0-0.2) Sodium Level 140 mmol/L (136-145) Potassium Level 4.1 mmol/L (3.5-5.1) Chloride Level 98 mmol/L (98-107) Carbon Dioxide Level 30 mmol/L (21-32) Anion Gap 12 (6-14) Blood Urea Nitrogen 24 mg/dL (7-20) Creatinine 6.5 mg/dL (0.6-1.0) Estimated GFR (Cockcroft-Gault) 8.2 BUN/Creatinine Ratio 4 (6-20) Glucose Level 77 mg/dL (70-99) Calcium Level 11.9 mg/dL (8.5-10.1) Total Bilirubin 1.6 mg/dL (0.2-1.0) Aspartate Amino Transf (AST/SGOT) 345 U/L (15-37) Alanine Aminotransferase (ALT/SGPT) 360 U/L (14-59) Alkaline Phosphatase 156 U/L (46-116) Total Protein 7.7 g/dL (6.4-8.2) Albumin 2.5 g/dL (3.4-5.0) Albumin/Globulin Ratio 0.5 (1.0-1.7) Test 05/05/19 07:40 05/05/19 10:58 05/05/19 11:47 05/05/19 16:54 Glucose (Fingerstick) 153 mg/dL (70-99) 66 mg/dL (70-99) 165 mg/dL (70-99) 96 mg/dL (70-99) Test 05/05/19 19:56 05/05/19 22:29 05/06/19 02:43 05/06/19 02:59 Glucose (Fingerstick) 72 mg/dL (70-99) 136 mg/dL (70-99) 145 mg/dL (70-99) White Blood Count 4.5 x10^3/uL (4.0-11.0) Red Blood Count 3.31 x10^6/uL (3.50-5.40) Hemoglobin 8.5 g/dL (12.0-15.5) Hematocrit 26.7 % (36.0-47.0) Mean Corpuscular Volume 81 fL (79-100) Mean Corpuscular Hemoglobin 26 pg (25-35) Mean Corpuscular Hemoglobin Concent 32 g/dL (31-37) Red Cell Distribution Width 20.7 % (11.5-14.5) Platelet Count 286 x10^3/uL (140-400) Neutrophils (%) (Auto) 67 % (31-73) Lymphocytes (%) (Auto) 18 % (24-48) Monocytes (%) (Auto) 13 % (0-9) Eosinophils (%) (Auto) 2 % (0-3) Basophils (%) (Auto) 1 % (0-3) Neutrophils # (Auto) 3.0 x10^3/uL (1.8-7.7) Lymphocytes # (Auto) 0.8 x10^3/uL (1.0-4.8) Monocytes # (Auto) 0.6 x10^3/uL (0.0-1.1) Eosinophils # (Auto) 0.1 x10^3/uL (0.0-0.7) Basophils # (Auto) 0.0 x10^3/uL (0.0-0.2) Sodium Level 141 mmol/L (136-145) Potassium Level 4.7 mmol/L (3.5-5.1) Chloride Level 98 mmol/L (98-107) Carbon Dioxide Level 31 mmol/L (21-32) Anion Gap 12 (6-14) Blood Urea Nitrogen 33 mg/dL (7-20) Creatinine 8.6 mg/dL (0.6-1.0) Estimated GFR (Cockcroft-Gault) 5.9 Glucose Level 140 mg/dL (70-99) Calcium Level 11.9 mg/dL (8.5-10.1) Phosphorus Level 7.2 mg/dL (2.6-4.7) Albumin 2.6 g/dL (3.4-5.0) Test 05/06/19 07:23 Glucose (Fingerstick) 104 mg/dL (70-99) Laboratory Tests Test 05/05/19 16:54 05/05/19 19:56 05/05/19 22:29 05/06/19 02:43 Glucose (Fingerstick) 96 mg/dL (70-99) 72 mg/dL (70-99) 136 mg/dL (70-99) 145 mg/dL (70-99) Test 05/06/19 02:59 05/06/19 07:23 White Blood Count 4.5 x10^3/uL (4.0-11.0) Red Blood Count 3.31 x10^6/uL (3.50-5.40) Hemoglobin 8.5 g/dL (12.0-15.5) Hematocrit 26.7 % (36.0-47.0) Mean Corpuscular Volume 81 fL (79-100) Mean Corpuscular Hemoglobin 26 pg (25-35) Mean Corpuscular Hemoglobin Concent 32 g/dL (31-37) Red Cell Distribution Width 20.7 % (11.5-14.5) Platelet Count 286 x10^3/uL (140-400) Neutrophils (%) (Auto) 67 % (31-73) Lymphocytes (%) (Auto) 18 % (24-48) Monocytes (%) (Auto) 13 % (0-9) Eosinophils (%) (Auto) 2 % (0-3) Basophils (%) (Auto) 1 % (0-3) Neutrophils # (Auto) 3.0 x10^3/uL (1.8-7.7) Lymphocytes # (Auto) 0.8 x10^3/uL (1.0-4.8) Monocytes # (Auto) 0.6 x10^3/uL (0.0-1.1) Eosinophils # (Auto) 0.1 x10^3/uL (0.0-0.7) Basophils # (Auto) 0.0 x10^3/uL (0.0-0.2) Sodium Level 141 mmol/L (136-145) Potassium Level 4.7 mmol/L (3.5-5.1) Chloride Level 98 mmol/L (98-107) Carbon Dioxide Level 31 mmol/L (21-32) Anion Gap 12 (6-14) Blood Urea Nitrogen 33 mg/dL (7-20) Creatinine 8.6 mg/dL (0.6-1.0) Estimated GFR (Cockcroft-Gault) 5.9 Glucose Level 140 mg/dL (70-99) Calcium Level 11.9 mg/dL (8.5-10.1) Phosphorus Level 7.2 mg/dL (2.6-4.7) Albumin 2.6 g/dL (3.4-5.0) Glucose (Fingerstick) 104 mg/dL (70-99) Allergies Allergies Coded Allergies Type Severity Reaction Last Updated Verified Milk Containing Products Allergy Intermediate 11/02/15 Yes Penicillins Allergy Intermediate 11/02/15 Yes haloperidol Allergy Intermediate 04/28/19 Yes Disposition/Orders: Other (d/c to snf) Patient Instructions D/C PLANNING REBECCA WEAVER MD May 06, 2019 13:27
[2019-05-06] MEDS ORDERED: LACT1CAP19 PO (13:30)
[2019-05-06] MEDS: ANTI-COAG MONITOR BY PHARMACY. MC PRN (13:31)
--- NOTE | 2019-05-06 13:32 | SNU/HH DC ---
DISCHARGE ORDERS DISCHARGE INFORMATION: FINAL DIAGNOSIS Problems Medical Problems: (1) Altered mental status Status: Acute (2) Hypoglycemia Status: Acute CONDITION ON DISCHARGE: Stable CODE STATUS: Code Status: Full CUSTODIAL: SNF STAY <30 DAYS: Yes HOSPICE: HOSPICE: No HOSPICE EVAL & TREAT: No LTAC: ADMIT TO LTAC: No POST DISCHARGE ORDERS: ACTIVITY ORDERS: Activity as tolerated DIET AFTER DISCHARGE: Renal TREATMENT/EQUIPMENT ORDERS: Physical Therapy For: Evalulation/Treatment Occupational Therapy For: Evaluation/Treatment Speech Language Pathology For: Evaluation/Treatment DISCHARGE MEDICATIONS: Home Meds Active Scripts Lactobacillus Rhamnosus Gg (CULTURELLE) 1 Each Cap.sprink, 1 CAP PO BID for SUPPLEMENT for 30 Days, #60 CAP Prov:REBECCA WEAVER MD 05/06/19 Reported Medications Cholecalciferol (Vitamin D3) (VITAMIN D) 1,000 Unit Capsule, 1 CAP PO DAILY for Supplement, #30 CAP 3 Refills 04/29/19 Calcium Carbonate (TUMS) 200 Mg Tab.chew, 4 TAB PO DAILY for ESRD, TAB.CHEW 04/29/19 Ranolazine (RANEXA) 500 Mg Tab.er.12h, 1 TAB PO Q12HR for Angina, #60 TAB 3 Refills 04/29/19 Calcium Acetate (PHOSLYRA) 667 Mg/5 Ml Solution, 15 ML PO TIDAC for ESRD, MISC 04/29/19 Nitroglycerin (NITROGLYCERIN SubLingual) 0.4 Mg Tab.subl, 0.4 MG SL PRN Q5MIN PRN for CHEST PAIN, BOTTLE 04/29/19 Polyethylene Glycol 3350 (MIRALAX) 17 Gm Powd.pack, 1 PACKET PO BID for Constipation, #30 PACKET 3 Refills 04/29/19 Metoprolol Tartrate (METOPROLOL TARTRATE) 25 Mg Tablet, 1 TAB PO BID for CHF, #180 TAB 1 Refill 04/29/19 Escitalopram Oxalate (LEXAPRO) 5 Mg Tablet, 15 MG PO DAILY for Depression, TAB 04/29/19 Insulin Detemir (LEVEMIR) 100 Unit/1 Ml Vial, 15 UNIT SQ QHS for Diabetes, VIAL 04/29/19 Clonazepam (KLONOPIN) 0.5 Mg Tablet, 1 TAB PO TID for Anxiety, #90 TAB 04/29/19 Loperamide HCl (Imodium A-D) 2 Mg Capsule, 2 MG PO PRN Q4HRS PRN for DIARRHEA, CAP 04/29/19 Folic Acid (FOLIC ACID) 1 Mg Tablet, 1 TAB PO DAILY for Anemia, #90 TAB 1 Refill 04/29/19 Ferrous Sulfate (FERROUS SULFATE) 325 Mg Tablet, 1 TAB PO BID for Anemia, #30 TAB 3 Refills 04/29/19 Famotidine (PEPCID) 20 Mg Tablet, 20 MG PO HS for Heartburn, TAB 04/29/19 Bisacodyl (DULCOLAX) 5 Mg Tablet.dr, 4 TAB PO PRN BID PRN for CONSTIPATION, #4 TAB 04/29/19 Bisacodyl (BISACODYL) 10 Mg Supp.rect, 10 MG RC PRN DAILY PRN for CONSTIPATION, SUPP.RECT 0 Refills 04/29/19 Aspirin (ASPIR-LOW) 81 Mg Tablet.dr, 1 TAB PO DAILY for Blood thinner, #30 TAB 3 Refills 04/29/19 Dextran 70/Hypromellose (ARTIFICIAL TEARS) 1 Each Droperette, 1 EACH OP PRN Q8HRS PRN for Dry eyes, DROP 04/29/19 Apixaban (ELIQUIS) 5 Mg Tablet, 5 MG PO BID for Antiplatlet, TAB 04/29/19 Amlodipine Besylate (AMLODIPINE BESYLATE) 5 Mg Tablet, 5 MG PO DAILY for HTN, TAB 04/29/19 Discontinued Reported Medications Acetaminophen (TYLENOL) 325 Mg Tablet, 2 TAB PO PRN Q4HRS for Pain, #30 TAB 04/29/19 Lidocaine (Lidocaine PATCH ) 1 Each Adh..patch, 1 EACH TP DAILY for FOR LOCAL PAIN, PATCH REMOVE AFTER 12 HOURS 04/29/19 Hydrocodone Bit/Acetaminophen (HYDROCODONE-APAP 5-325 ) 1 Tab Tablet, 1 TAB PO PRN Q4HRS PRN for PAIN, TAB 0 Refills 04/29/19 Clobetasol Propionate (CLOBETASOL PROPIONATE) 15 Gm Cream..g., 1 TRACEY TP DAILY08 for Dry skin (Bilat legs), #15 GM 04/29/19 Ammonium Lactate (Ammonium Lactate) 226 Gm Lotion, 1 GM TP DAILY16 for Dry skin (to legs), MISC 04/29/19 Amiodarone Hcl (AMIODARONE HCL) 200 Mg Tablet, 2 TAB PO BID for Arhythmia, #90 TAB 1 Refill 04/29/19 Amiodarone Hcl (AMIODARONE HCL) 200 Mg Tablet, 1 TAB PO NOON for Arhythmia, #90 TAB 1 Refill 04/29/19 Atorvastatin Calcium (LIPITOR) 80 Mg Tablet, 1 TAB PO DAILY, #30 TAB 5 Refills 11/02/15 Risperidone Microspheres (RISPERDAL CONSTA) 50 Mg/2 Ml Disp.syrin, 50 MG IM, SYR 11/02/15 Lisinopril (LISINOPRIL) 20 Mg Tablet, 1 TAB PO DAILY, #30 TAB 5 Refills 11/02/15 Clonazepam (KLONOPIN) 0.5 Mg Tablet, 1 TAB PO DAILY, #30 TAB 11/02/15 Insulin Detemir (LEVEMIR) 100 Unit/1 Ml Vial, 1 UNIT SQ, VIAL 11/02/15 REBECCA WEAVER MD May 06, 2019 13:32
[2019-05-06] MEDS: ASPIRIN ENTERIC COATED 81 MG TABLET.DR. PO SCH (13:36)
[2019-05-06] MEDS: amLODIPine BESYLATE 5 MG TABLET PO SCH (13:36)
[2019-05-06] MEDS: CITALOPRAM 10 MG TABLET. PO SCH (13:36)
[2019-05-06 15:14] VITALS: BP 106/39
--- NOTE | 2019-05-06 15:15 | PDOC ---
Renal-Progress Notes Subjective Notes Notes NOTHING NEW REPORTED History of Present Illness Hx of present illness NO CHANGE Vitals Vitals Vital Signs Date Time Temp Pulse Resp B/P (MAP) Pulse Ox O2 Delivery O2 Flow Rate FiO2 05/06/19 13:36 60 132/54 05/06/19 08:00 Room Air 05/06/19 07:00 97.4 18 99 97.4 Weight Weight [ ] I.O. Intake and Output Intake and Output 05/06/19 07:00 Intake Total 690 ml Balance 690 ml Intake Oral 690 ml Labs Labs Laboratory Tests Test 05/05/19 16:54 05/05/19 19:56 05/05/19 22:29 05/06/19 02:43 Glucose (Fingerstick) 96 mg/dL (70-99) 72 mg/dL (70-99) 136 mg/dL (70-99) 145 mg/dL (70-99) Test 05/06/19 02:59 05/06/19 07:23 White Blood Count 4.5 x10^3/uL (4.0-11.0) Red Blood Count 3.31 x10^6/uL (3.50-5.40) Hemoglobin 8.5 g/dL (12.0-15.5) Hematocrit 26.7 % (36.0-47.0) Mean Corpuscular Volume 81 fL (79-100) Mean Corpuscular Hemoglobin 26 pg (25-35) Mean Corpuscular Hemoglobin Concent 32 g/dL (31-37) Red Cell Distribution Width 20.7 % (11.5-14.5) Platelet Count 286 x10^3/uL (140-400) Neutrophils (%) (Auto) 67 % (31-73) Lymphocytes (%) (Auto) 18 % (24-48) Monocytes (%) (Auto) 13 % (0-9) Eosinophils (%) (Auto) 2 % (0-3) Basophils (%) (Auto) 1 % (0-3) Neutrophils # (Auto) 3.0 x10^3/uL (1.8-7.7) Lymphocytes # (Auto) 0.8 x10^3/uL (1.0-4.8) Monocytes # (Auto) 0.6 x10^3/uL (0.0-1.1) Eosinophils # (Auto) 0.1 x10^3/uL (0.0-0.7) Basophils # (Auto) 0.0 x10^3/uL (0.0-0.2) Sodium Level 141 mmol/L (136-145) Potassium Level 4.7 mmol/L (3.5-5.1) Chloride Level 98 mmol/L (98-107) Carbon Dioxide Level 31 mmol/L (21-32) Anion Gap 12 (6-14) Blood Urea Nitrogen 33 mg/dL (7-20) Creatinine 8.6 mg/dL (0.6-1.0) Estimated GFR (Cockcroft-Gault) 5.9 Glucose Level 140 mg/dL (70-99) Calcium Level 11.9 mg/dL (8.5-10.1) Phosphorus Level 7.2 mg/dL (2.6-4.7) Albumin 2.6 g/dL (3.4-5.0) Glucose (Fingerstick) 104 mg/dL (70-99) Micro Micro Microbiology 05/01/19 Blood Culture - Final, Complete NO GROWTH AFTER 5 DAYS Review of Systems Constitutional: yes: other (CONFUSED) Physical Exam General Appearance: no apparent distress Skin: warm Respiratory: decreased breath sounds Heart: S1S2 Abdomen: soft, bowel sounds present Genitourinary: bladder flat Extremities: pulses present Neurology: alert Musculoskeletal: Other (no pertinent history) Assessment Assessment IMP ESRD-TTS BACTEREMIA ENCEPHALOPATHY-BETTER ?PNEUMONIA DM II HTN ANEMIA PLAN HD TODAY UF TO DW JOSHUA OFF ANTIBIOTICS D/C PLANS NOTED LAVON FIERRO MD May 06, 2019 15:15
--- NOTE | 2019-05-06 16:17 | PDOC ---
PROGRESS NOTES Assessment Assessment Metabolic encephalopathy. Hyperkalemia, K+ 6.9. Hyperglycemia. Hypoglycemia, mild episode likely. Hypercalcemia. DM. HTN. Renal failure on dialysis. Elevated hepatic enzymes. Bipolar disorder. Obesity. RECOMMENDATIONS/PLAN: Treat medical diseases. OT/PT. FU with PCP. HCT: Negative. History of Present Illness This is a 53-year-old AA female patient with history of hypertension, diabetes, chronic kidney disease stage III, bipolar, major depressive disorder who presented to the emergency department of [facility] on 04/28/19 with altered mental status, slightly hypoglycemia. Her blood sugar in ED was 58. Neurology was requested for consultation on 04/30/19 for MS changes. She is doing fine on 05/06/19. Past Medical History Cardiovascular: CHF, HTN Heme/Onc: Anemia NOS Renal/: Chronic renal failure Endocrine: Diabetes Past Surgical History No pertinent history Allergies Coded Allergies: Milk Containing Products (Verified Allergy, Intermediate, 11/02/15) Penicillins (Verified Allergy, Intermediate, 11/02/15) haloperidol (Verified Allergy, Intermediate, 04/28/19) MEDICATIONS: Refer to [facility] FAMILY HISTORY: Non contributory. SOCIAL HISTORY: Lives at home.lone. Denies current smoking, drinking, and illicit drug use. REVIEW OF SYSTEMS: Constitutional: No cachexia. Head: No traumatic brain or head injury. Skin: No edema, or rash. Ear: No infection. Eyes: No vision loss or color blindness. Nose: No bleeding or purulent discharges. Hearing: No hearing decrease. Neck: No injury. Breast: No history of cancer, masses,or discharges. Cardiac: HTN. Pulmonary: No COPD.. GI: No GI ulcer, GI bleeding. Urinary/genital: CKD. Endocrinologic: Diabetes Mellitus, obesity. Skeletomuscular: No muscular atrophy, deformity. Neurological: see HP. Psychiatric: Denies drug use/abuse. Otherwise, not [id number] review of systems. PHYSICAL EXAMINATION: General appearance is in subacute distress. HEENT: Normocephalic and nontraumatic. Eyes, nose, ears, and throat are unremarkable. Neck is supple. No lymphadenopathy. No crepitus. Cardiovascular: S1, S2, regular rate and rhythm. Pulmonary: Clear to auscultation bilaterally. Abdomen: Bowel sounds are positive. Abdomen is soft, nontender, and nondistended. Extremities: No rash, lesions, or edema. No restriction of range of motion NEUROLOGICAL EXAMINATION: Sleeping but arousable. Oriented to time, place and person. PERRL. EOMI. CN: no focal findings. Muscle tone: within normal. Muscle strength: 4+ DTR: 2- Plantar reflex: Flexor response bilaterally Gait: not examined while in bed. Sensory exam: no abnormal findings. No cerebellar signs elicited. Objective Objective Vital Signs Date Time Temp Pulse Resp B/P (MAP) Pulse Ox O2 Delivery O2 Flow Rate FiO2 05/06/19 15:14 98.4 60 18 106/39 (61) 98 Room Air 98.4 l Intake and Output 05/06/19 06:59 Intake Total 690 ml Balance 690 ml Intake Oral 690 ml Vitals Signs Vitals VS - Last 72 Hours, by Label Date Time Temp Pulse Resp B/P (MAP) Pulse Ox O2 Delivery O2 Flow Rate FiO2 05/06/19 15:14 98.4 60 18 106/39 (61) 98 Room Air 98.4 05/06/19 13:36 60 132/54 05/06/19 09:00 60 132/54 05/06/19 09:00 60 132/54 05/06/19 08:00 Room Air 05/06/19 07:00 97.4 60 18 132/54 (80) 99 Room Air 97.4 05/06/19 03:14 97.5 63 16 124/70 (88) 100 Room Air 97.5 05/05/19 23:51 97.6 60 16 131/74 (93) 100 Room Air 97.6 05/05/19 21:00 60 134/73 05/05/19 21:00 60 134/73 05/05/19 20:00 Room Air 05/05/19 19:42 97.6 60 16 134/73 (93) 100 Room Air 97.6 05/05/19 15:00 98.1 60 18 130/77 (94) 97 Room Air 98.1 05/05/19 11:01 97.9 60 18 135/78 (97) 100 Room Air 97.9 05/05/19 09:03 60 130/70 05/05/19 09:03 60 130/70 05/05/19 09:02 60 130/70 05/05/19 08:00 Room Air 05/05/19 07:46 98.2 60 18 130/70 (90) 97 Room Air 98.2 Laboratory Laboratory Laboratory Tests Test 05/05/19 16:54 05/05/19 19:56 05/05/19 22:29 05/06/19 02:43 Glucose (Fingerstick) 96 mg/dL (70-99) 72 mg/dL (70-99) 136 mg/dL (70-99) 145 mg/dL (70-99) Test 05/06/19 02:59 05/06/19 07:23 White Blood Count 4.5 x10^3/uL (4.0-11.0) Red Blood Count 3.31 x10^6/uL (3.50-5.40) Hemoglobin 8.5 g/dL (12.0-15.5) Hematocrit 26.7 % (36.0-47.0) Mean Corpuscular Volume 81 fL (79-100) Mean Corpuscular Hemoglobin 26 pg (25-35) Mean Corpuscular Hemoglobin Concent 32 g/dL (31-37) Red Cell Distribution Width 20.7 % (11.5-14.5) Platelet Count 286 x10^3/uL (140-400) Neutrophils (%) (Auto) 67 % (31-73) Lymphocytes (%) (Auto) 18 % (24-48) Monocytes (%) (Auto) 13 % (0-9) Eosinophils (%) (Auto) 2 % (0-3) Basophils (%) (Auto) 1 % (0-3) Neutrophils # (Auto) 3.0 x10^3/uL (1.8-7.7) Lymphocytes # (Auto) 0.8 x10^3/uL (1.0-4.8) Monocytes # (Auto) 0.6 x10^3/uL (0.0-1.1) Eosinophils # (Auto) 0.1 x10^3/uL (0.0-0.7) Basophils # (Auto) 0.0 x10^3/uL (0.0-0.2) Sodium Level 141 mmol/L (136-145) Potassium Level 4.7 mmol/L (3.5-5.1) Chloride Level 98 mmol/L (98-107) Carbon Dioxide Level 31 mmol/L (21-32) Anion Gap 12 (6-14) Blood Urea Nitrogen 33 mg/dL (7-20) Creatinine 8.6 mg/dL (0.6-1.0) Estimated GFR (Cockcroft-Gault) 5.9 Glucose Level 140 mg/dL (70-99) Calcium Level 11.9 mg/dL (8.5-10.1) Phosphorus Level 7.2 mg/dL (2.6-4.7) Albumin 2.6 g/dL (3.4-5.0) Glucose (Fingerstick) 104 mg/dL (70-99) Microbiology 05/01/19 Blood Culture - Final, Complete NO GROWTH AFTER 5 DAYS Medication Medications Current Medications Acetaminophen (Tylenol) 500 mg 1X PRN PRN PO MILD PAIN / TEMP; Start 05/06/19 at 09:00; Stop 05/07/19 at 08:59 Apixaban (Eliquis) 5 mg BID PO ; Start 05/06/19 at 21:00 Diphenhydramine HCl (Benadryl) 25 mg 1X PRN PRN IV ITCHING; Start 05/06/19 at 09:00; Stop 05/07/19 at 08:59 Diphenhydramine HCl (Benadryl) 25 mg 1X PRN PRN IV ITCHING; Start 05/06/19 at 0 9:00; Stop 05/07/19 at 08:59 Famotidine (Pepcid) 20 mg Q48H PO Last administered on 05/06/19at 13:36; Start 05/06/19 at 08:00 Info (PHARMACY MONITORING -- do not chart) 1 each PRN DAILY PRN MC SEE COMMENTS; Start 05/06/19 at 09:00; Stop 05/06/19 at 13:05; Status DC Labetalol HCl (Normodyne Iv Push) 10 mg PRN Q1HR PRN IVP SBP > 180; Start 05/06/19 at 09:00; Stop 05/07/19 at 08:59 Polyethylene Glycol (miraLAX PACKET) 17 gm DAILY PO ; Start 05/07/19 at 09:00 Polyethylene Glycol (miraLAX PACKET) 17 gm PRN DAILY PRN PO CONSTIPATION; Start 05/06/19 at 11:45 Sodium Chloride 1,000 ml @ 400 mls/hr Q2H30M PRN IV PATENCY; Start 05/06/19 at 08:49; Stop 05/06/19 at 20:48 Sodium Chloride 1,000 ml @ 1,000 mls/hr Q1H PRN IV hypotension; Start 05/06/19 at 08:49; Stop 05/06/19 at 14:48; Status DC Comment Review of Relevant I have reviewed the following items sarahi (where applicable) has been applied. REJI NICK MD May 06, 2019 16:17
--- NOTE | 2019-05-06 17:50 | NUR ---
Discharge Note: JAMES BALDERAS [address] [place] [address] Discharge instructions and discharge home medications reviewed with Other facility and a copy given. All questions have been answered and understanding verbalized. The following instructions and handouts were given: follow up instructions, activity levels, and medication lists. Discontinued lines and drains: Peripheral IV discontinued and catheter intact. [facility] with [facility] Personnel via [facility].
[2019-05-06] MEDS ORDERED: APIXABAN 5 MG TABLET. PO SCH (21:00)
[2019-05-07] MEDS ORDERED: POLYETHYLENE GLYCOL 3350 17 GM PACKET. PO SCH (09:00)
[2019-05-08 19:13] LABS: ALBUM 2.7 g/dL (2.9-4.4); ALPHA 1 0.5 g/dL (0.0-0.4); ALPHA 2 0.9 g/dL (0.4-1.0); BETA 1.8 g/dL (0.7-1.3); GAMMA 0.8 g/dL (0.4-1.8); PROTEIN TOTAL 6.7 g/dL (6.0-8.5); SPEP AG RATIO 0.7 (0.7-1.7)
== END 2019-05-06 17:50 | disposition home or self-care (01) | DRG 640 ==
LOC: ER 21:44 → 1 WEST ICU 23:41 → 5 SOUTH 04-29 14:35 → 6 SOUTH 05-01 15:28
PROVIDERS: ADMIT Internal Medicine; ATTEND Internal Medicine
PROC: 5A1D70Z Performance of Urinary Filtration, Intermittent, Less than 6 Hours Per Day (ICD-10-PCS; 2019-04-29)
PROC: 5A1D70Z Performance of Urinary Filtration, Intermittent, Less than 6 Hours Per Day (ICD-10-PCS; 2019-05-01)
PROC: 5A1D70Z Performance of Urinary Filtration, Intermittent, Less than 6 Hours Per Day (ICD-10-PCS; 2019-05-04)
PROC: 5A1D70Z Performance of Urinary Filtration, Intermittent, Less than 6 Hours Per Day (ICD-10-PCS; principal; 2019-05-06)
DX: E87.5 Hyperkalemia (principal); N18.6 End stage renal disease; G93.41 Metabolic encephalopathy; J18.9 Pneumonia, unspecified organism; J98.11 Atelectasis; N39.0 Urinary tract infection, site not specified; I13.2 Hypertensive heart and chronic kidney disease with heart failure and with stage 5 chronic kidney disease, or end stage renal disease; E11.22 Type 2 diabetes mellitus with diabetic chronic kidney disease; Z99.2 Dependence on renal dialysis; B96.89 Other specified bacterial agents as the cause of diseases classified elsewhere; D64.9 Anemia, unspecified; E11.42 Type 2 diabetes mellitus with diabetic polyneuropathy; E11.649 Type 2 diabetes mellitus with hypoglycemia without coma; E66.9 Obesity, unspecified; E78.5 Hyperlipidemia, unspecified; E83.52 Hypercalcemia; F20.9 Schizophrenia, unspecified; F31.9 Bipolar disorder, unspecified; F41.9 Anxiety disorder, unspecified; I25.10 Atherosclerotic heart disease of native coronary artery without angina pectoris; I48.91 Unspecified atrial fibrillation; I50.9 Heart failure, unspecified; K59.00 Constipation, unspecified; Z82.49 Family history of ischemic heart disease and other diseases of the circulatory system; Z83.3 Family history of diabetes mellitus; Z88.0 Allergy status to penicillin; Z91.15 Patient's noncompliance with renal dialysis; Z91.19 Patient's noncompliance with other medical treatment and regimen; Z68.30 Body mass index [BMI] 30.0-30.9, adult; Z88.8 Allergy status to other drugs, medicaments and biological substances; Z91.011 Allergy to milk products
CPT/HCPCS: 36415; 70450; 71045; 71250; 74176; 76700; 80048; 80053; 80061; 80069; 80076; 80202; 82140; 82607; 82962; 83540; 83550; 84132; 84145; 84165; 84443; 85007; 85025; 85027; 85610; 86644; 86645; 86663; 86664; 86705; 86706; 86709; 86803; 87040; 87077; 87205; 87340; 87641; 93005; 93308; 94640; 94644; 95816; 96361; 96374; 96375; 96376; J0882; J1815; J3370; J7030; J7040; J7042; J7613; 99285-25; G0378

== ENCOUNTER 2019-05-10 18:00 | Inpatient (IN) | payer MEDICARE, OTHER ==
[~2019-05-10] VITALS: Ht 165.1 cm; Wt 73.5 kg
[~2019-05-10 18:00] MED LIST changes: +ACET325T9 PO; +AMIO200T4 PO; +AMLO5TAB10 PO; +AMMO225L5 TP; +APIX5TAB PO; +ASPI81TA50 PO; +BISA-42 PO; +BISA10SU4 RC; +CALC200T3 PO; +CALC667S PO; +CHOL100013 PO; +CLOB15CR TP; +DEXT1DRO7 OP; +ESCITALOPRAM OXA5 MG PO; +FAMO-63 PO; +FERR325T14 PO; +FOLI1TAB16 PO; +HYDR-2761 PO; +LACT1CAP19 PO; +LIDO700A21 TP; +LOPE-101 PO; +METO25TA4 PO; +NITR0.4T22 SL; +POLY17PO29 PO; +RANO500T2 PO
--- NOTE | 2019-05-10 18:28 | PHYS DOC ---
Past Medical History Past Medical History: CHF, Constipation, Depression, Diabetes-Type II, High Cholesterol, Heart Disease, Hypertension, Renal Failure Additional Past Medical Histor: major depres. disorder w psychosis,flu,vit d deffic.,constipation,dm neuop. Past Surgical History: No Surgical History, Other Additional Past Surgical Histo: left dialysis fistula Alcohol Use: None Drug Use: None Adult General Chief Complaint Chief Complaint: ALTERED MENTAL STATUS HPI HPI Patient is a 53-year-old female who presents from nursing facility with report of mental status change for the last 4 hours. Patient reportedly is normally alert and oriented but today she has been difficult to arouse and much less responsive. Additional history is limited due to patient mental status.[] Review of Systems Review of Systems Constitutional: No reported fever[] Respiratory: No reported shortness of breath [] Cardiovascular: No additional information not addressed in HPI [] GI: No reported vomiting or diarrhea [] Neurologic: Positive mental status changes [] Unable to fully assess review of systems due to patient mental status. Current Medications Current Medications Current Medications Medications (Trade) Dose Ordered Sig/Sanchez Start Time Stop Time Status Last Admin Dose Admin Calcitonin Deming (Miacalcin) 400 unit 1X 05/10/19 19:45 05/10/19 19:56 400 UNIT Allergies Allergies Allergies Coded Allergies Type Severity Reaction Last Updated Verified Milk Containing Products Allergy Intermediate 11/02/15 Yes Penicillins Allergy Intermediate 11/02/15 Yes haloperidol Allergy Intermediate 04/28/19 Yes Physical Exam Physical Exam Constitutional: Well developed, well nourished, no acute distress, non-toxic appearance. [] HENT: Normocephalic, atraumatic, bilateral external ears normal, oropharynx dry, no oral exudates, nose normal. [] Eyes: PERRLA, EOMI, conjunctiva normal, no discharge. [] Neck: Normal range of motion, no tenderness, supple. [] Cardiovascular: Regular rate and rhythm[] Lungs & Thorax: Bilateral breath sounds clear to auscultation [] Abdomen: Bowel sounds normal, soft, no tenderness. [] Skin: Warm, dry, no erythema, no rash. [] Extremities: No tenderness, no cyanosis, no clubbing, ROM intact, no edema. [] Neurologic: Somnolent but arousable, no obvious focal deficits noted. [] Current Patient Data Vital Signs Vital Signs Date Time Temp Pulse Resp B/P (MAP) Pulse Ox O2 Delivery O2 Flow Rate FiO2 05/10/19 20:08 60 18 100 05/10/19 18:00 98.5 142/68 (92) Room Air 98.5 Lab Values Laboratory Tests Test 05/10/19 18:11 05/10/19 20:08 White Blood Count 9.1 x10^3/uL (4.0-11.0) Red Blood Count 2.82 x10^6/uL (3.50-5.40) L Hemoglobin 7.4 g/dL (12.0-15.5) L Hematocrit 23.0 % (36.0-47.0) L Mean Corpuscular Volume 82 fL (79-100) Mean Corpuscular Hemoglobin 26 pg (25-35) Mean Corpuscular Hemoglobin Concent 32 g/dL (31-37) Red Cell Distribution Width 20.5 % (11.5-14.5) H Platelet Count 250 x10^3/uL (140-400) Neutrophils (%) (Auto) 76 % (31-73) H Lymphocytes (%) (Auto) 10 % (24-48) L Monocytes (%) (Auto) 13 % (0-9) H Eosinophils (%) (Auto) 1 % (0-3) Basophils (%) (Auto) 0 % (0-3) Neutrophils # (Auto) 6.9 x10^3/uL (1.8-7.7) Lymphocytes # (Auto) 0.9 x10^3/uL (1.0-4.8) L Monocytes # (Auto) 1.2 x10^3/uL (0.0-1.1) H Eosinophils # (Auto) 0.0 x10^3/uL (0.0-0.7) Basophils # (Auto) 0.0 x10^3/uL (0.0-0.2) Platelet Estimate Adequate (ADEQUATE) Polychromasia Slight Hypochromasia Mod Anisocytosis Mod Target Cells Occ Tear Drop Cells Occ Ovalocytes Few Helmet Cells Occ Sodium Level 138 mmol/L (136-145) Potassium Level 5.6 mmol/L (3.5-5.1) H Chloride Level 96 mmol/L (98-107) L Carbon Dioxide Level 30 mmol/L (21-32) Anion Gap 12 (6-14) Blood Urea Nitrogen 54 mg/dL (7-20) H Creatinine 11.2 mg/dL (0.6-1.0) H Estimated GFR (Cockcroft-Gault) 4.4 BUN/Creatinine Ratio 5 (6-20) L Glucose Level 117 mg/dL (70-99) H Calcium Level 15.4 mg/dL (8.5-10.1) *H Phosphorus Level 8.4 mg/dL (2.6-4.7) H Magnesium Level 2.5 mg/dL (1.8-2.4) H Total Bilirubin 1.3 mg/dL (0.2-1.0) H Aspartate Amino Transferase (AST) 42 U/L (15-37) H Alanine Aminotransferase (ALT) 80 U/L (14-59) H Alkaline Phosphatase 120 U/L (46-116) H Ammonia 16 mcmol/L (11-34) Troponin I Quantitative 0.079 ng/mL (0.000-0.055) KN-Poq-H-Type Natriuretic Peptide > 31338 pg/mL (0-124) H Total Protein 7.8 g/dL (6.4-8.2) Albumin 2.6 g/dL (3.4-5.0) L Albumin/Globulin Ratio 0.5 (1.0-1.7) L Ionized Calcium 1.76 mmol/L (1.13-1.32) H Laboratory Tests 05/10/19 18:11 Laboratory Tests 05/10/19 18:11 EKG EKG [] Interpretation Time: EKG demonstrates sinus rhythm with rate of 60. Radiology/Procedures Radiology/Procedures [] Impressions: PROCEDURE: CT HEAD WO CONTRAST Exam: CT head INDICATION: Altered mental status TECHNIQUE: Sequential axial images through the head were obtained without the administration of IV contrast. Comparisons: 04/28/2019 FINDINGS: No focal parenchymal lesion or hemorrhage is identified. There is no midline shift or sulcal effacement. Patchy hypodensity in the periventricular white matter which is similar when compared to the prior exam. No acute vascular territory infarction is identified. Smith-white distinction is preserved. The ventricular system is within normal limits without compression hydrocephalus. The basal cisterns are well maintained. The visualized portions of the paranasal sinuses and mastoid air cells are well-pneumatized. No acute fractures. IMPRESSION: No acute intracranial abnormality. Exposure: One or more of the following in the visualized dose reduction techniques were utilized for this examination: 1. Automated exposure control 2. Adjustment of the MA and/or KV according to patient size Use of iterative of reconstructive technique Electronically signed by: Ceasar Roberto MD (05/10/2019 6:51 PM) [facility] [place] Course & Med Decision Making Course & Med Decision Making Pertinent Labs and Imaging studies reviewed. (See chart for details) [] Dragon Disclaimer Dragon Disclaimer This electronic medical record was generated, in whole or in part, using a voice recognition dictation system. Departure Departure Impression: Primary Impression: Altered mental status Additional Impressions: Hyperkalemia Hypercalcemia CHF (congestive heart failure) ESRD (end stage renal disease) on dialysis Disposition: ADMITTED INPATIENT Admitting Physician: OSMIN (Dr. Miranda) Condition: GUARDED Referrals: DIANA DURHAM (PCP) Problem Qualifiers Primary Impression: Altered mental status Altered mental status type: unspecified Qualified Codes: R41.82 - Altered mental status, unspecified Additional Impressions: CHF (congestive heart failure) Heart failure type: unspecified Heart failure chronicity: unspecified Qualified Codes: I50.9 - Heart failure, unspecified JANEY BERNAL Jr. DO May 10, 2019 18:28
[2019-05-10 18:35] LABS: BASO % 0 % (0-3); EOS % 1 % (0-3); HEMOGLOBIN 7.4 g/dL (12.0-15.5); LYMPH # 0.9 x10^3/uL (1.0-4.8); LYMPH % 10 % (24-48); MEAN CORPUSCULAR HEMOGLOBIN 26 pg (25-35); MEAN CORPUSCULAR HGB CONC 32 g/dL (31-37); MEAN CORPUSCULAR VOLUME 82 fL (79-100); MONO # 1.2 x10^3/uL (0.0-1.1); MONO % 13 % (0-9); NEUT # 6.9 x10^3/uL (1.8-7.7); NEUT % 76 % (31-73); PLATELET COUNT 250 x10^3/uL (140-400); RED BLOOD COUNT 2.82 x10^6/uL (3.50-5.40); RED CELL DISTRIBUTION WIDTH 20.5 % (11.5-14.5); WHITE BLOOD COUNT 9.1 x10^3/uL (4.0-11.0)
[2019-05-10 18:45] LABS: ALBUMIN 2.6 g/dL (3.4-5.0); ALBUMIN/GLOBULIN RATIO 0.5 (1.0-1.7); CREATININE 11.2 mg/dL (0.6-1.0); GFR 4.4; MAGNESIUM 2.5 mg/dL (1.8-2.4); POTASSIUM 5.6 mmol/L (3.5-5.1); TOTAL BILIRUBIN 1.3 mg/dL (0.2-1.0); TOTAL PROTEIN 7.8 g/dL (6.4-8.2)
--- NOTE | 2019-05-10 18:54 | RAD ---
Exam: CT head INDICATION: Altered mental status TECHNIQUE: Sequential axial images through the head were obtained without the administration of IV contrast. Comparisons: 04/28/2019 FINDINGS: No focal parenchymal lesion or hemorrhage is identified. There is no midline shift or sulcal effacement. Patchy hypodensity in the periventricular white matter which is similar when compared to the prior exam. No acute vascular territory infarction is identified. Smith-white distinction is preserved. The ventricular system is within normal limits without compression hydrocephalus. The basal cisterns are well maintained. The visualized portions of the paranasal sinuses and mastoid air cells are well-pneumatized. No acute fractures. IMPRESSION: No acute intracranial abnormality. Exposure: One or more of the following in the visualized dose reduction techniques were utilized for this examination: 1. Automated exposure control 2. Adjustment of the MA and/or KV according to patient size Use of iterative of reconstructive technique Electronically signed by: Ceasar Roberto MD (05/10/2019 6:51 PM) [facility]
[2019-05-10 18:56] LABS: CALCIUM 15.4 mg/dL (8.5-10.1)
[2019-05-10 19:05] LABS: ANISOCYTOSIS MOD; PLT ESTIMATE ADEQUATE (ADEQUATE)
[2019-05-10 19:06] LABS: HYPOCHROMIA MOD; OVALOCYTES FEW; POLYCHROMASIA SLIGHT; TARGET CELLS OCC
[2019-05-10 19:07] LABS: HELMET CELLS OCC; TEAR DROP CELLS OCC
[2019-05-10] MEDS ORDERED: CALCITONIN,SALMON 400 UNIT/2 ML VIAL. SQ SCH (19:45)
[2019-05-10] MEDS ORDERED: POLYETHYLENE GLYCOL 3350 17 GM PACKET. PO PRN (21:00)
[2019-05-10] MEDS ORDERED: LOPERAMIDE 2 MG CAPSULE PO PRN (21:00)
[2019-05-10] MEDS ORDERED: NITROGLYCERIN SUBLINGUAL 0.4 MG BOTTLE OF 25. SL PRN (21:00)
[2019-05-10] MEDS ORDERED: DEXTROSE 50% 25 GM / 50ML DISP.SYRIN. IV ONE (21:00)
[2019-05-10] MEDS ORDERED: ONDANSETRON PF 4 MG/2 ML VIAL. IVP PRN (21:00)
[2019-05-10] MEDS ORDERED: BISACODYL 5 MG TABLET.DR. PO PRN (21:00)
[2019-05-10] MEDS ORDERED: ACETAMINOPHEN 500 MG TABLET PO PRN (21:00)
[2019-05-10] MEDS ORDERED: BISACODYL 10 MG SUPP.RECT. RC PRN (21:00)
[2019-05-10] MEDS ORDERED: INSULIN REGULAR 100 UNIT/ML 3ML VIAL. IV ONE (21:00)
--- NOTE | 2019-05-10 21:01 | PDOC1 ---
History and Physical Date of Admission Date of Admission DATE: 05/10/19 TIME: 20:53 Identification/Chief Complaint Chief Complaint confusion in [facility] Source Source: Caregiver, Chart review, Patient History of Present Illness History of Present Illness 53 AA female SNU resident ([facility]) brought in by staff bec of confusion described as aphasia and drowsiness, I See her at ER, she actually is not aphasic nor drowsy, she follows simple commands, Able to tell me she eats reg diet and ambulates mostly via wheelchair, She is a FULL CODE based on SNu records, She is HD via RT arm AV fistula and has been refusing HD lately? ELytes are high including CAlcium at 15, hypothermic initially?, hyperglycemic bs 300s, High phosphorus, high mag etc Renal has been called and advised calcitonin - given and now pt emesis multiple times, mostly saliva at ER - I have witnessed. BP good, maybe even high side, NO family at bedside, Anuric mostly. Looking at old records, was here mos ago for similar picture, enceph, h yperglycemia and hypercalcemia Past Medical History Cardiovascular: AFIB, CAD, CHF, HTN, Hyperlipidemia, Other CENTRAL NERVOUS SYSTEM: Other GI: Constipation Heme/Onc: Anemia NOS Hepatobiliary: No pertinent hx Psych: Anxiety, Depression, Schizophrenia Musculoskeletal: Other Rheumatologic: No pertinent hx Infectious disease: No pertinent hx Renal/: Chronic renal failure, UTI Endocrine: Diabetes Past Surgical History Past Surgical History: Pacemaker, , Other Family History Family History: Coronary Artery Disease, Diabetes Social History Smoke: No ALCOHOL: none Drugs: None Current Problem List Problem List Problems Medical Problems: (1) Altered mental status Status: Acute (2) CHF (congestive heart failure) Status: Acute (3) ESRD (end stage renal disease) on dialysis Status: Acute (4) Hypercalcemia Status: Acute Current Medications Current Medications Current Medications Calcitonin [place] (Miacalcin) 400 unit 1X SQ Last administered on 05/10/19at 19:56; Start 05/10/19 at 19:45 Dextrose (Dextrose 50%-Water Syringe) 25 gm 1X ONCE IV ; Start 05/10/19 at 21:00; Stop 05/10/19 at 21:01 Insulin Human Regular (HumuLIN R VIAL) 10 unit 1X ONCE IV ; Start 05/10/19 at 21:00; Stop 05/10/19 at 21:01 Sodium Chloride 1,000 ml @ 80 mls/hr [id number] IV ; Start 05/10/19 at 21:00; Status UNV Ondansetron HCl (Zofran) 4 mg PRN Q6HRS PRN IVP NAUSEA/VOMITING; Start 05/10/19 at 21:00; Status UNV Acetaminophen (Tylenol) 500 mg PRN Q6HRS PRN PO MILD PAIN / TEMP; Start 05/10/19 at 21:00; Status UNV Amlodipine Besylate (Norvasc) 5 mg DAILY PO ; Start 05/11/19 at 09:00; Status UNV Apixaban (Eliquis) 5 mg BID PO ; Start 05/10/19 at 21:00; Status UNV Aspirin (Ecotrin) 81 mg DAILY PO ; Start 05/11/19 at 09:00; Status UNV Bisacodyl (Dulcolax Supp) 10 mg PRN DAILY PRN RC CONSTIPATION; Start 05/10/19 at 21:00; Status UNV Bisacodyl (Dulcolax Tab) 20 mg PRN BID PRN PO CONSTIPATION; Start 05/10/19 at 21:00; Status UNV Calcium Carbonate/ Glycine (Tums) 800 mg DAILY PO ; Start 05/11/19 at 09:00; Status UNV Clonazepam (KlonoPIN) 0.5 mg TID PO ; Start 05/10/19 at 21:00; Status UNV Famotidine (Pepcid) 20 mg HS PO ; Start 05/10/19 at 21:00; Status UNV Ferrous Sulfate (Feosol) 325 mg BID PO ; Start 05/10/19 at 21:00; Status UNV Folic Acid (Folic Acid) 1 mg DAILY PO ; Start 05/11/19 at 09:00; Status UNV Lactobacillus Rhamnosus (Culturelle) 1 cap BID PO ; Start 05/10/19 at 21:00; Status UNV Loperamide HCl (Imodium) 2 mg PRN Q4HRS PRN PO DIARRHEA; Start 05/10/19 at 21:00; Status UNV Metoprolol Tartrate (Lopressor) 25 mg BID PO ; Start 05/10/19 at 21:00; Status UNV Nitroglycerin (Nitrostat) 0.4 mg PRN Q5MIN PRN SL CHEST PAIN; Start 05/10/19 at 21:00; Status UNV Ranolazine (Ranexa) 500 mg Q12HR PO ; Start 05/10/19 at 21:00; Status UNV Non-Formulary Medication (Calcium Acetate (Phoslyra)) 15 ml TIDAC PO ; Start 05/11/19 at 07:30; Status UNV Non-Formulary Medication (Cholecalciferol (Vitamin D3) (Vitamin D)) 1 cap DAILY PO ; Start 05/11/19 at 09:00; Status UNV Non-Formulary Medication (Dextran 70/ Hypromellose (Artificial Tears)) 1 each PRN Q8HRS PRN OP Dry eyes; Start 05/10/19 at 21:00; Status UNV Non-Formulary Medication (Escitalopram Oxalate (Lexapro)) 15 mg DAILY PO ; Start 05/11/19 at 09:00; Status UNV Non-Formulary Medication (Insulin Detemir (Levemir)) 15 unit QHS SQ ; Start 05/10/19 at 21:00; Status UNV Active Scripts Active Culturelle (Lactobacillus Rhamnosus Gg) 1 Each Cap.sprink 1 Cap PO BID 30 Days Reported Vitamin D (Cholecalciferol (Vitamin D3)) 1,000 Unit Capsule 1 Cap PO DAILY Tums (Calcium Carbonate) 200 Mg Tab.chew 4 Tab PO DAILY Ranexa (Ranolazine) 500 Mg Tab.er.12h 1 Tab PO Q12HR Phoslyra (Calcium Acetate) 667 Mg/5 Ml Solution 15 Ml PO TIDAC NITROGLYCERIN SubLingual (Nitroglycerin) 0.4 Mg Tab.subl 0.4 Mg SL PRN Q5MIN PRN Miralax (Polyethylene Glycol 3350) 17 Gm Powd.pack 1 Packet PO BID Metoprolol Tartrate 25 Mg Tablet 1 Tab PO BID Lexapro (Escitalopram Oxalate) 5 Mg Tablet 15 Mg PO DAILY Levemir (Insulin Detemir) 100 Unit/1 Ml Vial 15 Unit SQ QHS Klonopin (Clonazepam) 0.5 Mg Tablet 1 Tab PO TID Imodium A-D (Loperamide HCl) 2 Mg Capsule 2 Mg PO PRN Q4HRS PRN Folic Acid 1 Mg Tablet 1 Tab PO DAILY Ferrous Sulfate 325 Mg Tablet 1 Tab PO BID Pepcid (Famotidine) 20 Mg Tablet 20 Mg PO HS Dulcolax (Bisacodyl) 5 Mg Tablet.dr 4 Tab PO PRN BID PRN Bisacodyl 10 Mg Supp.rect 10 Mg RC PRN DAILY PRN Aspir-Low (Aspirin) 81 Mg Tablet.dr 1 Tab PO DAILY Artificial Tears (Dextran 70/Hypromellose) 1 Each [place]pe[place] 1 Each OP PRN Q8HRS PRN Eliquis (Apixaban) 5 Mg Tablet 5 Mg PO BID Amlodipine Besylate 5 Mg Tablet 5 Mg PO DAILY Allergies Allergies: Coded Allergies: Milk Containing Products (Verified Allergy, Intermediate, 11/02/15) Penicillins (Verified Allergy, Intermediate, 11/02/15) haloperidol (Verified Allergy, Intermediate, 04/28/19) ROS Review of System limited, emesis during exam, Physical Exam General: No acute distress HEENT: Atraumatic, PERRLA Lungs: Clear to auscultation, Normal air movement Heart: S1S2, RRR, no thrills, no rubs, no gallops, no murmurs Cardiovascular: S1, S2 Abdomen: Normal bowel sounds, Soft, No tenderness, No hepatosplenomegaly, No masses Rectal Exam: not examined PELVIC: Nml ext genitalia Extremities: No clubbing, No cyanosis, Other (RT av fistula with good bruit and distal pulses) Skin: No rashes, No breakdown, No significant lesion Neuro: Normal gait, Normal speech, Strength at 5/5 X4 ext, Normal tone, Sen sation intact, Cranial nerves 3-12 NL, Reflexes 2+ Psych/Mental Status: Mental status NL, Mood NL Vitals Vitals Vital Signs Date Time Temp Pulse Resp B/P (MAP) Pulse Ox O2 Delivery O2 Flow Rate FiO2 05/10/19 20:08 60 18 100 05/10/19 18:00 98.5 142/68 (92) Room Air 98.5 Labs Labs Laboratory Tests Test 05/10/19 18:11 05/10/19 20:08 White Blood Count 9.1 x10^3/uL (4.0-11.0) Red Blood Count 2.82 x10^6/uL (3.50-5.40) Hemoglobin 7.4 g/dL (12.0-15.5) Hematocrit 23.0 % (36.0-47.0) Mean Corpuscular Volume 82 fL (79-100) Mean Corpuscular Hemoglobin 26 pg (25-35) Mean Corpuscular Hemoglobin Concent 32 g/dL (31-37) Red Cell Distribution Width 20.5 % (11.5-14.5) Platelet Count 250 x10^3/uL (140-400) Neutrophils (%) (Auto) 76 % (31-73) Lymphocytes (%) (Auto) 10 % (24-48) Monocytes (%) (Auto) 13 % (0-9) Eosinophils (%) (Auto) 1 % (0-3) Basophils (%) (Auto) 0 % (0-3) Neutrophils # (Auto) 6.9 x10^3/uL (1.8-7.7) Lymphocytes # (Auto) 0.9 x10^3/uL (1.0-4.8) Monocytes # (Auto) 1.2 x10^3/uL (0.0-1.1) Eosinophils # (Auto) 0.0 x10^3/uL (0.0-0.7) Basophils # (Auto) 0.0 x10^3/uL (0.0-0.2) Platelet Estimate Adequate (ADEQUATE) Polychromasia Slight Hypochromasia Mod Anisocytosis Mod Target Cells Occ Tear Drop Cells Occ Ovalocytes Few Helmet Cells Occ Sodium Level 138 mmol/L (136-145) Potassium Level 5.6 mmol/L (3.5-5.1) Chloride Level 96 mmol/L (98-107) Carbon Dioxide Level 30 mmol/L (21-32) Anion Gap 12 (6-14) Blood Urea Nitrogen 54 mg/dL (7-20) Creatinine 11.2 mg/dL (0.6-1.0) Estimated GFR (Cockcroft-Gault) 4.4 BUN/Creatinine Ratio 5 (6-20) Glucose Level 117 mg/dL (70-99) Calcium Level 15.4 mg/dL (8.5-10.1) Phosphorus Level 8.4 mg/dL (2.6-4.7) Magnesium Level 2.5 mg/dL (1.8-2.4) Total Bilirubin 1.3 mg/dL (0.2-1.0) Aspartate Amino Transf (AST/SGOT) 42 U/L (15-37) Alanine Aminotransferase (ALT/SGPT) 80 U/L (14-59) Alkaline Phosphatase 120 U/L (46-116) Ammonia 16 mcmol/L (11-34) Troponin I Quantitative 0.079 ng/mL (0.000-0.055) OS-Swf-Y-Type Natriuretic Peptide > 30403 pg/mL (0-124) Total Protein 7.8 g/dL (6.4-8.2) Albumin 2.6 g/dL (3.4-5.0) Albumin/Globulin Ratio 0.5 (1.0-1.7) Ionized Calcium 1.76 mmol/L (1.13-1.32) Laboratory Tests Test 05/10/19 18:11 05/10/19 20:08 White Blood Count 9.1 x10^3/uL (4.0-11.0) Red Blood Count 2.82 x10^6/uL (3.50-5.40) Hemoglobin 7.4 g/dL (12.0-15.5) Hematocrit 23.0 % (36.0-47.0) Mean Corpuscular Volume 82 fL (79-100) Mean Corpuscular Hemoglobin 26 pg (25-35) Mean Corpuscular Hemoglobin Concent 32 g/dL (31-37) Red Cell Distribution Width 20.5 % (11.5-14.5) Platelet Count 250 x10^3/uL (140-400) Neutrophils (%) (Auto) 76 % (31-73) Lymphocytes (%) (Auto) 10 % (24-48) Monocytes (%) (Auto) 13 % (0-9) Eosinophils (%) (Auto) 1 % (0-3) Basophils (%) (Auto) 0 % (0-3) Neutrophils # (Auto) 6.9 x10^3/uL (1.8-7.7) Lymphocytes # (Auto) 0.9 x10^3/uL (1.0-4.8) Monocytes # (Auto) 1.2 x10^3/uL (0.0-1.1) Eosinophils # (Auto) 0.0 x10^3/uL (0.0-0.7) Basophils # (Auto) 0.0 x10^3/uL (0.0-0.2) Platelet Estimate Adequate (ADEQUATE) Polychromasia Slight Hypochromasia Mod Anisocytosis Mod Target Cells Occ Tear Drop Cells Occ Ovalocytes Few Helmet Cells Occ Sodium Level 138 mmol/L (136-145) Potassium Level 5.6 mmol/L (3.5-5.1) Chloride Level 96 mmol/L (98-107) Carbon Dioxide Level 30 mmol/L (21-32) Anion Gap 12 (6-14) Blood Urea Nitrogen 54 mg/dL (7-20) Creatinine 11.2 mg/dL (0.6-1.0) Estimated GFR (Cockcroft-Gault) 4.4 BUN/Creatinine Ratio 5 (6-20) Glucose Level 117 mg/dL (70-99) Calcium Level 15.4 mg/dL (8.5-10.1) Phosphorus Level 8.4 mg/dL (2.6-4.7) Magnesium Level 2.5 mg/dL (1.8-2.4) Total Bilirubin 1.3 mg/dL (0.2-1.0) Aspartate Amino Transf (AST/SGOT) 42 U/L (15-37) Alanine Aminotransferase (ALT/SGPT) 80 U/L (14-59) Alkaline Phosphatase 120 U/L (46-116) Ammonia 16 mcmol/L (11-34) Troponin I Quantitative 0.079 ng/mL (0.000-0.055) MT-Lzb-A-Type Natriuretic Peptide > 54067 pg/mL (0-124) Total Protein 7.8 g/dL (6.4-8.2) Albumin 2.6 g/dL (3.4-5.0) Albumin/Globulin Ratio 0.5 (1.0-1.7) Ionized Calcium 1.76 mmol/L (1.13-1.32) VTE Prophylaxis Ordered VTE Prophylaxis Devices: Yes VTE Pharmacological Prophylaxi: Yes Assessment/Plan Assessment/Plan ENcephalopathy at SNU ANuria ESRD on HD MWF missed few sessions RT arm AV fistula HYPERCALCEMIA (recurrent) - last admit was 12, unsure if pTH was checked in the past, s/ calcitonin, hydrate,more calcitonin, recheck AOCD Obesity SNU resident Hypermagnesemia, hyperphos[phatemia, hyperkalemeia MIld transaminitis - had something smilar in past admit Emesis. new DM 2 uncontrolled FULL C ODE PLAN: 2 MN, HD per renal; COnsult renal I gave IVF and will cont calcitonin as CA is markedly high Check PTH PT,.OT Liquid diet then ADAT when not vomiting anymore full code Check lytes tmr HOme emds I have reconciled, ok to give with sips of water BAck to glennie on dc JAYDEN RODAS MD May 10, 2019 21:01
[2019-05-10 21:15] VITALS: BP 120/64
[2019-05-10] MEDS ORDERED: POLYVINYL ALCOHOL 1.4% OPHTH SOLUTION 15ML BOTTLE. OU PRN (21:15)
--- NOTE | 2019-05-10 21:20 | NUR ---
Patient admitted to room 104 at 2115. Patient transferred over to bed and placed on monitor. Attempt was made to orient patient to room, call light, and hospital policies; however, patient remains alert to self at this time. Unable to orient. Admission completed based off paperwork from [facility] and previous admission which was earlier this month. Home medications already reconciled by Dr. Miranda.
[2019-05-10 21:30] VITALS: BP 118/60
[2019-05-10] MEDS: SODIUM POLYSTYRENE SULFON/SORB 15 GM/60 ML ORAL.SUSP PO ONE ×2 (21:30→22:06)
[2019-05-10] MEDS ORDERED: DEXTROSE 50% 25 GM / 50ML DISP.SYRIN. IV PRN (21:30)
[2019-05-10 21:45] VITALS: BP 110/54
[2019-05-10 22:00] VITALS: BP 108/54
[2019-05-10] MEDS: INSULIN GLARGINE SYRINGE. SQ SCH (22:00)
[2019-05-10] MEDS: FERROUS SULFATE 325 MG TABLET. PO SCH (22:05)
[2019-05-10] MEDS: LACTOBACILLUS RHAMNOSUS GG 1 CAPSULE. PO SCH (22:05)
[2019-05-10] MEDS: APIXABAN 5 MG TABLET. PO SCH (22:05)
[2019-05-10] MEDS: FAMOTIDINE 20 MG TABLET. PO SCH (22:05)
[2019-05-10] MEDS: clonazePAM 0.5 MG TABLET PO SCH (22:06)
[2019-05-10] MEDS: RANOLAZINE 500 MG TAB.ER.12H PO SCH (22:06)
[2019-05-10] MEDS: IV NORMAL SALINE 1000ML BAG 1,000 ML IV SCH (22:07)
[2019-05-10] MEDS: METOPROLOL TART IMMED RELEASE 25 MG TABLET. PO SCH (22:07)
[2019-05-10 22:15] VITALS: BP 108/61
[2019-05-10 23:00] VITALS: BP 123/60
--- NOTE | 2019-05-10 23:00 | NUR ---
At 2220, this RN went in to give patient night medications. Patient took pills okay, but refused to take anymore medications. This RN still had kayexalate to give. Patient refused this medication. This RN paged and talked to Dr. Miranda who was made aware of this refusal. At this time, fluid orders were also clarified and Dr. Miranda does want NS at 80mls/hr. Labs to be rechecked in AM
--- NOTE | 2019-05-10 23:15 | NUR ---
At 2250, blood sugar was rechecked and found to be 48, patient received full dose of D5 syringe per hypoglycemia protocol. Blood sugar rechecked 5mins after dose given and came up to 178. Will recheck blood sugar again and take action accordingly.
[2019-05-11] VITALS (15 sets, daily range): BP systolic 115–146; BP diastolic 55–77
[2019-05-11] MEDS: ANTI-COAG MONITOR BY PHARMACY. MC PRN (02:51)
--- NOTE | 2019-05-11 04:10 | RAD ---
Chest AP portable at 1827: Reason for examination: Altered mental status. Comparison is made to previous study dated 04/28/2019. Pacemaker remains present over the right hemithorax. Heart and mediastinum are unchanged. Lung sen show improvement in the pulmonary opacities seen previously. There is however a new infiltrate in the left lower lung field. No pleural effusions are seen. No acute bony abnormalities are seen. IMPRESSION: New focal area of consolidated infiltrate in the left lower lobe. Electronically signed by: Marisol Vega MD (05/11/2019 4:07 AM) [id number]
[2019-05-11 04:27] LABS: BASO # 0.1 x10^3/uL (0.0-0.2); BASO % 1 % (0-3); EOS % 0 % (0-3); HEMATOCRIT 22.8 % (36.0-47.0); HEMOGLOBIN 7.3 g/dL (12.0-15.5); LYMPH # 0.9 x10^3/uL (1.0-4.8); LYMPH % 10 % (24-48); MEAN CORPUSCULAR HEMOGLOBIN 26 pg (25-35); MEAN CORPUSCULAR HGB CONC 32 g/dL (31-37); MEAN CORPUSCULAR VOLUME 81 fL (79-100); MONO # 1.1 x10^3/uL (0.0-1.1); MONO % 11 % (0-9); NEUT # 7.4 x10^3/uL (1.8-7.7); NEUT % 79 % (31-73); PLATELET COUNT 235 x10^3/uL (140-400); RED CELL DISTRIBUTION WIDTH 21.1 % (11.5-14.5); WHITE BLOOD COUNT 9.4 x10^3/uL (4.0-11.0)
[2019-05-11 04:48] LABS: CREATININE 11.6 mg/dL (0.6-1.0); GFR 4.2; POTASSIUM 5.6 mmol/L (3.5-5.1)
[2019-05-11 04:54] LABS: CALCIUM 14.2 mg/dL (8.5-10.1)
--- NOTE | 2019-05-11 06:49 | EKG ---
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
[2019-05-11] MEDS ORDERED: CALCIUM ACETATE PO SCH (07:30)
[2019-05-11] MEDS: INSULIN LISPRO 300 UNITS/3 ML VIAL. SQ SCH ×3 (07:51→16:18)
[2019-05-11] MEDS: CALCITONIN,SALMON 400 UNIT/2 ML VIAL. SQ SCH ×3 (08:33→22:18)
--- NOTE | 2019-05-11 08:54 | NUR ---
Patient refusing to taking morning medications. Did allow me to administer Calcitonin SQ. Will not answer question accurately where she is but states that she knows where she is at. Does respond when saying name but will not open her eyes for me. Informed patient that the plan for today will include her Saturday dialysis treatment and patient states she doesn't want to have the treatment.
[2019-05-11] MEDS: METOPROLOL TART IMMED RELEASE 25 MG TABLET. PO SCH ×2 (09:00→21:16)
[2019-05-11] MEDS: CITALOPRAM 10 MG TABLET. PO SCH (09:00)
[2019-05-11] MEDS: FERROUS SULFATE 325 MG TABLET. PO SCH ×2 (09:00→21:16)
[2019-05-11] MEDS: amLODIPine BESYLATE 5 MG TABLET PO SCH (09:00)
[2019-05-11] MEDS: FOLIC ACID 1 MG TABLET. PO SCH (09:00)
[2019-05-11] MEDS: ASPIRIN ENTERIC COATED 81 MG TABLET.DR. PO SCH (09:00)
[2019-05-11] MEDS: RANOLAZINE 500 MG TAB.ER.12H PO SCH ×2 (09:00→21:16)
[2019-05-11] MEDS ORDERED: CALCIUM CARBONATE 500 MG TAB.CHEW PO SCH (09:00)
[2019-05-11] MEDS: APIXABAN 5 MG TABLET. PO SCH ×2 (09:00→21:16)
[2019-05-11] MEDS: CHOLECALCIFEROL (VITAMIN D3) 1,000 UNIT TABLET PO SCH (09:00)
[2019-05-11] MEDS: LACTOBACILLUS RHAMNOSUS GG 1 CAPSULE. PO SCH ×2 (09:00→21:16)
[2019-05-11] MEDS: clonazePAM 0.5 MG TABLET PO SCH ×3 (09:00→21:16)
[2019-05-11] MEDS: IV NORMAL SALINE 1000ML BAG 1,000 ML IV SCH (09:30)
--- NOTE | 2019-05-11 11:07 | PDOC2 ---
CONSULT Date of Consult Date of Consult DATE: 05/11/19 TIME: 10:34 Reason for Consult Reason for Consult: ESRD /Hypercalcemia Identification/Chief Complaint Chief Complaint "I am Hungry , I want food" (She has a tray in front of her) Source Source: Chart review History of Present Illness Reason for Visit: 53 AA female SNU resident ([facility]) brought in by staff due to confusion described as aphasia and drowsiness . She was able to tell the hospitalist that she eats reg diet and ambulates mostly via wheelchair, She is a FULL CODE based on SNu records, She is HD via Rt arm AV fistula and has been refusing HD lately? (not sure of her last Hemodialysis) At presentation in ER Ca was 15, hyperglycemic bs 300s, High phosphorus, high mag etc Received calcitonin x1 per Renal recommendations She was here mos ago for similar picture, enceph, hyperglycemia and hypercalcemia She was in patient at [facility] early April wu similar complaints -missed HD treatments . Ca at the time was 13. Neurology was consulted as well She was getting Dialyzed at [facility] 3/week till her dc on 05/06 Hx Obtained from chart review- Pt has AMS-unable to obtain History - she keeps on repeating she i hungry though food tray is in front of her. Not in any acute distress Past Medical History Cardiovascular: AFIB, CAD, CHF, HTN, Hyperlipidemia, Other CENTRAL NERVOUS SYSTEM: Other GI: Constipation Heme/Onc: Anemia NOS Hepatobiliary: No pertinent hx Psych: Anxiety, Depression, Schizophrenia Musculoskeletal: Other Rheumatologic: No pertinent hx Infectious disease: No pertinent hx Renal/: Chronic renal failure, UTI Endocrine: Diabetes Past Surgical History Past Surgical History: Pacemaker, , Other Family History Family History: Coronary Artery Disease, Diabetes Social History No ALCOHOL: none Drugs: None Lives: Skilled Nursing Current Problem List Problem List Problems Medical Problems: (1) Altered mental status Status: Acute (2) CHF (congestive heart failure) Status: Acute (3) ESRD (end stage renal disease) on dialysis Status: Acute (4) Hypercalcemia Status: Acute Current Medications Current Medications Current Medications Calcitonin [place] (Miacalcin) 400 unit 1X SQ Last administered on 05/10/19at 19:56; Start 05/10/19 at 19:45 Dextrose (Dextrose 50%-Water Syringe) 25 gm 1X ONCE IV Last administered on 05/10/19at 20:51; Start 05/10/19 at 21:00; Stop 05/10/19 at 21:01; Status DC Insulin Human Regular (HumuLIN R VIAL) 10 unit 1X ONCE IV Last administered on 05/10/19 20:55; Start 05/10/19 at 21:00; Stop 05/10/19 at 21:01; Status DC Sodium Chloride 1,000 ml @ 80 mls/hr [id number] IV Last administered on 05/10/19at 22:07; Start 05/10/19 at 21:00 Ondansetron HCl (Zofran) 4 mg PRN Q6HRS PRN IVP NAUSEA/VOMITING 1ST CHOICE Last administered on 05/11/19 07:32; Start 05/10/19 at 21:00 Acetaminophen (Tylenol) 500 mg PRN Q6HRS PRN PO MILD PAIN / TEMP; Start 05/10/19 at 21:00 Amlodipine Besylate (Norvasc) 5 mg DAILY PO ; Start 05/11/19 at 09:00 Apixaban (Eliquis) 5 mg BID PO Last administered on 05/10/19at 22:05; Start 05/10/19 at 21:00 Aspirin (Ecotrin) 81 mg DAILY PO ; Start 05/11/19 at 09:00 Bisacodyl (Dulcolax Supp) 10 mg PRN DAILY PRN RC CONSTIPATION 3RD CHOICE; St art 05/10/19 at 21:00 Bisacodyl (Dulcolax Tab) 20 mg PRN BID PRN PO CONSTIPATION 2ND CHOICE; Start 05/10/19 at 21:00 Calcium Carbonate/ Glycine (Tums) 500 mg DAILY PO ; Start 05/11/19 at 09:00; Stop 05/10/19 at 21:03; Status DC Clonazepam (KlonoPIN) 0.5 mg TID PO Last administered on 05/10/19at 22:06; Start 05/10/19 at 21:00 Famotidine (Pepcid) 20 mg HS PO Last administered on 05/10/19at 22:05; Start 05/10/19 at 21:00 Ferrous Sulfate (Feosol) 325 mg BID PO Last administered on 05/10/19at 22:05; Start 05/10/19 at 21:00 Folic Acid (Folic Acid) 1 mg DAILY PO ; Start 05/11/19 at 09:00 Lactobacillus Rhamnosus (Culturelle) 1 cap BID PO Last administered on 05/10/19at 22:05; Start 05/10/19 at 21:00 Loperamide HCl (Imodium) 2 mg PRN Q4HRS PRN PO DIARRHEA; Start 05/10/19 at 21:00 Metoprolol Tartrate (Lopressor) 25 mg BID PO Last administered on 05/10/19at 22:07; Start 05/10/19 at 21:00 Nitroglycerin (Nitrostat) 0.4 mg PRN Q5MIN PRN SL CHEST PAIN; Start 05/10/19 at 21:00 Ranolazine (Ranexa) 500 mg Q12HR PO Last administered on 05/10/19at 22:06; Start 05/10/19 at 21:00 Non-Formulary Medication (Calcium Acetate (Phoslyra)) 15 ml TIDAC PO ; Start 05/11/19 at 07:30; Status UNV Vitamin D (Vitamin D3) 1,000 unit DAILY PO ; Start 05/11/19 at 09:00 Artificial Tears (Artificial Tears) 1 drop PRN Q8HRS PRN OU DRY EYE; Start 05/10/19 at 21:15 Citalopram Hydrobromide (CeleXA) 30 mg DAILY PO ; Start 05/11/19 at 09:00 Insulin Glargine (Lantus Syringe) 15 unit QHS SQ ; Start 05/10/19 at 22:00 Polyethylene Glycol (miraLAX PACKET) 17 gm PRN DAILY PRN PO CONSTIPATION 1ST CHOICE; Start 05/10/19 at 21:00 Calcitonin [place] (Miacalcin) 400 unit BID SQ Last administered on 05/11/19at 08:33; Start 05/11/19 at 09:00 Sodium Polystyrene Sulfonate (Kayexalate) 15 gm 1X ONCE PO ; Start 05/10/19 at 21:30; Stop 05/10/19 at 21:31; Status DC Info (Anti-Coagulation Monitoring By Pharmacy) 1 each PRN DAILY PRN MC SEE COMMENTS Last administered on 05/11/19at 02:51; Start 05/10/19 at 21:30 Insulin Human Lispro (HumaLOG) 0-9 UNITS TIDWMEALS SQ ; Start 05/11/19 at 08:00 Dextrose (Dextrose 50%-Water Syringe) 12.5 gm PRN Q15MIN PRN IV SEE COMMENTS Last administered on 05/10/19at 22:55; Start 05/10/19 at 21:30 Active Scripts Active Culturelle (Lactobacillus Rhamnosus Gg) 1 Each Cap.sprink 1 Cap PO BID 30 Days Reported Vitamin D (Cholecalciferol (Vitamin D3)) 1,000 Unit Capsule 1 Cap PO DAILY Tums (Calcium Carbonate) 200 Mg Tab.chew 4 Tab PO DAILY Ranexa (Ranolazine) 500 Mg Tab.er.12h 1 Tab PO Q12HR Phoslyra (Calcium Acetate) 667 Mg/5 Ml Solution 15 Ml PO TIDAC NITROGLYCERIN SubLingual (Nitroglycerin) 0.4 Mg Tab.subl 0.4 Mg SL PRN Q5MIN PRN Miralax (Polyethylene Glycol 3350) 17 Gm Powd.pack 1 Packet PO BID Metoprolol Tartrate 25 Mg Tablet 1 Tab PO BID Lexapro (Escitalopram Oxalate) 5 Mg Tablet 15 Mg PO DAILY Levemir (Insulin Detemir) 100 Unit/1 Ml Vial 15 Unit SQ QHS Klonopin (Clonazepam) 0.5 Mg Tablet 1 Tab PO TID Imodium A-D (Loperamide HCl) 2 Mg Capsule 2 Mg PO PRN Q4HRS PRN Folic Acid 1 Mg Tablet 1 Tab PO DAILY Ferrous Sulfate 325 Mg Tablet 1 Tab PO BID Pepcid (Famotidine) 20 Mg Tablet 20 Mg PO HS Dulcolax (Bisacodyl) 5 Mg Tablet.dr 4 Tab PO PRN BID PRN Bisacodyl 10 Mg Supp.rect 10 Mg RC PRN DAILY PRN Aspir-Low (Aspirin) 81 Mg Tablet.dr 1 Tab PO DAILY Artificial Tears (Dextran 70/Hypromellose) 1 Each [place] 1 Each OP PRN Q8HRS PRN Eliquis (Apixaban) 5 Mg Tablet 5 Mg PO BID Amlodipine Besylate 5 Mg Tablet 5 Mg PO DAILY Allergies Allergies: Coded Allergies: Milk Containing Products (Verified Allergy, Intermediate, 11/02/15) Penicillins (Verified Allergy, Intermediate, 11/02/15) haloperidol (Verified Allergy, Intermediate, 04/28/19) ROS Review of System Unable to obtain 2/2 AMS Physical Exam Physical Exam General: No acute distress HEENT: OM dryish Neck Supple Lungs: Clear to auscultation, decreased at bases , Non labored, On Room air Heart: S1S2, RRR, no rub Abdomen: Normal bowel sounds, Soft, No tenderness, Extremities: No clubbing, No cyanosis or edema Right AVF with good bruit and distal pulses) Skin: No rashes, Neuro:some AMS, not sure if baseline No [place] Vital Signs Vital Signs Date Time Temp Pulse Resp B/P (MAP) Pulse Ox O2 Delivery O2 Flow Rate FiO2 05/11/19 10:00 60 24 119/63 (81) 92 Room Air 05/11/19 07:00 98.6 98.6 05/10/19 22:15 2.0 Assessment & Plan ESRD - [facility] She was in patient at [facility] earlier this month and dced on 05/06 and had Dialysis Dialysis today as ordered, Howie VANEGAS RN attempting to contact brother for consent Hypercalcemia - Calcitonin given this am SPEP done 1-2 weeks back at [facility]- M Je "This monoclonal protein is observed in the beta region." Consult Hem/onc HD today (Medical Necessity , if unable to contact brother ) Hyperkalemia- Mild HD today Altered MS- Defer to primary Neuro was consulted at last admission , defer to Primary/Neurology to determine if pt can take medical decisions Recommend Palliative consult DM- per primary Anemia- JOSHUA Hem/Onc consult r/o MM Discussed with RN Labs Labs Laboratory Tests Test 05/10/19 18:11 05/10/19 20:08 05/10/19 22:10 05/10/19 22:52 White Blood Count 9.1 x10^3/uL (4.0-11.0) Red Blood Count 2.82 x10^6/uL (3.50-5.40) Hemoglobin 7.4 g/dL (12.0-15.5) Hematocrit 23.0 % (36.0-47.0) Mean Corpuscular Volume 82 fL (79-100) Mean Corpuscular Hemoglobin 26 pg (25-35) Mean Corpuscular Hemoglobin Concent 32 g/dL (31-37) Red Cell Distribution Width 20.5 % (11.5-14.5) Platelet Count 250 x10^3/uL (140-400) Neutrophils (%) (Auto) 76 % (31-73) Lymphocytes (%) (Auto) 10 % (24-48) Monocytes (%) (Auto) 13 % (0-9) Eosinophils (%) (Auto) 1 % (0-3) Basophils (%) (Auto) 0 % (0-3) Neutrophils # (Auto) 6.9 x10^3/uL (1.8-7.7) Lymphocytes # (Auto) 0.9 x10^3/uL (1.0-4.8) Monocytes # (Auto) 1.2 x10^3/uL (0.0-1.1) Eosinophils # (Auto) 0.0 x10^3/uL (0.0-0.7) Basophils # (Auto) 0.0 x10^3/uL (0.0-0.2) Platelet Estimate Adequate (ADEQUATE) Polychromasia Slight Hypochromasia Mod Anisocytosis Mod Target Cells Occ Tear Drop Cells Occ Ovalocytes Few Helmet Cells Occ Sodium Level 138 mmol/L (136-145) Potassium Level 5.6 mmol/L (3.5-5.1) Chloride Level 96 mmol/L (98-107) Carbon Dioxide Level 30 mmol/L (21-32) Anion Gap 12 (6-14) Blood Urea Nitrogen 54 mg/dL (7-20) Creatinine 11.2 mg/dL (0.6-1.0) Estimated GFR (Cockcroft-Gault) 4.4 BUN/Creatinine Ratio 5 (6-20) Glucose Level 117 mg/dL (70-99) Calcium Level 15.4 mg/dL (8.5-10.1) Phosphorus Level 8.4 mg/dL (2.6-4.7) Magnesium Level 2.5 mg/dL (1.8-2.4) Total Bilirubin 1.3 mg/dL (0.2-1.0) Aspartate Amino Transf (AST/SGOT) 42 U/L (15-37) Alanine Aminotransferase (ALT/SGPT) 80 U/L (14-59) Alkaline Phosphatase 120 U/L (46-116) Ammonia 16 mcmol/L (11-34) Troponin I Quantitative 0.079 ng/mL (0.000-0.055) PR-Scm-T-Type Natriuretic Peptide > 10617 pg/mL (0-124) Total Protein 7.8 g/dL (6.4-8.2) Albumin 2.6 g/dL (3.4-5.0) Albumin/Globulin Ratio 0.5 (1.0-1.7) Ionized Calcium 1.76 mmol/L (1.13-1.32) Glucose (Fingerstick) 61 mg/dL (70-99) 48 mg/dL (70-99) Test 05/10/19 23:08 05/11/19 01:29 05/11/19 04:10 05/11/19 04:14 Glucose (Fingerstick) 178 mg/dL (70-99) 101 mg/dL (70-99) 104 mg/dL (70-99) White Blood Count 9.4 x10^3/uL (4.0-11.0) Red Blood Count 2.80 x10^6/uL (3.50-5.40) Hemoglobin 7.3 g/dL (12.0-15.5) Hematocrit 22.8 % (36.0-47.0) Mean Corpuscular Volume 81 fL (79-100) Mean Corpuscular Hemoglobin 26 pg (25-35) Mean Corpuscular Hemoglobin Concent 32 g/dL (31-37) Red Cell Distribution Width 21.1 % (11.5-14.5) Platelet Count 235 x10^3/uL (140-400) Neutrophils (%) (Auto) 79 % (31-73) Lymphocytes (%) (Auto) 10 % (24-48) Monocytes (%) (Auto) 11 % (0-9) Eosinophils (%) (Auto) 0 % (0-3) Basophils (%) (Auto) 1 % (0-3) Neutrophils # (Auto) 7.4 x10^3/uL (1.8-7.7) Lymphocytes # (Auto) 0.9 x10^3/uL (1.0-4.8) Monocytes # (Auto) 1.1 x10^3/uL (0.0-1.1) Eosinophils # (Auto) 0.0 x10^3/uL (0.0-0.7) Basophils # (Auto) 0.1 x10^3/uL (0.0-0.2) Sodium Level 137 mmol/L (136-145) Potassium Level 5.6 mmol/L (3.5-5.1) Chloride Level 96 mmol/L (98-107) Carbon Dioxide Level 28 mmol/L (21-32) Anion Gap 13 (6-14) Blood Urea Nitrogen 60 mg/dL (7-20) Creatinine 11.6 mg/dL (0.6-1.0) Estimated GFR (Cockcroft-Gault) 4.2 Glucose Level 108 mg/dL (70-99) Calcium Level 14.2 mg/dL (8.5-10.1) Laboratory Tests Test 05/10/19 18:11 05/10/19 20:08 05/10/19 22:10 05/10/19 22:52 White Blood Count 9.1 x10^3/uL (4.0-11.0) Red Blood Count 2.82 x10^6/uL (3.50-5.40) Hemoglobin 7.4 g/dL (12.0-15.5) Hematocrit 23.0 % (36.0-47.0) Mean Corpuscular Volume 82 fL (79-100) Mean Corpuscular Hemoglobin 26 pg (25-35) Mean Corpuscular Hemoglobin Concent 32 g/dL (31-37) Red Cell Distribution Width 20.5 % (11.5-14.5) Platelet Count 250 x10^3/uL (140-400) Neutrophils (%) (Auto) 76 % (31-73) Lymphocytes (%) (Auto) 10 % (24-48) Monocytes (%) (Auto) 13 % (0-9) Eosinophils (%) (Auto) 1 % (0-3) Basophils (%) (Auto) 0 % (0-3) Neutrophils # (Auto) 6.9 x10^3/uL (1.8-7.7) Lymphocytes # (Auto) 0.9 x10^3/uL (1.0-4.8) Monocytes # (Auto) 1.2 x10^3/uL (0.0-1.1) Eosinophils # (Auto) 0.0 x10^3/uL (0.0-0.7) Basophils # (Auto) 0.0 x10^3/uL (0.0-0.2) Platelet Estimate Adequate (ADEQUATE) Polychromasia Slight Hypochromasia Mod Anisocytosis Mod Target Cells Occ Tear Drop Cells Occ Ovalocytes Few Helmet Cells Occ Sodium Level 138 mmol/L (136-145) Potassium Level 5.6 mmol/L (3.5-5.1) Chloride Level 96 mmol/L (98-107) Carbon Dioxide Level 30 mmol/L (21-32) Anion Gap 12 (6-14) Blood Urea Nitrogen 54 mg/dL (7-20) Creatinine 11.2 mg/dL (0.6-1.0) Estimated GFR (Cockcroft-Gault) 4.4 BUN/Creatinine Ratio 5 (6-20) Glucose Level 117 mg/dL (70-99) Calcium Level 15.4 mg/dL (8.5-10.1) Phosphorus Level 8.4 mg/dL (2.6-4.7) Magnesium Level 2.5 mg/dL (1.8-2.4) Total Bilirubin 1.3 mg/dL (0.2-1.0) Aspartate Amino Transf (AST/SGOT) 42 U/L (15-37) Alanine Aminotransferase (ALT/SGPT) 80 U/L (14-59) Alkaline Phosphatase 120 U/L (46-116) Ammonia 16 mcmol/L (11-34) Troponin I Quantitative 0.079 ng/mL (0.000-0.055) YB-Ueh-J-Type Natriuretic Peptide > 32943 pg/mL (0-124) Total Protein 7.8 g/dL (6.4-8.2) Albumin 2.6 g/dL (3.4-5.0) Albumin/Globulin Ratio 0.5 (1.0-1.7) Ionized Calcium 1.76 mmol/L (1.13-1.32) Glucose (Fingerstick) 61 mg/dL (70-99) 48 mg/dL (70-99) Test 05/10/19 23:08 05/11/19 01:29 05/11/19 04:10 05/11/19 04:14 Glucose (Fingerstick) 178 mg/dL (70-99) 101 mg/dL (70-99) 104 mg/dL (70-99) White Blood Count 9.4 x10^3/uL (4.0-11.0) Red Blood Count 2.80 x10^6/uL (3.50-5.40) Hemoglobin 7.3 g/dL (12.0-15.5) Hematocrit 22.8 % (36.0-47.0) Mean Corpuscular Volume 81 fL (79-100) Mean Corpuscular Hemoglobin 26 pg (25-35) Mean Corpuscular Hemoglobin Concent 32 g/dL (31-37) Red Cell Distribution Width 21.1 % (11.5-14.5) Platelet Count 235 x10^3/uL (140-400) Neutrophils (%) (Auto) 79 % (31-73) Lymphocytes (%) (Auto) 10 % (24-48) Monocytes (%) (Auto) 11 % (0-9) Eosinophils (%) (Auto) 0 % (0-3) Basophils (%) (Auto) 1 % (0-3) Neutrophils # (Auto) 7.4 x10^3/uL (1.8-7.7) Lymphocytes # (Auto) 0.9 x10^3/uL (1.0-4.8) Monocytes # (Auto) 1.1 x10^3/uL (0.0-1.1) Eosinophils # (Auto) 0.0 x10^3/uL (0.0-0.7) Basophils # (Auto) 0.1 x10^3/uL (0.0-0.2) Sodium Level 137 mmol/L (136-145) Potassium Level 5.6 mmol/L (3.5-5.1) Chloride Level 96 mmol/L (98-107) Carbon Dioxide Level 28 mmol/L (21-32) Anion Gap 13 (6-14) Blood Urea Nitrogen 60 mg/dL (7-20) Creatinine 11.6 mg/dL (0.6-1.0) Estimated GFR (Cockcroft-Gault) 4.2 Glucose Level 108 mg/dL (70-99) Calcium Level 14.2 mg/dL (8.5-10.1) Review All relevant outside records, renal labs, imaging studies, telemetry/EKG's were reviewed. JASON POWER MD May 11, 2019 11:07
--- NOTE | 2019-05-11 12:01 | NUR ---
SS following for discharge planning. SS reviewed pt chart. Pt is a LTC resident from [facility], ; fax [phone]. Pt was recently discharged from [facility] on [facility] Pt is currently on room air. SS will continue to follow for discharge planning.
--- NOTE | 2019-05-11 13:03 | PDOC ---
[employer] PROGRESS NOTE Chief Complaint Chief Complaint Severe noncompliance with dialysis with secondary volume overload and electrolyte disturbance with hyperkalemia CHF Constipation Depression, Diabetes-Type II High Cholesterol Heart Disease Hypertension Renal Failure major depres. disorder w psychosis vit d deffic constipation dm neuop. left dialysis fistula History of Present Illness History of Present Illness Patient seen and examined in ICU Discussed with RN Patient is coughing short of breath wheezing very weak and cognitively unclear Appears quite ill Vitals/I&O Vitals/I&O: Vital Signs Date Time Temp Pulse Resp B/P (MAP) Pulse Ox O2 Delivery O2 Flow Rate FiO2 05/11/19 11:00 60 26 119/61 (80) 92 Room Air 05/11/19 07:00 98.6 98.6 05/10/19 22:15 2.0 I & O 05/10/19 05/10/19 05/11/19 15:00 23:00 07:00 Intake Total 100 ml Output Total 0 ml Balance 100 ml Physical Exam General: moderate distress Heart: Normal S1, Normal S2, Other Lungs: Wheezing (S3), Crackles, Other (S3 gallop) Abdomen: Normal bowel sounds, Soft, No tenderness, No hepatosplenomegaly, No masses Extremities: No clubbing, No cyanosis, Other (RT av fistula with good bruit and distal pulses) Skin: No rashes, No breakdown, No significant lesion Labs Labs: Laboratory Tests Test 05/10/19 18:11 05/10/19 20:08 05/10/19 22:10 05/10/19 22:52 White Blood Count 9.1 x10^3/uL (4.0-11.0) Red Blood Count 2.82 x10^6/uL (3.50-5.40) Hemoglobin 7.4 g/dL (12.0-15.5) Hematocrit 23.0 % (36.0-47.0) Mean Corpuscular Volume 82 fL (79-100) Mean Corpuscular Hemoglobin 26 pg (25-35) Mean Corpuscular Hemoglobin Concent 32 g/dL (31-37) Red Cell Distribution Width 20.5 % (11.5-14.5) Platelet Count 250 x10^3/uL (140-400) Neutrophils (%) (Auto) 76 % (31-73) Lymphocytes (%) (Auto) 10 % (24-48) Monocytes (%) (Auto) 13 % (0-9) Eosinophils (%) (Auto) 1 % (0-3) Basophils (%) (Auto) 0 % (0-3) Neutrophils # (Auto) 6.9 x10^3/uL (1.8-7.7) Lymphocytes # (Auto) 0.9 x10^3/uL (1.0-4.8) Monocytes # (Auto) 1.2 x10^3/uL (0.0-1.1) Eosinophils # (Auto) 0.0 x10^3/uL (0.0-0.7) Basophils # (Auto) 0.0 x10^3/uL (0.0-0.2) Platelet Estimate Adequate (ADEQUATE) Polychromasia Slight Hypochromasia Mod Anisocytosis Mod Target Cells Occ Tear Drop Cells Occ Ovalocytes Few Helmet Cells Occ Sodium Level 138 mmol/L (136-145) Potassium Level 5.6 mmol/L (3.5-5.1) Chloride Level 96 mmol/L (98-107) Carbon Dioxide Level 30 mmol/L (21-32) Anion Gap 12 (6-14) Blood Urea Nitrogen 54 mg/dL (7-20) Creatinine 11.2 mg/dL (0.6-1.0) Estimated GFR (Cockcroft-Gault) 4.4 BUN/Creatinine Ratio 5 (6-20) Glucose Level 117 mg/dL (70-99) Calcium Level 15.4 mg/dL (8.5-10.1) Phosphorus Level 8.4 mg/dL (2.6-4.7) Magnesium Level 2.5 mg/dL (1.8-2.4) Total Bilirubin 1.3 mg/dL (0.2-1.0) Aspartate Amino Transf (AST/SGOT) 42 U/L (15-37) Alanine Aminotransferase (ALT/SGPT) 80 U/L (14-59) Alkaline Phosphatase 120 U/L (46-116) Ammonia 16 mcmol/L (11-34) Troponin I Quantitative 0.079 ng/mL (0.000-0.055) RG-Buy-N-Type Natriuretic Peptide > 90877 pg/mL (0-124) Total Protein 7.8 g/dL (6.4-8.2) Albumin 2.6 g/dL (3.4-5.0) Albumin/Globulin Ratio 0.5 (1.0-1.7) Ionized Calcium 1.76 mmol/L (1.13-1.32) Glucose (Fingerstick) 61 mg/dL (70-99) 48 mg/dL (70-99) Test 05/10/19 23:08 05/11/19 01:29 05/11/19 04:10 05/11/19 04:14 Glucose (Fingerstick) 178 mg/dL (70-99) 101 mg/dL (70-99) 104 mg/dL (70-99) White Blood Count 9.4 x10^3/uL (4.0-11.0) Red Blood Count 2.80 x10^6/uL (3.50-5.40) Hemoglobin 7.3 g/dL (12.0-15.5) Hematocrit 22.8 % (36.0-47.0) Mean Corpuscular Volume 81 fL (79-100) Mean Corpuscular Hemoglobin 26 pg (25-35) Mean Corpuscular Hemoglobin Concent 32 g/dL (31-37) Red Cell Distribution Width 21.1 % (11.5-14.5) Platelet Count 235 x10^3/uL (140-400) Neutrophils (%) (Auto) 79 % (31-73) Lymphocytes (%) (Auto) 10 % (24-48) Monocytes (%) (Auto) 11 % (0-9) Eosinophils (%) (Auto) 0 % (0-3) Basophils (%) (Auto) 1 % (0-3) Neutrophils # (Auto) 7.4 x10^3/uL (1.8-7.7) Lymphocytes # (Auto) 0.9 x10^3/uL (1.0-4.8) Monocytes # (Auto) 1.1 x10^3/uL (0.0-1.1) Eosinophils # (Auto) 0.0 x10^3/uL (0.0-0.7) Basophils # (Auto) 0.1 x10^3/uL (0.0-0.2) Sodium Level 137 mmol/L (136-145) Potassium Level 5.6 mmol/L (3.5-5.1) Chloride Level 96 mmol/L (98-107) Carbon Dioxide Level 28 mmol/L (21-32) Anion Gap 13 (6-14) Blood Urea Nitrogen 60 mg/dL (7-20) Creatinine 11.6 mg/dL (0.6-1.0) Estimated GFR (Cockcroft-Gault) 4.2 Glucose Level 108 mg/dL (70-99) Calcium Level 14.2 mg/dL (8.5-10.1) Review of Systems Review of Systems: Complains of shortness of breath Complains of weakness Complains of confusion Complains of cough Assessment and Plan Assessmemt and Plan Problems Medical Problems: (1) Altered mental status Status: Acute (2) CHF (congestive heart failure) Status: Acute (3) ESRD (end stage renal disease) on dialysis Status: Acute (4) Hypercalcemia Status: Acute Severe noncompliance with dialysis with secondary volume overload and electrolyte disturbance with hyperkalemia CHF Constipation Depression, Diabetes-Type II High Cholesterol Heart Disease Hypertension Renal Failure major depres. disorder w psychosis vit d deffic constipation dm neuop. left dialysis fistula Plan ICU monitoring Dialysis today Consult nephrology Home meds Fluid restrictions Frequent labs Full code DVT prophylaxis Total time 32 minutes Comment Review of Relevant I have reviewed the following items sarahi (where applicable) has been applied. Medications: Current Medications Medications (Trade) Dose Ordered Sig/Sanchez Route PRN Reason Start Time Stop Time Status Last Admin Dose Admin Calcitonin [place] (Miacalcin) 400 unit 1X SQ 05/10/19 19:45 05/10/19 19:56 Dextrose (Dextrose 50%-Water Syringe) 25 gm 1X ONCE IV 05/10/19 21:00 05/10/19 21:01 DC 05/10/19 20:51 Insulin Human Regular (HumuLIN R VIAL) 10 unit 1X ONCE IV 05/10/19 21:00 05/10/19 21:01 DC 05/10/19 20:55 Sodium Chloride 1,000 ml @ 80 mls/hr [id number] IV 05/10/19 21:00 05/10/19 22:07 Ondansetron HCl (Zofran) 4 mg PRN Q6HRS PRN IVP NAUSEA/VOMITING 1ST CHOICE 05/10/19 21:00 05/11/19 07:32 Apixaban (Eliquis) 5 mg BID PO 05/10/19 21:00 05/10/19 22:05 Clonazepam (KlonoPIN) 0.5 mg TID PO 05/10/19 21:00 05/10/19 22:06 Famotidine (Pepcid) 20 mg HS PO 05/10/19 21:00 05/10/19 22:05 Ferrous Sulfate (Feosol) 325 mg BID PO 05/10/19 21:00 05/10/19 22:05 Lactobacillus Rhamnosus (Culturelle) 1 cap BID PO 05/10/19 21:00 05/10/19 22:05 Metoprolol Tartrate (Lopressor) 25 mg BID PO 05/10/19 21:00 05/10/19 22:07 Ranolazine (Ranexa) 500 mg Q12HR PO 05/10/19 21:00 05/10/19 22:06 Calcitonin [place] (Miacalcin) 400 unit BID SQ 05/11/19 09:00 05/11/19 08:33 Info (Anti-Coagulation Monitoring By Pharmacy) 1 each PRN DAILY PRN MC SEE COMMENTS 05/10/19 21:30 05/11/19 02:51 Dextrose (Dextrose 50%-Water Syringe) 12.5 gm PRN Q15MIN PRN IV SEE COMMENTS 05/10/19 21:30 05/10/19 22:55 SERGEI PALACIOS III DO May 11, 2019 13:03
[2019-05-11] MEDS ORDERED: IV NORMAL SALINE 1000ML BAG 1,000 ML IV PRN ×2 (14:42)
[2019-05-11] MEDS ORDERED: LABETALOL 20 MG/4 ML DISP.SYRIN. IVP PRN (14:45)
[2019-05-11] MEDS ORDERED: DIALYSIS PATIENT. MC PRN (14:45)
[2019-05-11] MEDS ORDERED: diphenhydrAMINE 50 MG/ML VIAL IV PRN ×2 (14:45)
--- NOTE | 2019-05-11 15:17 | CONS ---
DATE OF CONSULTATION: 05/11/2019 MEDICAL ONCOLOGY CONSULTATION REPORT REQUESTING PHYSICIAN: Dr. Reshma Miarnda. REASON FOR CONSULTATION: M-spike noted on serum protein electrophoresis. HISTORY OF PRESENT ILLNESS: The patient is a 53-year-old female who has end-stage renal disease and she is on hemodialysis. She was brought in by the staff from the group home unit from [facility] because of confusion described as aphasia and drowsiness. She has been getting hemodialysis via the right arm AV fistula and has been refusing hemodialysis lately. She was noted to have hypercalcemia with a calcium level of 15.4 on 05/10/2019 and hence she was admitted to the hospital for further evaluation. Nephrology was consulted and she received calcitonin. She denies fevers or chills. No abdominal pain, nausea, or vomiting. I was asked to see the patient because her serum protein electrophoresis was abnormal on 05/05/2019, which revealed an M-spike of 0.6 g/dL. PAST MEDICAL HISTORY: AFib, coronary artery disease, congestive heart failure, hypertension, hyperlipidemia, constipation, anemia, depression, anxiety, schizophrenia, chronic renal failure, UTI, diabetes, pacemaker, . FAMILY HISTORY: Positive for diabetes and coronary artery disease. SOCIAL HISTORY: No smoking or alcohol abuse. REVIEW OF SYSTEMS: A 12-point review of system was performed. Pertinent positives are mentioned in the history of present illness. Rest of the system review is negative. PHYSICAL EXAMINATION: GENERAL APPEARANCE: The patient is a 53-year-old female who is in no acute cardiorespiratory distress. VITAL SIGNS: Blood pressure 119/61, temperature 98.6. HEENT: Head is atraumatic, normocephalic. EYES: No icterus. NECK: Supple. CHEST: Bilaterally symmetrical. HEART: S1, S2 normal. ABDOMEN: Soft, nontender. FOOD AND BEVERAGE DIRECTOR: She is alert and awake, but not oriented. MUSCULOSKELETAL: No joint effusions. SKIN: She has hyperpigmented rash in the lower extremity. LABORATORY DATA: WBC 9.4, hemoglobin 7.3, platelet count 235, creatinine 11.2, calcium 15.4, magnesium 2.5, total bilirubin 1.3, AST 42, ALT 80, alkaline phosphatase 120, total protein 7.8, albumin 2.6. BNP more than 3500. IMPRESSION AND PLAN: 1. Monoclonal gammopathy. M-spike noted on serum protein electrophoresis at 0.6 g/dL on 05/05/2019. I will obtain immunofixation studies, serum free light chains and immunoglobulin levels. I will also obtain a skeletal survey. Bone marrow biopsy would be essential to evaluate for possible multiple myeloma versus monoclonal gammopathy of undetermined significance. 2. Hypercalcemia. She received calcitonin. Appreciate Nephrology consultation. I would continue management of hypercalcemia per Nephrology recommendations. She is on calcitonin 400 units subcutaneous b.i.d. 3. Anemia due to end-stage renal disease. Continue to monitor and transfuse if needed. ADÁN CASTELLANOS MD DR: RANDELL/nts JOB#: [id number] / [id number] FABIANA
--- NOTE | 2019-05-11 16:42 | RAD ---
Examination: BONE SURVEY METASTATIC COMPL History: Hypercalcemia, multiple myeloma evaluation, elevated M protein spike Comparison/Correlation: 05/01/2019 CT chest abdomen and pelvis without contrast Findings: A total of 21 images of the bony structures were obtained. This includes images of the skull, spine, bony thorax, extremities, and pelvis. Osteopenia is present. Vascular calcifications advanced for age are noted involving the extremities. Dual-lead right-sided pacemaker is present. Significant mitral valvular calcification is noted. Limited pulmonary inflation is noted. Pulmonary vascular congestion is noted but may be artifactual. Radiopaque densities involving the left mid abdomen are present. Correlate with prior intervention. No lytic lesions identified. No bony sclerotic lesions noted. Intrauterine device is incidentally seen. Impression: Osteopenia. No focal suspicious lesions to suggest bony metastases. Electronically signed by: Flip Alexander MD (05/11/2019 4:38 PM) [facility]
--- NOTE | 2019-05-11 17:51 | NUR ---
Received TR from [facility] ICU, informed that pt would go to HD before coming to floor. Updated by Gutierrez at 1730 that pt was experiencing "ventricular rhythms" on the monitor, without P-waves Present. Notified Diane COSTA nursing supervisor wheel shop, new room 203 after HD. Gutierrez ROGERS RN notified. Discussed with [facility] in ICU and she will notify MD and enter transfer order, and call report to 2N.
--- NOTE | 2019-05-11 18:39 | PDOC2 ---
PALLIATIVE CARE Palliative Care Note Palliative Care Consult requested by Dr. Poon to address goals of care. Medical assessment per medical record; Severe noncompliance with dialysis with secondary volume overload and sreedhar ctrolyte disturbance with hyperkalemia CHF Constipation Depression, Diabetes-Type II High Cholesterol Heart Disease Hypertension Renal Failure major depres. disorder w psychosis vit d deffic constipation dm neuop. left dialysis fistula Patient in dialysis when attempted to see earlier. Will arrange family meeting tomorrow Code Status: Full Code. IAN DOUGLAS May 11, 2019 18:39
[2019-05-11] MEDS ORDERED: DARBEPOETIN ALFA 60 MCG/0.3 ML DISP.SYRIN. SQ SCH (21:00)
[2019-05-11] MEDS: INSULIN GLARGINE SYRINGE. SQ SCH (21:00)
[2019-05-11] MEDS: FAMOTIDINE 20 MG TABLET. PO SCH (21:16)
--- NOTE | 2019-05-11 21:59 | NUR ---
Patient transferred from ICU. Calcitonin medication not in patients belongings. ICU notified unable to locate the medication. Pharmacy notified and no other Calcitonin is available until morning. Addendum: 05/11/19 at 2211 by NAVID LOCKETT RN Medication located on 4nort.
[2019-05-11 22:09] LABS: CALCIUM PTH 14.3 mg/dL (8.7-10.2); CREATININE PTH 10.82 mg/dL (0.57-1.00); PTH INTACT 75 pg/mL (15-65)
[2019-05-12] VITALS (15 sets, daily range): BP systolic 105–158; BP diastolic 47–80
--- NOTE | 2019-05-12 07:48 | PDOC ---
PROGRESS NOTES Chief Complaint Chief Complaint Hypercalcemia Monoclonal gammopathy Severe noncompliance with dialysis with secondary volume overload and electrolyte disturbance with hyperkalemia CHF Constipation Depression, Diabetes-Type II High Cholesterol Heart Disease Hypertension Renal Failure major depres. disorder w psychosis vit d deffic constipation dm neuop. right dialysis fistula History of Present Illness History of Present Illness Ms Ward is a 53yo F wheelchair bound SNF resident with PMHx AFib, coronary artery disease, congestive heart failure, hypertension, hyperlipidemia, constipation, anemia, depression, anxiety, schizophrenia, ESRD, diabetes, pacemaker who was admitted for worsening confusion and hypercalcemia. She has been refusing dialysis at her SNF. Found with calcium of 15.4 as well as hyperphosphatemia. Calcium 14.9 today. NPO for bone marrow biopsy. She is moaning, wet cough. No pain complaints Patient seen and examined in ICU Discussed with RN Patient is coughing short of breath wheezing very weak and cognitively unclear Appears quite ill Vitals Vitals Vital Signs Date Time Temp Pulse Resp B/P (MAP) Pulse Ox O2 Delivery O2 Flow Rate FiO2 05/12/19 04:30 98.4 75 18 130/57 (81) 94 Room Air 98.4 Physical Exam General: moderate distress Heart: Normal S1, Normal S2, Other Lungs: Wheezing (S3), Crackles, Other (S3 gallop) Abdomen: Normal bowel sounds, Soft, No tenderness, No hepatosplenomegaly, No masses Extremities: No clubbing, No cyanosis, Other (RT av fistula with good bruit and distal pulses) Skin: No rashes, No breakdown, No significant lesion Labs LABS Laboratory Tests Test 05/11/19 20:43 Glucose (Fingerstick) 91 mg/dL (70-99) Assessment and Plan Assessmemt and Plan Problems Medical Problems: (1) Altered mental status Status: Acute (2) CHF (congestive heart failure) Status: Acute (3) ESRD (end stage renal disease) on dialysis Status: Acute (4) Hypercalcemia Status: Acute Comment Review of Relevant I have reviewed the following items sarahi (where applicable) has been applied. Labs Laboratory Tests Test 05/10/19 18:11 05/10/19 20:08 05/10/19 22:10 05/10/19 22:52 White Blood Count 9.1 x10^3/uL (4.0-11.0) Red Blood Count 2.82 x10^6/uL (3.50-5.40) Hemoglobin 7.4 g/dL (12.0-15.5) Hematocrit 23.0 % (36.0-47.0) Mean Corpuscular Volume 82 fL (79-100) Mean Corpuscular Hemoglobin 26 pg (25-35) Mean Corpuscular Hemoglobin Concent 32 g/dL (31-37) Red Cell Distribution Width 20.5 % (11.5-14.5) Platelet Count 250 x10^3/uL (140-400) Neutrophils (%) (Auto) 76 % (31-73) Lymphocytes (%) (Auto) 10 % (24-48) Monocytes (%) (Auto) 13 % (0-9) Eosinophils (%) (Auto) 1 % (0-3) Basophils (%) (Auto) 0 % (0-3) Neutrophils # (Auto) 6.9 x10^3/uL (1.8-7.7) Lymphocytes # (Auto) 0.9 x10^3/uL (1.0-4.8) Monocytes # (Auto) 1.2 x10^3/uL (0.0-1.1) Eosinophils # (Auto) 0.0 x10^3/uL (0.0-0.7) Basophils # (Auto) 0.0 x10^3/uL (0.0-0.2) Platelet Estimate Adequate (ADEQUATE) Polychromasia Slight Hypochromasia Mod Anisocytosis Mod Target Cells Occ Tear Drop Cells Occ Ovalocytes Few Helmet Cells Occ Sodium Level 138 mmol/L (136-145) Potassium Level 5.6 mmol/L (3.5-5.1) Chloride Level 96 mmol/L (98-107) Carbon Dioxide Level 30 mmol/L (21-32) Anion Gap 12 (6-14) Blood Urea Nitrogen 54 mg/dL (7-20) Creatinine 11.2 mg/dL (0.6-1.0) Estimated GFR (Cockcroft-Gault) 4.4 BUN/Creatinine Ratio 5 (6-20) Glucose Level 117 mg/dL (70-99) Calcium Level 15.4 mg/dL (8.5-10.1) Phosphorus Level 8.4 mg/dL (2.6-4.7) Magnesium Level 2.5 mg/dL (1.8-2.4) Total Bilirubin 1.3 mg/dL (0.2-1.0) Aspartate Amino Transf (AST/SGOT) 42 U/L (15-37) Alanine Aminotransferase (ALT/SGPT) 80 U/L (14-59) Alkaline Phosphatase 120 U/L (46-116) Ammonia 16 mcmol/L (11-34) Troponin I Quantitative 0.079 ng/mL (0.000-0.055) IX-Htu-G-Type Natriuretic Peptide > 64556 pg/mL (0-124) Total Protein 7.8 g/dL (6.4-8.2) Albumin 2.6 g/dL (3.4-5.0) Albumin/Globulin Ratio 0.5 (1.0-1.7) Estimated GFR (Non- 4 (>59) Ionized Calcium 1.76 mmol/L (1.13-1.32) EGFR 4 (>59) PTH (Intact) Specimen Description Comment (.) Parathyroid Hormone (Intact) 75 pg/mL (15-65) Calcium (PTH Intact) 14.3 mg/dL (8.7-10.2) Creatinine (PTH Intact) 10.82 mg/dL (0.57-1.00) Phosphorus (PTH Intact) 8.0 mg/dL (2.5-4.5) Glucose (Fingerstick) 61 mg/dL (70-99) 48 mg/dL (70-99) Test 05/10/19 23:08 05/11/19 01:29 05/11/19 04:10 05/11/19 04:14 Glucose (Fingerstick) 178 mg/dL (70-99) 101 mg/dL (70-99) 104 mg/dL (70-99) White Blood Count 9.4 x10^3/uL (4.0-11.0) Red Blood Count 2.80 x10^6/uL (3.50-5.40) Hemoglobin 7.3 g/dL (12.0-15.5) Hematocrit 22.8 % (36.0-47.0) Mean Corpuscular Volume 81 fL (79-100) Mean Corpuscular Hemoglobin 26 pg (25-35) Mean Corpuscular Hemoglobin Concent 32 g/dL (31-37) Red Cell Distribution Width 21.1 % (11.5-14.5) Platelet Count 235 x10^3/uL (140-400) Neutrophils (%) (Auto) 79 % (31-73) Lymphocytes (%) (Auto) 10 % (24-48) Monocytes (%) (Auto) 11 % (0-9) Eosinophils (%) (Auto) 0 % (0-3) Basophils (%) (Auto) 1 % (0-3) Neutrophils # (Auto) 7.4 x10^3/uL (1.8-7.7) Lymphocytes # (Auto) 0.9 x10^3/uL (1.0-4.8) Monocytes # (Auto) 1.1 x10^3/uL (0.0-1.1) Eosinophils # (Auto) 0.0 x10^3/uL (0.0-0.7) Basophils # (Auto) 0.1 x10^3/uL (0.0-0.2) Sodium Level 137 mmol/L (136-145) Potassium Level 5.6 mmol/L (3.5-5.1) Chloride Level 96 mmol/L (98-107) Carbon Dioxide Level 28 mmol/L (21-32) Anion Gap 13 (6-14) Blood Urea Nitrogen 60 mg/dL (7-20) Creatinine 11.6 mg/dL (0.6-1.0) Estimated GFR (Cockcroft-Gault) 4.2 Glucose Level 108 mg/dL (70-99) Calcium Level 14.2 mg/dL (8.5-10.1) Test 05/11/19 20:43 Glucose (Fingerstick) 91 mg/dL (70-99) Laboratory Tests Test 05/11/19 20:43 Glucose (Fingerstick) 91 mg/dL (70-99) Microbiology 05/10/19 Blood Culture - Preliminary, Resulted NO GROWTH AFTER 1 DAY Medications Current Medications Calcitonin Samaria (Miacalcin) 400 unit 1X SQ Last administered on 05/10/19at 19:56; Start 05/10/19 at 19:45; Stop 05/11/19 at 13:21; Status DC Dextrose (Dextrose 50%-Water Syringe) 25 gm 1X ONCE IV Last administered on 05/10/19at 20:51; Start 05/10/19 at 21:00; Stop 05/10/19 at 21:01; Status DC Insulin Human Regular (HumuLIN R VIAL) 10 unit 1X ONCE IV Last administered on 05/10/19at 20:55; Start 05/10/19 at 21:00; Stop 05/10/19 at 21:01; Status DC Sodium Chloride 1,000 ml @ 80 mls/hr [id number] IV Last administered on 05/10/19at 22:07; Start 05/10/19 at 21:00 Ondansetron HCl (Zofran) 4 mg PRN Q6HRS PRN IVP NAUSEA/VOMITING 1ST CHOICE Last administered on 05/11/19at 07:32; Start 05/10/19 at 21:00 Acetaminophen (Tylenol) 500 mg PRN Q6HRS PRN PO MILD PAIN / TEMP; Start 05/10/19 at 21:00 Amlodipine Besylate (Norvasc) 5 mg DAILY PO ; Start 05/11/19 at 09:00 Apixaban (Eliquis) 5 mg BID PO Last administered on 05/11/19at 21:16; Start 05/10/19 at 21:00 Aspirin (Ecotrin) 81 mg DAILY PO ; Start 05/11/19 at 09:00 Bisacodyl (Dulcolax Supp) 10 mg PRN DAILY PRN RC CONSTIPATION 3RD CHOICE; Start 05/10/19 at 21:00 Bisacodyl (Dulcolax Tab) 20 mg PRN BID PRN PO CONSTIPATION 2ND CHOICE; Start 05/10/19 at 21:00 Calcium Carbonate/ Glycine (Tums) 500 mg DAILY PO ; Start 05/11/19 at 09:00; Stop 05/10/19 at 21:03; Status DC Clonazepam (KlonoPIN) 0.5 mg TID PO Last administered on 05/11/19at 21:16; Start 05/10/19 at 21:00 Famotidine (Pepcid) 20 mg HS PO Last administered on 05/11/19at 21:16; Start 05/10/19 at 21:00 Ferrous Sulfate (Feosol) 325 mg BID PO Last administered on 05/11/19at 21:16; Start 05/10/19 at 21:00 Folic Acid (Folic Acid) 1 mg DAILY PO ; Start 05/11/19 at 09:00 Lactobacillus Rhamnosus (Culturelle) 1 cap BID PO Last administered on 05/11/19at 21:16; Start 05/10/19 at 21:00 Loperamide HCl (Imodium) 2 mg PRN Q4HRS PRN PO DIARRHEA; Start 05/10/19 at 21:00 Metoprolol Tartrate (Lopressor) 25 mg BID PO Last administered on 05/11/19at 21:16; Start 05/10/19 at 21:00 Nitroglycerin (Nitrostat) 0.4 mg PRN Q5MIN PRN SL CHEST PAIN; Start 05/10/19 at 21:00 Ranolazine (Ranexa) 500 mg Q12HR PO Last administered on 05/11/19at 21:16; Start 05/10/19 at 21:00 Non-Formulary Medication (Calcium Acetate (Phoslyra)) 15 ml TIDAC PO ; Start 05/11/19 at 07:30; Status UNV Vitamin D (Vitamin D3) 1,000 unit DAILY PO ; Start 05/11/19 at 09:00 Artificial Tears (Artificial Tears) 1 drop PRN Q8HRS PRN OU DRY EYE; Start 05/10/19 at 21:15 Citalopram Hydrobromide (CeleXA) 30 mg DAILY PO ; Start 05/11/19 at 09:00 Insulin Glargine (Lantus Syringe) 15 unit QHS SQ ; Start 05/10/19 at 22:00 Polyethylene Glycol (miraLAX PACKET) 17 gm PRN DAILY PRN PO CONSTIPATION 1ST CHOICE; Start 05/10/19 at 21:00 Calcitonin Samaria (Miacalcin) 400 unit BID SQ Last administered on 05/11/19at 22:18; Start 05/11/19 at 09:00 Sodium Polystyrene Sulfonate (Kayexalate) 15 gm 1X ONCE PO ; Start 05/10/19 at 21:30; Stop 05/10/19 at 21:31; Status DC Info (Anti-Coagulation Monitoring By Pharmacy) 1 each PRN DAILY PRN MC SEE COMMENTS Last administered on 05/11/19at 02:51; Start 05/10/19 at 21:30 Insulin Human Lispro (HumaLOG) 0-9 UNITS TIDWMEALS SQ ; Start 05/11/19 at 08:00 Dextrose (Dextrose 50%-Water Syringe) 12.5 gm PRN Q15MIN PRN IV SEE COMMENTS Last administered on 05/10/19at 22:55; Start 05/10/19 at 21:30 Darbepoetin Donnell (ARANESP for DIALYSIS PTS) 60 mcg WEEKLYHS SQ Last administered on 05/11/19at 22:18; Start 05/11/19 at 21:00 Sodium Chloride 1,000 ml @ 1,000 mls/hr Q1H PRN IV hypotension; Start 05/11/19 at 14:42; Stop 05/11/19 at 20:41; Status DC Diphenhydramine HCl (Benadryl) 25 mg 1X PRN PRN IV ITCHING; Start 05/11/19 at 14:45; Stop 05/12/19 at 14:44 Diphenhydramine HCl (Benadryl) 25 mg 1X PRN PRN IV ITCHING; Start 05/11/19 at 14:45; Stop 05/12/19 at 14:44 Labetalol HCl (Normodyne Iv Push) 10 mg PRN Q1HR PRN IVP SBP > 180; Start 05/11/19 at 14:45; Stop 05/12/19 at 14:44 Sodium Chloride 1,000 ml @ 400 mls/hr Q2H30M PRN IV PATENCY; Start 05/11/19 at 14:42; Stop 05/12/19 at 02:41; Status DC Info (PHARMACY MONITORING -- do not chart) 1 each PRN DAILY PRN MC SEE COMMENTS; Start 05/11/19 at 14:45 Active Scripts Active Culturelle (Lactobacillus Rhamnosus Gg) 1 Each Cap.sprink 1 Cap PO BID 30 Days Reported Vitamin D (Cholecalciferol (Vitamin D3)) 1,000 Unit Capsule 1 Cap PO DAILY Tums (Calcium Carbonate) 200 Mg Tab.chew 4 Tab PO DAILY Ranexa (Ranolazine) 500 Mg Tab.er.12h 1 Tab PO Q12HR Phoslyra (Calcium Acetate) 667 Mg/5 Ml Solution 15 Ml PO TIDAC NITROGLYCERIN SubLingual (Nitroglycerin) 0.4 Mg Tab.subl 0.4 Mg SL PRN Q5MIN PRN Miralax (Polyethylene Glycol 3350) 17 Gm Powd.pack 1 Packet PO BID Metoprolol Tartrate 25 Mg Tablet 1 Tab PO BID Lexapro (Escitalopram Oxalate) 5 Mg Tablet 15 Mg PO DAILY Levemir (Insulin Detemir) 100 Unit/1 Ml Vial 15 Unit SQ QHS Klonopin (Clonazepam) 0.5 Mg Tablet 1 Tab PO TID Imodium A-D (Loperamide HCl) 2 Mg Capsule 2 Mg PO PRN Q4HRS PRN Folic Acid 1 Mg Tablet 1 Tab PO DAILY Ferrous Sulfate 325 Mg Tablet 1 Tab PO BID Pepcid (Famotidine) 20 Mg Tablet 20 Mg PO HS Dulcolax (Bisacodyl) 5 Mg Tablet.dr 4 Tab PO PRN BID PRN Bisacodyl 10 Mg Supp.rect 10 Mg RC PRN DAILY PRN Aspir-Low (Aspirin) 81 Mg Tablet.dr 1 Tab PO DAILY Artificial Tears (Dextran 70/Hypromellose) 1 Each Droperette 1 Each OP PRN Q8HRS PRN Eliquis (Apixaban) 5 Mg Tablet 5 Mg PO BID Amlodipine Besylate 5 Mg Tablet 5 Mg PO DAILY Vitals/I & O Vital Sign - Last 24 Hours 05/11/19 05/11/19 05/11/19 05/11/19 08:00 08:00 09:00 10:00 Pulse 60 60 60 Resp 22 22 24 B/P (MAP) 119/61 (80) 119/63 (81) Pulse Ox 99 93 92 O2 Delivery Room Air Room Air Room Air Room Air 05/11/19 05/11/19 05/11/19 05/11/19 11:00 12:00 12:00 13:00 Temp 97.7 97.7 Pulse 60 60 60 Resp 26 22 20 B/P (MAP) 119/61 (80) 142/77 (98) 141/67 (91) Pulse Ox 92 92 99 O2 Delivery Room Air Room Air Room Air Room Air 05/11/19 05/11/19 05/11/19 05/11/19 18:55 20:05 21:16 21:16 Temp 98.3 98.3 Pulse 72 72 72 Resp 20 B/P (MAP) 116/56 (76) 116/56 116/56 Pulse Ox 95 O2 Delivery Room Air Room Air 05/11/19 05/12/19 05/12/19 23:00 03:00 04:30 Temp 98.6 98.4 98.6 98.4 Pulse 60 60 75 Resp 20 18 B/P (MAP) 116/59 (78) 130/57 (81) Pulse Ox 97 94 O2 Delivery Room Air Room Air Intake and Output 05/11/19 05/11/19 05/12/19 15:00 23:00 07:00 Intake Total 50 ml Balance 50 ml TOMMY DIEGO MD May 12, 2019 07:48
[2019-05-12] MEDS: INSULIN LISPRO 300 UNITS/3 ML VIAL. SQ SCH ×3 (08:00→17:00)
--- NOTE | 2019-05-12 08:24 | PDOC ---
PROGRESS NOTES Subjective Subjective HPI - f/u of Monoclonal gammopathy ROS - confused Objective Objective Vital Signs Date Time Temp Pulse Resp B/P (MAP) Pulse Ox O2 Delivery O2 Flow Rate FiO2 05/12/19 04:30 98.4 75 18 130/57 (81) 94 Room Air 98.4 05/10/19 22:15 2.0 Intake and Output 05/12/19 06:59 Intake Total 50 ml Balance 50 ml Intake Oral 50 ml # Bowel Movements 2 Physical Exam General: Alert, No acute distress Neck: No JVD Assessment Assessment Problems Medical Problems: (1) Altered mental status Status: Acute (2) CHF (congestive heart failure) Status: Acute (3) ESRD (end stage renal disease) on dialysis Status: Acute (4) Hypercalcemia Status: Acute IMPRESSION AND PLAN: 1. Monoclonal gammopathy. M-spike noted on serum protein electrophoresis at 0.6 g/dL on 05/05/2019. I will obtain immunofixation studies, serum free light chains and immunoglobulin levels. Skeletal survey reveals no lytic lesions. Bone marrow biopsy would be essential to evaluate for possible multiple myeloma versus monoclonal gammopathy of undetermined significance. 2. Hypercalcemia. She received calcitonin. Appreciate Nephrology consultation. I would continue management of hypercalcemia per Nephrology recommendations. She is on calcitonin 400 units subcutaneous b.i.d. Elevated PTH. 3. Anemia due to end-stage renal disease. Continue to monitor and transfuse if needed. Comment Review of Relevant I have reviewed the following items sarahi (where applicable) has been applied. Labs Laboratory Tests Test 05/10/19 18:11 05/10/19 20:08 05/10/19 22:10 05/10/19 22:52 White Blood Count 9.1 x10^3/uL (4.0-11.0) Red Blood Count 2.82 x10^6/uL (3.50-5.40) Hemoglobin 7.4 g/dL (12.0-15.5) Hematocrit 23.0 % (36.0-47.0) Mean Corpuscular Volume 82 fL (79-100) Mean Corpuscular Hemoglobin 26 pg (25-35) Mean Corpuscular Hemoglobin Concent 32 g/dL (31-37) Red Cell Distribution Width 20.5 % (11.5-14.5) Platelet Count 250 x10^3/uL (140-400) Neutrophils (%) (Auto) 76 % (31-73) Lymphocytes (%) (Auto) 10 % (24-48) Monocytes (%) (Auto) 13 % (0-9) Eosinophils (%) (Auto) 1 % (0-3) Basophils (%) (Auto) 0 % (0-3) Neutrophils # (Auto) 6.9 x10^3/uL (1.8-7.7) Lymphocytes # (Auto) 0.9 x10^3/uL (1.0-4.8) Monocytes # (Auto) 1.2 x10^3/uL (0.0-1.1) Eosinophils # (Auto) 0.0 x10^3/uL (0.0-0.7) Basophils # (Auto) 0.0 x10^3/uL (0.0-0.2) Platelet Estimate Adequate (ADEQUATE) Polychromasia Slight Hypochromasia Mod Anisocytosis Mod Target Cells Occ Tear Drop Cells Occ Ovalocytes Few Helmet Cells Occ Sodium Level 138 mmol/L (136-145) Potassium Level 5.6 mmol/L (3.5-5.1) Chloride Level 96 mmol/L (98-107) Carbon Dioxide Level 30 mmol/L (21-32) Anion Gap 12 (6-14) Blood Urea Nitrogen 54 mg/dL (7-20) Creatinine 11.2 mg/dL (0.6-1.0) Estimated GFR (Cockcroft-Gault) 4.4 BUN/Creatinine Ratio 5 (6-20) Glucose Level 117 mg/dL (70-99) Calcium Level 15.4 mg/dL (8.5-10.1) Phosphorus Level 8.4 mg/dL (2.6-4.7) Magnesium Level 2.5 mg/dL (1.8-2.4) Total Bilirubin 1.3 mg/dL (0.2-1.0) Aspartate Amino Transf (AST/SGOT) 42 U/L (15-37) Alanine Aminotransferase (ALT/SGPT) 80 U/L (14-59) Alkaline Phosphatase 120 U/L (46-116) Ammonia 16 mcmol/L (11-34) Troponin I Quantitative 0.079 ng/mL (0.000-0.055) DQ-Yft-D-Type Natriuretic Peptide > 86496 pg/mL (0-124) Total Protein 7.8 g/dL (6.4-8.2) Albumin 2.6 g/dL (3.4-5.0) Albumin/Globulin Ratio 0.5 (1.0-1.7) Estimated GFR (Non- 4 (>59) Ionized Calcium 1.76 mmol/L (1.13-1.32) EGFR 4 (>59) PTH (Intact) Specimen Description Comment (.) Parathyroid Hormone (Intact) 75 pg/mL (15-65) Calcium (PTH Intact) 14.3 mg/dL (8.7-10.2) Creatinine (PTH Intact) 10.82 mg/dL (0.57-1.00) Phosphorus (PTH Intact) 8.0 mg/dL (2.5-4.5) Glucose (Fingerstick) 61 mg/dL (70-99) 48 mg/dL (70-99) Test 05/10/19 23:08 05/11/19 01:29 05/11/19 04:10 05/11/19 04:14 Glucose (Fingerstick) 178 mg/dL (70-99) 101 mg/dL (70-99) 104 mg/dL (70-99) White Blood Count 9.4 x10^3/uL (4.0-11.0) Red Blood Count 2.80 x10^6/uL (3.50-5.40) Hemoglobin 7.3 g/dL (12.0-15.5) Hematocrit 22.8 % (36.0-47.0) Mean Corpuscular Volume 81 fL (79-100) Mean Corpuscular Hemoglobin 26 pg (25-35) Mean Corpuscular Hemoglobin Concent 32 g/dL (31-37) Red Cell Distribution Width 21.1 % (11.5-14.5) Platelet Count 235 x10^3/uL (140-400) Neutrophils (%) (Auto) 79 % (31-73) Lymphocytes (%) (Auto) 10 % (24-48) Monocytes (%) (Auto) 11 % (0-9) Eosinophils (%) (Auto) 0 % (0-3) Basophils (%) (Auto) 1 % (0-3) Neutrophils # (Auto) 7.4 x10^3/uL (1.8-7.7) Lymphocytes # (Auto) 0.9 x10^3/uL (1.0-4.8) Monocytes # (Auto) 1.1 x10^3/uL (0.0-1.1) Eosinophils # (Auto) 0.0 x10^3/uL (0.0-0.7) Basophils # (Auto) 0.1 x10^3/uL (0.0-0.2) Sodium Level 137 mmol/L (136-145) Potassium Level 5.6 mmol/L (3.5-5.1) Chloride Level 96 mmol/L (98-107) Carbon Dioxide Level 28 mmol/L (21-32) Anion Gap 13 (6-14) Blood Urea Nitrogen 60 mg/dL (7-20) Creatinine 11.6 mg/dL (0.6-1.0) Estimated GFR (Cockcroft-Gault) 4.2 Glucose Level 108 mg/dL (70-99) Calcium Level 14.2 mg/dL (8.5-10.1) Test 05/11/19 20:43 Glucose (Fingerstick) 91 mg/dL (70-99) Laboratory Tests Test 05/11/19 20:43 Glucose (Fingerstick) 91 mg/dL (70-99) Microbiology 05/10/19 Blood Culture - Preliminary, Resulted NO GROWTH AFTER 1 DAY Medications Current Medications Calcitonin [place] (Miacalcin) 400 unit 1X SQ Last administered on 05/10/19 19:56; Start 05/10/19 at 19:45; Stop 05/11/19 at 13:21; Status DC Dextrose (Dextrose 50%-Water Syringe) 25 gm 1X ONCE IV Last administered on 05/10/19at 20:51; Start 05/10/19 at 21:00; Stop 05/10/19 at 21:01; Status DC Insulin Human Regular (HumuLIN R VIAL) 10 unit 1X ONCE IV Last administered on 05/10/19at 20:55; Start 05/10/19 at 21:00; Stop 05/10/19 at 21:01; Status DC Sodium Chloride 1,000 ml @ 80 mls/hr [id number] IV Last administered on 05/10/19at 22:07; Start 05/10/19 at 21:00 Ondansetron HCl (Zofran) 4 mg PRN Q6HRS PRN IVP NAUSEA/VOMITING 1ST CHOICE Last administered on 05/11/19at 07:32; Start 05/10/19 at 21:00 Acetaminophen (Tylenol) 500 mg PRN Q6HRS PRN PO MILD PAIN / TEMP; Start 05/10/19 at 21:00 Amlodipine Besylate (Norvasc) 5 mg DAILY PO ; Start 05/11/19 at 09:00 Apixaban (Eliquis) 5 mg BID PO Last administered on 05/11/19at 21:16; Start 05/10/19 at 21:00 Aspirin (Ecotrin) 81 mg DAILY PO ; Start 05/11/19 at 09:00 Bisacodyl (Dulcolax Supp) 10 mg PRN DAILY PRN RC CONSTIPATION 3RD CHOICE; Start 05/10/19 at 21:00 Bisacodyl (Dulcolax Tab) 20 mg PRN BID PRN PO CONSTIPATION 2ND CHOICE; Start 05/10/19 at 21:00 Calcium Carbonate/ Glycine (Tums) 500 mg DAILY PO ; Start 05/11/19 at 09:00; Stop 05/10/19 at 21:03; Status DC Clonazepam (KlonoPIN) 0.5 mg TID PO Last administered on 05/11/19at 21:16; Start 05/10/19 at 21:00 Famotidine (Pepcid) 20 mg HS PO Last administered on 05/11/19at 21:16; Start 05/10/19 at 21:00 Ferrous Sulfate (Feosol) 325 mg BID PO Last administered on 05/11/19at 21:16; Start 05/10/19 at 21:00 Folic Acid (Folic Acid) 1 mg DAILY PO ; Start 05/11/19 at 09:00 Lactobacillus Rhamnosus (Culturelle) 1 cap BID PO Last administered on 05/11/19 at 21:16; Start 05/10/19 at 21:00 Loperamide HCl (Imodium) 2 mg PRN Q4HRS PRN PO DIARRHEA; Start 05/10/19 at 21:00 Metoprolol Tartrate (Lopressor) 25 mg BID PO Last administered on 05/11/19at 21:16; Start 05/10/19 at 21:00 Nitroglycerin (Nitrostat) 0.4 mg PRN Q5MIN PRN SL CHEST PAIN; Start 05/10/19 at 21:00 Ranolazine (Ranexa) 500 mg Q12HR PO Last administered on 05/11/19at 21:16; Start 05/10/19 at 21:00 Non-Formulary Medication (Calcium Acetate (Phoslyra)) 15 ml TIDAC PO ; Start 05/11/19 at 07:30; Status UNV Vitamin D (Vitamin D3) 1,000 unit DAILY PO ; Start 05/11/19 at 09:00 Artificial Tears (Artificial Tears) 1 drop PRN Q8HRS PRN OU DRY EYE; Start 05/10/19 at 21:15 Citalopram Hydrobromide (CeleXA) 30 mg DAILY PO ; Start 05/11/19 at 09:00 Insulin Glargine (Lantus Syringe) 15 unit QHS SQ ; Start 05/10/19 at 22:00 Polyethylene Glycol (miraLAX PACKET) 17 gm PRN DAILY PRN PO CONSTIPATION 1ST CHOICE; Start 05/10/19 at 21:00 Calcitonin [place] (Miacalcin) 400 unit BID SQ Last administered on 05/11/19at 22:18; Start 05/11/19 at 09:00 Sodium Polystyrene Sulfonate (Kayexalate) 15 gm 1X ONCE PO ; Start 05/10/19 at 21:30; Stop 05/10/19 at 21:31; Status DC Info (Anti-Coagulation Monitoring By Pharmacy) 1 each PRN DAILY PRN MC SEE COMMENTS Last administered on 05/11/19at 02:51; Start 05/10/19 at 21:30 Insulin Human Lispro (HumaLOG) 0-9 UNITS TIDWMEALS SQ ; Start 05/11/19 at 08:00 Dextrose (Dextrose 50%-Water Syringe) 12.5 gm PRN Q15MIN PRN IV SEE COMMENTS Last administered on 05/10/19at 22:55; Start 05/10/19 at 21:30 Darbepoetin Donnell (ARANESP for DIALYSIS PTS) 60 mcg WEEKLYHS SQ Last administered on 05/11/19at 22:18; Start 05/11/19 at 21:00 Sodium Chloride 1,000 ml @ 1,000 mls/hr Q1H PRN IV hypotension; Start 05/11/19 at 14:42; Stop 05/11/19 at 20:41; Status DC Diphenhydramine HCl (Benadryl) 25 mg 1X PRN PRN IV ITCHING; Start 05/11/19 at 14:45; Stop 05/12/19 at 14:44 Diphenhydramine HCl (Benadryl) 25 mg 1X PRN PRN IV ITCHING; Start 05/11/19 at 14:45; Stop 05/12/19 at 14:44 Labetalol HCl (Normodyne Iv Push) 10 mg PRN Q1HR PRN IVP SBP > 180; Start 05/11/19 at 14:45; Stop 05/12/19 at 14:44 Sodium Chloride 1,000 ml @ 400 mls/hr Q2H30M PRN IV PATENCY; Start 05/11/19 at 14:42; Stop 05/12/19 at 02:41; Status DC Info (PHARMACY MONITORING -- do not chart) 1 each PRN DAILY PRN MC SEE COMMENTS; Start 05/11/19 at 14:45 Active Scripts Active Culturelle (Lactobacillus Rhamnosus Gg) 1 Each Cap.sprink 1 Cap PO BID 30 Days Reported Vitamin D (Cholecalciferol (Vitamin D3)) 1,000 Unit Capsule 1 Cap PO DAILY Tums (Calcium Carbonate) 200 Mg Tab.chew 4 Tab PO DAILY Ranexa (Ranolazine) 500 Mg Tab.er.12h 1 Tab PO Q12HR Phoslyra (Calcium Acetate) 667 Mg/5 Ml Solution 15 Ml PO TIDAC NITROGLYCERIN SubLingual (Nitroglycerin) 0.4 Mg Tab.subl 0.4 Mg SL PRN Q5MIN PRN Miralax (Polyethylene Glycol 3350) 17 Gm Powd.pack 1 Packet PO BID Metoprolol Tartrate 25 Mg Tablet 1 Tab PO BID Lexapro (Escitalopram Oxalate) 5 Mg Tablet 15 Mg PO DAILY Levemir (Insulin Detemir) 100 Unit/1 Ml Vial 15 Unit SQ QHS Klonopin (Clonazepam) 0.5 Mg Tablet 1 Tab PO TID Imodium A-D (Loperamide HCl) 2 Mg Capsule 2 Mg PO PRN Q4HRS PRN Folic Acid 1 Mg Tablet 1 Tab PO DAILY Ferrous Sulfate 325 Mg Tablet 1 Tab PO BID Pepcid (Famotidine) 20 Mg Tablet 20 Mg PO HS Dulcolax (Bisacodyl) 5 Mg Tablet.dr 4 Tab PO PRN BID PRN Bisacodyl 10 Mg Supp.rect 10 Mg RC PRN DAILY PRN Aspir-Low (Aspirin) 81 Mg Tablet.dr 1 Tab PO DAILY Artificial Tears (Dextran 70/Hypromellose) 1 Each Droperette 1 Each OP PRN Q8HRS PRN Eliquis (Apixaban) 5 Mg Tablet 5 Mg PO BID Amlodipine Besylate 5 Mg Tablet 5 Mg PO DAILY Vitals/I & O Vital Sign - Last 24 Hours 05/11/19 05/11/19 05/11/19 05/11/19 09:00 10:00 11:00 12:00 Pulse 60 60 60 Resp 22 24 26 B/P (MAP) 119/63 (81) 119/61 (80) Pulse Ox 93 92 92 O2 Delivery Room Air Room Air Room Air Room Air 05/11/19 05/11/19 05/11/19 05/11/19 12:00 13:00 18:55 20:05 Temp 97.7 98.3 97.7 98.3 Pulse 60 60 72 Resp 22 20 20 B/P (MAP) 142/77 (98) 141/67 (91) 116/56 (76) Pulse Ox 92 99 95 O2 Delivery Room Air Room Air Room Air Room Air 05/11/19 05/11/19 05/11/19 05/12/19 21:16 21:16 23:00 03:00 Temp 98.6 98.6 Pulse 72 72 60 60 Resp 20 B/P (MAP) 116/56 116/56 116/59 (78) Pulse Ox 97 O2 Delivery Room Air 05/12/19 04:30 Temp 98.4 98.4 Pulse 75 Resp 18 B/P (MAP) 130/57 (81) Pulse Ox 94 O2 Delivery Room Air Intake and Output 05/11/19 05/11/19 05/12/19 14:59 22:59 06:59 Intake Total 50 ml Balance 50 ml ADÁN CASTELLANOS MD May 12, 2019 08:24
[2019-05-12] MEDS: ASPIRIN ENTERIC COATED 81 MG TABLET.DR. PO SCH (09:00)
[2019-05-12] MEDS: APIXABAN 5 MG TABLET. PO SCH ×3 (09:00→21:45)
[2019-05-12] MEDS: FOLIC ACID 1 MG TABLET. PO SCH (09:00)
[2019-05-12] MEDS: CHOLECALCIFEROL (VITAMIN D3) 1,000 UNIT TABLET PO SCH (09:00)
[2019-05-12] MEDS: clonazePAM 0.5 MG TABLET PO SCH ×3 (09:00→21:34)
[2019-05-12] MEDS: LACTOBACILLUS RHAMNOSUS GG 1 CAPSULE. PO SCH ×3 (09:00→21:33)
[2019-05-12] MEDS: FERROUS SULFATE 325 MG TABLET. PO SCH ×3 (09:00→21:34)
[2019-05-12] MEDS: RANOLAZINE 500 MG TAB.ER.12H PO SCH ×3 (09:00→21:33)
[2019-05-12] MEDS: CITALOPRAM 10 MG TABLET. PO SCH (09:00)
[2019-05-12 09:14] LABS: BASO % 0 % (0-3); EOS % 0 % (0-3); HEMOGLOBIN 7.5 g/dL (12.0-15.5); LYMPH # 0.8 x10^3/uL (1.0-4.8); LYMPH % 11 % (24-48); MEAN CORPUSCULAR HEMOGLOBIN 25 pg (25-35); MEAN CORPUSCULAR HGB CONC 31 g/dL (31-37); MEAN CORPUSCULAR VOLUME 82 fL (79-100); MONO # 0.9 x10^3/uL (0.0-1.1); MONO % 12 % (0-9); NEUT # 6.1 x10^3/uL (1.8-7.7); NEUT % 77 % (31-73); PLATELET COUNT 235 x10^3/uL (140-400); RED BLOOD COUNT 2.93 x10^6/uL (3.50-5.40); RED CELL DISTRIBUTION WIDTH 20.5 % (11.5-14.5); WHITE BLOOD COUNT 7.9 x10^3/uL (4.0-11.0)
--- NOTE | 2019-05-12 09:16 | PDOC ---
SUBJECTIVE ROS No acute events overnight, transferred out of ICU OBJECTIVE Vital Signs Vital Signs Date Time Temp Pulse Resp B/P (MAP) Pulse Ox O2 Delivery O2 Flow Rate FiO2 05/12/19 07:00 98.7 62 20 141/67 (91) 92 Room Air 98.7 I & 0 Intake and Output 05/12/19 07:00 Intake Total 50 ml Balance 50 ml Intake Oral 50 ml # Bowel Movements 2 PHYSICAL EXAM Physical Exam General: No acute distress HEENT: OM moist Neck Supple Lungs: Clear to auscultation, decreased at bases , Non labored, On Room air Heart: S1S2, RRR, no rub Abdomen: Normal bowel sounds, Soft, No tenderness, Extremities: No clubbing, No cyanosis or edema Right AVF with good bruit and distal pulses) Skin: No rashes, Neuro:some AMS, not sure if baseline No [place] DIAGNOSIS/ASSESSMENT Assessment & Plan ESRD - On HD MWF, at [facility] ([facility]) She was in patient at [facility] earlier this month and dced on 05/06 and had Dialysis Dialyzed yesterday Currently no indication for HD today Hypercalcemia - Continue Calcitonin SPEP done 1-2 weeks back at [facility]- Greg Wooten "This monoclonal protein is observed in the beta region." Hem/Onc on board now , scheduled for BM Bx Hyperkalemia- Chronic Mild elevation Monitor DM- per primary Anemia- JOSHUA Hem/Onc consult r/o MM Discussed with RN COMMENT/RELEVANT DATA Meds Current Medications Medications (Trade) Dose Ordered Sig/Sanchez Start Time Stop Time Status Last Admin Dose Admin Acetaminophen (Tylenol) 500 mg PRN Q6HRS PRN 05/10/19 21:00 Amlodipine Besylate (Norvasc) 5 mg DAILY 05/11/19 09:00 Apixaban (Eliquis) 5 mg BID 05/10/19 21:00 05/11/19 21:16 5 MG Artificial Tears (Artificial Tears) 1 drop PRN Q8HRS PRN 05/10/19 21:15 Aspirin (Ecotrin) 81 mg DAILY 05/11/19 09:00 Bisacodyl (Dulcolax Supp) 10 mg PRN DAILY PRN 05/10/19 21:00 Bisacodyl (Dulcolax Tab) 20 mg PRN BID PRN 05/10/19 21:00 Calcitonin [place] (Miacalcin) 400 unit BID 05/11/19 09:00 05/11/19 22:18 400 UNIT Calcium Carbonate/ Glycine (Tums) 500 mg DAILY 05/11/19 09:00 05/10/19 21:03 DC Citalopram Hydrobromide (CeleXA) 30 mg DAILY 05/11/19 09:00 Clonazepam (KlonoPIN) 0.5 mg TID 05/10/19 21:00 05/11/19 21:16 0.5 MG Darbepoetin Donnell (ARANESP for DIALYSIS PTS) 60 mcg WEEKLYHS 05/11/19 21:00 05/11/19 22:18 60 MCG Dextrose (Dextrose 50%-Water Syringe) 12.5 gm PRN Q15MIN PRN 05/10/19 21:30 05/10/19 22:55 25 GM Diphenhydramine HCl (Benadryl) 25 mg 1X PRN PRN 05/11/19 14:45 05/12/19 14:44 Famotidine (Pepcid) 20 mg HS 05/10/19 21:00 05/11/19 21:16 20 MG Ferrous Sulfate (Feosol) 325 mg BID 05/10/19 21:00 05/11/19 21:16 325 MG Folic Acid (Folic Acid) 1 mg DAILY 05/11/19 09:00 Info (Anti-Coagulation Monitoring By Pharmacy) 1 each PRN DAILY PRN 05/10/19 21:30 05/11/19 02:51 1 EACH Info (PHARMACY MONITORING -- do not chart) 1 each PRN DAILY PRN 05/11/19 14:45 Insulin Glargine (Lantus Syringe) 15 unit QHS 05/10/19 22:00 Insulin Human Lispro (HumaLOG) 0-9 UNITS TIDWMEALS 05/11/19 08:00 Insulin Human Regular (HumuLIN R VIAL) 10 unit 1X ONCE 05/10/19 21:00 05/10/19 21:01 DC 05/10/19 20:55 10 UNIT Labetalol HCl (Normodyne Iv Push) 10 mg PRN Q1HR PRN 05/11/19 14:45 05/12/19 14:44 Lactobacillus Rhamnosus (Culturelle) 1 cap BID 05/10/19 21:00 05/11/19 21:16 1 CAP Loperamide HCl (Imodium) 2 mg PRN Q4HRS PRN 05/10/19 21:00 Metoprolol Tartrate (Lopressor) 25 mg BID 05/10/19 21:00 05/11/19 21:16 25 MG Nitroglycerin (Nitrostat) 0.4 mg PRN Q5MIN PRN 05/10/19 21:00 Non-Formulary Medication (Calcium Acetate (Phoslyra)) 15 ml TIDAC 05/11/19 07:30 UNV Ondansetron HCl (Zofran) 4 mg PRN Q6HRS PRN 05/10/19 21:00 05/11/19 07:32 4 MG Polyethylene Glycol (miraLAX PACKET) 17 gm PRN DAILY PRN 05/10/19 21:00 Ranolazine (Ranexa) 500 mg Q12HR 05/10/19 21:00 05/11/19 21:16 500 MG Sodium Polystyrene Sulfonate (Kayexalate) 15 gm 1X ONCE 05/10/19 21:30 05/10/19 21:31 DC Sodium Chloride 1,000 ml @ 400 mls/hr Q2H30M PRN 05/11/19 14:42 05/12/19 02:41 DC Vitamin D (Vitamin D3) 1,000 unit DAILY 05/11/19 09:00 Lab Laboratory Tests Test 05/11/19 20:43 05/12/19 07:39 Glucose (Fingerstick) 91 mg/dL (70-99) 93 mg/dL (70-99) Results All relevant outside records, renal labs, imaging studies, telemetry/EKG's were reviewed. JASON POWER MD May 12, 2019 09:15
[2019-05-12 09:23] LABS: PROTHROMBIN TIME PATIENT 22.9 SEC (11.7-14.0)
[2019-05-12 09:33] LABS: ALBUMIN 2.6 g/dL (3.4-5.0); CREATININE 6.9 mg/dL (0.6-1.0); GFR 7.6; PHOSPHORUS 8.3 mg/dL (2.6-4.7); POTASSIUM 5.5 mmol/L (3.5-5.1)
[2019-05-12 09:35] LABS: CALCIUM 14.9 mg/dL (8.5-10.1)
[2019-05-12] MEDS: METOPROLOL TART IMMED RELEASE 25 MG TABLET. PO SCH ×3 (10:12→21:37)
[2019-05-12] MEDS: amLODIPine BESYLATE 5 MG TABLET PO SCH (10:12)
[2019-05-12] MEDS: CALCITONIN,SALMON 400 UNIT/2 ML VIAL. SQ SCH ×2 (10:13→21:46)
[2019-05-12] MEDS ORDERED: MIDAZOLAM HCL/PF 2 MG/2 ML VIAL. ONE ×2 (11:17→11:32)
[2019-05-12] MEDS ORDERED: LIDOCAINE WITH 8.4% SOD BICARB 3 ML DISP.SYRIN. ONE (11:18)
[2019-05-12] MEDS ORDERED: fentaNYL PF VIAL 100 MCG/2 ML VIAL ONE ×2 (11:18→11:32)
[2019-05-12] MEDS ORDERED: MIDAZOLAM HCL/PF 2 MG/2 ML VIAL. IV ONE (12:00)
[2019-05-12] MEDS ORDERED: fentaNYL PF VIAL 100 MCG/2 ML VIAL IV ONE (12:00)
[2019-05-12] MEDS ORDERED: LIDOCAINE WITH 8.4% SOD BICARB 3 ML DISP.SYRIN. IJ ONE (12:00)
[2019-05-12] MEDS ORDERED: IV NORMAL SALINE 1000ML BAG 1,000 ML IV PRN ×2 (14:38)
[2019-05-12] MEDS ORDERED: ALBUMIN HUMAN 25% 200 ML IV PRN (14:45)
[2019-05-12] MEDS ORDERED: DIALYSIS PATIENT. MC PRN (14:45)
[2019-05-12] MEDS ORDERED: diphenhydrAMINE 50 MG/ML VIAL IV PRN ×2 (14:45)
[2019-05-12] MEDS ORDERED: ACETAMINOPHEN 500 MG TABLET PO PRN (14:45)
[2019-05-12] MEDS: INSULIN GLARGINE SYRINGE. SQ SCH (21:00)
[2019-05-12] MEDS: FAMOTIDINE 20 MG TABLET. PO SCH ×2 (21:00→21:33)
--- NOTE | 2019-05-13 01:21 | NUR ---
Attempted to give patient medications with apple juice per patient request and spit out medication. Had another nurse attempt to give patient medication in pudding and spit out all medications. Patient did not refuse calcitonin. Patient states, "she cannot take medication its nasty." Asked patient what she likes and unable to answer.
[2019-05-13 03:59] VITALS: BP 147/72
[2019-05-13 05:03] LABS: CREATININE 4.3 mg/dL (0.6-1.0); GFR 13.1; POTASSIUM 4.1 mmol/L (3.5-5.1)
[2019-05-13 05:05] LABS: CALCIUM 15.2 mg/dL (8.5-10.1)
[2019-05-13 07:00] VITALS: BP 147/53
[2019-05-13] MEDS: INSULIN LISPRO 300 UNITS/3 ML VIAL. SQ SCH ×3 (07:50→17:00)
[2019-05-13] MEDS ORDERED: IV NORMAL SALINE 1000ML BAG 1,000 ML IV PRN (08:00)
[2019-05-13] MEDS ORDERED: diphenhydrAMINE 50 MG/ML VIAL IV PRN (08:00)
[2019-05-13] MEDS: CITALOPRAM 10 MG TABLET. PO SCH (09:00)
[2019-05-13] MEDS: FERROUS SULFATE 325 MG TABLET. PO SCH ×2 (09:00→21:00)
[2019-05-13] MEDS: CHOLECALCIFEROL (VITAMIN D3) 1,000 UNIT TABLET PO SCH (09:00)
[2019-05-13] MEDS: clonazePAM 0.5 MG TABLET PO SCH ×3 (09:00→21:00)
[2019-05-13] MEDS: RANOLAZINE 500 MG TAB.ER.12H PO SCH ×2 (09:00→21:00)
[2019-05-13] MEDS: LACTOBACILLUS RHAMNOSUS GG 1 CAPSULE. PO SCH ×2 (09:00→21:00)
[2019-05-13] MEDS: FOLIC ACID 1 MG TABLET. PO SCH (09:00)
--- NOTE | 2019-05-13 09:05 | RAD ---
CT-guided bone marrow biopsy. 05/13/2019 7:01 AM Indication: elevated Mspike, hypercalcemia, eval for multiple myeloma Discussion: The risks and benefits of the procedure, including but not limited to, bleeding and infection were discussed patient. Informed consent was obtained. The patient was brought to the CT scanner and placed in the prone position. A timeout procedure was performed. Skidder Driver CT imaging of the pelvis demonstrated left ilium amenable to bone marrow biopsy. The overlying soft tissues were prepped and draped using maximum sterile barrier technique. 1% lidocaine without epinephrine was administered for local anesthesia. Under intermittent CT guidance, an OncControl needle was advanced into the bone marrow of the left iliac crest. 2 Aspirates and 1 core biopsy samples were obtained. Samples were delivered to pathology was present at the time of procedure. The needle was removed and manual pressure held to achieve hemostasis. No immediate complications were identified. The procedure was performed under conscious sedation including continuous cardiopulmonary monitoring via dedicated sedation nurse. Sedation time: 20 minutes Impression: Successful CT-guided bone marrow biopsy of the left iliac crest . PQRS Compliance Statement: One or more of the following individualized dose reduction techniques were utilized for this examination: 1. Automated exposure control 2. Adjustment of the mA and/or kV according to patient size 3. Use of iterative reconstruction technique
--- NOTE | 2019-05-13 09:55 | PDOC ---
SUBJECTIVE ROS Confused (since admission), Cough +, seen on HD OBJECTIVE Vital Signs Vital Signs Date Time Temp Pulse Resp B/P (MAP) Pulse Ox O2 Delivery O2 Flow Rate FiO2 05/13/19 08:00 Room Air 05/13/19 07:00 98.3 65 22 147/53 (84) 95 98.3 05/12/19 19:50 2.0 I & 0 Intake and Output 05/13/19 07:00 Intake Total 30 ml Output Total 0 ml Balance 30 ml Intake Oral 30 ml Output Urine Total 0 ml PHYSICAL EXAM Physical Exam General: No acute distress HEENT: OM moist Neck Supple Lungs: Clear to auscultation, decreased at bases , Non labored, On Room air Heart: S1S2, RRR, no rub Abdomen: Normal bowel sounds, Soft, No tenderness, Extremities: No clubbing, No cyanosis or edema Right AVF with good bruit and distal pulses) Skin: No rashes, Neuro:some AMS, not sure if baseline No [place] DIAGNOSIS/ASSESSMENT Assessment & Plan ESRD - [facility] MWF[facility] She was in patient at [facility] earlier this month and dced on 05/06 and had Dialysis Dialyzed Sat and , Dialysis again today Seen on HD, tolerating well , continue as ordered, Howie Esquivel Hypercalcemia - On Calcitonin SPEP done 1-2 weeks back at [facility]- M Je "This monoclonal protein is observed in the beta region." Hem/Onc on board now , s/p BM Bx No Change with lower Ca bath - HDx 2 , Dialysis again today -longer duration and Lower Ca Suspect sec to malignancy - defer further management to Oncology Hyperkalemia- Chronic Mild elevation HD today DM- per primary Anemia- JOSHUA Hem/Onc consult r/o MM COMMENT/RELEVANT DATA Meds Current Medications Medications (Trade) Dose Ordered Sig/Sanchez Start Time Stop Time Status Last Admin Dose Admin Acetaminophen (Tylenol) 500 mg 1X PRN PRN 05/12/19 14:45 05/13/19 14:44 Albumin Human 200 ml @ 200 mls/hr 1X PRN PRN 05/12/19 14:45 05/12/19 20:44 DC Amlodipine Besylate (Norvasc) 5 mg DAILY 05/11/19 09:00 05/12/19 10:12 5 MG Apixaban (Eliquis) 5 mg BID 05/10/19 21:00 05/11/19 21:16 5 MG Artificial Tears (Artificial Tears) 1 drop PRN Q8HRS PRN 05/10/19 21:15 Aspirin (Ecotrin) 81 mg DAILY 05/11/19 09:00 Bisacodyl (Dulcolax Supp) 10 mg PRN DAILY PRN 05/10/19 21:00 Bisacodyl (Dulcolax Tab) 20 mg PRN BID PRN 05/10/19 21:00 Calcitonin [place] (Miacalcin) 400 unit BID 05/11/19 09:00 05/12/19 21:46 400 UNIT Calcium Carbonate/ Glycine (Tums) 500 mg DAILY 05/11/19 09:00 05/10/19 21:03 DC Citalopram Hydrobromide (CeleXA) 30 mg DAILY 05/11/19 09:00 Clonazepam (KlonoPIN) 0.5 mg TID 05/10/19 21:00 05/12/19 21:34 0.5 MG Darbepoetin Donnell (ARANESP for DIALYSIS PTS) 60 mcg WEEKLYHS 05/11/19 21:00 05/11/19 22:18 60 MCG Dextrose (Dextrose 50%-Water Syringe) 12.5 gm PRN Q15MIN PRN 05/10/19 21:30 05/10/19 22:55 25 GM Diphenhydramine HCl (Benadryl) 25 mg 1X PRN PRN 05/12/19 14:45 05/13/19 14:44 Famotidine (Pepcid) 20 mg HS 05/10/19 21:00 05/11/19 21:16 20 MG Fentanyl Citrate (Fentanyl 2ml Vial) 75 mcg 1X ONCE 05/12/19 12:00 05/12/19 12:01 DC 05/12/19 12:00 75 MCG Ferrous Sulfate (Feosol) 325 mg BID 05/10/19 21:00 05/11/19 21:16 325 MG Folic Acid (Folic Acid) 1 mg DAILY 05/11/19 09:00 Info (Anti-Coagulation Monitoring By Pharmacy) 1 each PRN DAILY PRN 05/10/19 21:30 05/11/19 02:51 1 EACH Info (PHARMACY MONITORING -- do not chart) 1 each PRN DAILY PRN 05/12/19 14:45 Insulin Glargine (Lantus Syringe) 15 unit QHS 05/10/19 22:00 Insulin Human Lispro (HumaLOG) 0-9 UNITS TIDWMEALS 05/11/19 08:00 Insulin Human Regular (HumuLIN R VIAL) 10 unit 1X ONCE 05/10/19 21:00 05/10/19 21:01 DC 05/10/19 20:55 10 UNIT Labetalol HCl (Normodyne Iv Push) 10 mg PRN Q1HR PRN 05/11/19 14:45 05/12/19 14:45 DC Lactobacillus Rhamnosus (Culturelle) 1 cap BID 05/10/19 21:00 05/11/19 21:16 1 CAP Lidocaine HCl (Buffered Lidocaine 1%) 8 ml 1X ONCE 05/12/19 12:00 05/12/19 12:01 DC 05/12/19 12:00 8 ML Loperamide HCl (Imodium) 2 mg PRN Q4HRS PRN 05/10/19 21:00 Metoprolol Tartrate (Lopressor) 25 mg BID 05/10/19 21:00 05/12/19 10:12 25 MG Midazolam HCl (Versed) 1 mg 1X ONCE 05/12/19 12:00 05/12/19 12:01 DC 05/12/19 12:00 1 MG Nitroglycerin (Nitrostat) 0.4 mg PRN Q5MIN PRN 05/10/19 21:00 Non-Formulary Medication (Calcium Acetate (Phoslyra)) 15 ml TIDAC 05/11/19 07:30 UNV Ondansetron HCl (Zofran) 4 mg PRN Q6HRS PRN 05/10/19 21:00 05/11/19 07:32 4 MG Polyethylene Glycol (miraLAX PACKET) 17 gm PRN DAILY PRN 05/10/19 21:00 Ranolazine (Ranexa) 500 mg Q12HR 05/10/19 21:00 05/11/19 21:16 500 MG Sodium Polystyrene Sulfonate (Kayexalate) 15 gm 1X ONCE 05/10/19 21:30 05/10/19 21:31 DC Sodium Chloride 1,000 ml @ 400 mls/hr Q2H30M PRN 05/12/19 14:38 05/13/19 02:37 DC Vitamin D (Vitamin D3) 1,000 unit DAILY 05/11/19 09:00 Lab Laboratory Tests Test 05/12/19 13:41 05/12/19 20:31 05/13/19 04:15 05/13/19 07:45 Glucose (Fingerstick) 97 mg/dL (70-99) 90 mg/dL (70-99) 81 mg/dL (70-99) Sodium Level 141 mmol/L (136-145) Potassium Level 4.1 mmol/L (3.5-5.1) Chloride Level 99 mmol/L (98-107) Carbon Dioxide Level 31 mmol/L (21-32) Anion Gap 11 (6-14) Blood Urea Nitrogen 22 mg/dL (7-20) Creatinine 4.3 mg/dL (0.6-1.0) Estimated GFR (Cockcroft-Gault) 13.1 Glucose Level 90 mg/dL (70-99) Calcium Level 15.2 mg/dL (8.5-10.1) Results All relevant outside records, renal labs, imaging studies, telemetry/EKG's were reviewed. JASON POWER MD May 13, 2019 09:55
[2019-05-13] MEDS: ANTI-COAG MONITOR BY PHARMACY. MC PRN (10:53)
[2019-05-13] MEDS: BENZONATATE 100 MG CAPSULE. PO SCH ×2 (11:28→21:00)
--- NOTE | 2019-05-13 11:41 | NUR ---
SS following up with discharge planning. Clinical updates phoned and faxed to [facility], ; fax [phone]. SS will continue to follow for discharge planning.
--- NOTE | 2019-05-13 12:15 | PDOC ---
[employer] PROGRESS NOTE Chief Complaint Chief Complaint Hypercalcemia Monoclonal gammopathy Severe noncompliance with dialysis with secondary volume overload and electrolyte disturbance with hyperkalemia CHF Constipation Depression, Diabetes-Type II High Cholesterol Heart Disease Hypertension Renal Failure major depres. disorder w psychosis vit d deffic constipation dm neuop. right dialysis fistula History of Present Illness History of Present Illness Ms Ward is a 53yo F wheelchair bound SNF resident with PMHx AFib, coronary artery disease, congestive heart failure, hypertension, hyperlipidemia, constipation, anemia, depression, anxiety, schizophrenia, ESRD, diabetes, pacemaker who was admitted for worsening confusion and hypercalcemia. She has been refusing dialysis at her SNF. Found with calcium of 15.4 as well as hyperphosphatemia. Calcium 14.9 today. NPO for bone marrow biopsy. She is moaning, wet cough. No pain complaints Patient seen and examined in ICU Discussed with RN Patient is coughing short of breath wheezing very weak and cognitively unclear Appears quite ill Vitals/I&O Vitals/I&O: Vital Signs Date Time Temp Pulse Resp B/P (MAP) Pulse Ox O2 Delivery O2 Flow Rate FiO2 05/13/19 08:00 Room Air 05/13/19 07:00 98.3 65 22 147/53 (84) 95 98.3 05/12/19 19:50 2.0 I & O 05/12/19 05/12/19 05/13/19 15:00 23:00 07:00 Intake Total 30 ml Output Total 0 ml Balance 30 ml Physical Exam General: Alert, No acute distress Heart: Normal S1, Normal S2, Other Lungs: Wheezing (S3), Crackles, Other (S3 gallop) Abdomen: Normal bowel sounds, Soft, No tenderness, No hepatosplenomegaly, No masses Extremities: No clubbing, No cyanosis, Other (RT av fistula with good bruit and distal pulses) Skin: No rashes, No breakdown, No significant lesion Labs Labs: Laboratory Tests Test 05/12/19 13:41 05/12/19 20:31 05/13/19 04:15 05/13/19 07:45 Glucose (Fingerstick) 97 mg/dL (70-99) 90 mg/dL (70-99) 81 mg/dL (70-99) Sodium Level 141 mmol/L (136-145) Potassium Level 4.1 mmol/L (3.5-5.1) Chloride Level 99 mmol/L (98-107) Carbon Dioxide Level 31 mmol/L (21-32) Anion Gap 11 (6-14) Blood Urea Nitrogen 22 mg/dL (7-20) Creatinine 4.3 mg/dL (0.6-1.0) Estimated GFR (Cockcroft-Gault) 13.1 Glucose Level 90 mg/dL (70-99) Calcium Level 15.2 mg/dL (8.5-10.1) Review of Systems Review of Systems: Patient denies N/V and SOB Assessment and Plan Assessmemt and Plan Problems Medical Problems: (1) Altered mental status Status: Acute (2) CHF (congestive heart failure) Status: Acute (3) ESRD (end stage renal disease) on dialysis Status: Acute (4) Hypercalcemia Status: Acute Assessment: Hypercalcemia, CHF, CAD, HTN, ESRD, DM. Patient was seen and examined during dialysis treatment. Plan: 1. cardiac monitoring 2. monitor electrolytes 3. await further subspecialty input 4. continue dialysis treatment 5. Full code 6. DVT prophylaxis Comment Review of Relevant I have reviewed the following items sarahi (where applicable) has been applied. Medications: Current Medications Medications (Trade) Dose Ordered Sig/Sanchez Route PRN Reason Start Time Stop Time Status Last Admin Dose Admin Benzonatate (Tessalon Perle) 100 mg [id number] PO 05/13/19 12:00 05/13/19 11:28 Lorazepam (Ativan Inj) 1 mg PRN Q4HRS PRN IVP ANXIETY / AGITATION 05/13/19 11:30 05/13/19 11:31 SERGEI PALACIOS III DO May 13, 2019 12:15
[2019-05-13 13:20] LABS: ALPHA 1 0.5 g/dL (0.0-0.4); ALPHA 2 0.9 g/dL (0.4-1.0); BETA 2.1 g/dL (0.7-1.3); COMMENT IMMUNOFIX SERUM Note: (.); GAMMA 0.9 g/dL (0.4-1.8); IMMUNOGLOBULIN A 50 mg/dL (87-352); IMMUNOGLOBULIN G 941 mg/dL (700-1600); IMMUNOGLOBULIN M 10 mg/dL (26-217); PROTEIN TOTAL 7.3 g/dL (6.0-8.5); SPEP AG RATIO 0.7 (0.7-1.7)
[2019-05-13 15:00] VITALS: BP 113/61
[2019-05-13] MEDS: APIXABAN 5 MG TABLET. PO SCH ×2 (15:27→21:00)
[2019-05-13] MEDS: METOPROLOL TART IMMED RELEASE 25 MG TABLET. PO SCH ×2 (15:27→21:00)
[2019-05-13] MEDS: ASPIRIN ENTERIC COATED 81 MG TABLET.DR. PO SCH (15:28)
[2019-05-13] MEDS: amLODIPine BESYLATE 5 MG TABLET PO SCH (15:29)
[2019-05-13] MEDS: CALCITONIN,SALMON 400 UNIT/2 ML VIAL. SQ SCH ×2 (15:44→21:00)
[2019-05-13] MEDS ORDERED: DIALYSIS PATIENT. MC PRN ×2 (15:45)
[2019-05-13 16:09] LABS: KAPPA LAMBDA RATIO 690.81 (0.26-1.65); LAMBDA FREE 90.2 mg/L (5.7-26.3)
[2019-05-13 18:48] VITALS: BP 144/55
[2019-05-13] MEDS: FAMOTIDINE 20 MG TABLET. PO SCH (21:00)
[2019-05-13] MEDS: INSULIN GLARGINE SYRINGE. SQ SCH (21:00)
[2019-05-13 23:00] VITALS: BP 137/67
[2019-05-14 03:00] VITALS: BP 140/62
[2019-05-14 07:00] VITALS: BP 146/52
[2019-05-14] MEDS: INSULIN LISPRO 300 UNITS/3 ML VIAL. SQ SCH ×3 (08:00→17:00)
--- NOTE | 2019-05-14 08:44 | PDOC ---
PROGRESS NOTES Subjective Subjective HPI - f/u of Monoclonal gammopathy ROS - confused Objective Objective Vital Signs Date Time Temp Pulse Resp B/P (MAP) Pulse Ox O2 Delivery O2 Flow Rate FiO2 05/14/19 07:00 98.7 75 20 146/52 (83) 88 Room Air 98.7 05/12/19 19:50 2.0 Intake and Output 05/14/19 06:59 Intake Total 500 ml Output Total 0 ml Balance 500 ml Intake Oral 500 ml Output Urine Total 0 ml Stool Total 0 ml # Voids 1 Physical Exam General: Alert, No acute distress Neck: No JVD Assessment Assessment Problems Medical Problems: (1) Altered mental status Status: Acute (2) CHF (congestive heart failure) Status: Acute (3) ESRD (end stage renal disease) on dialysis Status: Acute (4) Hypercalcemia Status: Acute IMPRESSION AND PLAN: 1. Monoclonal gammopathy. M-spike noted on serum protein electrophoresis at 0.6 g/dL on 05/05/2019. I will obtain immunofixation studies, serum free light chains and immunoglobulin levels. Skeletal survey reveals no lytic lesions. Bone marrow biopsy would be essential to evaluate for possible multiple myeloma versus monoclonal gammopathy of undetermined significance. Serum TIANA reveals the presence of monoclonal free kappa light chains. Free kappa light chains 50061 mg/dl, K/L ratio 690.81. 2. Hypercalcemia. She received calcitonin. Appreciate Nephrology consultation. I would continue management of hypercalcemia per Nephrology recommendations. She is on calcitonin 400 units subcutaneous b.i.d. Elevated PTH. Ca still 15.2. Management per nephrology. 3. Anemia due to end-stage renal disease. Continue to monitor and transfuse if needed. Comment Review of Relevant I have reviewed the following items sarahi (where applicable) has been applied. Labs Laboratory Tests Test 05/12/19 09:05 05/12/19 13:41 05/12/19 20:31 05/13/19 04:15 White Blood Count 7.9 x10^3/uL (4.0-11.0) Red Blood Count 2.93 x10^6/uL (3.50-5.40) Hemoglobin 7.5 g/dL (12.0-15.5) Hematocrit 24.0 % (36.0-47.0) Mean Corpuscular Volume 82 fL (79-100) Mean Corpuscular Hemoglobin 25 pg (25-35) Mean Corpuscular Hemoglobin Concent 31 g/dL (31-37) Red Cell Distribution Width 20.5 % (11.5-14.5) Platelet Count 235 x10^3/uL (140-400) Neutrophils (%) (Auto) 77 % (31-73) Lymphocytes (%) (Auto) 11 % (24-48) Monocytes (%) (Auto) 12 % (0-9) Eosinophils (%) (Auto) 0 % (0-3) Basophils (%) (Auto) 0 % (0-3) Neutrophils # (Auto) 6.1 x10^3/uL (1.8-7.7) Lymphocytes # (Auto) 0.8 x10^3/uL (1.0-4.8) Monocytes # (Auto) 0.9 x10^3/uL (0.0-1.1) Eosinophils # (Auto) 0.0 x10^3/uL (0.0-0.7) Basophils # (Auto) 0.0 x10^3/uL (0.0-0.2) Prothrombin Time 22.9 SEC (11.7-14.0) Prothromb Time International Ratio 2.1 (0.8-1.1) Activated Partial Thromboplast Time 35 SEC (24-38) Sodium Level 140 mmol/L (136-145) 141 mmol/L (136-145) Potassium Level 5.5 mmol/L (3.5-5.1) 4.1 mmol/L (3.5-5.1) Chloride Level 98 mmol/L (98-107) 99 mmol/L (98-107) Carbon Dioxide Level 29 mmol/L (21-32) 31 mmol/L (21-32) Anion Gap 13 (6-14) 11 (6-14) Blood Urea Nitrogen 34 mg/dL (7-20) 22 mg/dL (7-20) Creatinine 6.9 mg/dL (0.6-1.0) 4.3 mg/dL (0.6-1.0) Estimated GFR (Cockcroft-Gault) 7.6 13.1 Glucose Level 94 mg/dL (70-99) 90 mg/dL (70-99) Calcium Level 14.9 mg/dL (8.5-10.1) 15.2 mg/dL (8.5-10.1) Phosphorus Level 8.3 mg/dL (2.6-4.7) Albumin 2.6 g/dL (3.4-5.0) Glucose (Fingerstick) 97 mg/dL (70-99) 90 mg/dL (70-99) Test 05/13/19 07:45 05/13/19 17:03 05/13/19 20:55 05/14/19 08:14 Glucose (Fingerstick) 81 mg/dL (70-99) 77 mg/dL (70-99) 78 mg/dL (70-99) 103 mg/dL (70-99) Laboratory Tests Test 05/13/19 17:03 05/13/19 20:55 05/14/19 08:14 Glucose (Fingerstick) 77 mg/dL (70-99) 78 mg/dL (70-99) 103 mg/dL (70-99) Microbiology 05/10/19 Blood Culture - Preliminary, Resulted NO GROWTH AFTER 3 DAYS Medications Current Medications Calcitonin Kimberly (Miacalcin) 400 unit 1X SQ Last administered on 05/10/19at 19:56; Start 05/10/19 at 19:45; Stop 05/11/19 at 13:21; Status DC Dextrose (Dextrose 50%-Water Syringe) 25 gm 1X ONCE IV Last administered on 05/10/19at 20:51; Start 05/10/19 at 21:00; Stop 05/10/19 at 21:01; Status DC Insulin Human Regular (HumuLIN R VIAL) 10 unit 1X ONCE IV Last administered on 05/10/19at 20:55; Start 05/10/19 at 21:00; Stop 05/10/19 at 21:01; Status DC Sodium Chloride 1,000 ml @ 80 mls/hr [id number] IV Last administered on 05/10/19 22:07; Start 05/10/19 at 21:00; Stop 05/13/19 at 00:34; Status DC Ondansetron HCl (Zofran) 4 mg PRN Q6HRS PRN IVP NAUSEA/VOMITING 1ST CHOICE Last administered on 05/11/19at 07:32; Start 05/10/19 at 21:00 Acetaminophen (Tylenol) 500 mg PRN Q6HRS PRN PO MILD PAIN / TEMP; Start 05/10/19 at 21:00 Amlodipine Besylate (Norvasc) 5 mg DAILY PO Last administered on 05/13/19 15:29; Start 05/11/19 at 09:00 Apixaban (Eliquis) 5 mg BID PO Last administered on 05/13/19at 15:27; Start 05/10/19 at 21:00 Aspirin (Ecotrin) 81 mg DAILY PO Last administered on 05/13/19at 15:28; Start 05/11/19 at 09:00 Bisacodyl (Dulcolax Supp) 10 mg PRN DAILY PRN RC CONSTIPATION 3RD CHOICE; Start 05/10/19 at 21:00 Bisacodyl (Dulcolax Tab) 20 mg PRN BID PRN PO CONSTIPATION 2ND CHOICE; Start 05/10/19 at 21:00 Calcium Carbonate/ Glycine (Tums) 500 mg DAILY PO ; Start 05/11/19 at 09:00; Stop 05/10/19 at 21:03; Status DC Clonazepam (KlonoPIN) 0.5 mg TID PO Last administered on 05/13/19at 15:29; Start 05/10/19 at 21:00 Famotidine (Pepcid) 20 mg HS PO Last administered on 05/11/19at 21:16; Start 05/10/19 at 21:00 Ferrous Sulfate (Feosol) 325 mg BID PO Last administered on 05/11/19at 21:16; Start 05/10/19 at 21:00 Folic Acid (Folic Acid) 1 mg DAILY PO ; Start 05/11/19 at 09:00 Lactobacillus Rhamnosus (Culturelle) 1 cap BID PO Last administered on 05/11/19at 21:16; Start 05/10/19 at 21:00 Loperamide HCl (Imodium) 2 mg PRN Q4HRS PRN PO DIARRHEA; Start 05/10/19 at 21:00 Metoprolol Tartrate (Lopressor) 25 mg BID PO Last administered on 05/13/19at 15:27; Start 05/10/19 at 21:00 Nitroglycerin (Nitrostat) 0.4 mg PRN Q5MIN PRN SL CHEST PAIN; Start 05/10/19 at 21:00 Ranolazine (Ranexa) 500 mg Q12HR PO Last administered on 05/11/19at 21:16; Sta rt 05/10/19 at 21:00 Non-Formulary Medication (Calcium Acetate (Phoslyra)) 15 ml TIDAC PO ; Start 05/11/19 at 07:30; Status UNV Vitamin D (Vitamin D3) 1,000 unit DAILY PO ; Start 05/11/19 at 09:00 Artificial Tears (Artificial Tears) 1 drop PRN Q8HRS PRN OU DRY EYE; Start 05/10/19 at 21:15 Citalopram Hydrobromide (CeleXA) 30 mg DAILY PO ; Start 05/11/19 at 09:00 Insulin Glargine (Lantus Syringe) 15 unit QHS SQ ; Start 05/10/19 at 22:00 Polyethylene Glycol (miraLAX PACKET) 17 gm PRN DAILY PRN PO CONSTIPATION 1ST CHOICE; Start 05/10/19 at 21:00 Calcitonin Kimberly (Miacalcin) 400 unit BID SQ Last administered on 05/13/19at 15:44; Start 05/11/19 at 09:00 Sodium Polystyrene Sulfonate (Kayexalate) 15 gm 1X ONCE PO ; Start 05/10/19 at 21:30; Stop 05/10/19 at 21:31; Status DC Info (Anti-Coagulation Monitoring By Pharmacy) 1 each PRN DAILY PRN MC SEE COMMENTS Last administered on 05/13/19at 10:53; Start 05/10/19 at 21:30 Insulin Human Lispro (HumaLOG) 0-9 UNITS TIDWMEALS SQ ; Start 05/11/19 at 08:00 Dextrose (Dextrose 50%-Water Syringe) 12.5 gm PRN Q15MIN PRN IV SEE COMMENTS Last administered on 05/10/19at 22:55; Start 05/10/19 at 21:30 Darbepoetin Donnell (ARANESP for DIALYSIS PTS) 60 mcg WEEKLYHS SQ Last administered on 05/11/19at 22:18; Start 05/11/19 at 21:00 Sodium Chloride 1,000 ml @ 1,000 mls/hr Q1H PRN IV hypotension; Start 05/11/19 at 14:42; Stop 05/11/19 at 20:41; Status DC Diphenhydramine HCl (Benadryl) 25 mg 1X PRN PRN IV ITCHING; Start 05/11/19 at 14:45; Stop 05/12/19 at 14:45; Status DC Diphenhydramine HCl (Benadryl) 25 mg 1X PRN PRN IV ITCHING; Start 05/11/19 at 14:45; Stop 05/12/19 at 14:45; Status DC Labetalol HCl (Normodyne Iv Push) 10 mg PRN Q1HR PRN IVP SBP > 180; Start 05/11/19 at 14:45; Stop 05/12/19 at 14:45; Status DC Sodium Chloride 1,000 ml @ 400 mls/hr Q2H30M PRN IV PATENCY; Start 05/11/19 at 14:42; Stop 05/12/19 at 02:41; Status DC Info (PHARMACY MONITORING -- do not chart) 1 each PRN DAILY PRN MC SEE COMMENTS; Start 05/11/19 at 14:45; Status Cancel Midazolam HCl (Versed) 2 mg STK-MED ONCE .ROUTE ; Start 05/12/19 at 11:17; Stop 05/12/19 at 11:18; Status DC Fentanyl Citrate (Fentanyl 2ml Vial) 100 mcg STK-MED ONCE .ROUTE ; Start 05/12/19 at 11:18; Stop 05/12/19 at 11:18; Status DC Lidocaine HCl (Buffered Lidocaine 1%) 3 ml STK-MED ONCE .ROUTE ; Start 05/12/19 at 11:18; Stop 05/12/19 at 11:19; Status DC Midazolam HCl (Versed) 2 mg STK-MED ONCE .ROUTE ; Start 05/12/19 at 11:32; Stop 05/12/19 at 11:32; Status DC Fentanyl Citrate (Fentanyl 2ml Vial) 100 mcg STK-MED ONCE .ROUTE ; Start 05/12/19 at 11:32; Stop 05/12/19 at 11:32; Status DC Lidocaine HCl (Buffered Lidocaine 1%) 8 ml 1X ONCE IJ Last administered on 05/12/19at 12:00; Start 05/12/19 at 12:00; Stop 05/12/19 at 12:01; Status DC Midazolam HCl (Versed) 1 mg 1X ONCE IV Last administered on 05/12/19at 12:00; Start 05/12/19 at 12:00; Stop 05/12/19 at 12:01; Status DC Fentanyl Citrate (Fentanyl 2ml Vial) 75 mcg 1X ONCE IV Last administered on 05/12/19at 12:00; Start 05/12/19 at 12:00; Stop 05/12/19 at 12:01; Status DC Sodium Chloride 1,000 ml @ 1,000 mls/hr Q1H PRN IV hypotension; Start 05/12/19 at 14:38; Stop 05/12/19 at 20:37; Status DC Albumin Human 200 ml @ 200 mls/hr 1X PRN PRN IV Hypotension; Start 05/12/19 at 14:45; Stop 05/12/19 at 20:44; Status DC Acetaminophen (Tylenol) 500 mg 1X PRN PRN PO MILD PAIN / TEMP; Start 05/12/19 at 14:45; Stop 05/13/19 at 14:44; Status DC Diphenhydramine HCl (Benadryl) 25 mg 1X PRN PRN IV ITCHING; Start 05/12/19 at 14:45; Stop 05/13/19 at 14:44; Status DC Diphenhydramine HCl (Benadryl) 25 mg 1X PRN PRN IV ITCHING; Start 05/12/19 at 14:45; Stop 05/13/19 at 14:44; Status DC Sodium Chloride 1,000 ml @ 400 mls/hr Q2H30M PRN IV PATENCY; Start 05/12/19 at 14:38; Stop 05/13/19 at 02:37; Status DC Info (PHARMACY MONITORING -- do not chart) 1 each PRN DAILY PRN MC SEE COMMENTS; Start 05/12/19 at 14:45 Benzonatate (Tessalon Perle) 100 mg [id number] PO Last administered on 05/13/19at 11:28; Start 05/13/19 at 12:00 Lorazepam (Ativan Inj) 1 mg PRN Q4HRS PRN IVP ANXIETY / AGITATION Last administered on 05/13/19at 11:31; Start 05/13/19 at 11:30 Diphenhydramine HCl (Benadryl) 25 mg 1X PRN PRN IV ITCHING; Start 05/13/19 at 08:00; Stop 05/14/19 at 07:59; Status DC Sodium Chloride 1,000 ml @ 400 mls/hr Q2H30M PRN IV PATENCY; Start 05/13/19 at 08:00; Stop 05/13/19 at 19:59; Status DC Info (PHARMACY MONITORING -- do not chart) 1 each PRN DAILY PRN MC SEE COMMENTS; Start 05/13/19 at 15:45; Status UNV Info (PHARMACY MONITORING -- do not chart) 1 each PRN DAILY PRN MC SEE COMMENTS; Start 05/13/19 at 15:45 Active Scripts Active Culturelle (Lactobacillus Rhamnosus Gg) 1 Each Cap.sprink 1 Cap PO BID 30 Days Reported Vitamin D (Cholecalciferol (Vitamin D3)) 1,000 Unit Capsule 1 Cap PO DAILY Tums (Calcium Carbonate) 200 Mg Tab.chew 4 Tab PO DAILY Ranexa (Ranolazine) 500 Mg Tab.er.12h 1 Tab PO Q12HR Phoslyra (Calcium Acetate) 667 Mg/5 Ml Solution 15 Ml PO TIDAC NITROGLYCERIN SubLingual (Nitroglycerin) 0.4 Mg Tab.subl 0.4 Mg SL PRN Q5MIN PRN Miralax (Polyethylene Glycol 3350) 17 Gm Powd.pack 1 Packet PO BID Metoprolol Tartrate 25 Mg Tablet 1 Tab PO BID Lexapro (Escitalopram Oxalate) 5 Mg Tablet 15 Mg PO DAILY Levemir (Insulin Detemir) 100 Unit/1 Ml Vial 15 Unit SQ QHS Klonopin (Clonazepam) 0.5 Mg Tablet 1 Tab PO TID Imodium A-D (Loperamide HCl) 2 Mg Capsule 2 Mg PO PRN Q4HRS PRN Folic Acid 1 Mg Tablet 1 Tab PO DAILY Ferrous Sulfate 325 Mg Tablet 1 Tab PO BID Pepcid (Famotidine) 20 Mg Tablet 20 Mg PO HS Dulcolax (Bisacodyl) 5 Mg Tablet. 4 Tab PO PRN BID PRN Bisacodyl 10 Mg Supp.rect 10 Mg RC PRN DAILY PRN Aspir-Low (Aspirin) 81 Mg Tablet. 1 Tab PO DAILY Artificial Tears (Dextran 70/Hypromellose) 1 Each Droperette 1 Each OP PRN Q8HRS PRN Eliquis (Apixaban) 5 Mg Tablet 5 Mg PO BID Amlodipine Besylate 5 Mg Tablet 5 Mg PO DAILY Vitals/I & O Vital Sign - Last 24 Hours 05/13/19 05/13/19 05/13/19 10/16/19 15:00 15:27 15:29 18:48 Temp 97.1 97.5 97.1 97.5 Pulse 66 63 63 62 Resp 20 20 B/P (MAP) 113/61 (78) 113/61 113/61 144/55 (84) Pulse Ox 90 O2 Delivery Room Air Room Air 05/13/19 05/13/19 05/13/19 05/14/19 19:41 21:00 23:00 03:00 Temp 97.8 98.0 97.8 98.0 Pulse 62 62 70 Resp 18 B/P (MAP) 144/55 137/67 (90) 140/62 (88) Pulse Ox 90 94 O2 Delivery Room Air Room Air Room Air 05/14/19 07:00 Temp 98.7 98.7 Pulse 75 Resp 20 B/P (MAP) 146/52 (83) Pulse Ox 88 O2 Delivery Room Air Intake and Output 05/13/19 05/13/19 05/14/19 14:59 22:59 06:59 Intake Total 300 ml 200 ml Output Total 0 ml 0 ml Balance 0 ml 300 ml 200 ml ADÁN CASTELLANOS MD May 14, 2019 08:44
[2019-05-14] MEDS: LACTOBACILLUS RHAMNOSUS GG 1 CAPSULE. PO SCH ×2 (09:00→21:42)
[2019-05-14] MEDS: CHOLECALCIFEROL (VITAMIN D3) 1,000 UNIT TABLET PO SCH (09:25)
[2019-05-14] MEDS: CALCITONIN,SALMON 400 UNIT/2 ML VIAL. SQ SCH ×2 (09:25→21:42)
[2019-05-14] MEDS: RANOLAZINE 500 MG TAB.ER.12H PO SCH ×2 (09:26→21:42)
[2019-05-14] MEDS: amLODIPine BESYLATE 5 MG TABLET PO SCH (09:27)
[2019-05-14] MEDS: FERROUS SULFATE 325 MG TABLET. PO SCH ×2 (09:27→21:42)
[2019-05-14] MEDS: METOPROLOL TART IMMED RELEASE 25 MG TABLET. PO SCH ×2 (09:27→21:42)
[2019-05-14] MEDS: ASPIRIN ENTERIC COATED 81 MG TABLET.DR. PO SCH (09:27)
[2019-05-14] MEDS: clonazePAM 0.5 MG TABLET PO SCH ×3 (09:27→21:00)
[2019-05-14] MEDS: CITALOPRAM 10 MG TABLET. PO SCH (09:28)
[2019-05-14] MEDS: FOLIC ACID 1 MG TABLET. PO SCH (09:28)
[2019-05-14] MEDS: APIXABAN 5 MG TABLET. PO SCH ×2 (09:28→21:42)
[2019-05-14] MEDS: BENZONATATE 100 MG CAPSULE. PO SCH ×3 (09:28→21:42)
--- NOTE | 2019-05-14 09:37 | PDOC ---
SUBJECTIVE ROS Confused (since admission), OBJECTIVE Vital Signs Vital Signs Date Time Temp Pulse Resp B/P (MAP) Pulse Ox O2 Delivery O2 Flow Rate FiO2 05/14/19 09:27 90 05/14/19 07:00 98.7 20 146/52 (83) 88 Room Air 98.7 I & 0 Intake and Output 05/14/19 07:00 Intake Total 500 ml Output Total 0 ml Balance 500 ml Intake Oral 500 ml Output Urine Total 0 ml Stool Total 0 ml # Voids 1 PHYSICAL EXAM Physical Exam General: No acute distress HEENT: OM moist Neck Supple Lungs: Clear to auscultation, decreased at bases , Non labored, On Room air Heart: S1S2, RRR, no rub Abdomen: Normal bowel sounds, Soft, No tenderness, Extremities: No clubbing, No cyanosis or edema Right AVF with good bruit and distal pulses) Skin: No rashes, Neuro:some AMS, not sure if baseline No [place] DIAGNOSIS/ASSESSMENT Assessment & Plan ESRD - On HD MWF, at [email or web address] She was in patient at [facility] earlier this month and dced on 05/06 and had Dialysis Dialyzed 3 consecutive days due to hypercalcemia Hypercalcemia - On Calcitonin SPEP done 1-2 weeks back at [facility]- M Je "This monoclonal protein is observed in the beta region." K/L 75506/90.2 = 690 Hem/Onc on board, s/p BM Bx -awaiting results No Change with lower Ca bath - HDx 3 with Low Ca in Dialysate Suspect sec to MM - Oncology would like Renal to manage Hypercalcemia Pamidronate x1 today, further management after results of Bx are back Hyperkalemia- Chronic Mild elevation Labs pending DM- per primary Anemia- JOSHUA Hem/Onc consult r/o MM Discussed with Dr. Jeffrey and RN COMMENT/RELEVANT DATA Meds Current Medications Medications (Trade) Dose Ordered Sig/Sanchez Start Time Stop Time Status Last Admin Dose Admin Acetaminophen (Tylenol) 500 mg 1X PRN PRN 05/12/19 14:45 05/13/19 14:44 DC Albumin Human 200 ml @ 200 mls/hr 1X PRN PRN 05/12/19 14:45 05/12/19 20:44 DC Amlodipine Besylate (Norvasc) 5 mg DAILY 05/11/19 09:00 05/14/19 09:27 5 MG Apixaban (Eliquis) 5 mg BID 05/10/19 21:00 05/14/19 09:28 5 MG Artificial Tears (Artificial Tears) 1 drop PRN Q8HRS PRN 05/10/19 21:15 Aspirin (Ecotrin) 81 mg DAILY 05/11/19 09:00 05/14/19 09:27 81 MG Benzonatate (Tessalon Perle) 100 mg [id number] 05/13/19 12:00 05/14/19 09:28 100 MG Bisacodyl (Dulcolax Supp) 10 mg PRN DAILY PRN 05/10/19 21:00 Bisacodyl (Dulcolax Tab) 20 mg PRN BID PRN 05/10/19 21:00 Calcitonin Steele (Miacalcin) 400 unit BID 05/11/19 09:00 05/14/19 09:25 400 UNIT Calcium Carbonate/ Glycine (Tums) 500 mg DAILY 05/11/19 09:00 05/10/19 21:03 DC Citalopram Hydrobromide (CeleXA) 30 mg DAILY 05/11/19 09:00 05/14/19 09:28 30 MG Clonazepam (KlonoPIN) 0.5 mg TID 05/10/19 21:00 05/14/19 09:27 0.5 MG Darbepoetin Donnell (ARANESP for DIALYSIS PTS) 60 mcg WEEKLYHS 05/11/19 21:00 05/11/19 22:18 60 MCG Dextrose (Dextrose 50%-Water Syringe) 12.5 gm PRN Q15MIN PRN 05/10/19 21:30 05/10/19 22:55 25 GM Diphenhydramine HCl (Benadryl) 25 mg 1X PRN PRN 05/13/19 08:00 05/14/19 07:59 DC Famotidine (Pepcid) 20 mg HS 05/10/19 21:00 05/11/19 21:16 20 MG Fentanyl Citrate (Fentanyl 2ml Vial) 75 mcg 1X ONCE 05/12/19 12:00 05/12/19 12:01 DC 05/12/19 12:00 75 MCG Ferrous Sulfate (Feosol) 325 mg BID 05/10/19 21:00 05/14/19 09:27 325 MG Folic Acid (Folic Acid) 1 mg DAILY 05/11/19 09:00 05/14/19 09:28 1 MG Info (Anti-Coagulation Monitoring By Pharmacy) 1 each PRN DAILY PRN 05/10/19 21:30 05/13/19 10:53 1 EACH Info (PHARMACY MONITORING -- do not chart) 1 each PRN DAILY PRN 05/13/19 15:45 Insulin Glargine (Lantus Syringe) 15 unit QHS 05/10/19 22:00 Insulin Human Lispro (HumaLOG) 0-9 UNITS TIDWMEALS 05/11/19 08:00 Insulin Human Regular (HumuLIN R VIAL) 10 unit 1X ONCE 05/10/19 21:00 05/10/19 21:01 DC 05/10/19 20:55 10 UNIT Labetalol HCl (Normodyne Iv Push) 10 mg PRN Q1HR PRN 05/11/19 14:45 05/12/19 14:45 DC Lactobacillus Rhamnosus (Culturelle) 1 cap BID 05/10/19 21:00 05/11/19 21:16 1 CAP Lidocaine HCl (Buffered Lidocaine 1%) 8 ml 1X ONCE 05/12/19 12:00 05/12/19 12:01 DC 05/12/19 12:00 8 ML Loperamide HCl (Imodium) 2 mg PRN Q4HRS PRN 05/10/19 21:00 Lorazepam (Ativan Inj) 1 mg PRN Q4HRS PRN 05/13/19 11:30 05/13/19 11:31 1 MG Metoprolol Tartrate (Lopressor) 25 mg BID 05/10/19 21:00 05/14/19 09:27 25 MG Midazolam HCl (Versed) 1 mg 1X ONCE 05/12/19 12:00 05/12/19 12:01 DC 05/12/19 12:00 1 MG Nitroglycerin (Nitrostat) 0.4 mg PRN Q5MIN PRN 05/10/19 21:00 Non-Formulary Medication (Calcium Acetate (Phoslyra)) 15 ml TIDAC 05/11/19 07:30 UNV Ondansetron HCl (Zofran) 4 mg PRN Q6HRS PRN 05/10/19 21:00 05/11/19 07:32 4 MG Polyethylene Glycol (miraLAX PACKET) 17 gm PRN DAILY PRN 05/10/19 21:00 Ranolazine (Ranexa) 500 mg Q12HR 05/10/19 21:00 05/14/19 09:26 500 MG Sodium Polystyrene Sulfonate (Kayexalate) 15 gm 1X ONCE 05/10/19 21:30 05/10/19 21:31 DC Sodium Chloride 1,000 ml @ 400 mls/hr Q2H30M PRN 05/13/19 08:00 05/13/19 19:59 DC Vitamin D (Vitamin D3) 1,000 unit DAILY 05/11/19 09:00 05/14/19 09:25 1,000 UNIT Lab Laboratory Tests Test 05/13/19 17:03 05/13/19 20:55 05/14/19 08:14 Glucose (Fingerstick) 77 mg/dL (70-99) 78 mg/dL (70-99) 103 mg/dL (70-99) Results All relevant outside records, renal labs, imaging studies, telemetry/EKG's were reviewed. JASON POWER MD May 14, 2019 09:37
[2019-05-14] MEDS ORDERED: PAMIDRONATE 90 MG in IV NORMAL SALINE 250ML 250 ML IV ONE (10:00)
[2019-05-14 10:46] LABS: GFR 14.3; POTASSIUM 4.3 mmol/L (3.5-5.1)
[2019-05-14 10:55] LABS: CALCIUM 17.5 mg/dL (8.5-10.1)
[2019-05-14 11:00] VITALS: BP 128/64
[2019-05-14] MEDS: SEVELAMER CARBONATE 800 MG TABLET. PO SCH ×2 (12:20→17:00)
--- NOTE | 2019-05-14 12:33 | PDOC ---
[employer] PROGRESS NOTE Chief Complaint Chief Complaint Hypercalcemia Monoclonal gammopathy Severe noncompliance with dialysis with secondary volume overload and electrolyte disturbance with hyperkalemia CHF Constipation Depression, Diabetes-Type II High Cholesterol Heart Disease Hypertension Renal Failure major depres. disorder w psychosis vit d deffic constipation dm neuop. right dialysis fistula History of Present Illness History of Present Illness Ms Ward is a 53yo F wheelchair bound SNF resident with PMHx AFib, coronary artery disease, congestive heart failure, hypertension, hyperlipidemia, constipation, anemia, depression, anxiety, schizophrenia, ESRD, diabetes, pacemaker who was admitted for worsening confusion and hypercalcemia. She has been refusing dialysis at her SNF. Found with calcium of 15.4 as well as hyperphosphatemia. Calcium 14.9 today. NPO for bone marrow biopsy. She is moaning, wet cough. No pain complaints Patient seen and examined Discussed with RN Patient is coughing short of breath wheezing very weak and cognitively unclear Appears quite ill Vitals/I&O Vitals/I&O: Vital Signs Date Time Temp Pulse Resp B/P (MAP) Pulse Ox O2 Delivery O2 Flow Rate FiO2 05/14/19 11:00 99.0 80 20 128/64 (85) 100 Nasal Cannula 2.0 99.0 I & O 05/13/19 05/13/19 05/14/19 15:00 23:00 07:00 Intake Total 300 ml 200 ml Output Total 0 ml 0 ml Balance 0 ml 300 ml 200 ml Physical Exam General: Alert, Cooperative, No acute distress Heart: Normal S1, Normal S2, Other Lungs: Wheezing (S3), Crackles, Other (S3 gallop) Abdomen: Normal bowel sounds, Soft, No tenderness, No hepatosplenomegaly, No masses Extremities: No clubbing, No cyanosis, Other (RT av fistula with good bruit and distal pulses) Skin: No rashes, No breakdown, No significant lesion Labs Labs: Laboratory Tests Test 05/13/19 17:03 05/13/19 20:55 05/14/19 08:14 05/14/19 10:25 Glucose (Fingerstick) 77 mg/dL (70-99) 78 mg/dL (70-99) 103 mg/dL (70-99) Sodium Level 143 mmol/L (136-145) Potassium Level 4.3 mmol/L (3.5-5.1) Chloride Level 102 mmol/L (98-107) Carbon Dioxide Level 30 mmol/L (21-32) Anion Gap 11 (6-14) Blood Urea Nitrogen 33 mg/dL (7-20) Creatinine 4.0 mg/dL (0.6-1.0) Estimated GFR (Cockcroft-Gault) 14.3 Glucose Level 104 mg/dL (70-99) Calcium Level 17.5 mg/dL (8.5-10.1) Test 05/14/19 12:02 Glucose (Fingerstick) 104 mg/dL (70-99) Review of Systems Review of Systems: Patient denies Blurry vision and denies N/V Assessment and Plan Assessmemt and Plan Problems Medical Problems: (1) Altered mental status Status: Acute (2) CHF (congestive heart failure) Status: Acute (3) ESRD (end stage renal disease) on dialysis Status: Acute (4) Hypercalcemia Status: Acute Assessment: AMS, CHF. ESRD, Hypercalcemia, Hyperphosphatemia Plan: 1. Nephrology work up for hypercalcemia 2. Cardiac monitoring 3. HD M/W/F 4. Full code 5. DVT prophylaxis Comment Review of Relevant I have reviewed the following items sarahi (where applicable) has been applied. Medications: Current Medications Medications (Trade) Dose Ordered Sig/Sanchez Route PRN Reason Start Time Stop Time Status Last Admin Dose Admin Pamidronate Disodium 90 mg/ Sodium Chloride 250 ml @ 50 mls/hr 1X ONCE IV 05/14/19 10:00 05/14/19 14:59 05/14/19 12:20 Sevelamer Carbonate (Renvela) 800 mg TIDWMEALS PO 05/14/19 12:00 05/14/19 12:20 SERGEI PALACIOS III DO May 14, 2019 12:33
[2019-05-14] MEDS: ANTI-COAG MONITOR BY PHARMACY. MC PRN (13:15)
[2019-05-14] MEDS ORDERED: DEXAMETHASONE 4 MG TABLET PO SCH (14:45)
[2019-05-14 15:00] VITALS: BP 111/50
--- NOTE | 2019-05-14 15:00 | PDOC ---
Provider Note Provider Note ADDENDUM: I discussed the bone marrow biopsy with the pathologist who noted 80% plasma cells in the bone marrow consistent with multiple myeloma. I called and discussed the case in detail with the patient's sister Dajuan Ward. I discussed the options of hospice versus palliative chemotherapy. She wants to have a meeting with the rest of the family before she makes a decision. I discussed with Dr. Espinosa who has started the patient on pamidronate. I will start her on Decadron 40 mg daily for 4 days which would help decrease the tumor burden and which will also help with improving hypercalcemia while the patient's family is in the process of making a decision about her future treatments. ADÁN CASTELLANOS MD May 14, 2019 15:00
[2019-05-14 19:00] VITALS: BP 114/60
[2019-05-14] MEDS ORDERED: guaiFENesin DM 200MG/20MG 10 ML SYRUP PO PRN (19:45)
[2019-05-14] MEDS: INSULIN GLARGINE SYRINGE. SQ SCH (21:00)
[2019-05-14] MEDS: FAMOTIDINE 20 MG TABLET. PO SCH (21:41)
[2019-05-14 23:09] VITALS: BP 107/59
[2019-05-15 03:00] VITALS: BP 92/46
[2019-05-15 05:13] LABS: BASO % 0 % (0-3); EOS % 0 % (0-3); HEMATOCRIT 25.1 % (36.0-47.0); HEMOGLOBIN 7.7 g/dL (12.0-15.5); LYMPH # 0.3 x10^3/uL (1.0-4.8); LYMPH % 3 % (24-48); MEAN CORPUSCULAR HEMOGLOBIN 25 pg (25-35); MEAN CORPUSCULAR HGB CONC 31 g/dL (31-37); MEAN CORPUSCULAR VOLUME 83 fL (79-100); MONO # 0.4 x10^3/uL (0.0-1.1); MONO % 4 % (0-9); NEUT % 93 % (31-73); PLATELET COUNT 305 x10^3/uL (140-400); RED BLOOD COUNT 3.01 x10^6/uL (3.50-5.40); RED CELL DISTRIBUTION WIDTH 20.6 % (11.5-14.5); WHITE BLOOD COUNT 9.7 x10^3/uL (4.0-11.0)
[2019-05-15 06:16] LABS: ALBUMIN 2.3 g/dL (3.4-5.0); ALBUMIN/GLOBULIN RATIO 0.4 (1.0-1.7); CREATININE 5.9 mg/dL (0.6-1.0); GFR 9.1; POTASSIUM 4.8 mmol/L (3.5-5.1); TOTAL BILIRUBIN 3.1 mg/dL (0.2-1.0); TOTAL PROTEIN 7.5 g/dL (6.4-8.2)
[2019-05-15 06:38] LABS: CALCIUM 17.2 mg/dL (8.5-10.1)
[2019-05-15 07:00] VITALS: BP 77/46
[2019-05-15 07:52] LABS: % BANDS 3 % (0-9); % LYMPHS 9 % (24-48); % MONOS 3 % (0-10); % SEGS 85 % (35-66); NUCLEATED RBC 27; PLT ESTIMATE ADEQUATE (ADEQUATE)
[2019-05-15 07:53] LABS: ANISOCYTOSIS PRESENT; POLYCHROMASIA PRESENT; TARGET CELLS PRESENT
--- NOTE | 2019-05-15 12:43 | PDOC3 ---
Discharge Summary Visit Information Date of Admission: May 10, 2019 Date of Discharge: May 15, 2019 Final Diagnosis Hypercalcemia w. metabolic encephalopathy Monoclonal gammopathy Marked noncompliance with dialysis with secondary volume overload and electrolyte disturbance with hyperkalemia CHF, acute on chronic diastolic Constipation Depression, Diabetes-Type II High Cholesterol Heart Disease Hypertension Renal Failure major depres. disorder w psychosis vit d deffic constipation dm neuop. right dialysis fistula Problems Medical Problems: (1) Altered mental status Status: Acute (2) CHF (congestive heart failure) Status: Acute (3) ESRD (end stage renal disease) on dialysis Status: Acute (4) Hypercalcemia Status: Acute Brief Hospital Course Allergies Allergies Coded Allergies Type Severity Reaction Last Updated Verified Milk Containing Products Allergy Intermediate 11/02/15 Yes Penicillins Allergy Intermediate 11/02/15 Yes haloperidol Allergy Intermediate 04/28/19 Yes Vital Signs Vital Signs Date Time Temp Pulse Resp B/P (MAP) Pulse Ox O2 Delivery O2 Flow Rate FiO2 05/15/19 07:00 96.6 63 20 77/46 (56) 94 Nasal Cannula 3.0 96.6 Lab Results Laboratory Tests Test 05/13/19 17:03 05/13/19 20:55 05/14/19 08:14 05/14/19 10:25 Glucose (Fingerstick) 77 mg/dL (70-99) 78 mg/dL (70-99) 103 mg/dL (70-99) Sodium Level 143 mmol/L (136-145) Potassium Level 4.3 mmol/L (3.5-5.1) Chloride Level 102 mmol/L (98-107) Carbon Dioxide Level 30 mmol/L (21-32) Anion Gap 11 (6-14) Blood Urea Nitrogen 33 mg/dL (7-20) Creatinine 4.0 mg/dL (0.6-1.0) Estimated GFR (Cockcroft-Gault) 14.3 Glucose Level 104 mg/dL (70-99) Calcium Level 17.5 mg/dL (8.5-10.1) Test 05/14/19 12:02 05/14/19 20:56 05/15/19 04:30 05/15/19 06:54 Glucose (Fingerstick) 104 mg/dL (70-99) 127 mg/dL (70-99) 152 mg/dL (70-99) White Blood Count 9.7 x10^3/uL (4.0-11.0) Red Blood Count 3.01 x10^6/uL (3.50-5.40) Hemoglobin 7.7 g/dL (12.0-15.5) Hematocrit 25.1 % (36.0-47.0) Mean Corpuscular Volume 83 fL (79-100) Mean Corpuscular Hemoglobin 25 pg (25-35) Mean Corpuscular Hemoglobin Concent 31 g/dL (31-37) Red Cell Distribution Width 20.6 % (11.5-14.5) Platelet Count 305 x10^3/uL (140-400) Neutrophils (%) (Auto) 93 % (31-73) Lymphocytes (%) (Auto) 3 % (24-48) Monocytes (%) (Auto) 4 % (0-9) Eosinophils (%) (Auto) 0 % (0-3) Basophils (%) (Auto) 0 % (0-3) Neutrophils # (Auto) 9.0 x10^3/uL (1.8-7.7) Lymphocytes # (Auto) 0.3 x10^3/uL (1.0-4.8) Monocytes # (Auto) 0.4 x10^3/uL (0.0-1.1) Eosinophils # (Auto) 0.0 x10^3/uL (0.0-0.7) Basophils # (Auto) 0.0 x10^3/uL (0.0-0.2) Segmented Neutrophils % 85 % (35-66) Band Neutrophils % 3 % (0-9) Lymphocytes % 9 % (24-48) Monocytes % 3 % (0-10) Nucleated Red Blood Cells 27 Platelet Estimate Adequate (ADEQUATE) Polychromasia Present Anisocytosis Present Macrocytosis Present Target Cells Present Sodium Level 145 mmol/L (136-145) Potassium Level 4.8 mmol/L (3.5-5.1) Chloride Level 104 mmol/L (98-107) Carbon Dioxide Level 27 mmol/L (21-32) Anion Gap 14 (6-14) Blood Urea Nitrogen 59 mg/dL (7-20) Creatinine 5.9 mg/dL (0.6-1.0) Estimated GFR (Cockcroft-Gault) 9.1 BUN/Creatinine Ratio 10 (6-20) Glucose Level 163 mg/dL (70-99) Calcium Level 17.2 mg/dL (8.5-10.1) Phosphorus Level 8.3 mg/dL (2.6-4.7) Total Bilirubin 3.1 mg/dL (0.2-1.0) Aspartate Amino Transf (AST/SGOT) 135 U/L (15-37) Alanine Aminotransferase (ALT/SGPT) 70 U/L (14-59) Alkaline Phosphatase 108 U/L (46-116) Total Protein 7.5 g/dL (6.4-8.2) Albumin 2.3 g/dL (3.4-5.0) Albumin/Globulin Ratio 0.4 (1.0-1.7) Laboratory Tests Test 05/14/19 20:56 05/15/19 04:30 05/15/19 06:54 Glucose (Fingerstick) 127 mg/dL (70-99) 152 mg/dL (70-99) White Blood Count 9.7 x10^3/uL (4.0-11.0) Red Blood Count 3.01 x10^6/uL (3.50-5.40) Hemoglobin 7.7 g/dL (12.0-15.5) Hematocrit 25.1 % (36.0-47.0) Mean Corpuscular Volume 83 fL (79-100) Mean Corpuscular Hemoglobin 25 pg (25-35) Mean Corpuscular Hemoglobin Concent 31 g/dL (31-37) Red Cell Distribution Width 20.6 % (11.5-14.5) Platelet Count 305 x10^3/uL (140-400) Neutrophils (%) (Auto) 93 % (31-73) Lymphocytes (%) (Auto) 3 % (24-48) Monocytes (%) (Auto) 4 % (0-9) Eosinophils (%) (Auto) 0 % (0-3) Basophils (%) (Auto) 0 % (0-3) Neutrophils # (Auto) 9.0 x10^3/uL (1.8-7.7) Lymphocytes # (Auto) 0.3 x10^3/uL (1.0-4.8) Monocytes # (Auto) 0.4 x10^3/uL (0.0-1.1) Eosinophils # (Auto) 0.0 x10^3/uL (0.0-0.7) Basophils # (Auto) 0.0 x10^3/uL (0.0-0.2) Segmented Neutrophils % 85 % (35-66) Band Neutrophils % 3 % (0-9) Lymphocytes % 9 % (24-48) Monocytes % 3 % (0-10) Nucleated Red Blood Cells 27 Platelet Estimate Adequate (ADEQUATE) Polychromasia Present Anisocytosis Present Macrocytosis Present Target Cells Present Sodium Level 145 mmol/L (136-145) Potassium Level 4.8 mmol/L (3.5-5.1) Chloride Level 104 mmol/L (98-107) Carbon Dioxide Level 27 mmol/L (21-32) Anion Gap 14 (6-14) Blood Urea Nitrogen 59 mg/dL (7-20) Creatinine 5.9 mg/dL (0.6-1.0) Estimated GFR (Cockcroft-Gault) 9.1 BUN/Creatinine Ratio 10 (6-20) Glucose Level 163 mg/dL (70-99) Calcium Level 17.2 mg/dL (8.5-10.1) Phosphorus Level 8.3 mg/dL (2.6-4.7) Total Bilirubin 3.1 mg/dL (0.2-1.0) Aspartate Amino Transf (AST/SGOT) 135 U/L (15-37) Alanine Aminotransferase (ALT/SGPT) 70 U/L (14-59) Alkaline Phosphatase 108 U/L (46-116) Total Protein 7.5 g/dL (6.4-8.2) Albumin 2.3 g/dL (3.4-5.0) Albumin/Globulin Ratio 0.4 (1.0-1.7) Brief Hospital Course Ms Ward is a 53yo F wheelchair bound SNF resident with PMHx AFib, coronary scott ry disease, congestive heart failure, hypertension, hyperlipidemia, constipation, anemia, depression, anxiety, schizophrenia, ESRD, diabetes, pacemaker who was admitted for worsening confusion and hypercalcemia. She has been refusing dialysis at her SNF. Found with calcium of 15.4 as well as hyperphosphatemia. calcium up cardiac arrest on 05/15, CPR, PEA arrest, unable to return pulse, Discharge Information Condition at Discharge: / Scheduled Amlodipine Besylate (Amlodipine Besylate) 5 Mg Tablet, 5 MG PO DAILY for HTN, (Reported) Entered as Reported by: CHAPIS FERNANDEZ on 04/29/19506 Last Action: Continued on 05/10/192050 by JAYDEN RODAS Apixaban (Eliquis) 5 Mg Tablet, 5 MG PO BID for Antiplatlet, (Reported) Entered as Reported by: CHAPIS FERNANDEZ on 04/29/19506 Last Action: Continued on 05/10/192050 by JAYDEN RODAS Aspirin (Aspir-Low) 81 Mg Tablet.dr, 1 TAB PO DAILY for Blood thinner, #30 Ref 3 (Reported) Entered as Reported by: CHAPIS FERNANDEZ on 04/29/19506 Last Action: Continued on 05/10/192050 by JAYDEN RODAS Calcium Acetate (Phoslyra) 667 Mg/5 Ml Solution, 15 ML PO TIDAC for ESRD, (Reported) Entered as Reported by: CHAPIS FERNANDEZ on 04/29/19525 Last Action: Converted on 05/10/192050 by JAYDEN RODAS Calcium Carbonate (Tums) 200 Mg Tab.chew, 4 TAB PO DAILY for ESRD, (Reported) Entered as Reported by: CHAPIS FERNANDEZ on 04/29/19525 Last Action: Continued on 05/10/192050 by JAYDEN RODAS Cholecalciferol (Vitamin D3) (Vitamin D) 1,000 Unit Capsule, 1 CAP PO DAILY for Supplement, #30 Ref 3 (Reported) Entered as Reported by: CHAPIS FERNANDEZ on 04/29/19525 Last Action: Converted on 05/10/192050 by JAYDEN RODAS Clonazepam (Klonopin) 0.5 Mg Tablet, 1 TAB PO TID for Anxiety, #90 (Reported) Entered as Reported by: CHAPIS FERNANDEZ on 04/29/19525 Last Action: Continued on 05/10/192050 by JAYDEN RODAS Escitalopram Oxalate (Lexapro) 5 Mg Tablet, 15 MG PO DAILY for Depression, (Reported) Entered as Reported by: CHAPIS FERNANDEZ on 04/29/19525 Last Action: Converted on 05/10/192050 by JAYDEN RODAS Famotidine (Pepcid) 20 Mg Tablet, 20 MG PO HS for Heartburn, (Reported) Entered as Reported by: CHAPIS FERNANDEZ on 04/29/19506 Last Action: Continued on 05/10/192050 by JAYDEN RODAS Ferrous Sulfate (Ferrous Sulfate) 325 Mg Tablet, 1 TAB PO BID for Anemia, #30 Ref 3 (Reported) Entered as Reported by: CHAPIS FERNANDEZ on 04/29/19506 Last Action: Continued on 05/10/192050 by JAYDEN RODAS Folic Acid (Folic Acid) 1 Mg Tablet, 1 TAB PO DAILY for Anemia, #90 Ref 1 (Reported) Entered as Reported by: CHAPIS FERNANDEZ on 04/29/19506 Last Action: Continued on 05/10/192050 by JAYDEN RODAS Insulin Detemir (Levemir) 100 Unit/1 Ml Vial, 15 UNIT SQ QHS for Diabetes, (Reported) Entered as Reported by: CHPAIS FERNANDEZ on 04/29/19525 Last Action: Converted on 05/10/192050 by JAYDEN RODAS Lactobacillus Rhamnosus Gg (Culturelle) 1 Each Cap.sprink, 1 CAP PO BID for SUPPLEMENT for 30 Days, #60 Prescribed by: REBECCA WEAVER MD on 05/06/191329 Last Action: Continued on 05/10/192050 by JAYDEN RODAS Metoprolol Tartrate (Metoprolol Tartrate) 25 Mg Tablet, 1 TAB PO BID for CHF, #180 Ref 1 (Reported) Entered as Reported by: CHAPIS FERNANDEZ on 04/29/19525 Last Action: Continued on 05/10/192050 by JAYDEN RODAS Polyethylene Glycol 3350 (Miralax) 17 Gm Powd.pack, 1 PACKET PO BID for Constipation, #30 Ref 3 (Reported) Entered as Reported by: CHAPIS FERNANDEZ on 04/29/19525 Last Action: HELD on 05/10/192050 by JAYDEN RODAS Ranolazine (Ranexa) 500 Mg Tab.er.12h, 1 TAB PO Q12HR for Angina, #60 Ref 3 (Reported) Entered as Reported by: CHAPIS FERNANDEZ on 04/29/19525 Last Action: Continued on 05/10/192050 by JAYDEN RODAS Scheduled PRN Bisacodyl (Bisacodyl) 10 Mg Supp.rect, 10 MG RC PRN DAILY PRN for CONSTIPATION, Ref 0 (Reported) Entered as Reported by: CHAPIS FERNANDEZ on 04/29/19506 Last Action: Continued on 05/10/192050 by JAYDEN RODAS Bisacodyl (Dulcolax) 5 Mg Tablet.dr, 4 TAB PO PRN BID PRN for CONSTIPATION, #4 (Reported) Entered as Reported by: CHAPIS FERNANDEZ on 04/29/19506 Last Action: Continued on 05/10/192050 by JAYDEN RODAS Dextran 70/Hypromellose (Artificial Tears) 1 Each Droperette, 1 EACH OP PRN Q8HRS PRN for Dry eyes, (Reported) Entered as Reported by: CHAPIS FERNANDEZ on 04/29/19506 Last Action: Converted on 05/10/192050 by JAYDEN RODAS Loperamide HCl (Imodium A-D) 2 Mg Capsule, 2 MG PO PRN Q4HRS PRN for DIARRHEA, (Reported) Entered as Reported by: CHAPIS FERNANDEZ on 04/29/19525 Last Action: Continued on 05/10/192050 by JAYDEN RODAS Nitroglycerin (NITROGLYCERIN SubLingual) 0.4 Mg Tab.subl, 0.4 MG SL PRN Q5MIN PRN for CHEST PAIN, (Reported) Entered as Reported by: CHAPIS FERNANDEZ on 04/29/19525 Last Action: Continued on 05/10/192050 by JAYDEN RODAS Patient Instructions Patient Instructions pronounced, I will do cert LILIAN VELAZQUEZ MD May 15, 2019 12:43
--- NOTE | 2019-05-15 18:28 | PDOC ---
Provider Note Provider Note CODE BLUE was activated at 0804. CPR was started by nurses. Patient did not have spontaneous pulse and respiration and had assisting bagging by respiratory therapist. Patient did not have IV line and IO was started and treated with ACLS protocol for cardiorespiratory arrest. Patient was intubated at 0814 and CPR was continued. After discussing with patient's family by the RN, CPR was stopped at 0824. Please see the CODE BLUE note for details of treatment. Intubation Procedure Intubation Procedure Intub Indication: Respiratory failure Consent: Unable to give consent due to emergent nature. Medications Used: see nursing note Procedure: Patient was intubated at 0814 with CPR in progress with glide scope and T tube of 7.5. The patient tolerated the procedure well. Complications: none. RIN LANDAVERDE MD May 15, 2019 18:28
--- NOTE | 2019-05-18 08:06 | PATHOLOGY ---
[facility] Accession Number: [id number] . 01 Material submitted: . PART A: bone - BONE MARROW BIOPSY PART B: bone - BONE MARROW ASPIRATE CLOT PART C: bone - BONE MARROW ASPIRATE SLIDES PART D: bone - PERIPHERAL BLOOD SLIDES . 01 Clinical history: . The patient is a 53-year-old female who was noted to have M-spike on serum protein electrophoresis. A bone marrow biopsy is performed. . . . 02 Diagnosis: Bone marrow aspirate, biopsy, cell clot and peripheral blood: - Peripheral blood with severe normocytic normochromic anemia, neutrophilia, lymphocytopenia, and monocytosis. - Moderately hypercellular bone marrow with extensive involvement by kappa light chain restricted plasma cells, consistent with plasma cell neoplasm, favor plasma cell myeloma. Please see comment. . (ELIZABETH:arlene; 05/14/2019) . . . Surgical Pathology Cancer Case Summary Protocol posting date: August 2018 . BONE MARROW: Final Integrated Diagnosis . Final Integrated Diagnosis . Mature B-cell neoplasms ___ Other mature B-cell neoplasm (specify): plasma cell . BONE MARROW: Histologic Assessment . Clinical . Clinical context ___ New diagnosis, untreated . Procedure (select all that apply) ___ Bone marrow aspirate clot ___ Bone marrow core biopsy ___ Bone marrow core touch preparation (imprint) . Peripheral Blood Complete Blood Cell Count White blood cell count: 7.9 x103 / 5L Neutrophils: 77% Monocytes: 12% Lymphocytes: 11% Eosinophils: 0% Basophils: 0% Blasts: 0% Hemoglobin: 7.5 g/dL Platelets: 235 x103 / 5L . Bone Marrow Morphology . Bone Marrow Cellularity: 60-70% . Bone Marrow Blasts: 1% . Dysplasia (report for myeloid malignancies) ___ Present (select all that apply) ___ Erythroid lineage . Special Stains . Iron stain (report for myeloid malignancies) ___ Positive for ring sideroblasts (specify percent of erythroid precursors): 1-3% . Reticulin/Trichrome stains (fibrosis grade) ___ MF-1 . Histologic Group ___ Mature B-cell neoplasm . Biomarker Studies ___ FISH for multiple myeloma is pending . (JMQ:arlene; 05/14/2019) . Co-review: Dr. Deborah Boles [facility] 05/15/2019 0707 Local . 02 Comment: Overall, the bone marrow biopsy shows extensive involvement by monoclonal kappa light restricted plasma cells, comprising approximately 80% of the total marrow cellularity by immunostains. These findings are consistent with plasma cell neoplasm, favor plasma cell myeloma. Correlation with clinical findings to include serum protein electrophoresis and image fixation studies as well as presence of end organ/tissue impairment (anemia, hypercalcemia, bone lesions and renal insufficiency) are recommended for a more definite classification of the plasma cell neoplasm including plasma cell myeloma as variants. . These findings were discussed with Dr. Castellanos on 05/14/2019 at 11:25 a.m. . Co-review: Dr. Deborah Boles . (JMQ:arlene; 05/14/2019) . 02 Electronically signed: . Xenia José MD, Pathologist NPI- [id number] . 01 Gross description: . A. The specimen is received in formalin, labeled "Ed, Marva, BM BX" and consists of a gautam-brown bone core measuring 0.8 cm in length and 0.2 cm in diameter which is entirely submitted in A1 following decalcification. . B. The specimen is received in formalin, labeled "Ed, Marva, BM ASP clot" and consists of blood clot measuring 2.0 x 1.1 x 0.2 cm which is entirely submitted in B1. (SDY; 05/12/2019) SYU/SYU 05/14/2019 1443 Local . 02 Microscopic: . Bone Marrow Procedure Note: A bone marrow biopsy is performed by Dr. Mireles at [facility]. Specimens are submitted for morphology, flow cytometry and cytogenetic studies. . CBC Data (05/12/19: WBC 7.9, RBC 2.93, hemoglobin 7.5, hematocrit 24.0, MCV 82, RDW 20.5%, platelet count 235,000. White blood cell count differential: 77% segs, 11% lymphs, and 12% monos. . Peripheral Blood: Red blood cells are normochromic with mild rouleaux formation. There is also mild anisopoikilocytosis noted with occasional microcytic forms, elliptocytes, occasional target cells and rare schistocytes. Occasional nucleated red blood cells are also noted. Few teardrop cells are seen. Platelets are normal in number and morphology. White blood cells are normal in number with predominance of mature submitted neutrophils. The neutrophils show occasional cytoplasmic vacuoles. There are no circulating blasts or myeloid left shift identified. The lymphocytes are mostly small and mature. . Bone Marrow Aspirate: Marrow spicules are adequate, and hypercellular. Occasional clusters of atypical plasma cells are noted. Megakaryocytes are present with normal morphology. Erythroid precursors show rare nuclear budding. Granulocytic precursors show full spectrum maturation. There is no increase in blasts identified. 500 cell count: 1% blasts, 1% promyelocytes, 10% meta- and myelocytes, 21% segs and bands, 18% erythroid precursors, 1% lymphocytes, and 47% plasma cells. The M:E ratio is 1:1 consistent with mild erythroid hyperplasia. . Iron stain: Moderately increased marrow iron stores with rare ringed sideroblasts. . Bone Marrow Biopsy and Cell Clot: The bone marrow core biopsy averages 60-70% in cellularity. Megakaryocytes average 2-5/hpf. The normal marrow hematopoiesis is extensively involved replaced by neoplastic plasma cells. Few residual hematopoietic elements are noted. The cell clot shows occasional clusters of hematopoietic elements and is similar to the core biopsy morphologically. To confirm flow cytometric findings and characterize the plasma cells in a tissue architectural context, immunohistochemical stains are performed with appropriate controls: . Blocks A1 and B1 CD138 - Highlights approximately 80% plasma cells [place] and lamda JO - [place] light chain restricted . Iron Stain: . (A1, B1) - Moderately increased marrow iron stores with rare ringed sideroblasts. . Reticulin stain (A1) - Mild reticulin fibrosis (MF-1) . (JMQ:arlene; 05/14/2019) . Flow Cytometry: Immunophenotypic studies by flow cytometry reveal monoclonal plasma cells (6.5%) that are kappa light chain restricted and show: CD19, CD38 bright, CD45 negative, CD56 negative, dim CD117, CD138 moderate and cKappa moderate. T cells (83% of lymphoid cells) show a CD4:CD8 ratio about 1.0 without overt phenotypic abnormality. Mature B cells are polyclonal. Blasts are not increased (please see separate flow cytometry from [employer], [id number]). (ELIZABETH; 05/17/19) . 02 Pathologist provided ICD-10: D64.9, D72.810, D72.821, D47.Z9 . 02 CPT . 296170, 449346, 299951, 998004, 477710, 814175, 867070, 525454, 573547, [id number], [id number], [id number] Specimen Comment: A courtesy copy of this report has been sent to Specimen Comment: [phone], . Specimen Comment: Report sent to / DR CASTELLANOS Performed at: 01 [facility] [address] [place] [address] [address], [place], [place] [id number] MD Rogelio Aguirre MD Phone: [phone] Performed at: 02 [facility] [address] [place] [id number] MD Xenia José MD Phone: [phone]
== END 2019-05-15 10:26 | disposition expired | DRG 840 ==
LOC: ER 18:00 → 1 WEST ICU 20:37 → 4 NORTH 05-11 16:11 → 2 NORTH 05-11 18:30
PROVIDERS: ADMIT Internal Medicine; ATTEND Internal Medicine
PROC: 5A1D70Z Performance of Urinary Filtration, Intermittent, Less than 6 Hours Per Day (ICD-10-PCS; 2019-05-11)
PROC: 5A1D70Z Performance of Urinary Filtration, Intermittent, Less than 6 Hours Per Day (ICD-10-PCS; 2019-05-12)
PROC: 5A12012 Performance of Cardiac Output, Single, Manual (ICD-10-PCS; principal; 2019-05-13)
PROC: 5A1D70Z Performance of Urinary Filtration, Intermittent, Less than 6 Hours Per Day (ICD-10-PCS; 2019-05-13)
PROC: 07DR3ZX Extraction of Iliac Bone Marrow, Percutaneous Approach, Diagnostic (ICD-10-PCS; 2019-05-13)
DX: C90.00 Multiple myeloma not having achieved remission (principal); N18.6 End stage renal disease; G93.41 Metabolic encephalopathy; I50.33 Acute on chronic diastolic (congestive) heart failure; I13.2 Hypertensive heart and chronic kidney disease with heart failure and with stage 5 chronic kidney disease, or end stage renal disease; D47.2 Monoclonal gammopathy; E83.52 Hypercalcemia; D63.1 Anemia in chronic kidney disease; E11.22 Type 2 diabetes mellitus with diabetic chronic kidney disease; E11.65 Type 2 diabetes mellitus with hyperglycemia; E66.9 Obesity, unspecified; E78.00 Pure hypercholesterolemia, unspecified; E78.5 Hyperlipidemia, unspecified; E83.39 Other disorders of phosphorus metabolism; E83.41 Hypermagnesemia; E87.5 Hyperkalemia; F20.9 Schizophrenia, unspecified; F32.9 Major depressive disorder, single episode, unspecified; F41.9 Anxiety disorder, unspecified; I48.91 Unspecified atrial fibrillation; K59.00 Constipation, unspecified; Z79.01 Long term (current) use of anticoagulants; Z79.4 Long term (current) use of insulin; Z79.82 Long term (current) use of aspirin; Z79.899 Other long term (current) drug therapy; Z82.49 Family history of ischemic heart disease and other diseases of the circulatory system; Z83.3 Family history of diabetes mellitus; Z91.15 Patient's noncompliance with renal dialysis; Z99.2 Dependence on renal dialysis; Z99.3 Dependence on wheelchair; Z88.0 Allergy status to penicillin; Z88.8 Allergy status to other drugs, medicaments and biological substances; Z91.011 Allergy to milk products; Z68.27 Body mass index [BMI] 27.0-27.9, adult
CPT/HCPCS: 36415; 38222; 70450; 71045; 77012; 77075; 80048; 80053; 80069; 82140; 82310; 82784; 82962; 83520; 83735; 83880; 83970; 84100; 84165; 84484; 85007; 85025; 85610; 85730; 86334; 87040; 88184; 88185; 88237; 88305; 88311; 88313; 88342; 88364; 88365; 93005; 96372; 96374; 96375; 99152; J0630; J0882; J1815; J2060; J2250; J2405; J2430; J3010; J7030; J7042; J7050; J8540; 97530; 99285-25; G0378